=== PATIENT | male | born 1985 | race Two or more races ===

== ENCOUNTER 2020-05-28 14:30 | Inpatient (IN) | payer OTHER, SELFPAY ==
[2020-05-28] VITALS (9 sets, daily range): BP systolic 80–131; BP diastolic 34–77; PULSE 8–103; RESP 17–30; TEMP 33.9–36; O2SAT 95–100; BMI 28.0
--- NOTE | ~2020-05-28 | XR_ITS ---
EXAMINATION: XR ABDOMEN KUB CLINICAL INDICATION: Abdominal distention COMPARISON: CT abdomen pelvis 05/28/2020 TECHNIQUE: AP view of the abdomen. FINDINGS: Enteric tube is looped in the stomach. A jugular line reaches the right atrium. Patchy atelectasis at the left lung base. Moderate stool is seen in the right colon with gaseous distention of the transverse colon, descending colon and sigmoid colon. Mild dilatation of distal small bowel loops is seen up to 4.2 cm. XR/XR KUB IMPRESSION: Findings suggestive of ileus. A partial small bowel obstruction would not be excluded on the basis of this study. Moderate stool is seen in the right colon.
--- NOTE | ~2020-05-28 | CT_ITS ---
EXAMINATION: CT ABDOMEN AND PELVIS WITHOUT CONTRAST CLINICAL INFORMATION: Elevated lipase. COMPARISON: None TECHNIQUE: Multidetector volumetric imaging was performed from the superior aspect of the liver through the pubic symphysis. Sagittal and coronal reformatted images were obtained on the technologist's workstation. This CT examination was performed using dose optimization techniques as appropriate, variously including the following: *Automated exposure control *Adjustment of mA and/or kV according to patient size (this includes techniques or standardized protocols for targeted exams where dose is matched to indication/reason for exam; i.e. extremities or head) *Use of iterative reconstruction technique DLP: 4.87+4.87+836.73 mGy-cm FINDINGS: There is breathing motion. There is artifact from imaging with the arms at the side. LUNG BASES: The visualized lung bases are unremarkable. LIVER, GALLBLADDER, AND BILIARY TREE: There is diffuse low attenuation of liver parenchyma. No focal liver lesion or intrahepatic bile duct dilatation. There are a couple of low attenuating and partially calcified gallstones in the gallbladder. No edema around the gallbladder or acute change of gallbladder wall. The fluid in the gallbladder is dense consistent with vicarious excretion of contrast. There is no bile duct dilatation. PANCREAS: Unremarkable. SPLEEN: Unremarkable. ADRENAL GLANDS: Unremarkable. KIDNEYS AND URETERS: The kidneys are normal in size, shape, and attenuation. No hydronephrosis, hydroureter, or calculi seen. No perinephric stranding. BLADDER: Unremarkable. GASTROINTESTINAL TRACT: There is no acute abnormality of the bowel. There is no bowel wall thickening /edema. There is no bowel obstruction. There is a moderate volume of stool in the colon. The appendix is nonvisualized . There is no inflammatory changes of the mesentery. The small bowel loops are unremarkable. The stomach is normal. There is no hiatal hernia. ABDOMINAL WALL: No significant hernia is appreciated. LYMPH NODES: Normal. VASCULAR: Unremarkable. PELVIC VISCERA: Unremarkable. OSSEOUS STRUCTURES: Unremarkable. CT/CT abdomen pelvis wo con IMPRESSION: No acute abnormality CT scan abdomen pelvis. The pancreas is unremarkable. There is diffuse fatty change of liver. There are gallstones in the gallbladder but no acute change of gallbladder wall.
--- NOTE | ~2020-05-28 | XR_ITS ---
EXAMINATION: XR CHEST CLINICAL INFORMATION: ET tube COMPARISON: Chest radiograph earlier today TECHNIQUE: Frontal view of the chest was obtained. FINDINGS: Since the prior study, an ET tube has been placed with its tip 4.5 cm above the ruddy. An NG tube is present with its tip coiled in the gastric fundus. A right IJ line has been placed with its tip in the right atrium. Lung volumes are decreased and bibasilar atelectasis is present. No pneumothorax is seen. XR/XR chest 1V IMPRESSION: All tubes and catheters in good position.
--- NOTE | ~2020-05-28 | XR_ITS ---
EXAMINATION: XR CHEST CLINICAL INFORMATION: Hypoxemia. COMPARISON: 05/31/2020 TECHNIQUE: Frontal view of the chest was obtained. FINDINGS: Right internal jugular central venous catheter terminates near the cavoatrial junction. Cardiac leads overlie the chest. Lung volumes are low. Retrocardiac opacity present. Small left pleural effusion. Perihilar opacities. No pneumothorax. The cardiomediastinal silhouette is within normal limits. XR/XR chest 1V IMPRESSION: Similar appearance of small left pleural effusion with retrocardiac opacity. Perihilar opacities. This appearance suggests mild edema.
--- NOTE | ~2020-05-28 | NM_ITS ---
EXAMINATION: TX PULMONARY PERFUSION STUDY CLINICAL INFORMATION: Elevated d-dimer with hypoxia. Assess for pulmonary embolus. COMPARISON: Chest x-ray 05/31/2020. TECHNIQUE: Following the intravenous administration of 4 mCi Tc-99m MAA, an 8 view perfusion study was performed. FINDINGS: No segmental perfusion defects are present. There is mild decreased activity noted at the left base posteriorly, likely corresponding to the pleural effusion seen on the chest x-ray. Elsewhere there is homogeneous distribution of activity bilaterally. There are no focal anatomic appearing perfusion defects present. TX/TX pul perfusion IMPRESSION: 1. No segmental or subsegmental defects are noted on perfusion imaging. Mild decreased activity at the left base likely corresponds to the patient's left pleural effusion.
--- NOTE | ~2020-05-28 | XR_ITS ---
EXAMINATION: XR CHEST CLINICAL INFORMATION: Orogastric tube placement COMPARISON: KUB earlier today and chest radiograph 05/28/2020 TECHNIQUE: Frontal view of the chest was obtained. FINDINGS: Since the prior study, a NG tube tube has been replaced with its tip in the antrum. A right IJ catheter remains in place with its tip in the right atria. ET tube is 4 cm above the ruddy. The heart size is normal. The lungs are hypoventilated. There is obscuration of the left hemidiaphragm consistent with atelectasis/infiltrate. XR/XR chest 1V IMPRESSION: Orogastric tube in gastric antrum. Left lower lobe infiltrate/atelectasis.
--- NOTE | ~2020-05-28 | XR_ITS ---
EXAMINATION: XR CHEST CLINICAL INFORMATION: AMS. COMPARISON: None TECHNIQUE: Frontal view of the chest was obtained. FINDINGS: No significant abnormality is noted involving the heart, lungs, mediastinum, bony thorax or soft tissues. XR/XR chest 1V IMPRESSION: No acute cardiopulmonary process.
--- NOTE | ~2020-05-28 | XR_ITS ---
EXAMINATION: XR ABDOMEN KUB CLINICAL INDICATION: Check OG tube placement COMPARISON: Previous KUB from yesterday TECHNIQUE: AP view of the abdomen. FINDINGS: There is an orogastric tube in the proximal stomach. There are slightly dilated loops of small bowel in the right lower quadrant with fecalization again questionable for ileus/stasis versus a partial obstruction. There is air throughout the colon and some stool in the colon. There is no evidence of free air. No calcifications are seen. Bony structures are unremarkable. There is left lower lobe atelectasis/consolidation. XR/XR KUB IMPRESSION: OG tube projects over the proximal stomach. Slightly distended loops of small bowel in the right lower quadrant with equalization questionable for ileus/stasis versus partial obstruction. Atelectasis/consolidation at the left lung base.
--- NOTE | ~2020-05-28 | US_ITS ---
EXAMINATION: US VENOUS ULTRASOUND WITH DOPPLER LOWER EXTREMITY, BILATERAL CLINICAL INFORMATION: Elevated d-dimer. Covid. Edema. COMPARISON: None TECHNIQUE: Ultrasound of the deep veins is performed from the hip to the calf with compression sonography and color and pulse Doppler assessment. Spectral analysis with color-flow imaging is performed. FINDINGS: RIGHT: There is normal venous compression and respiratory variation and augmented flow. The visualized common femoral vein, superficial femoral vein, profunda femoral vein, popliteal vein, and the trifurcation region shows no evidence of deep venous thrombosis. There is no significant popliteal fossa cyst. LEFT: There is normal venous compression and respiratory variation and augmented flow. The visualized common femoral vein, superficial femoral vein, profunda femoral vein, popliteal vein, and the trifurcation region shows no evidence of deep venous thrombosis. There is no significant popliteal fossa cyst. If the patient's symptoms persist, followup ultrasound in 5 days 7 days might be of value to exclude proximal propagation from a non-visualized calf vein. US/US venous duplex LE BI IMPRESSION: No DVT demonstrated in the bilateral lower extremities.
--- NOTE | ~2020-05-28 | CT_ITS ---
EXAMINATION: CT HEAD WITHOUT CONTRAST CLINICAL INFORMATION: Altered mental status COMPARISON: None TECHNIQUE: Contiguous axial imaging was performed from the skull base to vertex without intravenous administration of contrast. Coronal and sagittal reformatted images are performed at CT scanner This CT examination was performed using dose optimization techniques as appropriate, variously including the following: *Automated exposure control *Adjustment of mA and/or kV according to patient size (this includes techniques or standardized protocols for targeted exams where dose is matched to indication/reason for exam; i.e. extremities or head) *Use of iterative reconstruction technique DLP: 5.12+768.4 mGy-cm FINDINGS: There is no evidence of acute intracranial hemorrhage or territorial infarction. No abnormal mass effect or midline shift is seen. Garcia to white matter differentiation is well preserved. No extra-axial fluid collections are identified. The ventricles are normal in size. There is no abnormal attenuation within the brain parenchyma. The osseous structures and soft tissues are normal. The mastoid air cells and visualized portions of the paranasal sinuses are well aerated. Small subcutaneous ossified nodule at the vertex of the scalp. CT/CT head/brain wo con IMPRESSION: No acute intracranial pathology.
--- NOTE | 2020-05-28 14:30 | PC.NURSE ---
pt to ct scan
--- NOTE | 2020-05-28 14:33 | ECG_ITS ---
Test Reason : HYPERGLYCEMIA Blood Pressure : / mmHG Vent. Rate : 087 BPM Atrial Rate : 087 BPM P-R Int : 150 ms QRS Dur : 098 ms QT Int : 466 ms P-R-T Axes : 036 072 030 degrees QTc Int : 560 ms Normal sinus rhythm T-waves in anterior leads appear hyperacute- repeat ECG and clinically correlate Prolonged QT Abnormal ECG No previous ECGs available Referred By: Parul Hsieh Electronically Signed By:Juan A Gupta
--- NOTE | 2020-05-28 14:35 | ED.AMS ---
HPI - Altered Mental Status General Chief Complaint: Abdominal Pain Stated Complaint: STROKE ALERT,AMS,SLURRED/INCOH SPEECH,UNK LKWT Time Seen by Provider: 05/28/20 14:32 Source: patient and EMS Mode of arrival: EMS Limitations: altered mental status History of Present Illness HPI narrative: 34 yo male no PMH here with weakness, HI on glucometer, has not been well for 2 days - increased thirst, polyuria, found unresponsive at home - EMS tried narcan with no relief, patient denies trauma, no prior hx of DM MD complaint: decreased responsiveness and weakness Onset (ago): day(s) (2) Timing confirmed by: family member Severity: severe Consistency of symptoms: getting Worse Context: other (increased thirst and urinations) Associated symptoms: chills, loss of appetite, malaise, nausea/vomiting, shortness of breath, weakness and difficulty walking Treatments prior to arrival: IV fluid Related Data Home Medications Medication Instructions Recorded Confirmed No Known Home Meds 05/28/20 05/28/20 Allergies Allergy/AdvReac Type Severity Reaction Status Date / Time No Known Allergies Allergy Unverified 12/26/19 15:47 Review of Systems Review of Systems: Constitutional : pos Weight loss, No Fever, pos Chills, pos Fatigue, pos Malaise ENT/Mouth : No sore throat, No Rhinorrhea Eyes: No Eye Pain, No Swelling, No Redness Cardiovascular : No Chest Pain, No SOB, No Dyspnea on Exertion, No Orthopnea, No Edema, No Palpitations Respiratory : No Cough, No Sputum, No Wheezing Gastrointestinal : pos Nausea, pos Vomiting, No Diarrhea, No Constipation, pos abdominal Pain, No Hematochezia, No Melena Genitourinary : No Dysuria, pos Urinary Frequency, No Hematuria, Musculoskeletal : No joint pain, No Myalgias, No Joint Swelling Skin : No Skin Lesions, No rash Neuro : pos Weakness, No Numbness, No Dizziness, No Headache Psych : No Anxiety/Panic, No Depression Heme/Lymph: No Bruising, No Bleeding,No Lymphadenopathy Endocrine : pos Polyuria, pos Polydipsia All other systems reviewed and are negative [facility] Past Medical History Attestation statement: The following information was validated with the patient. Medical History (Updated 05/28/20 @ 16:41 by Parul Hsieh DO) No active medical problems Social History Social History (Updated 05/28/20 @ 14:46 by Parul Hsieh DO) Smoking Status: Never smoker Use of substances other than those prescribed or required for medical reasons: No Advance Directives: No Advance Directives Information Provided: No Physical Exam Vital Signs: Vital Signs: Last Vital Signs Pulse 88 05/28/20 14:33 Resp 28 H 05/28/20 14:33 BP 131/67 05/28/20 14:33 Pulse Ox 100 05/28/20 14:33 Body Mass Index 28.0 Appearance: Alert. Oriented X2. Anxious, moderate acute distress. Eyes: Pupils equal, round and reactive to light. ENT: Pharynx severely dry MMM. no signs of trauma, birthmark on R forehead Neck: Normal inspection. Neck supple. CVS: Normal heart rate and rhythm. Pulses normal. Respiratory: No respiratory distress + Kussmauls breathing. Breath sounds normal. Abdomen: Soft and diffuse ttp Skin: Skin warm and dry. pale skin color. poor skin turgor. Extremities: No lower extremity edema. No calf ttp Neuro: Oriented X 2. No motor deficit. No sensory deficit. Course Course Course Narrative: ICU aware planned admit 308pm discussed with mother - mother aware lactic acidosis, liver function, leukocytosis increased RR due to DKA and not infection or severe sepsis Dr. Thakur has seen the patient, [place] to assume care at this time pending full workup Dr. Alcantar aware will come see patient in ED will empirically give one dose of antibiotics given possibility of intra abdominal infection of GB - likely gallstone pancreatitis possibly per Ortiz. MDM - Altered Mental Status MDM Narrative Medical decision making narrative: 34 yo male with weakness worsening over past two days - describes polyuria and polydipsia - bs reads HI on glucometer given presentation concern for new onset DM with DKA - 3L of IVF ordered, IV insulin bolus along with insulin gtt - labs, CT head given he was found down on ground, planned admit. Lab Data Result diagrams: 05/28/20 14:52 05/28/20 14:52 Labs: Lab Results 05/28/20 05/28/20 05/28/20 Range/Units 14:38 14:40 14:52 WBC 25.8 H (4.8-10.8) X10*3/uL RBC 6.18 H (4.60-5.80) X10*6/uL Hgb 17.5 (14.0-18.0) g/dl Hct 55.4 H (42-52) % MCV 89.6 (80-98) fL MCH 28.3 (27.0-33.0) pg MCHC 31.6 (31.0-36.0) g/dl RDW 14.6 (11.0-16.0) % Plt Count 435 H (160-400) X10*3/uL MPV 12.2 (9.4-12.4) fL Immature Gran % (Auto) 1.4 H (0.0-0.4) % Neut % (Auto) 84.9 H (45-73) % Lymph % (Auto) 4.1 L (20-40) % [place] % (Auto) 9.3 (2-11) % Eos % (Auto) 0.0 (0-4) % Baso % (Auto) 0.3 (0-2) % Lymph # (Auto) 1.1 L (1.2-4.9) X10*3/uL [place] # (Auto) 2.4 H (0.1-1.2) X10*3/uL Eos # (Auto) 0.0 (0.0-0.4) X10*3/uL Baso # (Auto) 0.1 (0.0-0.2) X10*3/uL Abs Immat Gran (auto) 0.37 H (0.00-0.03) X10*3/uL Absolute Neuts (auto) 21.9 H (2.0-8.3) X10*3/uL Absolute Nucleated RBC 0.000 (0.0-0.012) X10*3/uL Nucleated RBC % (auto) 0.0 (0.0-0.2) /100WBC Smear Tech's Comments VERIFIED PT (10.8-13.0) SEC INR (0.9-1.1) APTT (24.1-38.0) SEC VBG pH (7.32-7.43) VBG pCO2 mmHg VBG pO2 mmHg VBG HCO3 mmol/L VBG O2 Saturation % VBG Base Excess mmol/L Carboxyhemoglobin % Sodium (135-145) mmol/L Potassium (3.3-5.1) mmol/L Chloride (96-108) mmol/L Carbon Dioxide (22-29) mmol/L Anion Gap (12-20) BUN (9-16) mg/dL Creatinine (0.5-1.4) mg/dL Estim Creat Clear Calc Estimated GFR POC Glucose > 600 H* > 600 H* (60-115) mg/dL Random Glucose (60-115) mg/dL Estimat Average Glucose mg/dL Hemoglobin A1c % % Lactic Acid (0.5-2.0) mmol/L Calcium (8.4-10.2) mg/dL Magnesium (1.6-2.6) mg/dL Total Bilirubin (0.0-1.0) mg/dL Direct Bilirubin (0.0-0.5) mg/dL AST (5-37) U/L ALT (0-40) U/L Alkaline Phosphatase (39-117) U/L Ammonia (13-55) umol/L Total Creatine Kinase (38-174) U/L Troponin I High Sens (<3.5-35.0) ng/L Total Protein (6.5-8.0) g/dL Albumin (3.5-5.0) g/dL Triglycerides mg/dL Lipase (8-78) U/L Salicylates (15-30) mg/dL Acetaminophen (<30) mcg/mL Ethyl Alcohol mg/dL Acetone, Qual (Negative) COVID-19 (ARACELI) (Negative) COVID-19 Clin Com 05/28/20 05/28/20 05/28/20 Range/Units 14:52 14:52 14:52 WBC (4.8-10.8) X10*3/uL RBC (4.60-5.80) X10*6/uL Hgb (14.0-18.0) g/dl Hct (42-52) % MCV (80-98) fL MCH (27.0-33.0) pg MCHC (31.0-36.0) g/dl RDW (11.0-16.0) % Plt Count (160-400) X10*3/uL MPV (9.4-12.4) fL Immature Gran % (Auto) (0.0-0.4) % Neut % (Auto) (45-73) % Lymph % (Auto) (20-40) % [place] % (Auto) (2-11) % Eos % (Auto) (0-4) % Baso % (Auto) (0-2) % Lymph # (Auto) (1.2-4.9) X10*3/uL [place] # (Auto) (0.1-1.2) X10*3/uL Eos # (Auto) (0.0-0.4) X10*3/uL Baso # (Auto) (0.0-0.2) X10*3/uL Abs Immat Gran (auto) (0.00-0.03) X10*3/uL Absolute Neuts (auto) (2.0-8.3) X10*3/uL Absolute Nucleated RBC (0.0-0.012) X10*3/uL Nucleated RBC % (auto) (0.0-0.2) /100WBC Smear Tech's Comments PT (10.8-13.0) SEC INR (0.9-1.1) APTT (24.1-38.0) SEC VBG pH (7.32-7.43) VBG pCO2 mmHg VBG pO2 mmHg VBG HCO3 mmol/L VBG O2 Saturation % VBG Base Excess mmol/L Carboxyhemoglobin % Sodium 122 L (135-145) mmol/L Potassium 4.9 (3.3-5.1) mmol/L Chloride 89 L (96-108) mmol/L Carbon Dioxide < 5 L* (22-29) mmol/L Anion Gap 33 H (12-20) BUN 48 H (9-16) mg/dL Creatinine 3.20 H (0.5-1.4) mg/dL Estim Creat Clear Calc 33.8 Estimated GFR 23 POC Glucose (60-115) mg/dL Random Glucose 1217 H* (60-115) mg/dL Estimat Average Glucose mg/dL Hemoglobin A1c % % Lactic Acid (0.5-2.0) mmol/L Calcium 9.8 (8.4-10.2) mg/dL Magnesium 3.6 H* (1.6-2.6) mg/dL Total Bilirubin 0.5 (0.0-1.0) mg/dL Direct Bilirubin 0.3 (0.0-0.5) mg/dL AST 32 (5-37) U/L ALT 83 H (0-40) U/L Alkaline Phosphatase 161 H (39-117) U/L Ammonia 70 H (13-55) umol/L Total Creatine Kinase 132 (38-174) U/L Troponin I High Sens (<3.5-35.0) ng/L Total Protein 7.9 (6.5-8.0) g/dL Albumin 4.8 (3.5-5.0) g/dL Triglycerides 810 mg/dL Lipase (8-78) U/L Salicylates (15-30) mg/dL Acetaminophen (<30) mcg/mL Ethyl Alcohol < 10 mg/dL Acetone, Qual Moderate H (Negative) COVID-19 (ARACELI) (Negative) COVID-19 Clin Com 05/28/20 05/28/20 05/28/20 Range/Units 14:52 14:52 14:52 WBC (4.8-10.8) X10*3/uL RBC (4.60-5.80) X10*6/uL Hgb (14.0-18.0) g/dl Hct (42-52) % MCV (80-98) fL MCH (27.0-33.0) pg MCHC (31.0-36.0) g/dl RDW (11.0-16.0) % Plt Count (160-400) X10*3/uL MPV (9.4-12.4) fL Immature Gran % (Auto) (0.0-0.4) % Neut % (Auto) (45-73) % Lymph % (Auto) (20-40) % [place] % (Auto) (2-11) % Eos % (Auto) (0-4) % Baso % (Auto) (0-2) % Lymph # (Auto) (1.2-4.9) X10*3/uL [place] # (Auto) (0.1-1.2) X10*3/uL Eos # (Auto) (0.0-0.4) X10*3/uL Baso # (Auto) (0.0-0.2) X10*3/uL Abs Immat Gran (auto) (0.00-0.03) X10*3/uL Absolute Neuts (auto) (2.0-8.3) X10*3/uL Absolute Nucleated RBC (0.0-0.012) X10*3/uL Nucleated RBC % (auto) (0.0-0.2) /100WBC Smear Tech's Comments PT 13.3 H (10.8-13.0) SEC INR 1.1 (0.9-1.1) APTT 26.1 (24.1-38.0) SEC VBG pH (7.32-7.43) VBG pCO2 mmHg VBG pO2 mmHg VBG HCO3 mmol/L VBG O2 Saturation % VBG Base Excess mmol/L Carboxyhemoglobin % Sodium (135-145) mmol/L Potassium (3.3-5.1) mmol/L Chloride (96-108) mmol/L Carbon Dioxide (22-29) mmol/L Anion Gap (12-20) BUN (9-16) mg/dL Creatinine (0.5-1.4) mg/dL Estim Creat Clear Calc Estimated GFR POC Glucose (60-115) mg/dL Random Glucose (60-115) mg/dL Estimat Average Glucose mg/dL Hemoglobin A1c % % Lactic Acid 3.4 H* (0.5-2.0) mmol/L Calcium (8.4-10.2) mg/dL Magnesium (1.6-2.6) mg/dL Total Bilirubin (0.0-1.0) mg/dL Direct Bilirubin (0.0-0.5) mg/dL AST (5-37) U/L ALT (0-40) U/L Alkaline Phosphatase (39-117) U/L Ammonia (13-55) umol/L Total Creatine Kinase (38-174) U/L Troponin I High Sens 4.6 (<3.5-35.0) ng/L Total Protein (6.5-8.0) g/dL Albumin (3.5-5.0) g/dL Triglycerides mg/dL Lipase (8-78) U/L Salicylates (15-30) mg/dL Acetaminophen (<30) mcg/mL Ethyl Alcohol mg/dL Acetone, Qual (Negative) COVID-19 (ARACELI) (Negative) COVID-19 Clin Com 05/28/20 05/28/20 05/28/20 Range/Units 14:52 14:52 14:52 WBC (4.8-10.8) X10*3/uL RBC (4.60-5.80) X10*6/uL Hgb (14.0-18.0) g/dl Hct (42-52) % MCV (80-98) fL MCH (27.0-33.0) pg MCHC (31.0-36.0) g/dl RDW (11.0-16.0) % Plt Count (160-400) X10*3/uL MPV (9.4-12.4) fL Immature Gran % (Auto) (0.0-0.4) % Neut % (Auto) (45-73) % Lymph % (Auto) (20-40) % [place] % (Auto) (2-11) % Eos % (Auto) (0-4) % Baso % (Auto) (0-2) % Lymph # (Auto) (1.2-4.9) X10*3/uL [place] # (Auto) (0.1-1.2) X10*3/uL Eos # (Auto) (0.0-0.4) X10*3/uL Baso # (Auto) (0.0-0.2) X10*3/uL Abs Immat Gran (auto) (0.00-0.03) X10*3/uL Absolute Neuts (auto) (2.0-8.3) X10*3/uL Absolute Nucleated RBC (0.0-0.012) X10*3/uL Nucleated RBC % (auto) (0.0-0.2) /100WBC Smear Tech's Comments PT (10.8-13.0) SEC INR (0.9-1.1) APTT (24.1-38.0) SEC VBG pH 6.73 L* (7.32-7.43) VBG pCO2 16 mmHg VBG pO2 69 mmHg VBG HCO3 2 mmol/L VBG O2 Saturation 88.0 % VBG Base Excess -33.1 mmol/L Carboxyhemoglobin 0.3 % Sodium (135-145) mmol/L Potassium (3.3-5.1) mmol/L Chloride (96-108) mmol/L Carbon Dioxide (22-29) mmol/L Anion Gap (12-20) BUN (9-16) mg/dL Creatinine (0.5-1.4) mg/dL Estim Creat Clear Calc Estimated GFR POC Glucose (60-115) mg/dL Random Glucose (60-115) mg/dL Estimat Average Glucose mg/dL Hemoglobin A1c % % Lactic Acid (0.5-2.0) mmol/L Calcium (8.4-10.2) mg/dL Magnesium (1.6-2.6) mg/dL Total Bilirubin (0.0-1.0) mg/dL Direct Bilirubin (0.0-0.5) mg/dL AST (5-37) U/L ALT (0-40) U/L Alkaline Phosphatase (39-117) U/L Ammonia (13-55) umol/L Total Creatine Kinase (38-174) U/L Troponin I High Sens (<3.5-35.0) ng/L Total Protein (6.5-8.0) g/dL Albumin (3.5-5.0) g/dL Triglycerides mg/dL Lipase 1889 H (8-78) U/L Salicylates < 5.0 L (15-30) mg/dL Acetaminophen < 1 (<30) mcg/mL Ethyl Alcohol mg/dL Acetone, Qual (Negative) COVID-19 (ARACELI) (Negative) COVID-19 Clin Com 05/28/20 05/28/20 Range/Units 14:52 15:10 WBC (4.8-10.8) X10*3/uL RBC (4.60-5.80) X10*6/uL Hgb (14.0-18.0) g/dl Hct (42-52) % MCV (80-98) fL MCH (27.0-33.0) pg MCHC (31.0-36.0) g/dl RDW (11.0-16.0) % Plt Count (160-400) X10*3/uL MPV (9.4-12.4) fL Immature Gran % (Auto) (0.0-0.4) % Neut % (Auto) (45-73) % Lymph % (Auto) (20-40) % [place] % (Auto) (2-11) % Eos % (Auto) (0-4) % Baso % (Auto) (0-2) % Lymph # (Auto) (1.2-4.9) X10*3/uL [place] # (Auto) (0.1-1.2) X10*3/uL Eos # (Auto) (0.0-0.4) X10*3/uL Baso # (Auto) (0.0-0.2) X10*3/uL Abs Immat Gran (auto) (0.00-0.03) X10*3/uL Absolute Neuts (auto) (2.0-8.3) X10*3/uL Absolute Nucleated RBC (0.0-0.012) X10*3/uL Nucleated RBC % (auto) (0.0-0.2) /100WBC Smear Tech's Comments PT (10.8-13.0) SEC INR (0.9-1.1) APTT (24.1-38.0) SEC VBG pH (7.32-7.43) VBG pCO2 mmHg VBG pO2 mmHg VBG HCO3 mmol/L VBG O2 Saturation % VBG Base Excess mmol/L Carboxyhemoglobin % Sodium (135-145) mmol/L Potassium (3.3-5.1) mmol/L Chloride (96-108) mmol/L Carbon Dioxide (22-29) mmol/L Anion Gap (12-20) BUN (9-16) mg/dL Creatinine (0.5-1.4) mg/dL Estim Creat Clear Calc Estimated GFR POC Glucose (60-115) mg/dL Random Glucose (60-115) mg/dL Estimat Average Glucose 341 mg/dL Hemoglobin A1c % 13.5 % Lactic Acid (0.5-2.0) mmol/L Calcium (8.4-10.2) mg/dL Magnesium (1.6-2.6) mg/dL Total Bilirubin (0.0-1.0) mg/dL Direct Bilirubin (0.0-0.5) mg/dL AST (5-37) U/L ALT (0-40) U/L Alkaline Phosphatase (39-117) U/L Ammonia (13-55) umol/L Total Creatine Kinase (38-174) U/L Troponin I High Sens (<3.5-35.0) ng/L Total Protein (6.5-8.0) g/dL Albumin (3.5-5.0) g/dL Triglycerides mg/dL Lipase (8-78) U/L Salicylates (15-30) mg/dL Acetaminophen (<30) mcg/mL Ethyl Alcohol mg/dL Acetone, Qual (Negative) COVID-19 (ARACELI) Positive A (Negative) COVID-19 Clin Com See Note ECG Data ECG #1: Attestation: I personally reviewed and interpreted this ECG as follows: ECG interpretation date: 05/28/20 ECG interpretation time: 15:22 Interpretation: Rate: 87 Rhythm: NSR [place]: normal Normal P waves. Normal VERITO. Normal QRS complex. ST T wave : normal, artifact noted, no ANCELMO qTC: prolonged prior studies: no acute ischemia The study has been interpreted contemporaneously by me. . Critical Care Time Critical Care Time Critical Care Time: Yes Total Critical Care Time: 90 Attestation: IVF x 3L, insulin gtt, medical consult Discharge Plan Discharge Clinical Impression: Acidosis, lactic, Elevated BUN, Serum lipase elevation, COVID-19 Diabetic ketoacidosis Qualifiers: Diabetes mellitus type: other specified (including JAIRO) Diabetes mellitus complication detail: with coma Qualified Code(s): E13.11 - Other specified diabetes mellitus with ketoacidosis with coma Acute renal failure Qualifiers: Acute renal failure type: unspecified Qualified Code(s): N17.9 - Acute kidney failure, unspecified Leukocytosis Qualifiers: Leukocytosis type: unspecified Qualified Code(s): D72.829 - Elevated white blood cell count, unspecified Patient Disposition: Admitted As Inpatient
[2020-05-28 15:02] LABS: Base Excess VBG -33.1 mmol/L; HCO3 VBG 2 mmol/L; PCO2 VBG 16 mmHg; PO2 VBG 69 mmHg
[2020-05-28] MEDS: 0.9 % Sodium Chloride 1,000 ML 999 ML IVCONT ×4 (15:02→16:46)
[2020-05-28 15:03] LABS: pH VBG 6.73 (7.32-7.43)
[2020-05-28] MEDS: ondansetron HCL 4 MG/2 ML VIAL IVPUSH (15:03)
[2020-05-28] MEDS: Insulin Regular, Human 100 UNIT/ML 3 ML VIAL 10 UNIT IVPUSH (15:03)
[2020-05-28 15:04] LABS: Carboxyhemoglobin 0.3 %
[2020-05-28 15:10] LABS: INTERNATIONAL NORM RATIO 1.1 (0.9-1.1); Prothrombin Time 13.3 SEC (10.8-13.0)
[2020-05-28 15:13] LABS: Partial Thromboplastin Time 26.1 SEC (24.1-38.0)
--- NOTE | 2020-05-28 15:15 | PC.NURSE ---
ivs inserted, labs drawn, pt medicated per order, poc reads high
[2020-05-28 15:22] LABS: Basophils Absolute Auto 0.1 X10*3/uL (0.0-0.2); Basophils Percent Auto 0.3 % (0-2); Hemoglobin 17.5 g/dl (14.0-18.0); Imm Gran Abs Auto 0.37 X10*3/uL (0.00-0.03); Imm Gran Pct Auto 1.4 % (0.0-0.4); Lymphocytes Absolute Auto 1.1 X10*3/uL (1.2-4.9); Lymphocytes Percent Auto 4.1 % (20-40); MANUAL DIFF FLAG SCAN; Mean Corpuscular HGB Conc 31.6 g/dl (31.0-36.0); Mean Corpuscular Hemoglobin 28.3 pg (27.0-33.0); Mean Corpuscular Volume 89.6 fL (80-98); Mean Platelet Volume 12.2 fL (9.4-12.4); Monocytes Absolute Auto 2.4 X10*3/uL (0.1-1.2); Monocytes Percent Auto 9.3 % (2-11); Neutrophils Absolute Auto 21.9 X10*3/uL (2.0-8.3); Neutrophils Percent Auto 84.9 % (45-73); Platelet Count 435 X10*3/uL (160-400); Red Blood Count 6.18 X10*6/uL (4.60-5.80); Red Cell Distribution Width 14.6 % (11.0-16.0); SCAN SMEAR FLAG 1; White Blood Count 25.8 X10*3/uL (4.8-10.8)
[2020-05-28 15:23] LABS: Hematocrit 55.4 % (42-52)
[2020-05-28 15:24] LABS: Glucose, Whole Blood > 600 mg/dL (60-115)
[2020-05-28 15:24] LABS: Glucose, Whole Blood > 600 mg/dL (60-115)
[2020-05-28 15:26] LABS: SLIDE REVIEW VERIFIED
[2020-05-28 15:31] LABS: Ethanol < 10 mg/dL
[2020-05-28 15:32] LABS: Ammonia 70 umol/L (13-55)
[2020-05-28 15:35] LABS: Lactic Acid 3.4 mmol/L (0.5-2.0)
[2020-05-28 15:36] LABS: Troponin-I High Sensitivity 4.6 ng/L (<3.5-35.0)
[2020-05-28 15:41] LABS: Acetaminophen LAB < 1 mcg/mL (<30); Salicylate < 5.0 mg/dL (15-30)
[2020-05-28 15:45] LABS: Estimated Average Glucose 341 mg/dL; Hemoglobin A1c % 13.5 %
[2020-05-28] MEDS: Insulin Regular/NS 100 UNIT/100 ML PLAST..BAG 8 UNIT IVCONT (15:45)
[2020-05-28 15:56] LABS: Lipase 1889 U/L (8-78)
[2020-05-28 15:59] LABS: Alanine Aminotransferase 83 U/L (0-40); Albumin Level 4.8 g/dL (3.5-5.0); Alkaline Phosphatase 161 U/L (39-117); Anion Gap 33 (12-20); Aspartate Amino Transferase 32 U/L (5-37); Bilirubin Direct 0.3 mg/dL (0.0-0.5); Bilirubin Total 0.5 mg/dL (0.0-1.0); Blood Urea Nitrogen 48 mg/dL (9-16); Calcium 9.8 mg/dL (8.4-10.2); Carbon Dioxide < 5 mmol/L (22-29); Chloride 89 mmol/L (96-108); Creatinine Clr Calc Pharmacy 33.8; Estimated Glomerular Filt Rate 23; Glucose Random 1217 mg/dL (60-115); Magnesium 3.6 mg/dL (1.6-2.6); Potassium 4.9 mmol/L (3.3-5.1); Sodium 122 mmol/L (135-145); Total Protein 7.9 g/dL (6.5-8.0)
[2020-05-28 16:10] LABS: Acetone, serum QL Moderate (Negative)
[2020-05-28 16:19] LABS: Triglycerides 810 mg/dL
[2020-05-28 16:23] LABS: Glucose, Whole Blood > 600 mg/dL (60-115)
[2020-05-28 16:23] LABS: Glucose, Whole Blood > 600 mg/dL (60-115)
[2020-05-28 16:30] LABS: COVID-19 Test Positive (Negative)
[2020-05-28] MEDS: Lactated Ringers 1,000 ML 200 ML IVCONT ×2 (16:57→21:40)
--- NOTE | 2020-05-28 17:11 | PM.CNGS ---
History of Present Illness Consult details Consult date: 05/28/20 Narrative: 34M here in the ED for altered mental status. He is very lethargic and therefore does not provide any history. According to the notes from the ED staff, he has been feeling unwell for about 2 days now. He was found at home unresponsive and was therefore brought to the ED via ambulance. He had lactic acidosis, with very high blood glucose and and HgA1C of 13 c/w an undiagnosed uncontrolled diabetes. His lipase was elevated so a CT scan was done. This shows some edema of the pancreas woth mild stranding around this. His GB was distended, but not obvious wall thickening or pericholecystic inflammatory changes are seen. He is able to answer very simple questions at this time, abd denies abdominal pain. Not much of the rest of his history is available at this time. He also tested positive for COVID. He does not have respiratory symptoms. Review of Systems Review of Systems: Yes Unobtainable due to mental status PMFSH Past Medical History Medical History No active medical problems Social History Social History Household Members: Family Unable to assess alcohol history related to: Unable to respond and Unknown Smoking Status: Never smoker Use of substances other than those prescribed or required for medical reasons: Unable to respond Advance Directives: No Advance Directives Information Provided: No Recently lost weight without trying: Unsure Meds Allergies Allergy/AdvReac Type Severity Reaction Status Date / Time No Known Allergies Allergy Unverified 12/26/19 15:47 Active Medications: Current Medications Generic Name Dose Route Start Last Admin Trade Name Hermanq PRN Reason Stop Dose Admin Heparin Sodium (Porcine) 5,000 unit 05/28/20 16:00 Heparin Sodium,Porcine 5,000 Unit/Ml Vial SUBCUT Q8H SATISH Insulin Human Regular 100 unit in 100 mls @ 8 mls/hr 05/28/20 14:45 05/28/20 15:45 Myxredlin IVCONT 8 mls/hr .[id number] SATISH 8 mls/hr Administration Protocol Lactated Ringer's 1,000 mls @ 200 mls/hr 05/28/20 15:15 05/28/20 16:57 Lr IVCONT 200 mls/hr .Q5H SATISH Administration Sodium Chloride 1,000 mls @ 999 mls/hr 05/28/20 16:45 05/28/20 16:46 Ns IVCONT 05/28/20 17:45 999 mls/hr .Q1H1M SATISH Administration Ondansetron HCl 4 mg 05/28/20 15:10 Ondansetron Hcl 4 Mg/2 Ml Vial IVPUSH Q8H PRN Nausea Pharmacy Consult 1 each 05/28/20 14:33 Consult Rx Perform Med Rec MISCELLANE ONCE PRN Consult order Home Medications Medication Instructions Recorded Confirmed Last Taken Type No Known Home Meds 05/28/20 05/28/20 Unknown History Physical Exam Vital Signs: Vital Signs: Last Vital Signs Pulse 8 L 05/28/20 16:51 Resp 28 H 05/28/20 14:33 BP 117/48 L 05/28/20 16:51 Pulse Ox 100 05/28/20 14:33 Body Mass Index 28.0 Laboratory Results WBC 25.8 X10*3/uL (4. 8-10.8) H 05/28/20 14:52 RBC 6.18 X10*6/uL (4. 60-5.80) H 05/28/20 14:52 Hgb 17.5 g/dl (14.0-1 8.0) 05/28/20 14:52 Hct 55.4 % (42-52) H 05/28/20 14:52 MCV 89.6 fL (80-98) 05/28/20 14:52 MCH 28.3 pg (27.0-33. 0) 05/28/20 14:52 MCHC 31.6 g/dl (31.0-3 6.0) 05/28/20 14:52 RDW 14.6 % (11.0-16.0 ) 05/28/20 14:52 Plt Count 435 X10*3/uL (160 -400) H 05/28/20 14:52 MPV 12.2 fL (9.4-12.4 ) 05/28/20 14:52 Immature Gran % (A uto) 1.4 % (0.0-0.4) H 05/28/20 14:52 Neut % (Auto) 84.9 % (45-73) H 05/28/20 14:52 Lymph % (Auto) 4.1 % (20-40) L 05/28/20 14:52 [place] % (Auto) 9.3 % (2-11) 05/28/20 14:52 Eos % (Auto) 0.0 % (0-4) 05/28/20 14:52 Baso % (Auto) 0.3 % (0-2) 05/28/20 14:52 Lymph # (Auto) 1.1 X10*3/uL (1.2 -4.9) L 05/28/20 14:52 [place] # (Auto) 2.4 X10*3/uL (0.1 -1.2) H 05/28/20 14:52 Eos # (Auto) 0.0 X10*3/uL (0.0 -0.4) 05/28/20 14:52 Baso # (Auto) 0.1 X10*3/uL (0.0 -0.2) 05/28/20 14:52 Abs Immat Gran (au to) 0.37 X10*3/uL (0. 00-0.03) H 05/28/20 14:52 Absolute Neuts (au to) 21.9 X10*3/uL (2. 0-8.3) H 05/28/20 14:52 Absolute Nucleated RBC 0.000 X10*3/uL (0 .0-0.012) 05/28/20 14:52 Nucleated RBC % (a uto) 0.0 /100WBC (0.0- 0.2) 05/28/20 14:52 Smear Tech's Comme nts VERIFIED 05/28/20 14:52 PT 13.3 SEC (10.8-13 .0) H 05/28/20 14:52 INR 1.1 (0.9-1.1) 05/28/20 14:52 APTT 26.1 SEC (24.1-38 .0) 05/28/20 14:52 VBG pH 6.73 (7.32-7.43) L* 05/28/20 14:52 VBG pCO2 16 mmHg 05/28/20 14:52 VBG pO2 69 mmHg 05/28/20 14:52 VBG HCO3 2 mmol/L 05/28/20 14:52 VBG O2 Saturation 88.0 % 05/28/20 14:52 VBG Base Excess -33.1 mmol/L 05/28/20 14:52 Carboxyhemoglobin 0.3 % 05/28/20 14:52 Sodium 122 mmol/L (135-1 45) L 05/28/20 14:52 Potassium 4.9 mmol/L (3.3-5 .1) 05/28/20 14:52 Chloride 89 mmol/L (96-108 ) L 05/28/20 14:52 Carbon Dioxide < 5 mmol/L (22-29 ) L* 05/28/20 14:52 Anion Gap 33 (12-20) H 05/28/20 14:52 BUN 48 mg/dL (9-16) H 05/28/20 14:52 Creatinine 3.20 mg/dL (0.5-1 .4) H 05/28/20 14:52 Estim Creat Clear Calc 33.8 05/28/20 14:52 Estimated GFR 23 05/28/20 14:52 POC Glucose > 600 mg/dL (60-1 15) H* 05/28/20 16:09 Random Glucose 1217 mg/dL (60-11 5) H* 05/28/20 14:52 Estimat Average Gl ucose 341 mg/dL 05/28/20 14:52 Hemoglobin A1c % 13.5 % 05/28/20 14:52 Lactic Acid 3.4 mmol/L (0.5-2 .0) H* 05/28/20 14:52 Calcium 9.8 mg/dL (8.4-10 .2) 05/28/20 14:52 Magnesium 3.6 mg/dL (1.6-2. 6) H* 05/28/20 14:52 Total Bilirubin 0.5 mg/dL (0.0-1. 0) 05/28/20 14:52 Direct Bilirubin 0.3 mg/dL (0.0-0. 5) 05/28/20 14:52 AST 32 U/L (5-37) 05/28/20 14:52 ALT 83 U/L (0-40) H 05/28/20 14:52 Alkaline Phosphata se 161 U/L (39-117) H 05/28/20 14:52 Ammonia 70 umol/L (13-55) H 05/28/20 14:52 Total Creatine Kin ase 132 U/L (38-174) 05/28/20 14:52 Troponin I High Se ns 4.6 ng/L (<3.5-35 .0) 05/28/20 14:52 Total Protein 7.9 g/dL (6.5-8.0 ) 05/28/20 14:52 Albumin 4.8 g/dL (3.5-5.0 ) 05/28/20 14:52 Triglycerides 810 mg/dL 05/28/20 14:52 Lipase 1889 U/L (8-78) H 05/28/20 14:52 Salicylates < 5.0 mg/dL (15-3 0) L 05/28/20 14:52 Acetaminophen < 1 mcg/mL (<30) 05/28/20 14:52 Ethyl Alcohol < 10 mg/dL 05/28/20 14:52 Acetone, Qual Moderate (Negati ve) H 05/28/20 14:52 COVID-19 (ARACELI) Positive (Negati ve) A 05/28/20 15:10 COVID-19 Clin Com See Note 05/28/20 15:[address] 05/28/20 14:33 IMPRESSION: No acute intracranial pathology. Chest X-Ray 05/28/20 14:34 IMPRESSION: No acute cardiopulmonary process. Const: Other: very lethargic, only nods or shakes head to questions, Resp: Other: has some shortness of breath Cardio: Rhythm: regular rhythm GI: Inspection: No distended Palpation (GI): Soft to palpation, not firm, nontender and no guarding Extrem: General: No no pedal edema Results Labs Result diagrams: 05/29/20 05:10 05/29/20 05:10 Labs: Abnormal lab results 05/28/20 05/28/20 05/28/20 Range/Units 14:38 14:40 14:52 WBC 25.8 H (4.8-10.8) X10*3/uL RBC 6.18 H (4.60-5.80) X10*6/uL Hct 55.4 H (42-52) % Plt Count 435 H (160-400) X10*3/uL Immature Gran % (Auto) 1.4 H (0.0-0.4) % Neut % (Auto) 84.9 H (45-73) % Lymph % (Auto) 4.1 L (20-40) % Lymph # (Auto) 1.1 L (1.2-4.9) X10*3/uL [place] # (Auto) 2.4 H (0.1-1.2) X10*3/uL Abs Immat Gran (auto) 0.37 H (0.00-0.03) X10*3/uL Absolute Neuts (auto) 21.9 H (2.0-8.3) X10*3/uL PT (10.8-13.0) SEC VBG pH (7.32-7.43) Sodium (135-145) mmol/L Chloride (96-108) mmol/L Carbon Dioxide (22-29) mmol/L Anion Gap (12-20) BUN (9-16) mg/dL Creatinine (0.5-1.4) mg/dL POC Glucose > 600 H* > 600 H* (60-115) mg/dL Random Glucose (60-115) mg/dL Lactic Acid (0.5-2.0) mmol/L Magnesium (1.6-2.6) mg/dL ALT (0-40) U/L Alkaline Phosphatase (39-117) U/L Ammonia (13-55) umol/L Lipase (8-78) U/L Salicylates (15-30) mg/dL Acetone, Qual (Negative) COVID-19 (ARACELI) (Negative) 05/28/20 05/28/20 05/28/20 Range/Units 14:52 14:52 14:52 WBC (4.8-10.8) X10*3/uL RBC (4.60-5.80) X10*6/uL Hct (42-52) % Plt Count (160-400) X10*3/uL Immature Gran % (Auto) (0.0-0.4) % Neut % (Auto) (45-73) % Lymph % (Auto) (20-40) % Lymph # (Auto) (1.2-4.9) X10*3/uL [place] # (Auto) (0.1-1.2) X10*3/uL Abs Immat Gran (auto) (0.00-0.03) X10*3/uL Absolute Neuts (auto) (2.0-8.3) X10*3/uL PT 13.3 H (10.8-13.0) SEC VBG pH (7.32-7.43) Sodium 122 L (135-145) mmol/L Chloride 89 L (96-108) mmol/L Carbon Dioxide < 5 L* (22-29) mmol/L Anion Gap 33 H (12-20) BUN 48 H (9-16) mg/dL Creatinine 3.20 H (0.5-1.4) mg/dL POC Glucose (60-115) mg/dL Random Glucose 1217 H* (60-115) mg/dL Lactic Acid (0.5-2.0) mmol/L Magnesium 3.6 H* (1.6-2.6) mg/dL ALT 83 H (0-40) U/L Alkaline Phosphatase 161 H (39-117) U/L Ammonia 70 H (13-55) umol/L Lipase (8-78) U/L Salicylates (15-30) mg/dL Acetone, Qual Moderate H (Negative) COVID-19 (ARACELI) (Negative) 05/28/20 05/28/20 05/28/20 Range/Units 14:52 14:52 14:52 WBC (4.8-10.8) X10*3/uL RBC (4.60-5.80) X10*6/uL Hct (42-52) % Plt Count (160-400) X10*3/uL Immature Gran % (Auto) (0.0-0.4) % Neut % (Auto) (45-73) % Lymph % (Auto) (20-40) % Lymph # (Auto) (1.2-4.9) X10*3/uL [place] # (Auto) (0.1-1.2) X10*3/uL Abs Immat Gran (auto) (0.00-0.03) X10*3/uL Absolute Neuts (auto) (2.0-8.3) X10*3/uL PT (10.8-13.0) SEC VBG pH 6.73 L* (7.32-7.43) Sodium (135-145) mmol/L Chloride (96-108) mmol/L Carbon Dioxide (22-29) mmol/L Anion Gap (12-20) BUN (9-16) mg/dL Creatinine (0.5-1.4) mg/dL POC Glucose (60-115) mg/dL Random Glucose (60-115) mg/dL Lactic Acid 3.4 H* (0.5-2.0) mmol/L Magnesium (1.6-2.6) mg/dL ALT (0-40) U/L Alkaline Phosphatase (39-117) U/L Ammonia (13-55) umol/L Lipase 1889 H (8-78) U/L Salicylates < 5.0 L (15-30) mg/dL Acetone, Qual (Negative) COVID-19 (ARACELI) (Negative) 05/28/20 05/28/20 05/28/20 Range/Units 15:10 16:07 16:09 WBC (4.8-10.8) X10*3/uL RBC (4.60-5.80) X10*6/uL Hct (42-52) % Plt Count (160-400) X10*3/uL Immature Gran % (Auto) (0.0-0.4) % Neut % (Auto) (45-73) % Lymph % (Auto) (20-40) % Lymph # (Auto) (1.2-4.9) X10*3/uL [place] # (Auto) (0.1-1.2) X10*3/uL Abs Immat Gran (auto) (0.00-0.03) X10*3/uL Absolute Neuts (auto) (2.0-8.3) X10*3/uL PT (10.8-13.0) SEC VBG pH (7.32-7.43) Sodium (135-145) mmol/L Chloride (96-108) mmol/L Carbon Dioxide (22-29) mmol/L Anion Gap (12-20) BUN (9-16) mg/dL Creatinine (0.5-1.4) mg/dL POC Glucose > 600 H* > 600 H* (60-115) mg/dL Random Glucose (60-115) mg/dL Lactic Acid (0.5-2.0) mmol/L Magnesium (1.6-2.6) mg/dL ALT (0-40) U/L Alkaline Phosphatase (39-117) U/L Ammonia (13-55) umol/L Lipase (8-78) U/L Salicylates (15-30) mg/dL Acetone, Qual (Negative) COVID-19 (ARACELI) Positive A (Negative) Short CBC 05/28/20 Range/Units 14:52 WBC 25.8 H (4.8-10.8) X10*3/uL Hgb 17.5 (14.0-18.0) g/dl Hct 55.4 H (42-52) % Plt Count 435 H (160-400) X10*3/uL BMP 05/28/20 14:52 Sodium 122 L Potassium 4.9 Chloride 89 L Carbon Dioxide < 5 L* BUN 48 H Creatinine 3.20 H Calcium 9.8 Cardiac Enzymes 05/28/20 Range/Units 14:52 Total Creatine Kinase 132 (38-174) U/L Liver Function 05/28/20 Range/Units 14:52 Total Bilirubin 0.5 (0.0-1.0) mg/dL Direct Bilirubin 0.3 (0.0-0.5) mg/dL AST 32 (5-37) U/L ALT 83 H (0-40) U/L Alkaline Phosphatase 161 H (39-117) U/L Albumin 4.8 (3.5-5.0) g/dL All other labs normal. Assessment and Plan (1) Serum lipase elevation: Status: Acute I have reviewed his abdominal CT scan with the radiologist Dr. Amaro. Findings are suggestive of acute pancreatitis. Etiology is uncertain, but the patient does have gallstones so gallstone pancreatitis is a differential. I am uncertain if he has hx of ETOH abuse. His GB is distended but I do not see obvious GB wall thickening or pericholecystic inflammatory changes/wall thickening. His primary problem is his severe DKA from a previously undiagnosed and uncontrolled diabetes. I agree with covering him with IV abx at this time. His abdominal exam is very benign and he does not seem to have significant tenderness. He is going to the ICU for management of his DKA. Treatment of his pancreatitis is supportive at this time. His bilirubin is within normal, and there does not seem to be any sign of CBD obstruction on CT. I will follow along while he is in the hospital. I have discussed the above with the [employer].
[2020-05-28 17:22] LABS: Reflex Lactate? Lactic Acid Added
--- NOTE | 2020-05-28 17:22 | PC.NURSE ---
Addendum entered by Gustavo Geronimo 05/28/20 17:44: INSULIN DRIP AT 8 UNITS PER HOUR. Original Note: REPORT FROM DEVIN. PT HERE WITH BS IN 1200 AND AMS, JUST TESTED POSTIVE FOR COVID. INSULIN DRIP AND 12 U HOUR AFTER 10 UNIT BOLUS. MULTIPLE LITERS OF NS AND LR AT 200 UNITS/HR. UNABLE TO FIND ADDITIONAL IV SITES X 3 STAFF. 22 G L HAND INFUSING WELL. 16 F FEDE BY PCT
[2020-05-28 17:36] LABS: Glucose, Whole Blood > 600 mg/dL (60-115)
--- NOTE | 2020-05-28 17:37 | PC.NURSE ---
MEROPENEUM AND INSULIN ARE COMPATABLE PER PHARMACY
[2020-05-28] MEDS: Heparin Sodium,Porcine 5,000 UNIT/ML VIAL 5000 UNIT SUBCUT (17:52)
--- NOTE | 2020-05-28 18:25 | PC.NURSE ---
RESTAINTS CHECKED AT 2 HRS - NO CHANGES. STILL AWAITING ABX FROM PHARMACY
--- NOTE | 2020-05-28 19:48 | PC.NURSE ---
REPORT FROM DORIAN GARCÍA AT 19:00, PT IS COVID POSITIVE AND HYPERGLYCEMIC . CURRENTLY OBTUNDED AND ON INSULIN DRIP 8UNITS/HR. PT IN SOFT HAND RSTRAINTS, HAD TRIED TO PULL OUT IV'S MULTIPLE TIMES THE FIST FEW HOURS HE WAS HERE. ELEVATED WBC, ON IV ANTIBIOTIC. MISTRY IN PLACE. REPORT GIVEN BY DEVIN TO ICU, PT READY FOR TRANSPORT. PT STILL IN SOFT RESTRAINTS, SKIN COOL TO TOUCH, RECTAL TEMPERATURE 93 f. PT SEEMS CONFUSED, BUT DOES REQUEST WATER. ORAL MUCOSA AND LIPS EXTREMELY DRY. 4 WARM BLANKETS PLACED ON PT FOR TRANSPORT TO ICU. DECIDED TO NOT DELAY TRANSFER TO ICU FOR MICK SOTO, NOTIFIED ICU OF PT'S TEMPERATURE.
[2020-05-28 19:55] LABS: Glucose, Whole Blood > 600 mg/dL (60-115)
--- NOTE | 2020-05-28 20:48 | PM.CCHP ---
History of Present Illness Date of Service: 05/28/20 Chief Complaint: AMS The patient is a 34 year old male with no known past medical history who presented to the emergency room for altered mental status. According to EMS, patient 's family found him unresponsive, they also reported the patient not feeling well for the past 2 days , complaining of increased thirst and polyuria. EMS attempted to give Narcan with no response. On ED arrival, patient was noted to be lethargic and altered. Vital signs stable. Initially treated as stroke alert head CT with no acute findings. Later his glucose noted to be elevated to 1287. Other laboratory data significant for: ABGs 6.73/16/69/2. WBC 25.6,Sodium 132, bicarb less than 5, anion gap 33, BUN 33, creatinine 3.2, lactic acid 3.4, magnesium 3.6, ALT 83, alk phos 161, lipase 1889. A1c 13.5. He was also noted to COVID-[address]: no acute findings Chest x-ray: no acute findings Abdomen/pelvis CT: No acute abnormality CT scan abdomen pelvis. The pancreas is unremarkable. There is diffuse fatty change of liver. There are gallstones in the gallbladder but no acute change of gallbladder wall. ED course: He received a total 3.5 L of fluids, meropenem 500 mg, Zofran, Narcan 2 mg, IV insulin 15 units and subsequently started on insulin drip. Dr. Alcantar with general surgery was consulted for abnormal abdomen CT. Agrees with acute pancreatitis diagnosis. No surgical intervention at this time. Advises to continue Antibiotic treatment Review of Systems Review of Systems: Unable. Patient altered Neurologic: Reports confusion Psychiatric: Psychiatric: Reports confusion [facility] Past Medical History Medical History No active medical problems Family History Family history: reviewed and not pertinent Social History Social History Household Members: Family Unable to assess alcohol history related to: Unable to respond and Unknown Smoking Status: Never smoker Use of substances other than those prescribed or required for medical reasons: Unable to respond Advance Directives: No Advance Directives Information Provided: No Recently lost weight without trying: Unsure Meds Allergies Allergy/AdvReac Type Severity Reaction Status Date / Time No Known Allergies Allergy Unverified 12/26/19 15:47 Active Medications: Current Medications Generic Name Dose Route Start Last Admin Trade Name Freq PRN Reason Stop Dose Admin Heparin Sodium (Porcine) 5,000 unit 05/28/20 16:00 05/28/20 17:52 Heparin Sodium,Porcine 5,000 Unit/Ml Vial SUBCUT 5,000 unit Q8H SATISH Administration Insulin Human Regular 100 unit in 100 mls @ 8 mls/hr 05/28/20 14:45 05/28/20 15:45 Myxredlin IVCONT 8 mls/hr .[id number] SATISH 8 mls/hr Administration Protocol Lactated Ringer's 1,000 mls @ 200 mls/hr 05/28/20 15:15 05/28/20 16:57 Lr IVCONT 200 mls/hr .Q5H SATISH Administration Levofloxacin 750 mg in 150 mls @ 100 mls/hr 05/28/20 21:00 Levaquin IV Q24H SATISH Ondansetron HCl 4 mg 05/28/20 15:10 Ondansetron Hcl 4 Mg/2 Ml Vial IVPUSH Q8H PRN Nausea Pharmacy Consult 1 each 05/28/20 14:33 Consult Rx Perform Med Rec MISCELLANE ONCE PRN Consult order Home Medications Medication Instructions Recorded Confirmed Last Taken Type No Known Home Meds 05/28/20 05/28/20 Unknown History Physical Exam Vital Signs: Vital Signs: Last Vital Signs Temp 93.0 F L 05/28/20 19:26 Pulse 90 05/28/20 19:26 Resp 30 H 05/28/20 19:26 BP 121/65 05/28/20 19:26 Pulse Ox 100 05/28/20 18:13 Body Mass Index 28.0 Const: General: confusion and lethargic Orientation/consciousness: confusion and lethargic Eyes: Pupils: Equal, round and reactive pupils present Neck: Neck: Yes supple and Yes no JVD Chest: Chest palpation & inspection: normal inspection of the chest Resp: Effort & Inspection: normal respiratory effort Auscultation: clear to auscultation bilaterally Cardio: Other: normal capillary refill Rate: tachycardic Heart sounds: S1 normal heart sound present and S2 normal heart sound present Peripheral pulses: Peripheral pulses 2+ throughout GI: Inspection: Yes normal to inspection Palpation (GI): Soft to palpation Auscultation: normal bowel sounds Neuro: Other: alert, able to follow some commands General: confusion Cranial nerves: Yes Equal, round and reactive pupils present Motor exam (neuro): 5/5 motor strength present throughout Extrem: General: Yes capillary refill normal Results Labs CBC and Chem 7: 05/28/20 14:52 05/28/20 21:10 Labs: Laboratory Results - last 24 hr 05/28/20 05/28/20 05/28/20 14:38 14:40 14:52 MCV 89.6 MCH 28.3 MCHC 31.6 RDW 14.6 Plt Count 435 H MPV 12.2 Immature Gran % (Auto) 1.4 H Neut % (Auto) 84.9 H Lymph % (Auto) 4.1 L [place] % (Auto) 9.3 Eos % (Auto) 0.0 Baso % (Auto) 0.3 Lymph # (Auto) 1.1 L [place] # (Auto) 2.4 H Eos # (Auto) 0.0 Baso # (Auto) 0.1 Abs Immat Gran (auto) 0.37 H Absolute Neuts (auto) 21.9 H Absolute Nucleated RBC 0.000 Nucleated RBC % (auto) 0.0 Smear Tech's Comments VERIFIED PT INR APTT VBG pH VBG pCO2 VBG pO2 VBG HCO3 VBG O2 Saturation VBG Base Excess Carboxyhemoglobin Anion Gap Estim Creat Clear Calc Estimated GFR POC Glucose > 600 H* > 600 H* Random Glucose Estimat Average Glucose Hemoglobin A1c % Lactic Acid Calcium Magnesium Total Bilirubin Direct Bilirubin AST ALT Alkaline Phosphatase Ammonia Total Creatine Kinase Troponin I High Sens Total Protein Albumin Triglycerides Lipase Salicylates Acetaminophen Ethyl Alcohol Acetone, Qual COVID-19 (ARACELI) COVID-19 Clin Com 05/28/20 05/28/20 05/28/20 14:52 14:52 14:52 MCV MCH MCHC RDW Plt Count MPV Immature Gran % (Auto) Neut % (Auto) Lymph % (Auto) [place] % (Auto) Eos % (Auto) Baso % (Auto) Lymph # (Auto) [place] # (Auto) Eos # (Auto) Baso # (Auto) Abs Immat Gran (auto) Absolute Neuts (auto) Absolute Nucleated RBC Nucleated RBC % (auto) Smear Tech's Comments PT INR APTT VBG pH VBG pCO2 VBG pO2 VBG HCO3 VBG O2 Saturation VBG Base Excess Carboxyhemoglobin Anion Gap 33 H Estim Creat Clear Calc 33.8 Estimated GFR 23 POC Glucose Random Glucose 1217 H* Estimat Average Glucose Hemoglobin A1c % Lactic Acid Calcium 9.8 Magnesium 3.6 H* Total Bilirubin 0.5 Direct Bilirubin 0.3 AST 32 ALT 83 H Alkaline Phosphatase 161 H Ammonia 70 H Total Creatine Kinase 132 Troponin I High Sens Total Protein 7.9 Albumin 4.8 Triglycerides 810 Lipase Salicylates Acetaminophen Ethyl Alcohol < 10 Acetone, Qual Moderate H COVID-19 (ARACELI) COVID-19 Itineris 05/28/20 05/28/20 05/28/20 14:52 14:52 14:52 MCV MCH MCHC RDW Plt Count MPV Immature Gran % (Auto) Neut % (Auto) Lymph % (Auto) [place] % (Auto) Eos % (Auto) Baso % (Auto) Lymph # (Auto) [place] # (Auto) Eos # (Auto) Baso # (Auto) Abs Immat Gran (auto) Absolute Neuts (auto) Absolute Nucleated RBC Nucleated RBC % (auto) Smear Tech's Comments PT 13.3 H INR 1.1 APTT 26.1 VBG pH VBG pCO2 VBG pO2 VBG HCO3 VBG O2 Saturation VBG Base Excess Carboxyhemoglobin Anion Gap Estim Creat Clear Calc Estimated GFR POC Glucose Random Glucose Estimat Average Glucose Hemoglobin A1c % Lactic Acid 3.4 H* Calcium Magnesium Total Bilirubin Direct Bilirubin AST ALT Alkaline Phosphatase Ammonia Total Creatine Kinase Troponin I High Sens 4.6 Total Protein Albumin Triglycerides Lipase Salicylates Acetaminophen Ethyl Alcohol Acetone, Qual COVID-19 (ARACELI) COVID-19 Itineris 05/28/20 05/28/20 05/28/20 14:52 14:52 14:52 MCV MCH MCHC RDW Plt Count MPV Immature Gran % (Auto) Neut % (Auto) Lymph % (Auto) [place] % (Auto) Eos % (Auto) Baso % (Auto) Lymph # (Auto) [place] # (Auto) Eos # (Auto) Baso # (Auto) Abs Immat Gran (auto) Absolute Neuts (auto) Absolute Nucleated RBC Nucleated RBC % (auto) Smear Tech's Comments PT INR APTT VBG pH 6.73 L* VBG pCO2 16 VBG pO2 69 VBG HCO3 2 VBG O2 Saturation 88.0 VBG Base Excess -33.1 Carboxyhemoglobin 0.3 Anion Gap Estim Creat Clear Calc Estimated GFR POC Glucose Random Glucose Estimat Average Glucose Hemoglobin A1c % Lactic Acid Calcium Magnesium Total Bilirubin Direct Bilirubin AST ALT Alkaline Phosphatase Ammonia Total Creatine Kinase Troponin I High Sens Total Protein Albumin Triglycerides Lipase 1889 H Salicylates < 5.0 L Acetaminophen < 1 Ethyl Alcohol Acetone, Qual COVID-19 (ARACELI) COVID-Systancia 05/28/20 05/28/20 05/28/20 14:52 15:10 16:07 MCV MCH MCHC RDW Plt Count MPV Immature Gran % (Auto) Neut % (Auto) Lymph % (Auto) [place] % (Auto) Eos % (Auto) Baso % (Auto) Lymph # (Auto) [place] # (Auto) Eos # (Auto) Baso # (Auto) Abs Immat Gran (auto) Absolute Neuts (auto) Absolute Nucleated RBC Nucleated RBC % (auto) Smear Tech's Comments PT INR APTT VBG pH VBG pCO2 VBG pO2 VBG HCO3 VBG O2 Saturation VBG Base Excess Carboxyhemoglobin Anion Gap Estim Creat Clear Calc Estimated GFR POC Glucose > 600 H* Random Glucose Estimat Average Glucose 341 Hemoglobin A1c % 13.5 Lactic Acid Calcium Magnesium Total Bilirubin Direct Bilirubin AST ALT Alkaline Phosphatase Ammonia Total Creatine Kinase Troponin I High Sens Total Protein Albumin Triglycerides Lipase Salicylates Acetaminophen Ethyl Alcohol Acetone, Qual COVID-19 (ARACELI) Positive A COVID-Systancia See Note 05/28/20 05/28/20 05/28/20 16:09 17:30 19:23 MCV MCH MCHC RDW Plt Count MPV Immature Gran % (Auto) Neut % (Auto) Lymph % (Auto) [place] % (Auto) Eos % (Auto) Baso % (Auto) Lymph # (Auto) [place] # (Auto) Eos # (Auto) Baso # (Auto) Abs Immat Gran (auto) Absolute Neuts (auto) Absolute Nucleated RBC Nucleated RBC % (auto) Smear Tech's Comments PT INR APTT VBG pH VBG pCO2 VBG pO2 VBG HCO3 VBG O2 Saturation VBG Base Excess Carboxyhemoglobin Anion Gap Estim Creat Clear Calc Estimated GFR POC Glucose > 600 H* > 600 H* > 600 H* Random Glucose Estimat Average Glucose Hemoglobin A1c % Lactic Acid Calcium Magnesium Total Bilirubin Direct Bilirubin AST ALT Alkaline Phosphatase Ammonia Total Creatine Kinase Troponin I High Sens Total Protein Albumin Triglycerides Lipase Salicylates Acetaminophen Ethyl Alcohol Acetone, Qual COVID-19 (ARACELI) COVID-19 Clin Com Imaging Radiologist's Impressions: Impressions Head CT 05/28/20 14:33 IMPRESSION: No acute intracranial pathology. Chest X-Ray 05/28/20 14:34 IMPRESSION: No acute cardiopulmonary process. Abdomen/Pelvis CT 05/28/20 15:59 IMPRESSION: No acute abnormality CT scan abdomen pelvis. The pancreas is unremarkable. There is diffuse fatty change of liver. There are gallstones in the gallbladder but no acute change of gallbladder wall. Assessment and Plan (1) Diabetic ketoacidosis: Qualifiers: Diabetes mellitus complication detail: with coma Diabetes mellitus type: other specified (including JAIRO) Qualified Code(s): E13.11 - Other specified diabetes mellitus with ketoacidosis with coma Status: Acute 34 year old male with no past medical history now presents with new diagnosis of diabetes in DKA as well as COVID-19 infection Neuro: altered mental status, this is likely related to severe acidosis. Should improve with improvement of acidemia Cardiac: Hypotension: he is requiring pressor support. this is likely related to severe acidemia from DKA. Should start improving after acidosis is corrected. Wean off pressors as tolerated elevated lactic- this is likely due to the state of ketoacidosis and poor perfusion. No evidence of severe sepsis. Pulmonary: Patient COVID test positive. Not requiring supplemental oxygenation. Does not appear in acute respiratory distress. Will continue to closely monitor Renal: MOISE- most likely related to hypoperfusion, nonoliguric. Continue aggressive IV fluid replacement. Continue to check renal induces and urine output GI: Acute pancreatitis: Etiology not yet clear. Mom states patient does not drink heavily. His abdomen assessment is benign. He does have gallstones on CT, could be a possible as well as new diagnosis of diabetes. Surgery was consulted and advised to continue antibiotic. Endo: New diagnosis of diabetes/diabetic ketoacidosis- Patient A1c 13.5, according to mom was complaining of polyuria and increased thirst at home. PH was 6.73 and glucose 12 17 on arrival. Insulin drip was started in the ED, unfortunately drip was not titrated from 3:00 p.m. until arrival to the ICU, despite blood sugars being greater than 600. Will follow DKA protocol and continue insulin drip. ID: leukocytosis, likely from acute pancreatitis. Will treat with Levaquin. Heme/Onc: No acute issues. Psych: No acute issues. Miscellaneous: No acute issues. Prophylaxis: heparin subQ Diet: NPO Critical care time: 120 x minutes of critical care time. Not including other billable procedures CODE: FULL (2) Acidosis, lactic: Status: Acute (3) Acute renal failure: Qualifiers: Acute renal failure type: unspecified Qualified Code(s): N17.9 - Acute kidney failure, unspecified Status: Acute (4) Acute pancreatitis: Status: Acute (5) COVID-19: Status: Acute (6) Diabetes: Status: Acute
[2020-05-28 21:24] LABS: Base Excess VBG -25.3 mmol/L; HCO3 VBG 5 mmol/L; PCO2 VBG 22 mmHg; PO2 VBG 48 mmHg
[2020-05-28 21:25] LABS: pH VBG 6.96 (7.32-7.43)
[2020-05-28 21:25] LABS: Glucose, Whole Blood 516 mg/dL (60-115)
[2020-05-28 21:25] LABS: Glucose, Whole Blood > 600 mg/dL (60-115)
[2020-05-28] MEDS: Sodium Bicarbonate 8.4% 50 MEQ/50 ML SYRINGE IVPUSH ×2 (21:35→22:07)
[2020-05-28 21:38] LABS: ~Lactic Acid-LAB USE ONLY 1.8 mmol/L (0.5-2.0)
[2020-05-28] MEDS: Hydrocortisone Sod Succ/PF 100 MG VIAL IVPUSH (21:39)
[2020-05-28 21:51] LABS: Anion Gap 25 (12-20); Blood Urea Nitrogen 42 mg/dL (9-16); Calcium 8.2 mg/dL (8.4-10.2); Carbon Dioxide < 5 mmol/L (22-29); Chloride 111 mmol/L (96-108); Creatinine Clr Calc Pharmacy 56.3; Estimated Glomerular Filt Rate 41; Glucose Random 641 mg/dL (60-115); Potassium 2.4 mmol/L (3.3-5.1); Sodium 139 mmol/L (135-145)
[2020-05-28 22:03] LABS: Thyroid Stimulating Hormone 0.31 uIU/mL (0.32-4.0)
[2020-05-28] MEDS: levoFLOXacin/D5W 750 MG/150 ML PIGGYBACK 100 MG IV (22:03)
[2020-05-28 22:48] LABS: Amphetamine Screen Urine Not Detected (Not Detect); Barbiturates, Urine Not Detected (Not Detect); Benzodiazepines Screen Urine Not Detected (Not Detect); Cannabinoid Screen Urine Not Detected (Not Detect); Cocaine Screen Urine Not Detected (Not Detect); Opiate Screen Urine Not Detected (Not Detect); Phencyclidine Screen Urine Not Detected (Not Detect)
[2020-05-28] MEDS: Potassium Chloride/H20 10 MEQ/100 ML PIGGYBACK 100 MEQ IV (23:57)
[2020-05-28] MEDS: Calcium Gluconate/NaCl,Iso-Osm 2 GM/100 ML PLAST..BAG IV (23:58)
[2020-05-28] MEDS: propofoL 200 MG/20 ML VIAL 100 MG IVPUSH (23:58)
[2020-05-29] VITALS (32 sets, daily range): BP systolic 86–143; BP diastolic 46–94; PULSE 98–142; RESP 18–34; TEMP 36.1–38.7; O2SAT 92–100; BMI 27.8
--- NOTE | 2020-05-29 00:46 | W.PM.CCHP ---
Procedures Intubation Intubation Comments: Patient mentation worsening, unable to maintain proper airway. Require emergent intubation. Patient intubated with 7.5 cuffed ET tube under glide scope guidance with visualization of vocal cords, without immediate complications. ET tube position verified with Chest XRAY. Consent for Procedure: Emergent-no informed consent obtained Sedative: propofol Mg given: 100 ET tube size: 7.5 ET tube uncuffed: No Tube secured depth (cm): 25 Tube secured location: lips Tube placement confirmation: visualized tube passing through cords, equal breath sounds bilaterally and confirmation by capnometry Patient tolerated procedure: well and no complications Intubation complications: none
[2020-05-29] MEDS: fentaNYL citrate/NS 1,000 MCG/100 ML PLAST..BAG 10 MCG IVCONT (00:49)
--- NOTE | 2020-05-29 00:49 | W.PM.CCHP ---
Procedures Central Line Placement Right IJ: Central Line Comments: Emergent Right internal jugular triple lumen central venous catheter placed in usual sterile conditions under ultrasound guidance for appropriate vascular access without immediate complications. Central line position verified with Chest XRAY. Consent for Procedure: Emergent-no informed consent obtained Time out performed: Yes Sterile Technique Used: Yes Patient placed on monitor/pulse ox: Yes prep: mask, gown, gloves and other Central line prep: Chlorhexidine scrub Local anesthesia used: lidocaine 1% Ultrasound used for placement: Yes Central line lumen inserted: triple Post procedure: sutured in place, good blood return, all ports aspirated, flushed, capped and sterile dressing applied Post procedure x-ray: tip of catheter in good position and no pneumothorax seen Patient tolerated procedure: well and no complications Complications: none
[2020-05-29] MEDS: Heparin Sodium,Porcine 5,000 UNIT/ML VIAL 5000 UNIT SUBCUT ×4 (00:53→23:33)
[2020-05-29 01:00] LABS: Base Excess VBG -18.2 mmol/L; HCO3 VBG 8 mmol/L; PCO2 VBG 23 mmHg; PO2 VBG 71 mmHg
[2020-05-29 01:01] LABS: pH VBG 7.15 (7.32-7.43)
[2020-05-29] MEDS: Phenylephrine HCL 20 MG in 0.9 % Sodium Chloride 250 ML 61.39 MG IVCONT ×3 (01:21→20:38)
--- NOTE | 2020-05-29 01:28 | PC.NURSE ---
summary of events-pt arrived from ed at [id number] on arrival lethargic. opens ou to voice. speech is thick and garbled. 1-2 word responses. will obey simple command gao very weakly but purposefully. skin surface intact. although a reddened area/appears to be abrasion right orbit and face. complexion pale. skin cool and dry. no edema. oral mucosa and lips dry/dessicated. tachypneic rr 28-30 bpm. sao2 94-95%. breath sounds cta/diminished throughout. heart s1s2. ecg displays sr-st. hypothermic 93.6 r Abdomen round/soft. no guarding or rebound tenderness. garcia catheter in place draining clear dilute urine. unfortunately at 2141 pt experienced sustained 1 minute run of wide complex tachycardia/thought to be ventricular tachycardia. pt was mentating during event and appropriately answering questions. asking for water. on arrival pt placed of oliver hunger warming blacket. 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 following arrhythmia aggressive electrolyte replacement will be implemented. with central line establishment for more aggressivefluid and electrolyte replacement.
[2020-05-29 01:39] LABS: Anion Gap 20 (12-20); Blood Urea Nitrogen 45 mg/dL (9-16); Calcium 9.1 mg/dL (8.4-10.2); Carbon Dioxide 11 mmol/L (22-29); Chloride 115 mmol/L (96-108); Creatinine Clr Calc Pharmacy 56.3; Estimated Glomerular Filt Rate 41; Glucose Random 462 mg/dL (60-115); Potassium 2.2 mmol/L (3.3-5.1); Sodium 144 mmol/L (135-145)
[2020-05-29] MEDS: Potassium Chloride/H20 40 MEQ/100 ML PIGGYBACK 100 MEQ IV ×7 (02:07→16:53)
[2020-05-29] MEDS: propofoL 1,000 MG/100 ML VIAL 24.36 MG IVCONT ×7 (02:08→20:34)
[2020-05-29 02:13] LABS: Glucose, Whole Blood 498 mg/dL (60-115)
[2020-05-29 02:13] LABS: Glucose, Whole Blood 426 mg/dL (60-115)
[2020-05-29 02:13] LABS: Glucose, Whole Blood 417 mg/dL (60-115)
--- NOTE | 2020-05-29 02:24 | PC.NURSE ---
continued summary-triple lumen catheter inserted by [facility]ct[facility] larry operator without incident. immediately following line insertion-pt noted to have decreased loc/obtunded/ou opening noxious stimulation/nonverbal/not following command. resp effort shallow/agonal.desaturating sao2 dropping into the 80s despite supplemental o2 at 3lpm. pt emergently intubated by aura moctezuma, + colormetric color change/bilat breath sounds/cxr confirms placement of tlc/ett/and ogt. hypokalemia tx per central line kcl. neosynephrine infusion implemented to achieve b/p guidelines/insulin drip off until hypokalemia corrected. fentanyl and propofol infusions started for ventilatory management. 3 amps of nahco3 given in total since arrival.2000 mg calcium gluconate given iv over [address] maurice into examine pt.
[2020-05-29] MEDS: Phenylephrine HCL 20 MG in 0.9 % Sodium Chloride 250 ML 30.69 MG IVCONT ×2 (02:48→11:01)
[2020-05-29 04:07] LABS: Glucose, Whole Blood 339 mg/dL (60-115)
[2020-05-29] MEDS: Lactated Ringers 1,000 ML 200 ML IVCONT ×2 (04:15→07:22)
[2020-05-29 05:23] LABS: Glucose, Whole Blood 329 mg/dL (60-115)
[2020-05-29 05:25] LABS: Hematocrit 46.5 % (42-52); Hemoglobin 16.8 g/dl (14.0-18.0); Mean Corpuscular HGB Conc 36.1 g/dl (31.0-36.0); Mean Corpuscular Hemoglobin 28.6 pg (27.0-33.0); Mean Corpuscular Volume 79.1 fL (80-98); Mean Platelet Volume 10.9 fL (9.4-12.4); Platelet Count 340 X10*3/uL (160-400); Red Blood Count 5.88 X10*6/uL (4.60-5.80)
[2020-05-29 05:36] LABS: WBC ABN SCTR FOR CBC 1; White Blood Count 23.8 X10*3/uL (4.8-10.8)
[2020-05-29 05:37] LABS: Base Excess VBG -17.8 mmol/L; HCO3 VBG 9 mmol/L; PCO2 VBG 27 mmHg; PO2 VBG 64 mmHg
[2020-05-29 05:44] LABS: pH VBG 7.14 (7.32-7.43)
[2020-05-29 05:59] LABS: Band Neutrophils Percent 10 % (3-5); Lymphocytes Absolute Manual 0.5 X10*3/uL (0.6-4.8); Lymphocytes Percent Manual 2 % (20-40); Neutrophils Absolute Manual 23.3 X10*3/uL (2.2-7.9); Neutrophils Percent Manual 88 % (45-73)
[2020-05-29 06:04] LABS: RBC Morphology NOTED; Target Cells 1+; Tear Drop Cells 1+
[2020-05-29 06:05] LABS: Large Platelet PRESENT; Platelet Estimate NORMAL (NORMAL); Platelet Morphology Comment NORMAL; Polychromasia 1+; Toxic Vacuolation PRESENT
[2020-05-29] MEDS: Pantoprazole Sodium 40 MG/10 ML VIAL IVPUSH (06:09)
[2020-05-29] MEDS: fentaNYL citrate/NS 1,000 MCG/100 ML PLAST..BAG 15 MCG IVCONT (06:15)
[2020-05-29 06:22] LABS: Lipase 2672 U/L (8-78)
[2020-05-29 06:32] LABS: Anion Gap 21 (12-20); Blood Urea Nitrogen 40 mg/dL (9-16); Calcium 8.9 mg/dL (8.4-10.2); Carbon Dioxide 8 mmol/L (22-29); Chloride 119 mmol/L (96-108); Creatinine Clr Calc Pharmacy 61.8; Estimated Glomerular Filt Rate 45; Glucose Random 353 mg/dL (60-115); Magnesium 2.1 mg/dL (1.6-2.6); Phosphorus 0.8 mg/dL (2.7-4.5); Potassium 3.3 mmol/L (3.3-5.1); Sodium 145 mmol/L (135-145)
[2020-05-29 06:36] LABS: Glucose, Whole Blood 307 mg/dL (60-115)
[2020-05-29 06:58] LABS: Glucose, Whole Blood 274 mg/dL (60-115)
[2020-05-29] MEDS: Chlorhexidine Gluc Oral Rinse 15 ML MOUTHWASH BUCCAL ×3 (07:22→20:31)
[2020-05-29] MEDS: Potassium Phosphate 30 MMOL in 0.9 % Sodium Chloride 500 ML 85 MMOL IV ×2 (07:22→17:51)
[2020-05-29 07:57] LABS: Glucose, Whole Blood 235 mg/dL (60-115)
--- NOTE | 2020-05-29 07:58 | P.PNGS_ITS ---
Subjective Subjective Date of Service: 05/29/20 Interval history: intubated last night for severe metabolic acidosis remains on vent on low dose pressors blood sugars better controlled on drip Physical Exam Vital Signs: Vital Signs: Last Vital Signs Temp 99.0 F 05/29/20 07:00 Pulse 113 H 05/29/20 07:00 Resp 22 H 05/29/20 07:00 BP 97/70 05/29/20 07:00 Pulse Ox 96 05/29/20 07:00 Body Mass Index 28.0 Laboratory Results WBC 23.8 X10*3/uL (4. 8-10.8) H 05/29/20 05:10 RBC 5.88 X10*6/uL (4. 60-5.80) H 05/29/20 05:10 Hgb 16.8 g/dl (14.0-1 8.0) 05/29/20 05:10 Hct 46.5 % (42-52) 05/29/20 05:10 MCV 79.1 fL (80-98) L D 05/29/20 05:10 MCH 28.6 pg (27.0-33. 0) 05/29/20 05:10 MCHC 36.1 g/dl (31.0-3 6.0) H 05/29/20 05:10 RDW 13.0 % (11.0-16.0 ) 05/29/20 05:10 Plt Count 340 X10*3/uL (160 -400) 05/29/20 05:10 MPV 10.9 fL (9.4-12.4 ) 05/29/20 05:10 Immature Gran % (A uto) Cancelled 05/29/20 05:10 Neut % (Auto) Cancelled 05/29/20 05:10 Lymph % (Auto) Cancelled 05/29/20 05:10 [place] % (Auto) Cancelled 05/29/20 05:10 Eos % (Auto) Cancelled 05/29/20 05:10 Baso % (Auto) Cancelled 05/29/20 05:10 Lymph # (Auto) Cancelled 05/29/20 05:10 [place] # (Auto) Cancelled 05/29/20 05:10 Eos # (Auto) Cancelled 05/29/20 05:10 Baso # (Auto) Cancelled 05/29/20 05:10 Abs Immat Gran (au to) Cancelled 05/29/20 05:10 Absolute Neuts (au to) Cancelled 05/29/20 05:10 Absolute Nucleated RBC 0.000 X10*3/uL (0 .0-0.012) 05/29/20 05:10 Nucleated RBC % (a uto) 0.0 /100WBC (0.0- 0.2) 05/29/20 05:10 Neutrophils % (Man ual) 88 % (45-73) H 05/29/20 05:10 Band Neutrophils % 10 % (3-5) H 05/29/20 05:10 Lymphocytes % (Man ual) 2 % (20-40) L 05/29/20 05:10 Abs Neuts (Manual) 23.3 X10*3/uL (2. 2-7.9) H 05/29/20 05:10 Lymphocytes # (Man ual) 0.5 X10*3/uL (0.6 -4.8) L 05/29/20 05:10 Toxic Vacuolation PRESENT 05/29/20 05:10 Platelet Estimate NORMAL (NORMAL) 05/29/20 05:10 Large Platelets PRESENT 05/29/20 05:10 Plt Morphology Com ment NORMAL 05/29/20 05:10 RBC Morphology NOTED 05/29/20 05:10 Polychromasia 1+ 05/29/20 05:10 Target Cells 1+ 05/29/20 05:10 Tear Drop Cells 1+ 05/29/20 05:10 Smear Tech's Comme nts VERIFIED 05/28/20 14:52 PT 13.3 SEC (10.8-13 .0) H 05/28/20 14:52 INR 1.1 (0.9-1.1) 05/28/20 14:52 APTT 26.1 SEC (24.1-38 .0) 05/28/20 14:52 VBG pH 7.14 (7.32-7.43) L* 05/29/20 05:10 VBG pCO2 27 mmHg 05/29/20 05:10 VBG pO2 64 mmHg 05/29/20 05:10 VBG HCO3 9 mmol/L 05/29/20 05:10 VBG O2 Saturation 94.0 % 05/29/20 05:10 VBG Base Excess -17.8 mmol/L 05/29/20 05:10 Carboxyhemoglobin 0.3 % 05/28/20 14:52 Sodium 145 mmol/L (135-1 45) 05/29/20 05:10 Potassium 3.3 mmol/L (3.3-5 .1) D 05/29/20 05:10 Chloride 119 mmol/L (96-10 8) H 05/29/20 05:10 Carbon Dioxide 8 mmol/L (22-29) L* D 05/29/20 05:10 Anion Gap 21 (12-20) H 05/29/20 05:10 BUN 40 mg/dL (9-16) H 05/29/20 05:10 Creatinine 1.75 mg/dL (0.5-1 .4) H 05/29/20 05:10 Estim Creat Clear Calc 61.8 05/29/20 05:10 Estimated GFR 45 05/29/20 05:10 POC Glucose 235 mg/dL (60-115 ) H 05/29/20 07:54 Random Glucose 353 mg/dL (60-115 ) H* 05/29/20 05:10 Estimat Average Gl ucose 341 mg/dL 05/28/20 14:52 Hemoglobin A1c % 13.5 % 05/28/20 14:52 Lactic Acid 3.4 mmol/L (0.5-2 .0) H* 05/28/20 14:52 Lactic Acid Fup @ 2Hr 1.8 mmol/L (0.5-2 .0) 05/28/20 16:06 Calcium 8.9 mg/dL (8.4-10 .2) 05/29/20 05:10 Phosphorus 0.8 mg/dL (2.7-4. 5) L* 05/29/20 05:10 Magnesium 2.1 mg/dL (1.6-2. 6) 05/29/20 05:10 Total Bilirubin 0.5 mg/dL (0.0-1. 0) 05/28/20 14:52 Direct Bilirubin 0.3 mg/dL (0.0-0. 5) 05/28/20 14:52 AST 32 U/L (5-37) 05/28/20 14:52 ALT 83 U/L (0-40) H 05/28/20 14:52 Alkaline Phosphata se 161 U/L (39-117) H 05/28/20 14:52 Ammonia 70 umol/L (13-55) H 05/28/20 14:52 Total Creatine Kin ase 132 U/L (38-174) 05/28/20 14:52 Troponin I High Se ns 4.6 ng/L (<3.5-35 .0) 05/28/20 14:52 Total Protein 7.9 g/dL (6.5-8.0 ) 05/28/20 14:52 Albumin 4.8 g/dL (3.5-5.0 ) 05/28/20 14:52 Triglycerides 810 mg/dL 05/28/20 14:52 Lipase 2672 U/L (8-78) H 05/29/20 05:10 TSH 0.31 uIU/mL (0.32 -4.0) L 05/28/20 21:10 Salicylates < 5.0 mg/dL (15-3 0) L 05/28/20 14:52 Urine Opiates Scre en Not Detected (No t Detect) 05/28/20 22:00 Acetaminophen < 1 mcg/mL (<30) 05/28/20 14:52 Ur Barbiturates Sc reen Not Detected (No t Detect) 05/28/20 22:00 Ur Phencyclidine S crn Not Detected (No t Detect) 05/28/20 22:00 Ur Amphetamines Sc reen Not Detected (No t Detect) 05/28/20 22:00 U Benzodiazepines Scrn Not Detected (No t Detect) 05/28/20 22:00 Urine Cocaine Scre en Not Detected (No t Detect) 05/28/20 22:00 U Marijuana (THC) Screen Not Detected (No t Detect) 05/28/20 22:00 Ethyl Alcohol < 10 mg/dL 05/28/20 14:52 Acetone, Qual Moderate (Negati ve) H 05/28/20 14:52 COVID-19 (ARACELI) Positive (Negati ve) A 05/28/20 15:10 COVID-19 Clin Com See Note 05/28/20 15:[address] 05/28/20 14:33 IMPRESSION: No acute intracranial pathology. Abdomen/Pelvis CT 05/28/20 15:59 IMPRESSION: No acute abnormality CT scan abdomen pelvis. The pancreas is unremarkable. There is diffuse fatty change of liver. There are gallstones in the gallbladder but no acute change of gallbladder wall. Chest X-Ray 05/28/20 22:51 IMPRESSION: All tubes and catheters in good position. Const: Other: on vent, sedated Resp: Other: on ventilator, Effort & Inspection: not labored Cardio: Rate: tachycardic GI: Inspection: No distended Palpation (GI): Soft to palpation, not firm, nontender, no guarding and not rigid Progress Note: A&P Assessment and plan (1) Acute pancreatitis: Status: Acute Assessment and Plan: remains critically iill from DKA abd soft lipase still rising - ?may have passed stone from gallbladder CT report does not note pancreatitis - review of images with radiologist suggest some edema, haziness around pancreas no cholecysitis on CT lactate improving creatinine better care 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 furnace checker follow lipase and LFTs Fall Risk Details Current Medications: Current Medications Generic Name Dose Route Start Last Admin Trade Name Freq PRN Reason Stop Dose Admin Chlorhexidine Gluconate 15 ml 05/29/20 09:00 05/29/20 07:22 Chlorhexidine Gluc Oral Rinse 15 Ml Mouthwash BUCCAL 15 ml TID SATISH Administration Heparin Sodium (Porcine) 5,000 unit 05/28/20 16:00 05/29/20 07:22 Heparin Sodium,Porcine 5,000 Unit/Ml Vial SUBCUT 5,000 unit Q8H SATISH Administration Insulin Human Regular 100 unit in 100 mls @ 8 mls/hr 05/28/20 14:45 05/29/20 05:42 Myxredlin IVCONT Not Given .[id number] SATISH Protocol Lactated Ringer's 1,000 mls @ 200 mls/hr 05/28/20 15:15 05/29/20 07:22 Lr IVCONT 200 mls/hr .Q5H SATISH Administration Levofloxacin 750 mg in 150 mls @ 100 mls/hr 05/28/20 21:00 05/28/20 22:23 Levaquin IV Infused Q24H SATISH Infusion Phenylephrine HCl 20 mg/ 252 mls @ 0 mls/hr 05/28/20 23:15 05/29/20 02:48 Sodium Chloride IVCONT 0.5 mcg/kg/min .Q0M SATISH 30.69 mls/hr Administration Protocol Per Protocol Propofol 1,000 mg in 100 mls @ 0 mls/hr 05/28/20 23:15 05/29/20 06:15 Diprivan IVCONT 50 mcg/kg/min .Q0M SATISH 24.36 mls/hr Administration Protocol Per Protocol Fentanyl 1,000 mcg in 100 mls @ 0 mls/hr 05/28/20 23:45 05/29/20 06:15 Sublimaze/Ns IVCONT 150 mcg/hr .Q0M SATISH 15 mls/hr Administration Protocol Per Protocol Potassium Phosphate 30 mmol/ 510 mls @ 85 mls/hr 05/29/20 06:37 05/29/20 07:22 Sodium Chloride IV 05/29/20 12:36 85 mls/hr ONCE ONE Administration Ondansetron HCl 4 mg 05/28/20 15:10 Ondansetron Hcl 4 Mg/2 Ml Vial IVPUSH Q8H PRN Nausea Pantoprazole Sodium 40 mg 05/29/20 06:30 05/29/20 06:09 Pantoprazole Sodium 40 Mg/10 Ml Vial IVPUSH 40 mg DAILY@0630 [facility] Administration Pharmacy Consult 1 each 05/28/20 14:33 Consult Rx Perform Med Rec MISCELLANE ONCE PRN Consult order Time Spent With Patient Time: Total time spent is greater than 50% in coordination of care (as documented) at patient's floor/unit and/or counseling patient: Time with patient: 15 - 24 minutes
[2020-05-29] MEDS: Dextrose 5 % and Lactated Ring 1,000 ML 200 ML IVCONT (08:16)
[2020-05-29 08:56] LABS: Glucose, Whole Blood 231 mg/dL (60-115)
[2020-05-29] MEDS: Insulin Regular/NS 100 UNIT/100 ML PLAST..BAG 9 UNIT IVCONT (08:58)
[2020-05-29 10:13] LABS: Glucose, Whole Blood 248 mg/dL (60-115)
[2020-05-29 11:02] LABS: Glucose, Whole Blood 216 mg/dL (60-115)
[2020-05-29] MEDS: Insulin Regular/NS 100 UNIT/100 ML PLAST..BAG 20.25 UNIT IVCONT (11:29)
[2020-05-29 12:12] LABS: Glucose, Whole Blood 210 mg/dL (60-115)
[2020-05-29 12:51] LABS: Base Excess VBG -12.2 mmol/L; HCO3 VBG 14 mmol/L; PCO2 VBG 33 mmHg; PO2 VBG 53 mmHg; pH VBG 7.22 (7.32-7.43)
[2020-05-29 13:13] LABS: Blood Urea Nitrogen 38 mg/dL (9-16); Calcium 8.5 mg/dL (8.4-10.2); Estimated Glomerular Filt Rate 47; Glucose Random 185 mg/dL (60-115); Phosphorus 1.1 mg/dL (2.7-4.5)
[2020-05-29 13:18] LABS: Glucose, Whole Blood 129 mg/dL (60-115)
[2020-05-29 13:24] LABS: Anion Gap 8 (12-20); Carbon Dioxide 16 mmol/L (22-29); Chloride 128 mmol/L (96-108); Potassium 2.6 mmol/L (3.3-5.1); Sodium 149 mmol/L (135-145)
[2020-05-29] MEDS: fentaNYL citrate/NS 1,000 MCG/100 ML PLAST..BAG 5 MCG IVCONT (13:31)
[2020-05-29] MEDS: Dextrose 5 % 1,000 ML 200 ML IVCONT ×2 (13:39→18:23)
[2020-05-29 14:15] LABS: Glucose, Whole Blood 130 mg/dL (60-115)
--- NOTE | 2020-05-29 14:56 | P.PNCC_ITS ---
Subjective Subjective Date of Service: 05/29/20 Interval History: 34-year-old gentleman with no significant past medical history admitted on 05/28/2020 with alteration of mental status and weakness. Per family patient has not been feeling well for 2 days prior to admission complain increase soft and urination. On ER evaluation patient was noted to have profound metabolic acidosis with pH of 6.76 secondary to diabetic ketoacidosis with new diagnosis of diabetes mellitus. His hemoglobin A1c was noted to be 13. His lipase was elevated at 1600 and his triglycerides in the 800 range. Patient has also been noted to be COVID positive. He has been started on insulin drip. His hospital course has been complicated by profound metabolic acidosis secondary to underlying diabetic ketoacidosis requiring emergent intubation and ventilatory support. Also he has developed multiple electrolyte abnormalities including hypophosphatemia and hyperkalemia secondary to electrolyte shifts with acidosis and its correction. Of note, patient initially in sodium has been 120 and he has received 3 L of normal saline in the emergency room which resulted in rapid correction of his sodium to 140, no free water has been used at that time secondary to profound hyperglycemia and ongoing acidosis. CT abdomen and pelvis has been obtained secondary to concern for dilated gastric bubble. Patient has been evaluated by General Surgical team and did not require an acute intervention for his dilated gallbladder. He has received an empiric dose of Levaquin. Blood cultures have been obtained and are negative to date. Overnight his acidosis has improved with improvement in his glucose level. How ever, his lipase continued to rise. Physical Exam Vital Signs: Vital Signs: Last Vital Signs Temp 101.1 F H 05/29/20 14:53 Pulse 136 H 05/29/20 14:53 Resp 22 H 05/29/20 14:53 BP 96/61 05/29/20 14:53 Pulse Ox 95 05/29/20 14:53 Body Mass Index 27.8 Const: General: no acute distress and other (Sedated on the vent) Eyes: Sclerae: sclerae normal EOM: EOMs intact bilaterally Neck: Neck: Yes no lymphadenopathy, Yes trachea midline and Yes supple Resp: Auscultation: crackles (Mild diffuse bilateral) Cardio: Rate: tachycardic Rhythm: regular rhythm Heart sounds: no gallops, no murmurs and no rubs GI: Palpation (GI): Soft to palpation and Other GI palpation findings present ( Nontender) Auscultation: normal bowel sounds Extrem: General: Yes no pedal edema, No clubbing and No cyanosis Objective Data Labs CBC & Chem 7: 05/29/20 05:10 05/29/20 12:37 Labs: Laboratory Results - last 24 hr 05/28/20 05/28/20 05/28/20 14:38 14:40 14:52 WBC 25.8 H RBC 6.18 H Hgb 17.5 Hct 55.4 H MCV 89.6 MCH 28.3 MCHC 31.6 RDW 14.6 Plt Count 435 H MPV 12.2 Immature Gran % (Auto) 1.4 H Neut % (Auto) 84.9 H Lymph % (Auto) 4.1 L Bureau % (Auto) 9.3 Eos % (Auto) 0.0 Baso % (Auto) 0.3 Lymph # (Auto) 1.1 L Bureau # (Auto) 2.4 H Eos # (Auto) 0.0 Baso # (Auto) 0.1 Abs Immat Gran (auto) 0.37 H Absolute Neuts (auto) 21.9 H Absolute Nucleated RBC 0.000 Nucleated RBC % (auto) 0.0 Neutrophils % (Manual) Band Neutrophils % Lymphocytes % (Manual) Abs Neuts (Manual) Lymphocytes # (Manual) Toxic Vacuolation Platelet Estimate Large Platelets Plt Morphology Comment RBC Morphology Polychromasia Target Cells Tear Drop Cells Smear Tech's Comments VERIFIED PT INR APTT VBG pH VBG pCO2 VBG pO2 VBG HCO3 VBG O2 Saturation VBG Base Excess Carboxyhemoglobin Sodium Potassium Chloride Carbon Dioxide Anion Gap BUN Creatinine Estim Creat Clear Calc Estimated GFR POC Glucose > 600 H* > 600 H* Random Glucose Estimat Average Glucose Hemoglobin A1c % Lactic Acid Lactic Acid Fup @ 2Hr Calcium Phosphorus Magnesium Total Bilirubin Direct Bilirubin AST ALT Alkaline Phosphatase Ammonia Total Creatine Kinase Troponin I High Sens Total Protein Albumin Triglycerides Lipase TSH Salicylates Urine Opiates Screen Acetaminophen Ur Barbiturates Screen Ur Phencyclidine Scrn Ur Amphetamines Screen U Benzodiazepines Scrn Urine Cocaine Screen U Marijuana (THC) Screen Ethyl Alcohol Acetone, Qual COVID-19 (ARACELI) COVID-19 Clin Com 05/28/20 05/28/20 05/28/20 14:52 14:52 14:52 WBC RBC Hgb Hct MCV MCH MCHC RDW Plt Count MPV Immature Gran % (Auto) Neut % (Auto) Lymph % (Auto) Bureau % (Auto) Eos % (Auto) Baso % (Auto) Lymph # (Auto) Bureau # (Auto) Eos # (Auto) Baso # (Auto) Abs Immat Gran (auto) Absolute Neuts (auto) Absolute Nucleated RBC Nucleated RBC % (auto) Neutrophils % (Manual) Band Neutrophils % Lymphocytes % (Manual) Abs Neuts (Manual) Lymphocytes # (Manual) Toxic Vacuolation Platelet Estimate Large Platelets Plt Morphology Comment RBC Morphology Polychromasia Target Cells Tear Drop Cells Smear Tech's Comments PT INR APTT VBG pH VBG pCO2 VBG pO2 VBG HCO3 VBG O2 Saturation VBG Base Excess Carboxyhemoglobin Sodium 122 L Potassium 4.9 Chloride 89 L Carbon Dioxide < 5 L* Anion Gap 33 H BUN 48 H Creatinine 3.20 H Estim Creat Clear Calc 33.8 Estimated GFR 23 POC Glucose Random Glucose 1217 H* Estimat Average Glucose Hemoglobin A1c % Lactic Acid Lactic Acid Fup @ 2Hr Calcium 9.8 Phosphorus Magnesium 3.6 H* Total Bilirubin 0.5 Direct Bilirubin 0.3 AST 32 ALT 83 H Alkaline Phosphatase 161 H Ammonia 70 H Total Creatine Kinase 132 Troponin I High Sens Total Protein 7.9 Albumin 4.8 Triglycerides 810 Lipase TSH Salicylates Urine Opiates Screen Acetaminophen Ur Barbiturates Screen Ur Phencyclidine Scrn Ur Amphetamines Screen U Benzodiazepines Scrn Urine Cocaine Screen U Marijuana (THC) Screen Ethyl Alcohol < 10 Acetone, Qual Moderate H COVID-19 (ARACELI) COVID-19 Clin Com 05/28/20 05/28/20 05/28/20 14:52 14:52 14:52 WBC RBC Hgb Hct MCV MCH MCHC RDW Plt Count MPV Immature Gran % (Auto) Neut % (Auto) Lymph % (Auto) Bureau % (Auto) Eos % (Auto) Baso % (Auto) Lymph # (Auto) Bureau # (Auto) Eos # (Auto) Baso # (Auto) Abs Immat Gran (auto) Absolute Neuts (auto) Absolute Nucleated RBC Nucleated RBC % (auto) Neutrophils % (Manual) Band Neutrophils % Lymphocytes % (Manual) Abs Neuts (Manual) Lymphocytes # (Manual) Toxic Vacuolation Platelet Estimate Large Platelets Plt Morphology Comment RBC Morphology Polychromasia Target Cells Tear Drop Cells Smear Tech's Comments PT 13.3 H INR 1.1 APTT 26.1 VBG pH VBG pCO2 VBG pO2 VBG HCO3 VBG O2 Saturation VBG Base Excess Carboxyhemoglobin Sodium Potassium Chloride Carbon Dioxide Anion Gap BUN Creatinine Estim Creat Clear Calc Estimated GFR POC Glucose Random Glucose Estimat Average Glucose Hemoglobin A1c % Lactic Acid 3.4 H* Lactic Acid Fup @ 2Hr Calcium Phosphorus Magnesium Total Bilirubin Direct Bilirubin AST ALT Alkaline Phosphatase Ammonia Total Creatine Kinase Troponin I High Sens 4.6 Total Protein Albumin Triglycerides Lipase TSH Salicylates Urine Opiates Screen Acetaminophen Ur Barbiturates Screen Ur Phencyclidine Scrn Ur Amphetamines Screen U Benzodiazepines Scrn Urine Cocaine Screen U Marijuana (THC) Screen Ethyl Alcohol Acetone, Qual COVID-19 (ARACELI) COVID-[employer] 05/28/20 05/28/20 05/28/20 14:52 14:52 14:52 WBC RBC Hgb Hct MCV MCH MCHC RDW Plt Count MPV Immature Gran % (Auto) Neut % (Auto) Lymph % (Auto) Bureau % (Auto) Eos % (Auto) Baso % (Auto) Lymph # (Auto) Bureau # (Auto) Eos # (Auto) Baso # (Auto) Abs Immat Gran (auto) Absolute Neuts (auto) Absolute Nucleated RBC Nucleated RBC % (auto) Neutrophils % (Manual) Band Neutrophils % Lymphocytes % (Manual) Abs Neuts (Manual) Lymphocytes # (Manual) Toxic Vacuolation Platelet Estimate Large Platelets Plt Morphology Comment RBC Morphology Polychromasia Target Cells Tear Drop Cells Smear Tech's Comments PT INR APTT VBG pH 6.73 L* VBG pCO2 16 VBG pO2 69 VBG HCO3 2 VBG O2 Saturation 88.0 VBG Base Excess -33.1 Carboxyhemoglobin 0.3 Sodium Potassium Chloride Carbon Dioxide Anion Gap BUN Creatinine Estim Creat Clear Calc Estimated GFR POC Glucose Random Glucose Estimat Average Glucose Hemoglobin A1c % Lactic Acid Lactic Acid Fup @ 2Hr Calcium Phosphorus Magnesium Total Bilirubin Direct Bilirubin AST ALT Alkaline Phosphatase Ammonia Total Creatine Kinase Troponin I High Sens Total Protein Albumin Triglycerides Lipase 1889 H TSH Salicylates < 5.0 L Urine Opiates Screen Acetaminophen < 1 Ur Barbiturates Screen Ur Phencyclidine Scrn Ur Amphetamines Screen U Benzodiazepines Scrn Urine Cocaine Screen U Marijuana (THC) Screen Ethyl Alcohol Acetone, Qual COVID-19 (ARACELI) COVID-19 [employer] 05/28/20 05/28/20 05/28/20 14:52 15:10 16:06 WBC RBC Hgb Hct MCV MCH MCHC RDW Plt Count MPV Immature Gran % (Auto) Neut % (Auto) Lymph % (Auto) Bureau % (Auto) Eos % (Auto) Baso % (Auto) Lymph # (Auto) Bureau # (Auto) Eos # (Auto) Baso # (Auto) Abs Immat Gran (auto) Absolute Neuts (auto) Absolute Nucleated RBC Nucleated RBC % (auto) Neutrophils % (Manual) Band Neutrophils % Lymphocytes % (Manual) Abs Neuts (Manual) Lymphocytes # (Manual) Toxic Vacuolation Platelet Estimate Large Platelets Plt Morphology Comment RBC Morphology Polychromasia Target Cells Tear Drop Cells Smear Tech's Comments PT INR APTT VBG pH VBG pCO2 VBG pO2 VBG HCO3 VBG O2 Saturation VBG Base Excess Carboxyhemoglobin Sodium Potassium Chloride Carbon Dioxide Anion Gap BUN Creatinine Estim Creat Clear Calc Estimated GFR POC Glucose Random Glucose Estimat Average Glucose 341 Hemoglobin A1c % 13.5 Lactic Acid Lactic Acid Fup @ 2Hr 1.8 Calcium Phosphorus Magnesium Total Bilirubin Direct Bilirubin AST ALT Alkaline Phosphatase Ammonia Total Creatine Kinase Troponin I High Sens Total Protein Albumin Triglycerides Lipase TSH Salicylates Urine Opiates Screen Acetaminophen Ur Barbiturates Screen Ur Phencyclidine Scrn Ur Amphetamines Screen U Benzodiazepines Scrn Urine Cocaine Screen U Marijuana (THC) Screen Ethyl Alcohol Acetone, Qual COVID-19 (ARACELI) Positive A COVID-19 Clin Com See Note 05/28/20 05/28/20 05/28/20 16:07 16:09 17:30 WBC RBC Hgb Hct MCV MCH MCHC RDW Plt Count MPV Immature Gran % (Auto) Neut % (Auto) Lymph % (Auto) Bureau % (Auto) Eos % (Auto) Baso % (Auto) Lymph # (Auto) Bureau # (Auto) Eos # (Auto) Baso # (Auto) Abs Immat Gran (auto) Absolute Neuts (auto) Absolute Nucleated RBC Nucleated RBC % (auto) Neutrophils % (Manual) Band Neutrophils % Lymphocytes % (Manual) Abs Neuts (Manual) Lymphocytes # (Manual) Toxic Vacuolation Platelet Estimate Large Platelets Plt Morphology Comment RBC Morphology Polychromasia Target Cells Tear Drop Cells Smear Tech's Comments PT INR APTT VBG pH VBG pCO2 VBG pO2 VBG HCO3 VBG O2 Saturation VBG Base Excess Carboxyhemoglobin Sodium Potassium Chloride Carbon Dioxide Anion Gap BUN Creatinine Estim Creat Clear Calc Estimated GFR POC Glucose > 600 H* > 600 H* > 600 H* Random Glucose Estimat Average Glucose Hemoglobin A1c % Lactic Acid Lactic Acid Fup @ 2Hr Calcium Phosphorus Magnesium Total Bilirubin Direct Bilirubin AST ALT Alkaline Phosphatase Ammonia Total Creatine Kinase Troponin I High Sens Total Protein Albumin Triglycerides Lipase TSH Salicylates Urine Opiates Screen Acetaminophen Ur Barbiturates Screen Ur Phencyclidine Scrn Ur Amphetamines Screen U Benzodiazepines Scrn Urine Cocaine Screen U Marijuana (THC) Screen Ethyl Alcohol Acetone, Qual COVID-19 (ARACELI) COVID-[employer] 05/28/20 05/28/20 05/28/20 19:23 20:12 21:09 WBC RBC Hgb Hct MCV MCH MCHC RDW Plt Count MPV Immature Gran % (Auto) Neut % (Auto) Lymph % (Auto) Bureau % (Auto) Eos % (Auto) Baso % (Auto) Lymph # (Auto) Bureau # (Auto) Eos # (Auto) Baso # (Auto) Abs Immat Gran (auto) Absolute Neuts (auto) Absolute Nucleated RBC Nucleated RBC % (auto) Neutrophils % (Manual) Band Neutrophils % Lymphocytes % (Manual) Abs Neuts (Manual) Lymphocytes # (Manual) Toxic Vacuolation Platelet Estimate Large Platelets Plt Morphology Comment RBC Morphology Polychromasia Target Cells Tear Drop Cells Smear Tech's Comments PT INR APTT VBG pH VBG pCO2 VBG pO2 VBG HCO3 VBG O2 Saturation VBG Base Excess Carboxyhemoglobin Sodium Potassium Chloride Carbon Dioxide Anion Gap BUN Creatinine Estim Creat Clear Calc Estimated GFR POC Glucose > 600 H* > 600 H* 516 H* Random Glucose Estimat Average Glucose Hemoglobin A1c % Lactic Acid Lactic Acid Fup @ 2Hr Calcium Phosphorus Magnesium Total Bilirubin Direct Bilirubin AST ALT Alkaline Phosphatase Ammonia Total Creatine Kinase Troponin I High Sens Total Protein Albumin Triglycerides Lipase TSH Salicylates Urine Opiates Screen Acetaminophen Ur Barbiturates Screen Ur Phencyclidine Scrn Ur Amphetamines Screen U Benzodiazepines Scrn Urine Cocaine Screen U Marijuana (THC) Screen Ethyl Alcohol Acetone, Qual COVID-19 (ARACELI) COVID-[employer] 05/28/20 05/28/20 05/28/20 21:10 21:10 22:00 WBC RBC Hgb Hct MCV MCH MCHC RDW Plt Count MPV Immature Gran % (Auto) Neut % (Auto) Lymph % (Auto) Bureau % (Auto) Eos % (Auto) Baso % (Auto) Lymph # (Auto) Bureau # (Auto) Eos # (Auto) Baso # (Auto) Abs Immat Gran (auto) Absolute Neuts (auto) Absolute Nucleated RBC Nucleated RBC % (auto) Neutrophils % (Manual) Band Neutrophils % Lymphocytes % (Manual) Abs Neuts (Manual) Lymphocytes # (Manual) Toxic Vacuolation Platelet Estimate Large Platelets Plt Morphology Comment RBC Morphology Polychromasia Target Cells Tear Drop Cells Smear Tech's Comments PT INR APTT VBG pH 6.96 L* VBG pCO2 22 VBG pO2 48 VBG HCO3 5 VBG O2 Saturation 82.0 VBG Base Excess -25.3 Carboxyhemoglobin Sodium 139 Potassium 2.4 L* D Chloride 111 H D Carbon Dioxide < 5 L* Anion Gap 25 H BUN 42 H Creatinine 1.92 H Estim Creat Clear Calc 56.3 Estimated GFR 41 POC Glucose Random Glucose 641 H* Estimat Average Glucose Hemoglobin A1c % Lactic Acid Lactic Acid Fup @ 2Hr Calcium 8.2 L D Phosphorus Magnesium Total Bilirubin Direct Bilirubin AST ALT Alkaline Phosphatase Ammonia Total Creatine Kinase Troponin I High Sens Total Protein Albumin Triglycerides Lipase TSH 0.31 L Salicylates Urine Opiates Screen Not Detected Acetaminophen Ur Barbiturates Screen Not Detected Ur Phencyclidine Scrn Not Detected Ur Amphetamines Screen Not Detected U Benzodiazepines Scrn Not Detected Urine Cocaine Screen Not Detected U Marijuana (THC) Screen Not Detected Ethyl Alcohol Acetone, Qual COVID-19 (ARACELI) COVID-19 Clin Com 05/28/20 05/28/20 05/29/20 22:00 23:24 00:30 WBC RBC Hgb Hct MCV MCH MCHC RDW Plt Count MPV Immature Gran % (Auto) Neut % (Auto) Lymph % (Auto) Bureau % (Auto) Eos % (Auto) Baso % (Auto) Lymph # (Auto) Bureau # (Auto) Eos # (Auto) Baso # (Auto) Abs Immat Gran (auto) Absolute Neuts (auto) Absolute Nucleated RBC Nucleated RBC % (auto) Neutrophils % (Manual) Band Neutrophils % Lymphocytes % (Manual) Abs Neuts (Manual) Lymphocytes # (Manual) Toxic Vacuolation Platelet Estimate Large Platelets Plt Morphology Comment RBC Morphology Polychromasia Target Cells Tear Drop Cells Smear Tech's Comments PT INR APTT VBG pH VBG pCO2 VBG pO2 VBG HCO3 VBG O2 Saturation VBG Base Excess Carboxyhemoglobin Sodium 144 Potassium 2.2 L* Chloride 115 H Carbon Dioxide 11 L Anion Gap 20 BUN 45 H Creatinine 1.92 H Estim Creat Clear Calc 56.3 Estimated GFR 41 POC Glucose 498 H* 426 H* Random Glucose 462 H* Estimat Average Glucose Hemoglobin A1c % Lactic Acid Lactic Acid Fup @ 2Hr Calcium 9.1 D Phosphorus Magnesium Total Bilirubin Direct Bilirubin AST ALT Alkaline Phosphatase Ammonia Total Creatine Kinase Troponin I High Sens Total Protein Albumin Triglycerides Lipase TSH Salicylates Urine Opiates Screen Acetaminophen Ur Barbiturates Screen Ur Phencyclidine Scrn Ur Amphetamines Screen U Benzodiazepines Scrn Urine Cocaine Screen U Marijuana (THC) Screen Ethyl Alcohol Acetone, Qual COVID-19 (ARACELI) COVID-[employer] 05/29/20 05/29/20 05/29/20 00:30 00:56 04:01 WBC RBC Hgb Hct MCV MCH MCHC RDW Plt Count MPV Immature Gran % (Auto) Neut % (Auto) Lymph % (Auto) Bureau % (Auto) Eos % (Auto) Baso % (Auto) Lymph # (Auto) Bureau # (Auto) Eos # (Auto) Baso # (Auto) Abs Immat Gran (auto) Absolute Neuts (auto) Absolute Nucleated RBC Nucleated RBC % (auto) Neutrophils % (Manual) Band Neutrophils % Lymphocytes % (Manual) Abs Neuts (Manual) Lymphocytes # (Manual) Toxic Vacuolation Platelet Estimate Large Platelets Plt Morphology Comment RBC Morphology Polychromasia Target Cells Tear Drop Cells Smear Tech's Comments PT INR APTT VBG pH 7.15 L* VBG pCO2 23 VBG pO2 71 VBG HCO3 8 VBG O2 Saturation 96.0 VBG Base Excess -18.2 Carboxyhemoglobin Sodium Potassium Chloride Carbon Dioxide Anion Gap BUN Creatinine Estim Creat Clear Calc Estimated GFR POC Glucose 417 H* 339 H Random Glucose Estimat Average Glucose Hemoglobin A1c % Lactic Acid Lactic Acid Fup @ 2Hr Calcium Phosphorus Magnesium Total Bilirubin Direct Bilirubin AST ALT Alkaline Phosphatase Ammonia Total Creatine Kinase Troponin I High Sens Total Protein Albumin Triglycerides Lipase TSH Salicylates Urine Opiates Screen Acetaminophen Ur Barbiturates Screen Ur Phencyclidine Scrn Ur Amphetamines Screen U Benzodiazepines Scrn Urine Cocaine Screen U Marijuana (THC) Screen Ethyl Alcohol Acetone, Qual COVID-19 (ARACELI) COVID-19 [employer] 05/29/20 05/29/20 05/29/20 05:10 05:10 05:10 WBC 23.8 H RBC 5.88 H Hgb 16.8 Hct 46.5 MCV 79.1 L D MCH 28.6 MCHC 36.1 H RDW 13.0 Plt Count 340 MPV 10.9 Immature Gran % (Auto) Cancelled Neut % (Auto) Cancelled Lymph % (Auto) Cancelled Bureau % (Auto) Cancelled Eos % (Auto) Cancelled Baso % (Auto) Cancelled Lymph # (Auto) Cancelled Bureau # (Auto) Cancelled Eos # (Auto) Cancelled Baso # (Auto) Cancelled Abs Immat Gran (auto) Cancelled Absolute Neuts (auto) Cancelled Absolute Nucleated RBC 0.000 Nucleated RBC % (auto) 0.0 Neutrophils % (Manual) 88 H Band Neutrophils % 10 H Lymphocytes % (Manual) 2 L Abs Neuts (Manual) 23.3 H Lymphocytes # (Manual) 0.5 L Toxic Vacuolation PRESENT Platelet Estimate NORMAL Large Platelets PRESENT Plt Morphology Comment NORMAL RBC Morphology NOTED Polychromasia 1+ Target Cells 1+ Tear Drop Cells 1+ Smear Tech's Comments PT INR APTT VBG pH VBG pCO2 VBG pO2 VBG HCO3 VBG O2 Saturation VBG Base Excess Carboxyhemoglobin Sodium 145 Potassium 3.3 D Chloride 119 H Carbon Dioxide 8 L* D Anion Gap 21 H BUN 40 H Creatinine 1.75 H Estim Creat Clear Calc 61.8 Estimated GFR 45 POC Glucose Random Glucose 353 H* Estimat Average Glucose Hemoglobin A1c % Lactic Acid Lactic Acid Fup @ 2Hr Calcium 8.9 Phosphorus 0.8 L* Magnesium 2.1 Total Bilirubin Direct Bilirubin AST ALT Alkaline Phosphatase Ammonia Total Creatine Kinase Troponin I High Sens Total Protein Albumin Triglycerides Lipase 2672 H TSH Salicylates Urine Opiates Screen Acetaminophen Ur Barbiturates Screen Ur Phencyclidine Scrn Ur Amphetamines Screen U Benzodiazepines Scrn Urine Cocaine Screen U Marijuana (THC) Screen Ethyl Alcohol Acetone, Qual COVID-19 (ARACELI) COVID-19 Clin Com 05/29/20 05/29/20 05/29/20 05:10 05:17 06:11 WBC RBC Hgb Hct MCV MCH MCHC RDW Plt Count MPV Immature Gran % (Auto) Neut % (Auto) Lymph % (Auto) Bureau % (Auto) Eos % (Auto) Baso % (Auto) Lymph # (Auto) Bureau # (Auto) Eos # (Auto) Baso # (Auto) Abs Immat Gran (auto) Absolute Neuts (auto) Absolute Nucleated RBC Nucleated RBC % (auto) Neutrophils % (Manual) Band Neutrophils % Lymphocytes % (Manual) Abs Neuts (Manual) Lymphocytes # (Manual) Toxic Vacuolation Platelet Estimate Large Platelets Plt Morphology Comment RBC Morphology Polychromasia Target Cells Tear Drop Cells Smear Tech's Comments PT INR APTT VBG pH 7.14 L* VBG pCO2 27 VBG pO2 64 VBG HCO3 9 VBG O2 Saturation 94.0 VBG Base Excess -17.8 Carboxyhemoglobin Sodium Potassium Chloride Carbon Dioxide Anion Gap BUN Creatinine Estim Creat Clear Calc Estimated GFR POC Glucose 329 H 307 H Random Glucose Estimat Average Glucose Hemoglobin A1c % Lactic Acid Lactic Acid Fup @ 2Hr Calcium Phosphorus Magnesium Total Bilirubin Direct Bilirubin AST ALT Alkaline Phosphatase Ammonia Total Creatine Kinase Troponin I High Sens Total Protein Albumin Triglycerides Lipase TSH Salicylates Urine Opiates Screen Acetaminophen Ur Barbiturates Screen Ur Phencyclidine Scrn Ur Amphetamines Screen U Benzodiazepines Scrn Urine Cocaine Screen U Marijuana (THC) Screen Ethyl Alcohol Acetone, Qual COVID-19 (ARACELI) COVID-19 Clin Com 05/29/20 05/29/20 05/29/20 06:53 07:54 08:53 WBC RBC Hgb Hct MCV MCH MCHC RDW Plt Count MPV Immature Gran % (Auto) Neut % (Auto) Lymph % (Auto) Bureau % (Auto) Eos % (Auto) Baso % (Auto) Lymph # (Auto) Bureau # (Auto) Eos # (Auto) Baso # (Auto) Abs Immat Gran (auto) Absolute Neuts (auto) Absolute Nucleated RBC Nucleated RBC % (auto) Neutrophils % (Manual) Band Neutrophils % Lymphocytes % (Manual) Abs Neuts (Manual) Lymphocytes # (Manual) Toxic Vacuolation Platelet Estimate Large Platelets Plt Morphology Comment RBC Morphology Polychromasia Target Cells Tear Drop Cells Smear Tech's Comments PT INR APTT VBG pH VBG pCO2 VBG pO2 VBG HCO3 VBG O2 Saturation VBG Base Excess Carboxyhemoglobin Sodium Potassium Chloride Carbon Dioxide Anion Gap BUN Creatinine Estim Creat Clear Calc Estimated GFR POC Glucose 274 H 235 H 231 H Random Glucose Estimat Average Glucose Hemoglobin A1c % Lactic Acid Lactic Acid Fup @ 2Hr Calcium Phosphorus Magnesium Total Bilirubin Direct Bilirubin AST ALT Alkaline Phosphatase Ammonia Total Creatine Kinase Troponin I High Sens Total Protein Albumin Triglycerides Lipase TSH Salicylates Urine Opiates Screen Acetaminophen Ur Barbiturates Screen Ur Phencyclidine Scrn Ur Amphetamines Screen U Benzodiazepines Scrn Urine Cocaine Screen U Marijuana (THC) Screen Ethyl Alcohol Acetone, Qual COVID-19 (ARACELI) COVID-[employer] 05/29/20 05/29/20 05/29/20 10:06 10:58 12:09 WBC RBC Hgb Hct MCV MCH MCHC RDW Plt Count MPV Immature Gran % (Auto) Neut % (Auto) Lymph % (Auto) Bureau % (Auto) Eos % (Auto) Baso % (Auto) Lymph # (Auto) Bureau # (Auto) Eos # (Auto) Baso # (Auto) Abs Immat Gran (auto) Absolute Neuts (auto) Absolute Nucleated RBC Nucleated RBC % (auto) Neutrophils % (Manual) Band Neutrophils % Lymphocytes % (Manual) Abs Neuts (Manual) Lymphocytes # (Manual) Toxic Vacuolation Platelet Estimate Large Platelets Plt Morphology Comment RBC Morphology Polychromasia Target Cells Tear Drop Cells Smear Tech's Comments PT INR APTT VBG pH VBG pCO2 VBG pO2 VBG HCO3 VBG O2 Saturation VBG Base Excess Carboxyhemoglobin Sodium Potassium Chloride Carbon Dioxide Anion Gap BUN Creatinine Estim Creat Clear Calc Estimated GFR POC Glucose 248 H 216 H 210 H Random Glucose Estimat Average Glucose Hemoglobin A1c % Lactic Acid Lactic Acid Fup @ 2Hr Calcium Phosphorus Magnesium Total Bilirubin Direct Bilirubin AST ALT Alkaline Phosphatase Ammonia Total Creatine Kinase Troponin I High Sens Total Protein Albumin Triglycerides Lipase TSH Salicylates Urine Opiates Screen Acetaminophen Ur Barbiturates Screen Ur Phencyclidine Scrn Ur Amphetamines Screen U Benzodiazepines Scrn Urine Cocaine Screen U Marijuana (THC) Screen Ethyl Alcohol Acetone, Qual COVID-19 (ARACELI) COVID-[employer] 05/29/20 05/29/20 05/29/20 12:37 12:37 13:14 WBC RBC Hgb Hct MCV MCH MCHC RDW Plt Count MPV Immature Gran % (Auto) Neut % (Auto) Lymph % (Auto) Bureau % (Auto) Eos % (Auto) Baso % (Auto) Lymph # (Auto) Bureau # (Auto) Eos # (Auto) Baso # (Auto) Abs Immat Gran (auto) Absolute Neuts (auto) Absolute Nucleated RBC Nucleated RBC % (auto) Neutrophils % (Manual) Band Neutrophils % Lymphocytes % (Manual) Abs Neuts (Manual) Lymphocytes # (Manual) Toxic Vacuolation Platelet Estimate Large Platelets Plt Morphology Comment RBC Morphology Polychromasia Target Cells Tear Drop Cells Smear Tech's Comments PT INR APTT VBG pH 7.22 L VBG pCO2 33 VBG pO2 53 VBG HCO3 14 VBG O2 Saturation 89.0 VBG Base Excess -12.2 Carboxyhemoglobin Sodium 149 H Potassium 2.6 L D Chloride 128 H Carbon Dioxide 16 L Anion Gap 8 L BUN 38 H Creatinine 1.71 H Estim Creat Clear Calc 63.0 Estimated GFR 47 POC Glucose 129 H Random Glucose 185 H D Estimat Average Glucose Hemoglobin A1c % Lactic Acid Lactic Acid Fup @ 2Hr Calcium 8.5 Phosphorus 1.1 L Magnesium Total Bilirubin Direct Bilirubin AST ALT Alkaline Phosphatase Ammonia Total Creatine Kinase Troponin I High Sens Total Protein Albumin Triglycerides Lipase TSH Salicylates Urine Opiates Screen Acetaminophen Ur Barbiturates Screen Ur Phencyclidine Scrn Ur Amphetamines Screen U Benzodiazepines Scrn Urine Cocaine Screen U Marijuana (THC) Screen Ethyl Alcohol Acetone, Qual COVID-19 (ARACELI) COVID-19 [employer] 05/29/20 14:09 WBC RBC Hgb Hct MCV MCH MCHC RDW Plt Count MPV Immature Gran % (Auto) Neut % (Auto) Lymph % (Auto) Bureau % (Auto) Eos % (Auto) Baso % (Auto) Lymph # (Auto) Bureau # (Auto) Eos # (Auto) Baso # (Auto) Abs Immat Gran (auto) Absolute Neuts (auto) Absolute Nucleated RBC Nucleated RBC % (auto) Neutrophils % (Manual) Band Neutrophils % Lymphocytes % (Manual) Abs Neuts (Manual) Lymphocytes # (Manual) Toxic Vacuolation Platelet Estimate Large Platelets Plt Morphology Comment RBC Morphology Polychromasia Target Cells Tear Drop Cells Smear Tech's Comments PT INR APTT VBG pH VBG pCO2 VBG pO2 VBG HCO3 VBG O2 Saturation VBG Base Excess Carboxyhemoglobin Sodium Potassium Chloride Carbon Dioxide Anion Gap BUN Creatinine Estim Creat Clear Calc Estimated GFR POC Glucose 130 H Random Glucose Estimat Average Glucose Hemoglobin A1c % Lactic Acid Lactic Acid Fup @ 2Hr Calcium Phosphorus Magnesium Total Bilirubin Direct Bilirubin AST ALT Alkaline Phosphatase Ammonia Total Creatine Kinase Troponin I High Sens Total Protein Albumin Triglycerides Lipase TSH Salicylates Urine Opiates Screen Acetaminophen Ur Barbiturates Screen Ur Phencyclidine Scrn Ur Amphetamines Screen U Benzodiazepines Scrn Urine Cocaine Screen U Marijuana (THC) Screen Ethyl Alcohol Acetone, Qual COVID-19 (ARACELI) COVID-19 Clin Com Progress Note: A&P Assessment and plan (1) Acute pancreatitis: Status: Acute Assessment and Plan: Assessment: 34-year-old gentleman with no past medical history admitted with alteration of mental status secondary to profound acidosis secondary to diabetic ketoacidosis on the background of pancreatitis and COVID-19 further complicated by acute respiratory and acute renal failure. Plan: Neuro: Alteration of mental status, likely secondary to metabolic encephalopathy from acidosis and multiple electrolyte abnormalities. Now sedated on the ventilatory support. Cardiac: Tachycardia, likely related to underlying pancreatitis and fevers. Pulmonary: Acute respiratory failure secondary to muscle fatigue from tachypnea from attempted respiratory compensation for underlying profound metabolic acidosis, now requiring ventilatory support. Continue to titrate off as tolerat ed Renal: Acute renal failure, likely secondary to underlying diabetes with diabetic ketoacidosis. Non oliguric. Continue to monitor renal indices and urine output. Improved. Multiple electrolyte abnormalities, continue to replete as necessary. Endo: New diagnosis of diabetes mellitus presenting with diabetic ketoacidosis, now continuous on insulin drip protocol. Underlying hemoglobin A1c of 13. Also, acute pancreatitis uses the results of or and underlying etiology for diabetes mellitus. Continue to monitor lipase level. Continue with IV fluid support. GI: No acute issues. ID: COVID [id number], not on dexamethasone secondary to underlying diabetic ketoacidosis. Patient has received empiric dose of Levaquin secondary to underlying pancreatitis. Blood cultures are negative to date. Heme/Onc: No acute issues. Psych: No acute issues. Miscellaneous: No acute issues. Prophylaxis: Heparin, ppi Diet: Nothing by mouth Critical care time spent: 90 minutes (2) Diabetic ketoacidosis: Status: Acute (3) Acute renal failure: Status: Acute (4) COVID-19: Status: Acute (5) Acute respiratory failure: Status: Acute (6) Diabetes: Status: Acute Time Spent With Patient Total time spent with greater than 50% in coordination of care (as documented) at patient's floor/unit and/or counseling patient:: 0 Critical Care Time Critical Care Time (minutes): 90
[2020-05-29 15:04] LABS: Glucose, Whole Blood 109 mg/dL (60-115)
--- NOTE | 2020-05-29 16:02 | MHC.CM.PN ---
Addendum entered by Roberta Helton 05/29/20 16:14: Recieved [facility] policy number: call placed to [facility] - they are unable to verify his payor at this time but will recheck on Monday, 06/01 and call CM office with possible PCP appt. Original Note: Pt in ICU on vent support secondary to severe DKA and COVID. Information obtained from EMR and phone call with pt's mother. 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 She notes pt has not been to an MD for close to 10 years and does not presently have a PCP. Discussed d/c plan including outpt f/u for DM management/teaching etc. CM will call [facility] providers to inquire on PCP availability. It is doubtful pt will qualify for VNA d/t lack of homebound status but CM can reapproach if necessary. Cesia can transport pt home when he is ready Call placed to [facility] [facility] office inquiring on PCP - office will need [facility] policy number to ensure coverage and will then assign pt to a new PCP. [facility] office [phone].
[2020-05-29 16:05] LABS: Glucose, Whole Blood 128 mg/dL (60-115)
[2020-05-29 17:21] LABS: Glucose, Whole Blood 128 mg/dL (60-115)
[2020-05-29 17:38] LABS: Base Excess VBG -13.2 mmol/L; HCO3 VBG 11 mmol/L; PCO2 VBG 24 mmHg; PO2 VBG 57 mmHg; pH VBG 7.26 (7.32-7.43)
[2020-05-29] MEDS: Insulin Regular/NS 100 UNIT/100 ML PLAST..BAG 12 UNIT IVCONT (17:51)
[2020-05-29 18:08] LABS: Glucose, Whole Blood 105 mg/dL (60-115)
[2020-05-29 18:37] LABS: Anion Gap 13 (12-20); Blood Urea Nitrogen 38 mg/dL (9-16); Calcium 7.9 mg/dL (8.4-10.2); Carbon Dioxide 11 mmol/L (22-29); Chloride 128 mmol/L (96-108); Creatinine Clr Calc Pharmacy 59.2; Estimated Glomerular Filt Rate 43; Glucose Random 145 mg/dL (60-115); Phosphorus < 0.7 mg/dL (2.7-4.5); Potassium 6.4 mmol/L (3.3-5.1); Sodium 146 mmol/L (135-145)
[2020-05-29 18:38] LABS: Lipase 1536 U/L (8-78)
--- NOTE | 2020-05-29 18:45 | PC.NURSE ---
Patient remains intubated and sedated on propofol and Fentanyl. Remains on Phenylephrine gtt for goal map >65. Remains on insulin gtt and D5W with blood sugar checks Q1H. Repleted K and phos today. According to labs, K critically high at 6.4 and phos critically low at 0.7. Will recheck. Patient became more tachycardic today. During this time patient had fever 101.3. Given tylenol OK with little effect. Brought temp down to 100.8. Patient remains tachycardic in 140s. MD aware. Family updated over the phone. Will continue to monitor.
[2020-05-29 19:42] LABS: Glucose, Whole Blood 142 mg/dL (60-115)
[2020-05-29 19:59] LABS: Anion Gap 15 (12-20); Blood Urea Nitrogen 38 mg/dL (9-16); Calcium 7.8 mg/dL (8.4-10.2); Carbon Dioxide 10 mmol/L (22-29); Chloride 128 mmol/L (96-108); Estimated Glomerular Filt Rate 42; Glucose Random 161 mg/dL (60-115); Phosphorus < 0.7 mg/dL (2.7-4.5); Potassium 6.5 mmol/L (3.3-5.1); Sodium 146 mmol/L (135-145)
[2020-05-29 20:28] LABS: Glucose, Whole Blood 148 mg/dL (60-115)
[2020-05-29] MEDS: Piperacillin Sodium/Tazobactam 4.5 GM in 0.9 % Sodium Chloride 100 ML IV (20:32)
[2020-05-29] MEDS: Lactulose 20 GM/30 ML SOLUTION 30 GM OG-TUBE (20:32)
[2020-05-29] MEDS: Furosemide 20 MG TABLET PO (20:33)
[2020-05-29] MEDS: Sodium,Potassium Phosphates POWD.PACK 2 PACKET PO (20:33)
[2020-05-29 21:40] LABS: Glucose, Whole Blood 170 mg/dL (60-115)
[2020-05-29 22:03] LABS: Lactic Acid 2.1 mmol/L (0.5-2.0)
[2020-05-29 22:36] LABS: Alanine Aminotransferase 42 U/L (0-40); Albumin Level 2.8 g/dL (3.5-5.0); Alkaline Phosphatase 63 U/L (39-117); Aspartate Amino Transferase 51 U/L (5-37); Bilirubin Direct 0.2 mg/dL (0.0-0.5); Bilirubin Total 0.6 mg/dL (0.0-1.0)
[2020-05-29 23:19] LABS: Glucose, Whole Blood 238 mg/dL (60-115)
[2020-05-29] MEDS: Albumin Human 25 % 100 ML IV (23:32)
[2020-05-29] MEDS: Phenylephrine HCL 20 MG in 0.9 % Sodium Chloride 250 ML 122.77 MG IVCONT (23:33)
[2020-05-29 23:34] LABS: Reflex Lactate? Lactic Acid Added
[2020-05-30] VITALS (32 sets, daily range): BP systolic 94–148; BP diastolic 35–88; PULSE 119–142; RESP 20–38; TEMP 37.6–38.8; O2SAT 93–100; BMI 29.0
[2020-05-30 00:10] LABS: Glucose, Whole Blood 276 mg/dL (60-115)
[2020-05-30 00:11] LABS: Base Excess VBG -14.8 mmol/L; HCO3 VBG 10 mmol/L; PCO2 VBG 23 mmHg; PO2 VBG 65 mmHg; pH VBG 7.24 (7.32-7.43)
[2020-05-30] MEDS: propofoL 1,000 MG/100 ML VIAL 24.36 MG IVCONT ×3 (00:17→06:40)
[2020-05-30] MEDS: Midazolam HCl/PF 2 MG/2 ML VIAL IVPUSH (00:34)
[2020-05-30 00:37] LABS: ~Lactic Acid-LAB USE ONLY 2.4 mmol/L (0.5-2.0)
[2020-05-30 01:00] LABS: Glucose, Whole Blood 226 mg/dL (60-115)
[2020-05-30 01:01] LABS: Anion Gap 15 (12-20); Blood Urea Nitrogen 38 mg/dL (9-16); Calcium 7.5 mg/dL (8.4-10.2); Carbon Dioxide 9 mmol/L (22-29); Chloride 122 mmol/L (96-108); Creatinine Clr Calc Pharmacy 49.2; Estimated Glomerular Filt Rate 35; Glucose Random 293 mg/dL (60-115); Magnesium 1.5 mg/dL (1.6-2.6); Phosphorus < 0.7 mg/dL (2.7-4.5); Potassium 6.2 mmol/L (3.3-5.1); Sodium 140 mmol/L (135-145)
[2020-05-30] MEDS: Acetaminophen Oral Liquid 650 MG/20.3 ML SOLUTION 325 MG PO (01:15)
[2020-05-30] MEDS: Phenylephrine HCL 20 MG in 0.9 % Sodium Chloride 250 ML 122.77 MG IVCONT ×3 (01:16→06:00)
[2020-05-30] MEDS: fentaNYL citrate/NS 1,000 MCG/100 ML PLAST..BAG 15 MCG IVCONT ×4 (01:16→22:34)
[2020-05-30] MEDS: Dextrose 5 % 1,000 ML 200 ML IVCONT ×3 (01:52→08:01)
[2020-05-30 02:03] LABS: Glucose, Whole Blood 263 mg/dL (60-115)
[2020-05-30 02:05] LABS: Reflex Lactate? 2 Y
[2020-05-30] MEDS: Furosemide 20 MG/2 ML VIAL IVPUSH (02:25)
[2020-05-30 02:52] LABS: ~Lactic Acid-LAB USE ONLY 2.6 mmol/L (0.5-2.0)
[2020-05-30] MEDS: Insulin Regular/NS 100 UNIT/100 ML PLAST..BAG 14 UNIT IVCONT (03:24)
[2020-05-30 04:05] LABS: Glucose, Whole Blood 233 mg/dL (60-115)
[2020-05-30 04:12] LABS: Glucose, Whole Blood 235 mg/dL (60-115)
--- NOTE | 2020-05-30 04:17 | PC.NURSE ---
pt is sedated under influences of max. propofol and fentanyl has been titrated upward now infusing at 150mcg/hr. pt has had emergence from sedation in which he is biting down and in disharmony with ventilator. in addition to previously described sedatives, he has been given versed 2 mg ivp for ventilatory management. with emergence from sedation he attempts to localize hands toward face and endotracheal tube. complexion pale. skin hot/dry. oral mucosa dessicated. scleral edema present. right orbit is reddened and appears to be abraded. transorally intubated and mechanically ventilated with the following settings ac 22 vt 450 fio2 40% peep 5cm. breath sounds coarse and diminished. ecg displays st. apical heart rate 130-140 bpm. vasopressor tx with neosynephrine has been mandatory to maintain b/p guidelines and infact neosyephrine has been increased upward over night. febrile temp increased to 102. tylenol and thermal cooling implemented. insulin drip adjusted per provider. please note insulin drip titrated by provider orders q 1 hr. lab work over night has shown continued hyperkalemia and metabolic acidosis. lactate has risen to 2.6. lasix 20 mg via ogt and lasix 20 mg ivp given in hopes of diuresis and reducing K+. abdomen distended and semisoft. laculose 30 mg given without stool at this time. ogt briefly placed to suction with 100 ml of bilious gastric aspirant obtained. u/o poor and improved marginally with lasix. abx zosyn and albumin initaited over night.
[2020-05-30 05:27] LABS: Base Excess VBG -13.8 mmol/L; HCO3 VBG 11 mmol/L; PCO2 VBG 23 mmHg; PO2 VBG 68 mmHg; pH VBG 7.26 (7.32-7.43)
[2020-05-30 05:39] LABS: MANUAL DIFF FLAG NO
[2020-05-30 05:40] LABS: Basophils Percent Auto 0.1 % (0-2); Hematocrit 38.8 % (42-52); Hemoglobin 14.4 g/dl (14.0-18.0); Imm Gran Abs Auto 0.12 X10*3/uL (0.00-0.03); Imm Gran Pct Auto 0.8 % (0.0-0.4); Lymphocytes Absolute Auto 1.6 X10*3/uL (1.2-4.9); Lymphocytes Percent Auto 10.4 % (20-40); Mean Corpuscular HGB Conc 37.1 g/dl (31.0-36.0); Mean Corpuscular Hemoglobin 29.3 pg (27.0-33.0); Mean Platelet Volume 12.3 fL (9.4-12.4); Monocytes Percent Auto 6.6 % (2-11); NRBC Pct Auto 0.7 /100WBC (0.0-0.2); Neutrophils Absolute Auto 12.5 X10*3/uL (2.0-8.3); Neutrophils Percent Auto 82.1 % (45-73); Platelet Count 136 X10*3/uL (160-400); Red Blood Count 4.91 X10*6/uL (4.60-5.80); Red Cell Distribution Width 13.6 % (11.0-16.0); White Blood Count 15.2 X10*3/uL (4.8-10.8)
[2020-05-30] MEDS: Piperacillin Sodium/Tazobactam 4.5 GM in 0.9 % Sodium Chloride 100 ML IV (05:57)
[2020-05-30 05:59] LABS: Lactic Acid 2.4 mmol/L (0.5-2.0)
[2020-05-30] MEDS: Pantoprazole Sodium 40 MG/10 ML VIAL IVPUSH (06:01)
[2020-05-30 06:06] LABS: Alanine Aminotransferase 37 U/L (0-40); Alkaline Phosphatase 50 U/L (39-117); Anion Gap 14 (12-20); Aspartate Amino Transferase 48 U/L (5-37); Bilirubin Total 0.8 mg/dL (0.0-1.0); Blood Urea Nitrogen 37 mg/dL (9-16); Calcium 7.6 mg/dL (8.4-10.2); Carbon Dioxide 11 mmol/L (22-29); Chloride 121 mmol/L (96-108); Creatinine Clr Calc Pharmacy 47.9; Estimated Glomerular Filt Rate 34; Glucose Random 234 mg/dL (60-115); Lipase 1014 U/L (8-78); Magnesium 1.4 mg/dL (1.6-2.6); Phosphorus 1.1 mg/dL (2.7-4.5); Potassium 4.6 mmol/L (3.3-5.1); Sodium 141 mmol/L (135-145); Total Protein 5.1 g/dL (6.5-8.0)
[2020-05-30 06:07] LABS: Glucose, Whole Blood 184 mg/dL (60-115)
[2020-05-30] MEDS: Albumin Human 25 % 100 ML IV (06:09)
[2020-05-30 07:09] LABS: Glucose, Whole Blood 204 mg/dL (60-115)
[2020-05-30] MEDS: Magnesium Sulfate/H2O 2 GM/50 ML PIGGYBACK IV (07:28)
[2020-05-30] MEDS: Heparin Sodium,Porcine 5,000 UNIT/ML VIAL 5000 UNIT SUBCUT ×3 (07:29→23:57)
[2020-05-30] MEDS: Chlorhexidine Gluc Oral Rinse 15 ML MOUTHWASH BUCCAL ×3 (07:29→22:35)
[2020-05-30 07:48] LABS: Reflex Lactate? Lactic Acid Added
[2020-05-30 07:58] LABS: Glucose, Whole Blood 174 mg/dL (60-115)
[2020-05-30] MEDS: Phenylephrine HCL 20 MG in 0.9 % Sodium Chloride 250 ML 92.08 MG IVCONT (08:02)
[2020-05-30 09:05] LABS: ~Lactic Acid-LAB USE ONLY 1.8 mmol/L (0.5-2.0)
[2020-05-30 09:06] LABS: Glucose, Whole Blood 192 mg/dL (60-115)
[2020-05-30] MEDS: Sodium,Potassium Phosphates POWD.PACK 2 PACKET PO (09:19)
[2020-05-30 10:10] LABS: Glucose, Whole Blood 195 mg/dL (60-115)
[2020-05-30] MEDS: Phenylephrine HCL 20 MG in 0.9 % Sodium Chloride 250 ML 61.39 MG IVCONT ×3 (11:00→19:57)
[2020-05-30] MEDS: propofoL 1,000 MG/100 ML VIAL 17.05 MG IVCONT (11:19)
[2020-05-30] MEDS: Insulin Regular/NS 100 UNIT/100 ML PLAST..BAG 10 UNIT IVCONT (11:19)
[2020-05-30 11:24] LABS: Glucose, Whole Blood 197 mg/dL (60-115)
--- NOTE | 2020-05-30 11:51 | PM.CCPN ---
Subjective Subjective Date of Service: 05/30/20 Interval History: ICU days 3 for diabetic ketoacidosis, acute respiratory failure, acute renal failure, COVID-19, and pancreatitis. 34-year-old gentleman with no significant past medical history admitted on 05/28/2020 with alteration of mental status and weakness. Per family patient has not been feeling well for 2 days prior to admission complain increase soft and urination. On ER evaluation patient was noted to have profound metabolic acidosis with pH of 6.76 secondary to diabetic ketoacidosis with new diagnosis of diabetes mellitus. His hemoglobin A1c was noted to be 13. His lipase was elevated at 1600 and his triglycerides in the 800 range. Patient has also been noted to be COVID positive. He has been started on insulin drip. His hospital course has been complicated by profound metabolic acidosis secondary to underlying diabetic ketoacidosis requiring emergent intubation and ventilatory support. Also he has developed multiple electrolyte abnormalities including hypophosphatemia and hyperkalemia secondary to electrolyte shifts with acidosis and its correction. Of note, patient initially in sodium has been 120 and he has received 3 L of normal saline in the emergency room which resulted in rapid correction of his sodium to 140, no free water has been used at that time secondary to profound hyperglycemia and ongoing acidosis. CT abdomen and pelvis has been obtained secondary to concern for dilated gastric bubble. Patient has been evaluated by General Surgical team and did not require an acute intervention for his dilated gallbladder. Overnight his acidosis, electrolyte abnormalities lipase have improved. Failed pressure support trial today. Physical Exam Vital Signs: Vital Signs: Last Vital Signs Temp 100.4 F 05/30/20 10:56 Pulse 139 H 05/30/20 10:56 Resp 38 H 05/30/20 10:56 BP 129/72 05/30/20 10:56 Pulse Ox 98 05/30/20 10:56 Body Mass Index 29.0 Const: General: no acute distress, alert and awake Eyes: Sclerae: sclerae normal Neck: Neck: Yes no lymphadenopathy, Yes trachea midline and Yes supple Resp: Effort & Inspection: normal respiratory effort and no respiratory distress Auscultation: clear to auscultation bilaterally Cardio: Rate: tachycardic Rhythm: regular rhythm Heart sounds: no gallops, no murmurs and no rubs GI: Palpation (GI): Soft to palpation and Other GI palpation findings present ( Distended, nontender) Extrem: General: Yes no pedal edema, No clubbing and No cyanosis Objective Data Labs CBC & Chem 7: 05/30/20 05:02 05/30/20 05:02 Labs: Laboratory Results - last 24 hr 05/29/20 05/29/20 05/29/20 12:09 12:37 12:37 WBC RBC Hgb Hct MCV MCH MCHC RDW Plt Count MPV Immature Gran % (Auto) Neut % (Auto) Lymph % (Auto) [place] % (Auto) Eos % (Auto) Baso % (Auto) Lymph # (Auto) [place] # (Auto) Eos # (Auto) Baso # (Auto) Abs Immat Gran (auto) Absolute Neuts (auto) Absolute Nucleated RBC Nucleated RBC % (auto) VBG pH 7.22 L VBG pCO2 33 VBG pO2 53 VBG HCO3 14 VBG O2 Saturation 89.0 VBG Base Excess -12.2 Sodium 149 H Potassium 2.6 L D Chloride 128 H Carbon Dioxide 16 L Anion Gap 8 L BUN 38 H Creatinine 1.71 H Estim Creat Clear Calc 63.0 Estimated GFR 47 POC Glucose 210 H Random Glucose 185 H D Lactic Acid Lactic Acid Fup @ 2Hr Lactic Acid Fup @ 4Hr Calcium 8.5 Phosphorus 1.1 L Magnesium Total Bilirubin Direct Bilirubin AST ALT Alkaline Phosphatase Total Protein Albumin Lipase 05/29/20 05/29/20 05/29/20 13:14 14:09 15:00 WBC RBC Hgb Hct MCV MCH MCHC RDW Plt Count MPV Immature Gran % (Auto) Neut % (Auto) Lymph % (Auto) [place] % (Auto) Eos % (Auto) Baso % (Auto) Lymph # (Auto) [place] # (Auto) Eos # (Auto) Baso # (Auto) Abs Immat Gran (auto) Absolute Neuts (auto) Absolute Nucleated RBC Nucleated RBC % (auto) VBG pH VBG pCO2 VBG pO2 VBG HCO3 VBG O2 Saturation VBG Base Excess Sodium Potassium Chloride Carbon Dioxide Anion Gap BUN Creatinine Estim Creat Clear Calc Estimated GFR POC Glucose 129 H 130 H 109 Random Glucose Lactic Acid Lactic Acid Fup @ 2Hr Lactic Acid Fup @ 4Hr Calcium Phosphorus Magnesium Total Bilirubin Direct Bilirubin AST ALT Alkaline Phosphatase Total Protein Albumin Lipase 05/29/20 05/29/20 05/29/20 16:01 17:18 17:28 WBC RBC Hgb Hct MCV MCH MCHC RDW Plt Count MPV Immature Gran % (Auto) Neut % (Auto) Lymph % (Auto) [place] % (Auto) Eos % (Auto) Baso % (Auto) Lymph # (Auto) [place] # (Auto) Eos # (Auto) Baso # (Auto) Abs Immat Gran (auto) Absolute Neuts (auto) Absolute Nucleated RBC Nucleated RBC % (auto) VBG pH VBG pCO2 VBG pO2 VBG HCO3 VBG O2 Saturation VBG Base Excess Sodium 146 H Potassium 6.4 H* D Chloride 128 H Carbon Dioxide 11 L Anion Gap 13 BUN 38 H Creatinine 1.82 H Estim Creat Clear Calc 59.2 Estimated GFR 43 POC Glucose 128 H 128 H Random Glucose 145 H Lactic Acid Lactic Acid Fup @ 2Hr Lactic Acid Fup @ 4Hr Calcium 7.9 L D Phosphorus < 0.7 L* Magnesium Total Bilirubin Direct Bilirubin AST ALT Alkaline Phosphatase Total Protein Albumin Lipase 1536 H 05/29/20 05/29/20 05/29/20 17:28 18:04 18:52 WBC RBC Hgb Hct MCV MCH MCHC RDW Plt Count MPV Immature Gran % (Auto) Neut % (Auto) Lymph % (Auto) [place] % (Auto) Eos % (Auto) Baso % (Auto) Lymph # (Auto) [place] # (Auto) Eos # (Auto) Baso # (Auto) Abs Immat Gran (auto) Absolute Neuts (auto) Absolute Nucleated RBC Nucleated RBC % (auto) VBG pH 7.26 L VBG pCO2 24 VBG pO2 57 VBG HCO3 11 VBG O2 Saturation 94.0 VBG Base Excess -13.2 Sodium 146 H Potassium 6.5 H* Chloride 128 H Carbon Dioxide 10 L* Anion Gap 15 BUN 38 H Creatinine 1.89 H Estim Creat Clear Calc 57.0 Estimated GFR 42 POC Glucose 105 Random Glucose 161 H Lactic Acid Lactic Acid Fup @ 2Hr Lactic Acid Fup @ 4Hr Calcium 7.8 L Phosphorus < 0.7 L* Magnesium Total Bilirubin Direct Bilirubin AST ALT Alkaline Phosphatase Total Protein Albumin Lipase 05/29/20 05/29/20 05/29/20 19:23 20:08 21:12 WBC RBC Hgb Hct MCV MCH MCHC RDW Plt Count MPV Immature Gran % (Auto) Neut % (Auto) Lymph % (Auto) [place] % (Auto) Eos % (Auto) Baso % (Auto) Lymph # (Auto) [place] # (Auto) Eos # (Auto) Baso # (Auto) Abs Immat Gran (auto) Absolute Neuts (auto) Absolute Nucleated RBC Nucleated RBC % (auto) VBG pH VBG pCO2 VBG pO2 VBG HCO3 VBG O2 Saturation VBG Base Excess Sodium Potassium Chloride Carbon Dioxide Anion Gap BUN Creatinine Estim Creat Clear Calc Estimated GFR POC Glucose 142 H 148 H 170 H Random Glucose Lactic Acid Lactic Acid Fup @ 2Hr Lactic Acid Fup @ 4Hr Calcium Phosphorus Magnesium Total Bilirubin Direct Bilirubin AST ALT Alkaline Phosphatase Total Protein Albumin Lipase 05/29/20 05/29/20 05/29/20 21:25 21:25 23:11 WBC RBC Hgb Hct MCV MCH MCHC RDW Plt Count MPV Immature Gran % (Auto) Neut % (Auto) Lymph % (Auto) [place] % (Auto) Eos % (Auto) Baso % (Auto) Lymph # (Auto) [place] # (Auto) Eos # (Auto) Baso # (Auto) Abs Immat Gran (auto) Absolute Neuts (auto) Absolute Nucleated RBC Nucleated RBC % (auto) VBG pH VBG pCO2 VBG pO2 VBG HCO3 VBG O2 Saturation VBG Base Excess Sodium Potassium Chloride Carbon Dioxide Anion Gap BUN Creatinine Estim Creat Clear Calc Estimated GFR POC Glucose 238 H Random Glucose Lactic Acid 2.1 H* Lactic Acid Fup @ 2Hr Lactic Acid Fup @ 4Hr Calcium Phosphorus Magnesium Total Bilirubin 0.6 Direct Bilirubin 0.2 AST 51 H ALT 42 H Alkaline Phosphatase 63 D Total Protein 5.0 L D Albumin 2.8 L D Lipase 05/30/20 05/30/20 05/30/20 00:00 00:00 00:00 WBC RBC Hgb Hct MCV MCH MCHC RDW Plt Count MPV Immature Gran % (Auto) Neut % (Auto) Lymph % (Auto) [place] % (Auto) Eos % (Auto) Baso % (Auto) Lymph # (Auto) [place] # (Auto) Eos # (Auto) Baso # (Auto) Abs Immat Gran (auto) Absolute Neuts (auto) Absolute Nucleated RBC Nucleated RBC % (auto) VBG pH 7.24 L VBG pCO2 23 VBG pO2 65 VBG HCO3 10 VBG O2 Saturation 94.0 VBG Base Excess -14.8 Sodium 140 Potassium 6.2 H* Chloride 122 H Carbon Dioxide 9 L* Anion Gap 15 BUN 38 H Creatinine 2.19 H Estim Creat Clear Calc 49.2 Estimated GFR 35 POC Glucose Random Glucose 293 H D Lactic Acid Lactic Acid Fup @ 2Hr 2.4 H* Lactic Acid Fup @ 4Hr Calcium 7.5 L Phosphorus < 0.7 L* Magnesium 1.5 L Total Bilirubin Direct Bilirubin AST ALT Alkaline Phosphatase Total Protein Albumin Lipase 05/30/20 05/30/20 05/30/20 00:03 00:55 01:57 WBC RBC Hgb Hct MCV MCH MCHC RDW Plt Count MPV Immature Gran % (Auto) Neut % (Auto) Lymph % (Auto) [place] % (Auto) Eos % (Auto) Baso % (Auto) Lymph # (Auto) [place] # (Auto) Eos # (Auto) Baso # (Auto) Abs Immat Gran (auto) Absolute Neuts (auto) Absolute Nucleated RBC Nucleated RBC % (auto) VBG pH VBG pCO2 VBG pO2 VBG HCO3 VBG O2 Saturation VBG Base Excess Sodium Potassium Chloride Carbon Dioxide Anion Gap BUN Creatinine Estim Creat Clear Calc Estimated GFR POC Glucose 276 H 226 H 263 H Random Glucose Lactic Acid Lactic Acid Fup @ 2Hr Lactic Acid Fup @ 4Hr Calcium Phosphorus Magnesium Total Bilirubin Direct Bilirubin AST ALT Alkaline Phosphatase Total Protein Albumin Lipase 05/30/20 05/30/20 05/30/20 02:15 03:16 04:07 WBC RBC Hgb Hct MCV MCH MCHC RDW Plt Count MPV Immature Gran % (Auto) Neut % (Auto) Lymph % (Auto) [place] % (Auto) Eos % (Auto) Baso % (Auto) Lymph # (Auto) [place] # (Auto) Eos # (Auto) Baso # (Auto) Abs Immat Gran (auto) Absolute Neuts (auto) Absolute Nucleated RBC Nucleated RBC % (auto) VBG pH VBG pCO2 VBG pO2 VBG HCO3 VBG O2 Saturation VBG Base Excess Sodium Potassium Chloride Carbon Dioxide Anion Gap BUN Creatinine Estim Creat Clear Calc Estimated GFR POC Glucose 233 H 235 H Random Glucose Lactic Acid Lactic Acid Fup @ 2Hr Lactic Acid Fup @ 4Hr 2.6 H* Calcium Phosphorus Magnesium Total Bilirubin Direct Bilirubin AST ALT Alkaline Phosphatase Total Protein Albumin Lipase 05/30/20 05/30/20 05/30/20 05:02 05:02 05:02 WBC RBC Hgb Hct MCV MCH MCHC RDW Plt Count MPV Immature Gran % (Auto) Neut % (Auto) Lymph % (Auto) [place] % (Auto) Eos % (Auto) Baso % (Auto) Lymph # (Auto) [place] # (Auto) Eos # (Auto) Baso # (Auto) Abs Immat Gran (auto) Absolute Neuts (auto) Absolute Nucleated RBC Nucleated RBC % (auto) VBG pH 7.26 L VBG pCO2 23 VBG pO2 68 VBG HCO3 11 VBG O2 Saturation 95.0 VBG Base Excess -13.8 Sodium 141 Potassium 4.6 D Chloride 121 H Carbon Dioxide 11 L Anion Gap 14 BUN 37 H Creatinine 2.25 H Estim Creat Clear Calc 47.9 Estimated GFR 34 POC Glucose Random Glucose 234 H Lactic Acid Lactic Acid Fup @ 2Hr Lactic Acid Fup @ 4Hr Calcium 7.6 L Phosphorus 1.1 L Magnesium 1.4 L* Total Bilirubin 0.8 Direct Bilirubin AST 48 H ALT 37 Alkaline Phosphatase 50 D Total Protein 5.1 L Albumin 3.0 L Lipase Cancelled 1014 H 05/30/20 05/30/20 05/30/20 05:02 05:02 06:03 WBC 15.2 H RBC 4.91 Hgb 14.4 Hct 38.8 L MCV 79.0 L MCH 29.3 MCHC 37.1 H RDW 13.6 Plt Count 136 L D MPV 12.3 Immature Gran % (Auto) 0.8 H Neut % (Auto) 82.1 H Lymph % (Auto) 10.4 L [place] % (Auto) 6.6 Eos % (Auto) 0.0 Baso % (Auto) 0.1 Lymph # (Auto) 1.6 [place] # (Auto) 1.0 Eos # (Auto) 0.0 Baso # (Auto) 0.0 Abs Immat Gran (auto) 0.12 H Absolute Neuts (auto) 12.5 H Absolute Nucleated RBC 0.110 H Nucleated RBC % (auto) 0.7 H VBG pH VBG pCO2 VBG pO2 VBG HCO3 VBG O2 Saturation VBG Base Excess Sodium Potassium Chloride Carbon Dioxide Anion Gap BUN Creatinine Estim Creat Clear Calc Estimated GFR POC Glucose 184 H Random Glucose Lactic Acid 2.4 H* Lactic Acid Fup @ 2Hr Lactic Acid Fup @ 4Hr Calcium Phosphorus Magnesium Total Bilirubin Direct Bilirubin AST ALT Alkaline Phosphatase Total Protein Albumin Lipase 05/30/20 05/30/20 05/30/20 06:59 07:54 08:05 WBC RBC Hgb Hct MCV MCH MCHC RDW Plt Count MPV Immature Gran % (Auto) Neut % (Auto) Lymph % (Auto) [place] % (Auto) Eos % (Auto) Baso % (Auto) Lymph # (Auto) [place] # (Auto) Eos # (Auto) Baso # (Auto) Abs Immat Gran (auto) Absolute Neuts (auto) Absolute Nucleated RBC Nucleated RBC % (auto) VBG pH VBG pCO2 VBG pO2 VBG HCO3 VBG O2 Saturation VBG Base Excess Sodium Potassium Chloride Carbon Dioxide Anion Gap BUN Creatinine Estim Creat Clear Calc Estimated GFR POC Glucose 204 H 174 H Random Glucose Lactic Acid Lactic Acid Fup @ 2Hr 1.8 Lactic Acid Fup @ 4Hr Calcium Phosphorus Magnesium Total Bilirubin Direct Bilirubin AST ALT Alkaline Phosphatase Total Protein Albumin Lipase 05/30/20 05/30/20 05/30/20 09:02 10:06 10:53 WBC RBC Hgb Hct MCV MCH MCHC RDW Plt Count MPV Immature Gran % (Auto) Neut % (Auto) Lymph % (Auto) [place] % (Auto) Eos % (Auto) Baso % (Auto) Lymph # (Auto) [place] # (Auto) Eos # (Auto) Baso # (Auto) Abs Immat Gran (auto) Absolute Neuts (auto) Absolute Nucleated RBC Nucleated RBC % (auto) VBG pH VBG pCO2 VBG pO2 VBG HCO3 VBG O2 Saturation VBG Base Excess Sodium Potassium Chloride Carbon Dioxide Anion Gap BUN Creatinine Estim Creat Clear Calc Estimated GFR POC Glucose 192 H 195 H 197 H Random Glucose Lactic Acid Lactic Acid Fup @ 2Hr Lactic Acid Fup @ 4Hr Calcium Phosphorus Magnesium Total Bilirubin Direct Bilirubin AST ALT Alkaline Phosphatase Total Protein Albumin Lipase Microbiology Microbiology Results: Microbiology 05/28/20 14:52 Blood - Venous Blood Culture - Preliminary No growth after 24 hours. 05/28/20 14:52 Blood - Venous Blood Culture - Preliminary No growth after 24 hours. Progress Note: A&P Assessment and plan (1) Acute respiratory failure: Status: Acute Assessment and Plan: Assessment: 34-year-old gentleman with no past medical history admitted with alteration of mental status secondary to profound acidosis secondary to diabetic ketoacidosis on the background of pancreatitis and COVID-19 further complicated by acute respiratory and acute renal failure. Plan: Neuro: Alteration of mental status, likely secondary to metabolic encephalopathy from acidosis and multiple electrolyte abnormalities. Now sedated on the ventilatory support. Moves all extremities, however does not follow commands with sedation vacation. Cardiac: Tachycardia, likely related to underlying pancreatitis and fevers. Pulmonary: Acute respiratory failure secondary to muscle fatigue from tachypnea from attempted respiratory compensation for underlying profound metabolic acidosis, now requiring ventilatory support. Continue to titrate off as tolerated. Did not tolerate pressure support trial today becoming significantly tachypneic. Renal: Acute renal failure, likely secondary to underlying diabetes with diabetic ketoacidosis. Non oliguric. Continue to monitor renal indices and urine output. Improved. Multiple electrolyte abnormalities, continue to replete as necessary. Endo: New diagnosis of diabetes mellitus presenting with diabetic ketoacidosis, now continues on insulin drip. Underlying hemoglobin A1c of 13. Also, acute pancreatitis with lipase improving. Continue with IV fluid support. GI: No acute issues. ID: COVID 19, not on dexamethasone secondary to underlying diabetic ketoacidosis. Patient is on empiric Zosyn secondary to underlying pancreatitis and fevers. Blood cultures are negative to date. Heme/Onc: No acute issues. Psych: No acute issues. Miscellaneous: No acute issues. Prophylaxis: Heparin, ppi Diet: Nothing by mouth Critical care time spent: 60 minutes (2) Diabetes: Status: Acute (3) Acute pancreatitis: Status: Acute (4) Acute renal failure: Status: Acute (5) COVID-19: Status: Acute Time Spent With Patient Total time spent with greater than 50% in coordination of care (as documented) at patient's floor/unit and/or counseling patient:: 0 Critical Care Time Critical Care Time (minutes): 60
[2020-05-30 12:08] LABS: Glucose Urine UA NEG (NEG); Leukocyte Esterase Urine NEG (NEG); Nitrite Urine NEG (NEG); Urine Blood 3+ (NEG); Urine Ketones NEG (NEG); Urine Protein 1+ MG/DL (NEG-TRACE)
[2020-05-30 12:09] LABS: Appearance Urine CLOUDY; Color Urine YELLOW
[2020-05-30 12:19] LABS: Glucose, Whole Blood 213 mg/dL (60-115)
[2020-05-30 12:22] LABS: Amorphous Sediment Urine 2+ /LPF; WBC Urine 0 /HPF (0-4)
[2020-05-30 12:23] LABS: Uric Acid Crystals Urine TRACE /LPF
[2020-05-30] MEDS: Albumin Human 25 % 100 ML 200 ML IV ×2 (12:55→17:46)
[2020-05-30] MEDS: Piperacillin Sodium/Tazobactam 3.375 GM in 0.9 % Sodium Chloride 50 ML IV ×2 (12:55→22:34)
[2020-05-30] MEDS: Dextrose 5 % 1,000 ML 100 ML IVCONT (12:56)
[2020-05-30 13:05] LABS: Glucose, Whole Blood 214 mg/dL (60-115)
[2020-05-30 13:57] LABS: Glucose, Whole Blood 190 mg/dL (60-115)
[2020-05-30 14:45] LABS: Anion Gap 16 (12-20); Blood Urea Nitrogen 34 mg/dL (9-16); Calcium 7.3 mg/dL (8.4-10.2); Carbon Dioxide 10 mmol/L (22-29); Chloride 117 mmol/L (96-108); Estimated Glomerular Filt Rate 37; Glucose Random 200 mg/dL (60-115); Sodium 139 mmol/L (135-145)
[2020-05-30 14:56] LABS: Glucose, Whole Blood 187 mg/dL (60-115)
[2020-05-30] MEDS: Sodium Bicarbonate 8.4% 150 MEQ in Dextrose 5 % 850 ML 100 MEQ IV (15:39)
[2020-05-30] MEDS: Potassium Phosphate 30 MMOL in 0.9 % Sodium Chloride 500 ML 85 MMOL IV (15:39)
[2020-05-30 15:55] LABS: Glucose, Whole Blood 173 mg/dL (60-115)
[2020-05-30] MEDS: propofoL 1,000 MG/100 ML VIAL 21.92 MG IVCONT ×3 (16:41→23:56)
[2020-05-30 17:00] LABS: Glucose, Whole Blood 172 mg/dL (60-115)
--- NOTE | 2020-05-30 17:20 | PC.NURSE ---
S/E Temp max 100.9 - down to 99.9 Failed sedation vacation - HR 140's, SBP 140's, RR 40's - unable to follow commands Re-sedated on Fentanyl & Propofol HR maintaining 120's, sinus - MD aware - no new orders Neosynephrine titrated per protocol #7.5 ETT 25cm @ lip, AC 22/450/5/40% OGT clamped - unable to auscultate or administer Pot Phosphates Abdomen distended, firm - KUB ordered - see report BM X1, brown liquid KPHOS 30mmol ordered and administering Insulin gtt contiued - POC maintaining 170's-190's Urine output 100-125cc/hr UA obtained Bicarb critical at 10 - D5W changed to D5 w/ 150meq NA Bicarb Bun & Creat up to 37/2.25 - Zosyn decreased to 3.375g No skin integrity concerns Family updated
[2020-05-30 18:23] LABS: Glucose, Whole Blood 155 mg/dL (60-115)
[2020-05-30 19:16] LABS: Glucose, Whole Blood 151 mg/dL (60-115)
[2020-05-30 19:54] LABS: Anion Gap 15 (12-20); Blood Urea Nitrogen 32 mg/dL (9-16); Calcium 7.4 mg/dL (8.4-10.2); Carbon Dioxide 13 mmol/L (22-29); Chloride 116 mmol/L (96-108); Creatinine Clr Calc Pharmacy 57.8; Estimated Glomerular Filt Rate 41; Glucose Random 162 mg/dL (60-115); Potassium 4.1 mmol/L (3.3-5.1); Sodium 140 mmol/L (135-145)
[2020-05-30 20:22] LABS: Glucose, Whole Blood 153 mg/dL (60-115)
[2020-05-30 22:04] LABS: Glucose, Whole Blood 173 mg/dL (60-115)
[2020-05-30] MEDS: Insulin Regular/NS 100 UNIT/100 ML PLAST..BAG 8 UNIT IVCONT (22:35)
[2020-05-30 23:05] LABS: Glucose, Whole Blood 197 mg/dL (60-115)
[2020-05-31] VITALS (30 sets, daily range): BP systolic 91–141; BP diastolic 44–86; PULSE 75–128; RESP 12–22; TEMP 37.8–38.8; O2SAT 96–100; BMI 31.8
[2020-05-31 00:20] LABS: Glucose, Whole Blood 184 mg/dL (60-115)
[2020-05-31] MEDS: Phenylephrine HCL 20 MG in 0.9 % Sodium Chloride 250 ML 122.77 MG IVCONT ×3 (02:06→06:56)
[2020-05-31 02:20] LABS: Glucose, Whole Blood 154 mg/dL (60-115)
[2020-05-31 04:02] LABS: Glucose, Whole Blood 158 mg/dL (60-115)
[2020-05-31] MEDS: propofoL 1,000 MG/100 ML VIAL 21.92 MG IVCONT ×3 (04:26→12:24)
[2020-05-31] MEDS: Dextrose 5 % and Lactated Ring 1,000 ML 150 ML IVCONT ×2 (04:45→10:45)
[2020-05-31] MEDS: fentaNYL citrate/NS 1,000 MCG/100 ML PLAST..BAG 15 MCG IVCONT (04:49)
[2020-05-31 05:13] LABS: Glucose, Whole Blood 194 mg/dL (60-115)
[2020-05-31 05:30] LABS: HCO3 VBG 16 mmol/L; PCO2 VBG 27 mmHg; PO2 VBG 66 mmHg; pH VBG 7.39 (7.32-7.43)
[2020-05-31 05:31] LABS: Base Excess VBG -6.9 mmol/L
[2020-05-31 05:32] LABS: Hematocrit 30.5 % (42-52); Hemoglobin 11.2 g/dl (14.0-18.0); Mean Corpuscular HGB Conc 36.7 g/dl (31.0-36.0); Mean Corpuscular Hemoglobin 28.8 pg (27.0-33.0); Mean Corpuscular Volume 78.4 fL (80-98); Mean Platelet Volume 12.4 fL (9.4-12.4); NRBC Pct Auto 0.8 /100WBC (0.0-0.2); Red Blood Count 3.89 X10*6/uL (4.60-5.80); Red Cell Distribution Width 13.5 % (11.0-16.0); White Blood Count 16.3 X10*3/uL (4.8-10.8)
[2020-05-31] MEDS: Piperacillin Sodium/Tazobactam 3.375 GM in 0.9 % Sodium Chloride 50 ML IV ×3 (05:35→20:57)
[2020-05-31] MEDS: Pantoprazole Sodium 40 MG/10 ML VIAL IVPUSH (05:36)
[2020-05-31 05:43] LABS: Platelet Count 84 X10*3/uL (160-400)
[2020-05-31 05:56] LABS: Alanine Aminotransferase 46 U/L (0-40); Albumin Level 3.2 g/dL (3.5-5.0); Alkaline Phosphatase 47 U/L (39-117); Anion Gap 12 (12-20); Aspartate Amino Transferase 101 U/L (5-37); Bilirubin Total 1.6 mg/dL (0.0-1.0); Blood Urea Nitrogen 26 mg/dL (9-16); Calcium 7.5 mg/dL (8.4-10.2); Carbon Dioxide 18 mmol/L (22-29); Chloride 117 mmol/L (96-108); Creatinine Clr Calc Pharmacy 71.8; Estimated Glomerular Filt Rate 53; Glucose Random 192 mg/dL (60-115); Magnesium 1.6 mg/dL (1.6-2.6); Phosphorus 1.8 mg/dL (2.7-4.5); Potassium 3.3 mmol/L (3.3-5.1); Sodium 144 mmol/L (135-145); Total Protein 5.3 g/dL (6.5-8.0)
[2020-05-31 06:12] LABS: Lipase 270 U/L (8-78)
[2020-05-31 06:14] LABS: Band Neutrophils Percent 20 % (3-5); Lymphocytes Percent Manual 6 % (20-40); Monocytes Absolute Manual 0.7 X10*3/uL (0.0-1.2); Monocytes Percent Manual 4 % (2-11); Neutrophils Absolute Manual 14.7 X10*3/uL (2.2-7.9); Neutrophils Percent Manual 70 % (45-73)
[2020-05-31 06:15] LABS: RBC Morphology NOTED
[2020-05-31 06:16] LABS: Target Cells 1+; Tear Drop Cells 1+
[2020-05-31 06:18] LABS: Toxic Vacuolation PRESENT
[2020-05-31 06:19] LABS: Glucose, Whole Blood 180 mg/dL (60-115)
[2020-05-31 06:19] LABS: Basophilic Stippling 1+; Large Platelet PRESENT; Platelet Estimate DECREASED (NORMAL); Platelet Morphology Comment NORMAL
[2020-05-31 07:05] LABS: Glucose, Whole Blood 196 mg/dL (60-115)
[2020-05-31 08:01] LABS: Glucose, Whole Blood 215 mg/dL (60-115)
[2020-05-31] MEDS: Heparin Sodium,Porcine 5,000 UNIT/ML VIAL 5000 UNIT SUBCUT ×2 (08:09→16:38)
[2020-05-31] MEDS: Chlorhexidine Gluc Oral Rinse 15 ML MOUTHWASH BUCCAL ×3 (08:09→19:52)
[2020-05-31] MEDS: Insulin Regular/NS 100 UNIT/100 ML PLAST..BAG 11 UNIT IVCONT (08:09)
[2020-05-31] MEDS: Phenylephrine HCL 20 MG in 0.9 % Sodium Chloride 250 ML 92.08 MG IVCONT ×2 (09:14→11:43)
[2020-05-31 11:00] LABS: Glucose, Whole Blood 210 mg/dL (60-115)
[2020-05-31] MEDS: fentaNYL citrate/NS 1,000 MCG/100 ML PLAST..BAG 10 MCG IVCONT ×2 (11:04→19:51)
[2020-05-31] MEDS: Sodium Chloride 0.45 % 1,000 ML 80 ML IVCONT (12:18)
[2020-05-31] MEDS: Lactulose 20 GM/30 ML SOLUTION PO (13:35)
[2020-05-31 13:58] LABS: Glucose, Whole Blood 155 mg/dL (60-115)
--- NOTE | 2020-05-31 14:23 | ECG_ITS ---
Test Reason : QUESTION T WAVE INV Blood Pressure : / mmHG Vent. Rate : 132 BPM Atrial Rate : 132 BPM P-R Int : 160 ms QRS Dur : 076 ms QT Int : 286 ms P-R-T Axes : 029 068 -65 degrees QTc Int : [address] & T wave abnormality, consider inferior ischemia Abnormal ECG When compared to the previous EKG of Inferior ST T wave change are present Referred By: Jaydon Thakur Electronically Signed By:MOLLY ANGEL MD
[2020-05-31 15:14] LABS: HCO3 VBG 16 mmol/L; PCO2 VBG 27 mmHg; PO2 VBG 53 mmHg; pH VBG 7.38 (7.32-7.43)
[2020-05-31 16:02] LABS: Anion Gap 14 (12-20); Blood Urea Nitrogen 20 mg/dL (9-16); Calcium 7.5 mg/dL (8.4-10.2); Carbon Dioxide 17 mmol/L (22-29); Chloride 120 mmol/L (96-108); Estimated Glomerular Filt Rate > 60; Glucose Random 150 mg/dL (60-115); Potassium 2.8 mmol/L (3.3-5.1); Sodium 148 mmol/L (135-145)
[2020-05-31 16:02] LABS: Glucose, Whole Blood 141 mg/dL (60-115)
--- NOTE | 2020-05-31 16:18 | P.PNCC_ITS ---
Subjective Subjective Date of Service: 05/31/20 Interval History: Mr. Damon was admitted to ICU on May 28 with newly diagnosed DM, with DKA, altered mental status, and severe metabolic acidosis, leading to tracheal intubation for airway control. The patient is a 34-year-old gentleman with no significant past medical history who presented to the hospital on May 28 bec of AMS and weakness. The patient had not been feeling well for two days [employer]. In the ED, the patient was altered, with profound metabolic acidosis with pH of 6.7 secondary to diabetic ketoacidosis with new diagnosis of diabetes mellitus. Hb A1c was 13. Lipase was 1600 and triglycerides 800. The patient was found to be COVID positive. He was also noted to have mild pancreatitis and gallstones. Unclear what caused the pancreatitis. He was started on insulin drip in the ED and admitted to ICU, where later, bec of altered MS, he required emergent intubation. The patient was evaluated by General Surgery (Ortiz) and did not require an acute intervention for his dilated gallbladder/gallstones. His course has been further marked by mult severe electrolyte abnormalities. On exam this morning, he?s lightly sedated on propofol and fentanyl. Phenylephrine at 0.5ug. See Vital Signs below. He opens eyes to stimulation. Breathing easy on the vent set at AC rate reduced to 12/450/30%/+5, with Ve 7 .5L, Sat 95%. CXR showed low lung vols. No JVD. Chest CT. Abd is mildly distended and firm. Last BM last night. KUB done today (for OGT placement) showed some dilated loops of SB, no evidence of obstruction, poss ileus. No edema. LABORATORY DATA: As below. IMPRESSION: 1. Newly diagnosed diabetes. 2. DKA. The precipitating cause is not clear. Could be coronavirus disease, could be pancreatitis. Metabolic acidosis not yet fully corrected, despite how much insulin he has had. Continuing with the insulin drip. 3. MOISE. 2? marked hypovolemia. Resolving nicely. No need to be aggressive at this point. 4. Pancreatitis. The cause is unclear. Could have been a passed gallstone, cou ld be the hypertriglyceridemia, could be the DKA. The CT scan (according to the reading radiologist) was unimpressive. Improving, as judged by lipase levels. We?ll stop the abx tomorrow or the next day. 5. Hypertrigliceridemia. Cause is unclear. Remeasure tomorrow. 6. Acute resp failure. Should be ready for extubation later today or tomorrow. 7. Altered mental status. Metabolic encephalopathy. Should be resolved by now. Not too worried about the ?rapid? correction of his initially low sodium that was likely ?pseudohypionatremia?, common in DKA patients. 8. ? Ileus. Like 2? fentanyl. We?ll give him lactulose and Relistor. 9: COVID-19, not on dexamethasone bec of the underlying diabetic ketoacidosis. At this point, the coronavirus disease seems to be without major resp or hematol ogic sequelae, but that can change on a dime. I?ll start tracking biomarkers. Critical care time (including full chart rev and mult di/w Dr. Thakur and MANAGER FORENS[employer] Jayme, and OGT replacement): 90+ min. Physical Exam Vital Signs: Vital Signs: Last Vital Signs Temp 100.4 F 05/31/20 15:57 Pulse 104 H 05/31/20 15:57 Resp 22 H 05/31/20 15:57 BP 108/51 L 05/31/20 15:57 Pulse Ox 96 05/31/20 15:57 Body Mass Index 31.8 Objective Data Labs CBC & Chem 7: 05/31/20 05:15 05/31/20 15:05 Labs: Laboratory Results - last 24 hr 05/30/20 05/30/20 05/30/20 16:58 18:00 19:06 WBC RBC Hgb Hct MCV MCH MCHC RDW Plt Count MPV Immature Gran % (Auto) Neut % (Auto) Lymph % (Auto) [place] % (Auto) Eos % (Auto) Baso % (Auto) Lymph # (Auto) [place] # (Auto) Eos # (Auto) Baso # (Auto) Abs Immat Gran (auto) Absolute Neuts (auto) Absolute Nucleated RBC Nucleated RBC % (auto) Neutrophils % (Manual) Band Neutrophils % Lymphocytes % (Manual) Monocytes % (Manual) Abs Neuts (Manual) Lymphocytes # (Manual) Monocytes # (Manual) Toxic Vacuolation Platelet Estimate Large Platelets Plt Morphology Comment RBC Morphology Basophilic Stippling Target Cells Tear Drop Cells VBG pH VBG pCO2 VBG pO2 VBG HCO3 VBG O2 Saturation VBG Base Excess Sodium 140 Potassium 4.1 Chloride 116 H Carbon Dioxide 13 L Anion Gap 15 BUN 32 H Creatinine 1.90 H Estim Creat Clear Calc 57.8 Estimated GFR 41 POC Glucose 172 H 155 H Random Glucose 162 H Calcium 7.4 L Phosphorus Magnesium Total Bilirubin AST ALT Alkaline Phosphatase Total Protein Albumin Lipase 05/30/20 05/30/20 05/30/20 19:10 20:09 22:01 WBC RBC Hgb Hct MCV MCH MCHC RDW Plt Count MPV Immature Gran % (Auto) Neut % (Auto) Lymph % (Auto) [place] % (Auto) Eos % (Auto) Baso % (Auto) Lymph # (Auto) [place] # (Auto) Eos # (Auto) Baso # (Auto) Abs Immat Gran (auto) Absolute Neuts (auto) Absolute Nucleated RBC Nucleated RBC % (auto) Neutrophils % (Manual) Band Neutrophils % Lymphocytes % (Manual) Monocytes % (Manual) Abs Neuts (Manual) Lymphocytes # (Manual) Monocytes # (Manual) Toxic Vacuolation Platelet Estimate Large Platelets Plt Morphology Comment RBC Morphology Basophilic Stippling Target Cells Tear Drop Cells VBG pH VBG pCO2 VBG pO2 VBG HCO3 VBG O2 Saturation VBG Base Excess Sodium Potassium Chloride Carbon Dioxide Anion Gap BUN Creatinine Estim Creat Clear Calc Estimated GFR POC Glucose 151 H 153 H 173 H Random Glucose Calcium Phosphorus Magnesium Total Bilirubin AST ALT Alkaline Phosphatase Total Protein Albumin Lipase 05/30/20 05/31/20 05/31/20 22:58 00:09 02:12 WBC RBC Hgb Hct MCV MCH MCHC RDW Plt Count MPV Immature Gran % (Auto) Neut % (Auto) Lymph % (Auto) [place] % (Auto) Eos % (Auto) Baso % (Auto) Lymph # (Auto) [place] # (Auto) Eos # (Auto) Baso # (Auto) Abs Immat Gran (auto) Absolute Neuts (auto) Absolute Nucleated RBC Nucleated RBC % (auto) Neutrophils % (Manual) Band Neutrophils % Lymphocytes % (Manual) Monocytes % (Manual) Abs Neuts (Manual) Lymphocytes # (Manual) Monocytes # (Manual) Toxic Vacuolation Platelet Estimate Large Platelets Plt Morphology Comment RBC Morphology Basophilic Stippling Target Cells Tear Drop Cells VBG pH VBG pCO2 VBG pO2 VBG HCO3 VBG O2 Saturation VBG Base Excess Sodium Potassium Chloride Carbon Dioxide Anion Gap BUN Creatinine Estim Creat Clear Calc Estimated GFR POC Glucose 197 H 184 H 154 H Random Glucose Calcium Phosphorus Magnesium Total Bilirubin AST ALT Alkaline Phosphatase Total Protein Albumin Lipase 05/31/20 05/31/20 05/31/20 03:57 05:09 05:15 WBC 16.3 H RBC 3.89 L D Hgb 11.2 L D Hct 30.5 L D MCV 78.4 L MCH 28.8 MCHC 36.7 H RDW 13.5 Plt Count 84 L D MPV 12.4 Immature Gran % (Auto) Cancelled Neut % (Auto) Cancelled Lymph % (Auto) Cancelled [place] % (Auto) Cancelled Eos % (Auto) Cancelled Baso % (Auto) Cancelled Lymph # (Auto) Cancelled [place] # (Auto) Cancelled Eos # (Auto) Cancelled Baso # (Auto) Cancelled Abs Immat Gran (auto) Cancelled Absolute Neuts (auto) Cancelled Absolute Nucleated RBC 0.130 H Nucleated RBC % (auto) 0.8 H Neutrophils % (Manual) 70 Band Neutrophils % 20 H Lymphocytes % (Manual) 6 L Monocytes % (Manual) 4 Abs Neuts (Manual) 14.7 H Lymphocytes # (Manual) 1.0 Monocytes # (Manual) 0.7 Toxic Vacuolation PRESENT Platelet Estimate DECREASED Large Platelets PRESENT Plt Morphology Comment NORMAL RBC Morphology NOTED Basophilic Stippling 1+ Target Cells 1+ Tear Drop Cells 1+ VBG pH VBG pCO2 VBG pO2 VBG HCO3 VBG O2 Saturation VBG Base Excess Sodium Potassium Chloride Carbon Dioxide Anion Gap BUN Creatinine Estim Creat Clear Calc Estimated GFR POC Glucose 158 H 194 H Random Glucose Calcium Phosphorus Magnesium Total Bilirubin AST ALT Alkaline Phosphatase Total Protein Albumin Lipase 05/31/20 05/31/20 05/31/20 05:15 05:15 05:15 WBC RBC Hgb Hct MCV MCH MCHC RDW Plt Count MPV Immature Gran % (Auto) Neut % (Auto) Lymph % (Auto) [place] % (Auto) Eos % (Auto) Baso % (Auto) Lymph # (Auto) [place] # (Auto) Eos # (Auto) Baso # (Auto) Abs Immat Gran (auto) Absolute Neuts (auto) Absolute Nucleated RBC Nucleated RBC % (auto) Neutrophils % (Manual) Band Neutrophils % Lymphocytes % (Manual) Monocytes % (Manual) Abs Neuts (Manual) Lymphocytes # (Manual) Monocytes # (Manual) Toxic Vacuolation Platelet Estimate Large Platelets Plt Morphology Comment RBC Morphology Basophilic Stippling Target Cells Tear Drop Cells VBG pH 7.39 VBG pCO2 27 VBG pO2 66 VBG HCO3 16 VBG O2 Saturation 94.0 VBG Base Excess -6.9 Sodium 144 Potassium 3.3 Chloride 117 H Carbon Dioxide 18 L Anion Gap 12 BUN 26 H Creatinine 1.53 H Estim Creat Clear Calc 71.8 Estimated GFR 53 POC Glucose Random Glucose 192 H Calcium 7.5 L Phosphorus 1.8 L Magnesium 1.6 Total Bilirubin 1.6 H AST 101 H ALT 46 H Alkaline Phosphatase 47 Total Protein 5.3 L Albumin 3.2 L Lipase 270 H 05/31/20 05/31/20 05/31/20 05:59 06:59 07:58 WBC RBC Hgb Hct MCV MCH MCHC RDW Plt Count MPV Immature Gran % (Auto) Neut % (Auto) Lymph % (Auto) [place] % (Auto) Eos % (Auto) Baso % (Auto) Lymph # (Auto) [place] # (Auto) Eos # (Auto) Baso # (Auto) Abs Immat Gran (auto) Absolute Neuts (auto) Absolute Nucleated RBC Nucleated RBC % (auto) Neutrophils % (Manual) Band Neutrophils % Lymphocytes % (Manual) Monocytes % (Manual) Abs Neuts (Manual) Lymphocytes # (Manual) Monocytes # (Manual) Toxic Vacuolation Platelet Estimate Large Platelets Plt Morphology Comment RBC Morphology Basophilic Stippling Target Cells Tear Drop Cells VBG pH VBG pCO2 VBG pO2 VBG HCO3 VBG O2 Saturation VBG Base Excess Sodium Potassium Chloride Carbon Dioxide Anion Gap BUN Creatinine Estim Creat Clear Calc Estimated GFR POC Glucose 180 H 196 H 215 H Random Glucose Calcium Phosphorus Magnesium Total Bilirubin AST ALT Alkaline Phosphatase Total Protein Albumin Lipase 05/31/20 05/31/20 05/31/20 10:57 13:49 15:05 WBC RBC Hgb Hct MCV MCH MCHC RDW Plt Count MPV Immature Gran % (Auto) Neut % (Auto) Lymph % (Auto) [place] % (Auto) Eos % (Auto) Baso % (Auto) Lymph # (Auto) [place] # (Auto) Eos # (Auto) Baso # (Auto) Abs Immat Gran (auto) Absolute Neuts (auto) Absolute Nucleated RBC Nucleated RBC % (auto) Neutrophils % (Manual) Band Neutrophils % Lymphocytes % (Manual) Monocytes % (Manual) Abs Neuts (Manual) Lymphocytes # (Manual) Monocytes # (Manual) Toxic Vacuolation Platelet Estimate Large Platelets Plt Morphology Comment RBC Morphology Basophilic Stippling Target Cells Tear Drop Cells VBG pH VBG pCO2 VBG pO2 VBG HCO3 VBG O2 Saturation VBG Base Excess Sodium 148 H Potassium 2.8 L Chloride 120 H Carbon Dioxide 17 L Anion Gap 14 BUN 20 H Creatinine 1.35 Estim Creat Clear Calc 85.0 Estimated GFR > 60 POC Glucose 210 H 155 H Random Glucose 150 H Calcium 7.5 L Phosphorus Magnesium Total Bilirubin AST ALT Alkaline Phosphatase Total Protein Albumin Lipase 05/31/20 05/31/20 15:05 15:45 WBC RBC Hgb Hct MCV MCH MCHC RDW Plt Count MPV Immature Gran % (Auto) Neut % (Auto) Lymph % (Auto) [place] % (Auto) Eos % (Auto) Baso % (Auto) Lymph # (Auto) [place] # (Auto) Eos # (Auto) Baso # (Auto) Abs Immat Gran (auto) Absolute Neuts (auto) Absolute Nucleated RBC Nucleated RBC % (auto) Neutrophils % (Manual) Band Neutrophils % Lymphocytes % (Manual) Monocytes % (Manual) Abs Neuts (Manual) Lymphocytes # (Manual) Monocytes # (Manual) Toxic Vacuolation Platelet Estimate Large Platelets Plt Morphology Comment RBC Morphology Basophilic Stippling Target Cells Tear Drop Cells VBG pH 7.38 VBG pCO2 27 VBG pO2 53 VBG HCO3 16 VBG O2 Saturation 89.0 VBG Base Excess -7.0 Sodium Potassium Chloride Carbon Dioxide Anion Gap BUN Creatinine Estim Creat Clear Calc Estimated GFR POC Glucose 141 H Random Glucose Calcium Phosphorus Magnesium Total Bilirubin AST ALT Alkaline Phosphatase Total Protein Albumin Lipase Microbiology Microbiology Results: Microbiology 05/28/20 14:52 Blood - Venous Blood Culture - Preliminary No growth after 48 hours. 05/28/20 14:52 Blood - Venous Blood Culture - Preliminary No growth after 48 hours. Progress Note: A&P Time Spent With Patient Time: Total time spent is greater than 50% in coordination of care (as documented) at patient's floor/unit and/or counseling patient: Total time spent with greater than 50% in coordination of care (as documented) at patient's floor/unit and/or counseling patient:: 0 Critical Care Time Critical Care Time (minutes): 90
[2020-05-31] MEDS: propofoL 1,000 MG/100 ML VIAL 17.05 MG IVCONT (16:39)
[2020-05-31] MEDS: Potassium Chloride Packet 20 MEQ PACKET 40 MEQ G-TUBE ×2 (16:59→18:24)
--- NOTE | 2020-05-31 18:04 | PC.NURSE ---
S/E Temp max 101.5 - PRN Tylenol administered & ice packs applied - temp down to 100.2 Sedated on Propofol & Fentanyl - no sedation vacation per Dr Norwood Positive cough & gag, positive pain response, pupils 3mm PERRLA NA up to 148 - 1/2 NS restarted at 50cc/hr per Dr Norwood ST HR 120's - ?Twave inversion - MD notified & EKG obtained Neosynephrine gtt titrated per protocol K down to 2.8 - Pot Chl 40meq x2 doses ordered LS dim bilateral bases; white inline secretions End tidal high 20's - VBG's 7.38/27/53/17 Vent setting changed by Dr Norwood - AC 12/450/5/30% End tidal up to 37-38 - MD aware Abdomen distended firm, absent bowel sounds throughout - Dr Norwood aware Unable to auscultate or flush OGT - Dr Norwood aware KUB ordered and obtained - new OGT placed successfully - Xray verified POC 140-150's - Insulin gtt at 6u/hr pr Dr Norwood No BM - started on Lactulose 20mg Q4hr PRN Urine output approx 1700cc throughout shift - Dr Norwood aware No skin integrity concerns, on air loss mattress, bathed, repo q2hr Family updated Plan for sedation vacation tomorrow per
[2020-05-31] MEDS: Insulin Regular/NS 100 UNIT/100 ML PLAST..BAG 6 UNIT IVCONT (18:25)
[2020-05-31 18:50] LABS: Glucose, Whole Blood 129 mg/dL (60-115)
[2020-05-31] MEDS: propofoL 1,000 MG/100 ML VIAL 24.36 MG IVCONT (20:57)
[2020-05-31 21:09] LABS: Glucose, Whole Blood 151 mg/dL (60-115)
[2020-06-01] VITALS (31 sets, daily range): BP systolic 91–154; BP diastolic 46–99; PULSE 104–146; RESP 11–45; TEMP 36.6–38.1; O2SAT 90–99; BMI 31.0
[2020-06-01] MEDS: propofoL 1,000 MG/100 ML VIAL 24.36 MG IVCONT ×3 (00:08→07:59)
[2020-06-01] MEDS: Heparin Sodium,Porcine 5,000 UNIT/ML VIAL 5000 UNIT SUBCUT ×3 (00:08→16:32)
[2020-06-01 02:58] LABS: Glucose, Whole Blood 169 mg/dL (60-115)
[2020-06-01 03:24] LABS: Glucose, Whole Blood 157 mg/dL (60-115)
[2020-06-01] MEDS: fentaNYL citrate/NS 1,000 MCG/100 ML PLAST..BAG 10 MCG IVCONT (05:16)
[2020-06-01] MEDS: Piperacillin Sodium/Tazobactam 3.375 GM in 0.9 % Sodium Chloride 50 ML IV ×3 (05:16→21:17)
[2020-06-01 05:30] LABS: Basophils Percent Auto 0.2 % (0-2); Eosinophils Absolute Auto 0.2 X10*3/uL (0.0-0.4); Eosinophils Percent Auto 1.1 % (0-4); Hematocrit 28.8 % (42-52); Hemoglobin 10.3 g/dl (14.0-18.0); Imm Gran Abs Auto 0.86 X10*3/uL (0.00-0.03); Imm Gran Pct Auto 4.5 % (0.0-0.4); Lymphocytes Absolute Auto 1.8 X10*3/uL (1.2-4.9); Lymphocytes Percent Auto 9.5 % (20-40); MANUAL DIFF FLAG SCAN; Mean Corpuscular HGB Conc 35.8 g/dl (31.0-36.0); Mean Corpuscular Hemoglobin 28.6 pg (27.0-33.0); Mean Platelet Volume 12.7 fL (9.4-12.4); Monocytes Absolute Auto 2.3 X10*3/uL (0.1-1.2); Monocytes Percent Auto 11.7 % (2-11); NRBC Pct Auto 0.8 /100WBC (0.0-0.2); Neutrophils Absolute Auto 14.1 X10*3/uL (2.0-8.3); Platelet Count 111 X10*3/uL (160-400); Red Cell Distribution Width 13.8 % (11.0-16.0); SCAN SMEAR FLAG 1; White Blood Count 19.3 X10*3/uL (4.8-10.8)
[2020-06-01 05:32] LABS: PCO2 VBG 32 mmHg; PO2 VBG 47 mmHg; pH VBG 7.38 (7.32-7.43)
[2020-06-01 05:33] LABS: Base Excess VBG -4.7 mmol/L; HCO3 VBG 19 mmol/L
[2020-06-01 05:50] LABS: SLIDE REVIEW VERIFIED
[2020-06-01 06:03] LABS: Alanine Aminotransferase 58 U/L (0-40); Albumin Level 2.9 g/dL (3.5-5.0); Alkaline Phosphatase 83 U/L (39-117); Anion Gap 13 (12-20); Aspartate Amino Transferase 76 U/L (5-37); Bilirubin Total 1.3 mg/dL (0.0-1.0); Blood Urea Nitrogen 20 mg/dL (9-16); Calcium 7.6 mg/dL (8.4-10.2); Carbon Dioxide 19 mmol/L (22-29); Chloride 120 mmol/L (96-108); Creatinine Clr Calc Pharmacy 95.7; Estimated Glomerular Filt Rate > 60; Glucose Random 189 mg/dL (60-115); Magnesium 1.9 mg/dL (1.6-2.6); Phosphorus 1.8 mg/dL (2.7-4.5); Potassium 3.7 mmol/L (3.3-5.1); Sodium 148 mmol/L (135-145); Triglycerides 710 mg/dL
[2020-06-01 06:13] LABS: C Reactive Protein 39.63 mg/dL (< or = 0.50)
[2020-06-01 06:54] LABS: Ferritin 1974 ng/mL (20-250)
[2020-06-01 07:17] LABS: Glucose, Whole Blood > 600 mg/dL (60-115)
[2020-06-01 07:27] LABS: D Dimer 3470 NG/ML
[2020-06-01] MEDS: Chlorhexidine Gluc Oral Rinse 15 ML MOUTHWASH BUCCAL (07:56)
[2020-06-01 08:36] LABS: Glucose, Whole Blood 174 mg/dL (60-115)
[2020-06-01] MEDS: Lactulose 20 GM/30 ML SOLUTION PO (09:27)
[2020-06-01] MEDS: Famotidine/PF 20 MG/2 ML VIAL IVPUSH ×2 (09:27→19:48)
[2020-06-01 10:03] LABS: Glucose, Whole Blood 166 mg/dL (60-115)
--- NOTE | 2020-06-01 10:05 | PC.NURSE ---
Addendum entered by Lexus Bennett RN 06/01/20 18:25: LANTUS 25 UNITS BID ORDERED AND ADMINISTERED, INSULIN GTT TURNED OFF AT 1400. POC QIDACHS AND SLIDING SCALE INSULIN IMPLEMENTED. ABLE TO TAKE WATER WITH A SPOON AND ICE CHIPS, OCCASIONALLY COUGHS WITH WATER WHEN USING A STRAW. WILL CONTINUE TO MONITOR. A&O TO PERSON AND PLACE, [place]AG[place], SIMPLE YES OR NO ANSWERS. DENIES PAIN. BECAME RESTLESS AND PULLING ON LINES/MISTRY AT 1700. TELESITTER BEDSIDE FOR SAFETY. INC OF SMALL, LIQUID BM. INCREASED WOB WITH CARE - RR 30/40S, 2L NC APPLIED. PRN DILAUDID 1MG ORDERED AND ADMINISTERED WITH POSITIVE EFFECT. ?BIRTHMARK TO BUTTOCK, PT UNABLE TO VERIFY IF HE HAS A BIRTHMARK. PICTURE OBTAINED AND WOUND CONSULT ORDERED. Q2H REPO, BARRIER CREAM APPLIED, PREVALON MATTRESS AND PILLOWS UTILIZED. PT MOTHER UPDATED MULTIPLE TIMES THROUGHOUT SHIFT. PT ABLE TO FACETIME WITH FAMILY DURING THE DAY. [facility] PHONE NUMBER: [phone] FOR FACETIME TOMORROW AT NOON (IF POSSIBLE). Original Note: CHANGED TO PSV 8/5 AT 30% AT 0915. PROPOFOL GTT TURNED OFF AT 0933. EXTUBATED TO ROOM AIR AT 0953. FOLLOWS COMMANDS, NODS YES OR NO, NOT REALLY SPEAKING AT THIS TIME. WILL ATTEMPT SWALLOW EVALUATION WHEN PATIENT IS MORE AWARE.
--- NOTE | 2020-06-01 10:22 | MHC.CLN ---
RE: CONSULT PT REMAINS NPO AND INTUBATED POSSIBLE EXTUBATION PER MD DISCUSSED MDRS WHEN DIET TO ADVANCE RECOMMEND 1800DM DIET R/T NEW DX DM SEE ALSO CLINICAL NUTRITION ASSESSMENT
[2020-06-01] MEDS: fentaNYL citrate/NS 1,000 MCG/100 ML PLAST..BAG 5 MCG IVCONT (10:46)
[2020-06-01] MEDS: Sodium Chloride 0.45 % 1,000 ML 50 ML IVCONT (11:09)
--- NOTE | 2020-06-01 11:22 | MHC.CM.PN ---
Pt remains in ICU on ventilatory support for DKA/COVID +. He is a new diabetic and will need extensive teaching and education once medically stable. Pt will need to choose a new provider as his previous MD, Dr. Dwyer, has retired. His payor will not allow staff or CM office select a new MD. CM to follow for assistance with dc planning and MD
[2020-06-01 12:01] LABS: Glucose, Whole Blood 216 mg/dL (60-115)
[2020-06-01] MEDS: Insulin Glargine,Hum.rec.anlog 100 UNIT/ML 10 ML VIAL 25 UNIT SUBCUT ×2 (12:39→20:18)
--- NOTE | 2020-06-01 14:06 | P.PNCC_ITS ---
Subjective Subjective Date of Service: 06/01/20 Interval History: Mr. Damon was admitted to ICU on May 28 with newly diagnosed DM, with DKA, altered mental status, and severe metabolic acidosis, leading to tracheal intubation for airway control. The patient is a 34-year-old gentleman with no significant past medical history who presented to the hospital on May 28 bec of AMS and weakness. The patient had not been feeling well for two days [employer]. In the ED, the patient was altered, with profound metabolic acidosis with pH of 6.7 secondary to diabetic ketoacidosis with new diagnosis of diabetes mellitus. Hba1c was 13. Lipase was 1600 and triglycerides 800. He was also noted to have mild pancreatitis and gallstones. Unclear what caused the pancreatitis. The patient was also found to be COVID positive. He was started on insulin drip in the ED and admitted to ICU, where later, bec of altered MS, he required emergent intubation. The patient was evaluated by General Surgery (Ortiz) and did not require an acute intervention for his dilated gallbladder/gallstones. His course was further marked by mult severe electrolyte abnormalities. Yesterday we continued POC and electrolyte correction and ventilator adjustments. He did well overnight and went onto PSV this morning easily. Then propofol was turned off and he extubated easily to room air. Post extubation, he was fully awake, but poorly interactive, . He responded to simple commands after vigorous prompting. Over the day, he?s definitely improved though. At 5pm, he can say that he?s in the hospital, and he?s talking more, altho still not fully conversational. Breathing easy with Sat 94% on room air. See Vital Signs below. Off the neosynephrine. Since extubation, HR has gradually climbed to 150, SR. A repeat CVBG on room air at 2pm showed 7.42/24/- 6, with rapid/shallow resp effort; no access musc use. He?s afebrile now. We started him on low dose esmolol. No JVD. Chest CT. Abd is still mildly distended and firm despite a BM last night after lactulose and relistor. No edema. LABORATORY DATA: As below. Notably, D-dimer elevated to 3470, with high Ferritin and CRP. Insulin drip is down to 4 units/hour. POCs running mid-100?s. IMPRESSION: 1. Newly diagnosed diabetes. 2. DKA. The precipitating cause is not clear. Could be coronavirus disease, could be pancreatitis. Metabolic acidosis not yet fully corrected, despite how much insulin he has had. We?ll switch him over to bid Lantus with SS insulin. 3. MOISE. 2? marked hypovolemia. Resolving nicely. No need to be aggressive at this point. 4. Pancreatitis. The cause is unclear. Could have been a passed gallstone, could be the hypertriglyceridemia, could be the DKA. The CT scan (according to the reading radiologist) was unimpressive. Improving, as judged by lipase levels. We?ll stop the abx tomorrow or the next day. 5. Hypertrigliceridemia. Cause is unclear. Will discuss possible tx with pharmacy 6. Acute resp failure. Rapid shallow breathing is now 2? abdominal ileus. CXR showed his lungs pushed up into his upper chest. Treating the ileus, but have to taper the fentanyl slowly. Might need supplemental oxygen. 7. Altered mental status. Metabolic encephalopathy. Would expect that it will resolve. Not concerned (about CPM) from the rapid correction of his initially low sodium that was likely ?pseudohypionatremia?, common in DKA patients. 8. Ileus. Like 2? fentanyl. Giving him lactulose and Relistor. Multiple BM?s so far. Abdomen is otherwise OK. 9: COVID-19, not on dexamethasone bec of the underlying diabetic ketoacidosis, and not thought to have any pulmonary involvement. Biomarkers are very high though. We?ve started him on remdesivir. 10: D-dimer: I?ve ordered a duplex scan of LE?s. No suggestion of a PE at this point. 11: ID: continue abx at least one more day. Critical care time: 60+ min. Physical Exam Vital Signs: Vital Signs: Last Vital Signs Temp 98.9 F 06/01/20 12:00 Pulse 142 H 06/01/20 13:00 Resp 30 H 06/01/20 13:00 BP 137/95 H 06/01/20 13:00 Pulse Ox 92 06/01/20 13:00 Body Mass Index 31.0 Objective Data Labs CBC & Chem 7: 06/01/20 05:18 06/01/20 05:18 Labs: Laboratory Results - last 24 hr 05/28/20 05/31/2021 20:13 15:05 15:05 WBC RBC Hgb Hct MCV MCH MCHC RDW Plt Count MPV Immature Gran % (Auto) Neut % (Auto) Lymph % (Auto) Grainger % (Auto) Eos % (Auto) Baso % (Auto) Lymph # (Auto) [place]inger # (Auto) Eos # (Auto) Baso # (Auto) Abs Immat Gran (auto) Absolute Neuts (auto) Absolute Nucleated RBC Nucleated RBC % (auto) Smear Tech's Comments D-Dimer VBG pH 7.38 VBG pCO2 27 VBG pO2 53 VBG HCO3 16 VBG O2 Saturation 89.0 VBG Base Excess -7.0 Sodium 148 H Potassium 2.8 L Chloride 120 H Carbon Dioxide 17 L Anion Gap 14 BUN 20 H Creatinine 1.35 Estim Creat Clear Calc 85.0 Estimated GFR > 60 POC Glucose > 600 H* Random Glucose 150 H Calcium 7.5 L Phosphorus Magnesium Ferritin Total Bilirubin AST ALT Alkaline Phosphatase C-Reactive Protein Total Protein Albumin Triglycerides 05/31/20 05/31/20 05/31/20 15:45 18:47 21:04 WBC RBC Hgb Hct MCV MCH MCHC RDW Plt Count MPV Immature Gran % (Auto) Neut % (Auto) Lymph % (Auto) [place]inger % (Auto) Eos % (Auto) Baso % (Auto) Lymph # (Auto) [place]inger # (Auto) Eos # (Auto) Baso # (Auto) Abs Immat Gran (auto) Absolute Neuts (auto) Absolute Nucleated RBC Nucleated RBC % (auto) Smear Tech's Comments D-Dimer VBG pH VBG pCO2 VBG pO2 VBG HCO3 VBG O2 Saturation VBG Base Excess Sodium Potassium Chloride Carbon Dioxide Anion Gap BUN Creatinine Estim Creat Clear Calc Estimated GFR POC Glucose 141 H 129 H 151 H Random Glucose Calcium Phosphorus Magnesium Ferritin Total Bilirubin AST ALT Alkaline Phosphatase C-Reactive Protein Total Protein Albumin Triglycerides 06/01/20 06/01/20 06/01/20 00:13 03:02 05:18 WBC RBC Hgb Hct MCV MCH MCHC RDW Plt Count MPV Immature Gran % (Auto) Neut % (Auto) Lymph % (Auto) [place]inger % (Auto) Eos % (Auto) Baso % (Auto) Lymph # (Auto) Grainger # (Auto) Eos # (Auto) Baso # (Auto) Abs Immat Gran (auto) Absolute Neuts (auto) Absolute Nucleated RBC Nucleated RBC % (auto) Smear Tech's Comments D-Dimer VBG pH VBG pCO2 VBG pO2 VBG HCO3 VBG O2 Saturation VBG Base Excess Sodium 148 H Potassium 3.7 D Chloride 120 H Carbon Dioxide 19 L Anion Gap 13 BUN 20 H Creatinine 1.20 Estim Creat Clear Calc 95.7 Estimated GFR > 60 POC Glucose 169 H 157 H Random Glucose 189 H Calcium 7.6 L Phosphorus 1.8 L Magnesium 1.9 Ferritin Total Bilirubin 1.3 H AST 76 H ALT 58 H Alkaline Phosphatase 83 D C-Reactive Protein 39.63 H Total Protein 5.0 L Albumin 2.9 L Triglycerides 710 06/01/20 06/01/20 06/01/20 05:18 05:18 05:18 WBC 19.3 H RBC 3.60 L Hgb 10.3 L Hct 28.8 L MCV 80.0 MCH 28.6 MCHC 35.8 RDW 13.8 Plt Count 111 L D MPV 12.7 H Immature Gran % (Auto) 4.5 H Neut % (Auto) 73.0 Lymph % (Auto) 9.5 L Grainger % (Auto) 11.7 H Eos % (Auto) 1.1 Baso % (Auto) 0.2 Lymph # (Auto) 1.8 Grainger # (Auto) 2.3 H Eos # (Auto) 0.2 Baso # (Auto) 0.0 Abs Immat Gran (auto) 0.86 H Absolute Neuts (auto) 14.1 H Absolute Nucleated RBC 0.160 H Nucleated RBC % (auto) 0.8 H Smear Tech's Comments VERIFIED D-Dimer Cancelled VBG pH VBG pCO2 VBG pO2 VBG HCO3 VBG O2 Saturation VBG Base Excess Sodium Potassium Chloride Carbon Dioxide Anion Gap BUN Creatinine Estim Creat Clear Calc Estimated GFR POC Glucose Random Glucose Calcium Phosphorus Magnesium Ferritin 1974 H Total Bilirubin AST ALT Alkaline Phosphatase C-Reactive Protein Total Protein Albumin Triglycerides 06/01/20 06/01/20 06/01/20 05:18 05:50 08:02 WBC RBC Hgb Hct MCV MCH MCHC RDW Plt Count MPV Immature Gran % (Auto) Neut % (Auto) Lymph % (Auto) Grainger % (Auto) Eos % (Auto) Baso % (Auto) Lymph # (Auto) Grainger # (Auto) Eos # (Auto) Baso # (Auto) Abs Immat Gran (auto) Absolute Neuts (auto) Absolute Nucleated RBC Nucleated RBC % (auto) Smear Tech's Comments D-Dimer 3470 VBG pH 7.38 VBG pCO2 32 VBG pO2 47 VBG HCO3 19 VBG O2 Saturation 85.0 VBG Base Excess -4.7 Sodium Potassium Chloride Carbon Dioxide Anion Gap BUN Creatinine Estim Creat Clear Calc Estimated GFR POC Glucose 174 H Random Glucose Calcium Phosphorus Magnesium Ferritin Total Bilirubin AST ALT Alkaline Phosphatase C-Reactive Protein Total Protein Albumin Triglycerides 06/01/20 06/01/20 10:00 11:57 WBC RBC Hgb Hct MCV MCH MCHC RDW Plt Count MPV Immature Gran % (Auto) Neut % (Auto) Lymph % (Auto) Grainger % (Auto) Eos % (Auto) Baso % (Auto) Lymph # (Auto) Grainger # (Auto) Eos # (Auto) Baso # (Auto) Abs Immat Gran (auto) Absolute Neuts (auto) Absolute Nucleated RBC Nucleated RBC % (auto) Smear Tech's Comments D-Dimer VBG pH VBG pCO2 VBG pO2 VBG HCO3 VBG O2 Saturation VBG Base Excess Sodium Potassium Chloride Carbon Dioxide Anion Gap BUN Creatinine Estim Creat Clear Calc Estimated GFR POC Glucose 166 H 216 H Random Glucose Calcium Phosphorus Magnesium Ferritin Total Bilirubin AST ALT Alkaline Phosphatase C-Reactive Protein Total Protein Albumin Triglycerides Microbiology Microbiology Results: Microbiology 05/28/20 14:52 Blood - Venous Blood Culture - Preliminary No growth after 48 hours. 05/28/20 14:52 Blood - Venous Blood Culture - Preliminary No growth after 48 hours. Progress Note: A&P Time Spent With Patient Time: Total time spent is greater than 50% in coordination of care (as documented) at patient's floor/unit and/or counseling patient: Total time spent with greater than 50% in coordination of care (as documented) at patient's floor/unit and/or counseling patient:: 0 Critical Care Time Critical Care Time (minutes): 60
[2020-06-01 14:36] LABS: Base Excess VBG -6.9 mmol/L; HCO3 VBG 16 mmol/L; PCO2 VBG 24 mmHg; PO2 VBG 49 mmHg; pH VBG 7.42 (7.32-7.43)
[2020-06-01] MEDS: Esmolol HCl/NaCl Iso 2,500 MG/250 ML IV.SOLN 13.5 MG IVCONT (14:49)
[2020-06-01] MEDS: Remdesivir 200 MG in 0.9 % Sodium Chloride 210 ML 105 MG IV (15:37)
[2020-06-01] MEDS: Insulin Lispro 100 UNIT/ML 3 ML VIAL SUBCUT ×2 (16:40→19:48)
[2020-06-01 16:41] LABS: Glucose, Whole Blood 273 mg/dL (60-115)
[2020-06-01] MEDS: HYDROmorphone HCl 1 MG/ML SYRINGE IVPUSH (17:21)
--- NOTE | 2020-06-01 20:26 | P.CNID_ITS ---
History of Present Illness Data of Consult Service Date: 06/01/20 Requesting physician: John Norwood Primary Care Provider: Unknown Physician HPI Reason for consult: COVID,pneumonia He presents to hospital with acute lethargy that day. He has new onset hyperglycemia He also has COVID,new He has some left lower infiltrate He was briefly intubated and then on room air with oxygen saturation 90-93% Review of Systems Review of Systems: Yes all other systems are reviewed and are negative PMFSH Past Medical History Medical History No active medical problems Family History Family history: reviewed and not pertinent Social History Social History Household Members: Family Smoking Status: Never smoker service: No Current occupational status: employed Meds Allergies Allergy/AdvReac Type Severity Reaction Status Date / Time No Known Allergies Allergy Unverified 12/26/19 15:47 Active Medications: Current Medications Generic Name Dose Route Start Last Admin Trade Name Freq PRN Reason Stop Dose Admin Acetaminophen 325 mg 05/29/20 15:01 05/31/20 08:11 Acetaminophen 325 Mg Supp.Rect GA 325 mg Q6H PRN Administration fever Famotidine 20 mg 06/01/20 09:15 06/01/20 19:48 Famotidine/Pf 20 Mg/2 Ml Vial IVPUSH 20 mg BID SATISH Administration Heparin Sodium (Porcine) 5,000 unit 05/28/20 16:00 06/01/20 16:32 Heparin Sodium,Porcine 5,000 Unit/Ml Vial SUBCUT 5,000 unit Q8H SATISH Administration Hydromorphone HCl 1 mg 06/01/20 17:00 06/01/20 17:21 Hydromorphone Hcl 1 Mg/Ml Syringe IVPUSH 1 mg Q2H PRN Administration WOB Insulin Human Regular 100 unit in 100 mls @ 8 mls/hr 05/28/20 14:45 06/01/20 14:08 Myxredlin IVCONT Infused .[id number] SATISH Titration Protocol Piperacillin Sod/Tazobactam 50 mls @ 100 mls/hr 05/30/20 14:00 06/01/20 13:26 Sod 3.375 gm/ Sodium Chloride IV Infused Q8H SATISH Infusion Sodium Chloride 1,000 mls @ 50 mls/hr 05/31/20 12:15 06/01/20 20:20 IVCONT Not Given .Q20H SATISH Fentanyl 1,000 mcg in 100 mls @ 5 mls/hr 06/01/20 10:15 06/01/20 10:46 Sublimaze/Ns IVCONT 50 mcg/hr .Q20H SATISH 5 mls/hr Administration 50 MCG/HR Remdesivir 100 mg/ Sodium 230 mls @ 115 mls/hr 06/02/20 15:00 Chloride IV 06/05/20 16:59 Q24H SATISH Esmolol HCl 2,500 mg in 250 mls @ 13.497 mls/hr 06/01/20 14:45 06/01/20 14:49 Brevibloc/Nacl IVCONT 25 mcg/kg/min .[id number] SATISH 13.5 mls/hr Administration Protocol 25 MCG/KG/MIN Insulin Glargine 25 unit 06/01/20 12:00 06/01/20 20:18 Insulin Glargine,Hum.Rec.Anlog 100 Unit/Ml 10 Ml Vial SUBCUT 25 unit BID SATISH Administration Insulin Human Lispro 0 unit 06/01/20 16:30 06/01/20 19:48 Insulin Lispro 100 Unit/Ml 3 Ml Vial SUBCUT 4 unit QIDACHS [facility] Administration Protocol Methylnaltrexone [place] 8 mg 05/31/20 19:00 05/31/20 19:10 Methylnaltrexone [place] 8 Mg/0.4 Ml Syringe SUBCUT 06/02/20 19:01 8 mg Q2D SATISH Administration Naloxone HCl 0.2 mg 06/01/20 10:12 Naloxone Hcl 0.4 Mg/Ml Vial IVPUSH Q2M PRN Excessive sedation or RR < 8 Home Medications Medication Instructions Recorded Confirmed Last Taken Type No Known Home Meds 05/28/20 05/28/20 Unknown History Physical Exam Vital Signs: Vital Signs: Last Vital Signs Temp 97.9 F 06/01/20 20:00 Pulse 115 H 06/01/20 20:00 Resp 33 H 06/01/20 20:00 BP 140/95 H 06/01/20 20:00 Pulse Ox 96 06/01/20 20:00 Body Mass Index 31.0 Const: General: cooperative Orientation/consciousness: patient oriented x3 HENMT: Head: Yes normal to inspection Mouth: Normal oral and palatal mucosa present Eyes: General: appearance normal, both eyes and all related structures Resp: Effort & Inspection: normal respiratory effort Cardio: Rate: regular rate Rhythm: regular rhythm GI: Palpation (GI): Soft to palpation and nontender : General: Yes no CVA tenderness Back/Spine/Pelvis: Back: no CVA tenderness Pelvis: buttock ecchymosis Skin: General skin exam: no rashes or lesions noted Neuro: General: patient oriented x3 Results Labs CBC & Chem 7: 06/03/20 05:58 06/05/20 05:11 Labs: Short CBC 06/01/20 Range/Units 05:18 WBC 19.3 H (4.8-10.8) X10*3/uL Hgb 10.3 L (14.0-18.0) g/dl Hct 28.8 L (42-52) % Plt Count 111 L D (160-400) X10*3/uL BMP 06/01/20 05:18 Sodium 148 H Potassium 3.7 D Chloride 120 H Carbon Dioxide 19 L BUN 20 H Creatinine 1.20 Calcium 7.6 L Liver Function 06/01/20 Range/Units 05:18 Total Bilirubin 1.3 H (0.0-1.0) mg/dL AST 76 H (5-37) U/L ALT 58 H (0-40) U/L Alkaline Phosphatase 83 D (39-117) U/L Albumin 2.9 L (3.5-5.0) g/dL Microbiology Microbiology Results: Microbiology 05/28/20 14:52 Blood - Venous Blood Culture - Preliminary No growth after 48 hours. 05/28/20 14:52 Blood - Venous Blood Culture - Preliminary No growth after 48 hours. Assessment and Plan (1) Acute respiratory failure: Status: Acute Agree Zosyn Remdesivir and Dexamethasone since hypoxic and some contribution can be from COVID (2) Diabetes: Status: Acute (3) Acute pancreatitis: Status: Acute (4) COVID-19: Status: Acute
[2020-06-01 21:23] LABS: Glucose, Whole Blood 227 mg/dL (60-115)
[2020-06-02] VITALS (21 sets, daily range): BP systolic 116–154; BP diastolic 76–102; PULSE 93–122; RESP 28–38; TEMP 36.7–37.4; O2SAT 87–903
[2020-06-02] MEDS: Heparin Sodium,Porcine 5,000 UNIT/ML VIAL 5000 UNIT SUBCUT ×3 (01:02→16:17)
[2020-06-02] MEDS: fentaNYL citrate/NS 1,000 MCG/100 ML PLAST..BAG 2.5 MCG IVCONT (03:09)
[2020-06-02] MEDS: Piperacillin Sodium/Tazobactam 3.375 GM in 0.9 % Sodium Chloride 50 ML IV ×3 (05:11→21:06)
[2020-06-02] MEDS: Sodium Chloride 0.45 % 1,000 ML 50 ML IVCONT (05:43)
[2020-06-02 05:50] LABS: Base Excess VBG -3.3 mmol/L; HCO3 VBG 18 mmol/L; PCO2 VBG 24 mmHg; PO2 VBG 49 mmHg; pH VBG 7.48 (7.32-7.43)
[2020-06-02 05:51] LABS: Hematocrit 24.8 % (42-52); Hemoglobin 8.9 g/dl (14.0-18.0); Mean Corpuscular HGB Conc 35.9 g/dl (31.0-36.0); PLT CLUMP 1
[2020-06-02 05:52] LABS: Mean Corpuscular Hemoglobin 28.4 pg (27.0-33.0); Mean Corpuscular Volume 79.2 fL (80-98); Mean Platelet Volume 12.2 fL (9.4-12.4); Platelet Count 144 X10*3/uL (160-400); Red Blood Count 3.13 X10*6/uL (4.60-5.80); Red Cell Distribution Width 13.6 % (11.0-16.0); White Blood Count 18.5 X10*3/uL (4.8-10.8)
[2020-06-02 05:58] LABS: NRBC Pct Auto 1.9 /100WBC (0.0-0.2)
[2020-06-02 06:19] LABS: D Dimer 4962 NG/ML
[2020-06-02 06:25] LABS: Magnesium 2.1 mg/dL (1.6-2.6); Phosphorus 1.7 mg/dL (2.7-4.5)
[2020-06-02 06:26] LABS: Alanine Aminotransferase 64 U/L (0-40); Albumin Level 2.9 g/dL (3.5-5.0); Alkaline Phosphatase 172 U/L (39-117); Anion Gap 18 (12-20); Aspartate Amino Transferase 59 U/L (5-37); Bilirubin Total 1.6 mg/dL (0.0-1.0); Blood Urea Nitrogen 19 mg/dL (9-16); Calcium 7.6 mg/dL (8.4-10.2); Carbon Dioxide 18 mmol/L (22-29); Chloride 118 mmol/L (96-108); Creatinine Clr Calc Pharmacy 102.2; Estimated Glomerular Filt Rate > 60; Glucose Random 240 mg/dL (60-115); Potassium 3.5 mmol/L (3.3-5.1); Sodium 150 mmol/L (135-145)
[2020-06-02 06:37] LABS: Procalcitonin 0.99 ng/mL
[2020-06-02 06:42] LABS: Lipase 115 U/L (8-78)
[2020-06-02 06:47] LABS: Band Neutrophils Percent 2 % (3-5); Lymphocytes Absolute Manual 0.9 X10*3/uL (0.6-4.8); Lymphocytes Percent Manual 5 % (20-40); Metamyelocytes Absolute 0.4 X10*3/uL; Metamyelocytes Percent 2 %; Monocytes Percent Manual 16 % (2-11); Myelocytes Absolute 0.2 X10*/uL; Myelocytes Percent 1 %; Neutrophils Absolute Manual 14.1 X10*3/uL (2.2-7.9); Neutrophils Percent Manual 74 % (45-73); Nucleated Red Blood Cells 2 /100WBC (0-0)
[2020-06-02 06:50] LABS: Microcytosis 1+; Platelet Estimate DECREASED (NORMAL); Platelet Morphology Comment NORMAL; RBC Morphology NOTED; Target Cells 1+; Tear Drop Cells 1+; Toxic Granulation PRESENT
[2020-06-02 06:51] LABS: Toxic Vacuolation PRESENT
[2020-06-02 07:18] LABS: Ferritin 2060 ng/mL (20-250)
[2020-06-02 07:19] LABS: Glucose, Whole Blood 217 mg/dL (60-115)
[2020-06-02] MEDS: Insulin Glargine,Hum.rec.anlog 100 UNIT/ML 10 ML VIAL 25 UNIT SUBCUT (08:07)
[2020-06-02] MEDS: Insulin Lispro 100 UNIT/ML 3 ML VIAL SUBCUT ×4 (08:07→21:07)
[2020-06-02] MEDS: Famotidine/PF 20 MG/2 ML VIAL IVPUSH ×2 (08:08→21:07)
[2020-06-02] MEDS: Esmolol HCl/NaCl Iso 2,500 MG/250 ML IV.SOLN 13.5 MG IVCONT (08:35)
[2020-06-02 11:08] LABS: Glucose, Whole Blood 229 mg/dL (60-115)
--- NOTE | 2020-06-02 11:46 | MHC.CLN ---
F/U DISCUSSED PER MDRS PT TO BE SEEN BY TEXTILE CHEMIST TO DETERMINE DIET CONSISTENCY RECOMMEND 1800 DM DIET IN ADDITION TO TEXTILE CHEMIST RECS FOLLOWING
--- NOTE | 2020-06-02 12:14 | MHC.CM.PN ---
Pt has been successfully extubated and has not required supplemental O2 today. Plans will be for medication adjustments and initiation of diet. Pt will need to contact his payor, [facility] to add a new PCP as his previous one retired. CM to follow for d/c planning.
--- NOTE | 2020-06-02 13:05 | P.CONWO_ITS ---
History of Present Illness Data of Consult Service Date: 06/02/20 Requesting physician: John Norwood Primary Care Provider: Unknown Physician HPI Reason for consult: discoloration on buttocks 34 year old male Covid + on remdesivir after admission for MS changes from ?undiagnosed diabetes and hyperglycemia. Treated for respiratory failure, now extubated, DKA and pancreatitis. Cannot obtain meaningful history from patient who nods but is nonverbal with me. [facility] Medical History No active medical problems Family history: reviewed and not pertinent Social History Household Members: Family Unable to assess alcohol history related to: Unable to respond and Unknown Smoking Status: Never smoker Use of substances other than those prescribed or required for medical reasons: Unable to respond Currently Displaying Signs/Symptoms of Drug Intoxication Withdrawal: No Advance Directives: No Advance Directives Information Provided: No Do you have thoughts of harming others: None Do you have a plan to hurt others: No Plan Recently lost weight without trying: Unsure service: No Current occupational status: employed Meds Allergies Allergy/AdvReac Type Severity Reaction Status Date / Time No Known Allergies Allergy Unverified 12/26/19 15:47 Active Medications: Current Medications Generic Name Dose Route Start Last Admin Trade Name Freq PRN Reason Stop Dose Admin Acetaminophen 325 mg 05/29/20 15:01 05/31/20 08:11 Acetaminophen 325 Mg Supp.Rect CA 325 mg Q6H PRN Administration fever Famotidine 20 mg 06/01/20 09:15 06/02/20 08:08 Famotidine/Pf 20 Mg/2 Ml Vial IVPUSH 20 mg BID SATISH Administration Heparin Sodium (Porcine) 5,000 unit 05/28/20 16:00 06/02/20 08:08 Heparin Sodium,Porcine 5,000 Unit/Ml Vial SUBCUT 5,000 unit Q8H SATISH Administration Hydromorphone HCl 1 mg 06/01/20 17:00 06/01/20 17:21 Hydromorphone Hcl 1 Mg/Ml Syringe IVPUSH 1 mg Q2H PRN Administration WOB Insulin Human Regular 100 unit in 100 mls @ 8 mls/hr 05/28/20 14:45 06/01/20 14:08 Myxredlin IVCONT Infused .[id number] SATISH Titration Protocol Piperacillin Sod/Tazobactam 50 mls @ 100 mls/hr 05/30/20 14:00 06/02/20 05:43 Sod 3.375 gm/ Sodium Chloride IV Infused Q8H SATISH Infusion Fentanyl 1,000 mcg in 100 mls @ 5 mls/hr 06/01/20 10:15 06/02/20 03:09 Sublimaze/Ns IVCONT 25 mcg/hr .Q20H SATISH 2.5 mls/hr Administration 50 MCG/HR Remdesivir 100 mg/ Sodium 230 mls @ 115 mls/hr 06/02/20 15:00 Chloride IV 06/05/20 16:59 Q24H SATISH Esmolol HCl 2,500 mg in 250 mls @ 13.497 mls/hr 06/01/20 14:45 06/02/20 08:35 Brevibloc/Nacl IVCONT 25 mcg/kg/min .[id number] SATISH 13.5 mls/hr Administration Protocol 25 MCG/KG/MIN Potassium Phosphate 30 mmol/ 510 mls @ 85 mls/hr 06/02/20 07:35 06/02/20 08:35 Dextrose IV 06/02/20 13:34 85 mls/hr ONCE ONE Administration Insulin Glargine 35 unit 06/02/20 21:00 Insulin Glargine,Hum.Rec.Anlog 100 Unit/Ml 10 Ml Vial SUBCUT BID [facility] Insulin Human Lispro 0 unit 06/01/20 16:30 06/02/20 11:22 Insulin Lispro 100 Unit/Ml 3 Ml Vial SUBCUT 4 unit QIDACHS [facility] Administration Protocol Methylnaltrexone [place] 8 mg 05/31/20 19:00 05/31/20 19:10 Methylnaltrexone [place] 8 Mg/0.4 Ml Syringe SUBCUT 06/02/20 19:01 8 mg Q2D [facility] Administration Home Medications Medication Instructions Recorded Confirmed Last Taken Type No Known Home Meds 05/28/20 05/28/20 Unknown History Physical Exam Vital Signs and Narrative: Vital Signs: Last Vital Signs Temp 99.4 F 06/02/20 11:56 Pulse 100 06/02/20 12:58 Resp 30 H 06/02/20 12:58 BP 133/87 06/02/20 12:58 Pulse Ox 93 06/02/20 12:58 Body Mass Index 31.0 Smiles appropriately. Tracks appropriately. No extremity edema. Requires assist for bed mobility. Appropriately placed zinc oxide is removed from the gluteal cleft to allow better visualization with cleansing wipes in order to view buttock discol oration. There is a midline linear scar over the midline sacrum not associated with dermal suture lines. This may be anatomic. As this line approaches the coccyx, what looks like darkened contracture and scar is seen, approximately 1 cm in length and width, consistent with remote wound. A similar irregularity, darkened and rectangular shape is seen inferior and to the right of the superior buttock. Good blanchibility is seen throughout the dermis of the sacrum, coccyx and mid gluteal region. Results Labs CBC and Chem 7: 06/02/20 05:38 06/02/20 05:38 Labs: Laboratory Results - last 24 hr 06/01/20 06/01/20 06/01/20 14:18 16:34 19:59 MCV MCH MCHC RDW Plt Count MPV Immature Gran % (Auto) Neut % (Auto) Lymph % (Auto) [place] % (Auto) Eos % (Auto) Baso % (Auto) Lymph # (Auto) [place] # (Auto) Eos # (Auto) Baso # (Auto) Abs Immat Gran (auto) Absolute Neuts (auto) Absolute Nucleated RBC Nucleated RBC % (auto) Neutrophils % (Manual) Band Neutrophils % Lymphocytes % (Manual) Monocytes % (Manual) Metamyelocytes % Myelocytes % Abs Neuts (Manual) Lymphocytes # (Manual) Monocytes # (Manual) Metamyelocytes # Myelocytes # Nucleated RBCs Toxic Granulation Toxic Vacuolation Platelet Estimate Plt Morphology Comment RBC Morphology Microcytosis Target Cells Tear Drop Cells D-Dimer VBG pH 7.42 VBG pCO2 24 VBG pO2 49 VBG HCO3 16 VBG O2 Saturation 86.0 VBG Base Excess -6.9 Anion Gap Estim Creat Clear Calc Estimated GFR POC Glucose 273 H 227 H Random Glucose Calcium Phosphorus Magnesium Ferritin Total Bilirubin AST ALT Alkaline Phosphatase Total Protein Albumin Lipase Procalcitonin 06/02/20 06/02/20 06/02/20 05:38 05:38 05:38 MCV 79.2 L MCH 28.4 MCHC 35.9 RDW 13.6 Plt Count 144 L D MPV 12.2 Immature Gran % (Auto) Cancelled Neut % (Auto) Cancelled Lymph % (Auto) Cancelled [place] % (Auto) Cancelled Eos % (Auto) Cancelled Baso % (Auto) Cancelled Lymph # (Auto) Cancelled [place] # (Auto) Cancelled Eos # (Auto) Cancelled Baso # (Auto) Cancelled Abs Immat Gran (auto) Cancelled Absolute Neuts (auto) Cancelled Absolute Nucleated RBC 0.350 H Nucleated RBC % (auto) 1.9 H Neutrophils % (Manual) 74 H Band Neutrophils % 2 L Lymphocytes % (Manual) 5 L Monocytes % (Manual) 16 H Metamyelocytes % 2 Myelocytes % 1 Abs Neuts (Manual) 14.1 H Lymphocytes # (Manual) 0.9 Monocytes # (Manual) 3.0 H Metamyelocytes # 0.4 Myelocytes # 0.2 Nucleated RBCs 2 H Toxic Granulation PRESENT Toxic Vacuolation PRESENT Platelet Estimate DECREASED Plt Morphology Comment NORMAL RBC Morphology NOTED Microcytosis 1+ Target Cells 1+ Tear Drop Cells 1+ D-Dimer 4962 VBG pH VBG pCO2 VBG pO2 VBG HCO3 VBG O2 Saturation VBG Base Excess Anion Gap Estim Creat Clear Calc Estimated GFR POC Glucose Random Glucose Calcium Phosphorus 1.7 L Magnesium 2.1 Ferritin Total Bilirubin AST ALT Alkaline Phosphatase Total Protein Albumin Lipase 115 H Procalcitonin 06/02/20 06/02/20 06/02/20 05:38 05:38 05:38 MCV MCH MCHC RDW Plt Count MPV Immature Gran % (Auto) Neut % (Auto) Lymph % (Auto) [place] % (Auto) Eos % (Auto) Baso % (Auto) Lymph # (Auto) [place] # (Auto) Eos # (Auto) Baso # (Auto) Abs Immat Gran (auto) Absolute Neuts (auto) Absolute Nucleated RBC Nucleated RBC % (auto) Neutrophils % (Manual) Band Neutrophils % Lymphocytes % (Manual) Monocytes % (Manual) Metamyelocytes % Myelocytes % Abs Neuts (Manual) Lymphocytes # (Manual) Monocytes # (Manual) Metamyelocytes # Myelocytes # Nucleated RBCs Toxic Granulation Toxic Vacuolation Platelet Estimate Plt Morphology Comment RBC Morphology Microcytosis Target Cells Tear Drop Cells D-Dimer VBG pH 7.48 H VBG pCO2 24 VBG pO2 49 VBG HCO3 18 VBG O2 Saturation 87.0 VBG Base Excess -3.3 Anion Gap 18 Estim Creat Clear Calc 102.2 Estimated GFR > 60 POC Glucose Random Glucose 240 H Calcium 7.6 L Phosphorus Magnesium Ferritin 2060 H Total Bilirubin 1.6 H AST 59 H ALT 64 H Alkaline Phosphatase 172 H D Total Protein 5.0 L Albumin 2.9 L Lipase Procalcitonin 0.99 06/02/20 06/02/20 07:13 11:04 MCV MCH MCHC RDW Plt Count MPV Immature Gran % (Auto) Neut % (Auto) Lymph % (Auto) [place] % (Auto) Eos % (Auto) Baso % (Auto) Lymph # (Auto) [place] # (Auto) Eos # (Auto) Baso # (Auto) Abs Immat Gran (auto) Absolute Neuts (auto) Absolute Nucleated RBC Nucleated RBC % (auto) Neutrophils % (Manual) Band Neutrophils % Lymphocytes % (Manual) Monocytes % (Manual) Metamyelocytes % Myelocytes % Abs Neuts (Manual) Lymphocytes # (Manual) Monocytes # (Manual) Metamyelocytes # Myelocytes # Nucleated RBCs Toxic Granulation Toxic Vacuolation Platelet Estimate Plt Morphology Comment RBC Morphology Microcytosis Target Cells Tear Drop Cells D-Dimer VBG pH VBG pCO2 VBG pO2 VBG HCO3 VBG O2 Saturation VBG Base Excess Anion Gap Estim Creat Clear Calc Estimated GFR POC Glucose 217 H 229 H Random Glucose Calcium Phosphorus Magnesium Ferritin Total Bilirubin AST ALT Alkaline Phosphatase Total Protein Albumin Lipase Procalcitonin Imaging Radiologist's Impressions: Impressions Venous Duplex 06/01/20 17:03 IMPRESSION: No DVT demonstrated in the bilateral lower extremities. Chest X-Ray 06/02/20 06:00 IMPRESSION: Similar appearance of small left pleural effusion with retrocardiac opacity. Perihilar opacities. This appearance suggests mild edema. Assessment and Plan (1) [place], pigmented: Start date: 06/02/20 Problem details: Discoloration on buttocks Status: Acute 34-year-old male with hospital course outlined above, with concern of COVID associated pressure injury of the buttocks. This does not appear to be the case in this instance as there is no evidence of blistering nor epidermal necrosis nor pustule formation nor deep soft tissue injury. The skin discoloration seen could be surgical scar related or congenital. For completeness, continue to follow offloading protocols to reduce risk pressure injury. Apply zinc oxide for protection. Areas of concern are thought to be long-standing and pre-existing which can be confirmed with the patient when his mentation clears. Thank you for allowing us to participate in your patient's care.
--- NOTE | 2020-06-02 14:14 | PC.NURSE ---
A&O TO SELF AND PLACE, NODS YES OR NO, SIMPLE ANSWERS. DENIES PAIN. VSS, CONTINUES WITH ESMOLOL GTT. S&H BEDSIDE FOR SWALLOW EVAL - NO STRAWS. DOES WELL WITH ICE CHIPS, NOT MUCH OF AN APPETITE AT THIS TIME. RIGHT TLC REMOVED. OOB TO ARMSTRONG RECLINER USING PREVALON MATTRESS AT 1340. TOLERATED WELL. MISTRY OUTPUT WNL. SMEARING NOTED, BUT NO BM AT THIS TIME. Q2H REPO, BATHED, BARRIER CREAM APPLIED, PREVALON AND PILLOWS UTILIZED. WOUND CARE PA BEDSIDE FOR EVAL - SEE NOTE. PT/OT EVAL ORDER PLACED, AWAITING EVAL AT THIS TIME. FACETIMED WITH FAMILY AND MOTHER UPDATED THROUGHOUT SHIFT.
[2020-06-02] MEDS: Remdesivir 100 MG in 0.9 % Sodium Chloride 230 ML 115 MG IV (15:18)
--- NOTE | 2020-06-02 16:16 | PM.CCPN ---
Subjective Subjective Date of Service: 06/02/20 Interval History: Mr. Damon was admitted to ICU on May 28 with newly diagnosed DM, with DKA, altered mental status, and severe metabolic acidosis, leading to tracheal intubation for airway control. The patient is a 34-year-old gentleman with no significant past medical history who presented to the hospital on May 28 bec of AMS and weakness. The patient had not been feeling well for two days [employer] [employer]. In the ED, the patient was altered, with profound metabolic acidosis with pH of 6.7 secondary to diabetic ketoacidosis with new diagnosis of diabetes mellitus. Hba1c was 13. Lipase was 1600 and triglycerides 800. He was also noted to have mild pancreatitis and gallstones. Unclear what caused the pancreatitis. The patient was also found to be COVID positive. He was started on insulin drip in the ED and admitted to ICU, where later, bec of altered MS, he required emergent intubation. The patient was evaluated by General Surgery (Ortiz) and did not require an acute intervention for his dilated gallbladder/gallstones. His course was further marked by mult severe electrolyte abnormalities. He?s also had an ileus with a distended abdomen (possibly from the fentanyl drip he was given for ventilator management) and lung compression into his upper thorax, causing minor hypoxemia. After intensive acid-base and electrolyte management and ventilator adjustments, the patient was extubated yesterday morning. He?s done well, and has not required supplemental oxygen, except for a brief period last night. Since extubation, he?s been moderately encephalopathic and disoriented, though not delirious. His mental status has been improving hour by hour though. This afternoon he?s OOB in a chair. He?s oriented to person and place, he can speak and make his needs known. Doesn?t know how he got here. Breathing easy with Sat 94% on room air. See Vital Signs below. Still on esmolol at 25 ug. He?s afebrile for > 24hrs. No JVD. Chest CTA. Abd is still mildly distended, but less firm. Last BM was yesterday after the lactulose and relistor. Had some smearing today. Denies tenderness. No edema. LABORATORY DATA: As below. Notably, D-dimer elevated to 4962 this morning, with high Ferritin and CRP. PCT is 0.99 Insulin drip was stopped yesterday and I increased his Lantus to 35u bid, plus he?s on SS insulin. IMAGING: Duplex scan of LEs last night was negative for DVT. Echo today showed normal right heart. IMPRESSION: 1. Newly diagnosed diabetes. 2. DKA. The precipitating cause is not clear. Could be coronavirus disease, could be pancreatitis. Metabolic acidosis not yet quite fully corrected, despite how much insulin he?s had. Continue the Lantus and SS insulin. He started a diet today, may well need a bump in his Lantus dose. 3. MOISE. 2? marked hypovolemia. Resolving nicely. No need to be aggressive at this point. 4. Pancreatitis. The cause is unclear. Could have been a passed gallstone, could be the hypertriglyceridemia, could be the DKA. The CT scan (according to the reading radiologist) was unimpressive. Improving, as judged by lipase levels. Starting to take po?s. 5. Hypertrigliceridemia. Cause is unclear. Discussed with pharmacy. We?ll start him on atorvastatin 80mg daily. 6. Acute resp failure. Rapid shallow breathing is now 2? abdominal ileus. CXR showed his lungs pushed up into his upper chest. 7. Ileus. Likely 2? fentanyl. Giving him lactulose and Relistor. Multiple BM?s so far. Abdomen is otherwise OK. 8. Altered mental status. Metabolic encephalopathy. Would expect that it will ultimately resolve fully. Not concerned (about CPM) from the rapid correction of his initially low sodium that was likely ?pseudohypionatremia?, common in DKA patients. 9: COVID-19, not given dexamethasone bec of the underlying diabetic ketoacidosis, and not thought to have any pulmonary involvement. Biomarkers are very high though. We started him on remdesivir and Pepcid yesterday. I?ll add vit D and thiamine. 10: D-dimer: Duplex scan negative for DVT; echo no suggestion of a PE. 11: ID: Not sure why his WBC is still up. I don?t see the need for a repeat abdom CT at this point. Continue Zosyn one more day. Stable for transfer to [facility]. I?ll sign out to the hospitalists. Time: [id number] Physical Exam Vital Signs: Vital Signs: Last Vital Signs Temp 99.4 F 06/02/20 11:56 Pulse 102 H 06/02/20 15:00 Resp 28 H 06/02/20 15:00 BP 132/87 06/02/20 15:00 Pulse Ox 94 06/02/20 15:00 Body Mass Index 31.0 Objective Data Labs CBC & Chem 7: 06/02/20 05:38 06/02/20 05:38 Labs: Laboratory Results - last 24 hr 06/01/20 06/01/20 06/02/20 16:34 19:59 05:38 WBC RBC Hgb Hct MCV MCH MCHC RDW Plt Count MPV Immature Gran % (Auto) Neut % (Auto) Lymph % (Auto) [place] % (Auto) Eos % (Auto) Baso % (Auto) Lymph # (Auto) [place] # (Auto) Eos # (Auto) Baso # (Auto) Abs Immat Gran (auto) Absolute Neuts (auto) Absolute Nucleated RBC Nucleated RBC % (auto) Neutrophils % (Manual) Band Neutrophils % Lymphocytes % (Manual) Monocytes % (Manual) Metamyelocytes % Myelocytes % Abs Neuts (Manual) Lymphocytes # (Manual) Monocytes # (Manual) Metamyelocytes # Myelocytes # Nucleated RBCs Toxic Granulation Toxic Vacuolation Platelet Estimate Plt Morphology Comment RBC Morphology Microcytosis Target Cells Tear Drop Cells D-Dimer VBG pH VBG pCO2 VBG pO2 VBG HCO3 VBG O2 Saturation VBG Base Excess Sodium Potassium Chloride Carbon Dioxide Anion Gap BUN Creatinine Estim Creat Clear Calc Estimated GFR POC Glucose 273 H 227 H Random Glucose Calcium Phosphorus 1.7 L Magnesium 2.1 Ferritin Total Bilirubin AST ALT Alkaline Phosphatase Total Protein Albumin Lipase 115 H Procalcitonin 06/02/20 06/02/20 06/02/20 05:38 05:38 05:38 WBC 18.5 H RBC 3.13 L Hgb 8.9 L Hct 24.8 L MCV 79.2 L MCH 28.4 MCHC 35.9 RDW 13.6 Plt Count 144 L D MPV 12.2 Immature Gran % (Auto) Cancelled Neut % (Auto) Cancelled Lymph % (Auto) Cancelled [place] % (Auto) Cancelled Eos % (Auto) Cancelled Baso % (Auto) Cancelled Lymph # (Auto) Cancelled [place] # (Auto) Cancelled Eos # (Auto) Cancelled Baso # (Auto) Cancelled Abs Immat Gran (auto) Cancelled Absolute Neuts (auto) Cancelled Absolute Nucleated RBC 0.350 H Nucleated RBC % (auto) 1.9 H Neutrophils % (Manual) 74 H Band Neutrophils % 2 L Lymphocytes % (Manual) 5 L Monocytes % (Manual) 16 H Metamyelocytes % 2 Myelocytes % 1 Abs Neuts (Manual) 14.1 H Lymphocytes # (Manual) 0.9 Monocytes # (Manual) 3.0 H Metamyelocytes # 0.4 Myelocytes # 0.2 Nucleated RBCs 2 H Toxic Granulation PRESENT Toxic Vacuolation PRESENT Platelet Estimate DECREASED Plt Morphology Comment NORMAL RBC Morphology NOTED Microcytosis 1+ Target Cells 1+ Tear Drop Cells 1+ D-Dimer 4962 VBG pH VBG pCO2 VBG pO2 VBG HCO3 VBG O2 Saturation VBG Base Excess Sodium 150 H Potassium 3.5 Chloride 118 H Carbon Dioxide 18 L Anion Gap 18 BUN 19 H Creatinine 1.11 Estim Creat Clear Calc 102.2 Estimated GFR > 60 POC Glucose Random Glucose 240 H Calcium 7.6 L Phosphorus Magnesium Ferritin 2060 H Total Bilirubin 1.6 H AST 59 H ALT 64 H Alkaline Phosphatase 172 H D Total Protein 5.0 L Albumin 2.9 L Lipase Procalcitonin 06/02/20 06/02/20 06/02/20 05:38 05:38 07:13 WBC RBC Hgb Hct MCV MCH MCHC RDW Plt Count MPV Immature Gran % (Auto) Neut % (Auto) Lymph % (Auto) [place] % (Auto) Eos % (Auto) Baso % (Auto) Lymph # (Auto) [place] # (Auto) Eos # (Auto) Baso # (Auto) Abs Immat Gran (auto) Absolute Neuts (auto) Absolute Nucleated RBC Nucleated RBC % (auto) Neutrophils % (Manual) Band Neutrophils % Lymphocytes % (Manual) Monocytes % (Manual) Metamyelocytes % Myelocytes % Abs Neuts (Manual) Lymphocytes # (Manual) Monocytes # (Manual) Metamyelocytes # Myelocytes # Nucleated RBCs Toxic Granulation Toxic Vacuolation Platelet Estimate Plt Morphology Comment RBC Morphology Microcytosis Target Cells Tear Drop Cells D-Dimer VBG pH 7.48 H VBG pCO2 24 VBG pO2 49 VBG HCO3 18 VBG O2 Saturation 87.0 VBG Base Excess -3.3 Sodium Potassium Chloride Carbon Dioxide Anion Gap BUN Creatinine Estim Creat Clear Calc Estimated GFR POC Glucose 217 H Random Glucose Calcium Phosphorus Magnesium Ferritin Total Bilirubin AST ALT Alkaline Phosphatase Total Protein Albumin Lipase Procalcitonin 0.99 02/23/21 11:04 WBC RBC Hgb Hct MCV MCH MCHC RDW Plt Count MPV Immature Gran % (Auto) Neut % (Auto) Lymph % (Auto) [place] % (Auto) Eos % (Auto) Baso % (Auto) Lymph # (Auto) [place] # (Auto) Eos # (Auto) Baso # (Auto) Abs Immat Gran (auto) Absolute Neuts (auto) Absolute Nucleated RBC Nucleated RBC % (auto) Neutrophils % (Manual) Band Neutrophils % Lymphocytes % (Manual) Monocytes % (Manual) Metamyelocytes % Myelocytes % Abs Neuts (Manual) Lymphocytes # (Manual) Monocytes # (Manual) Metamyelocytes # Myelocytes # Nucleated RBCs Toxic Granulation Toxic Vacuolation Platelet Estimate Plt Morphology Comment RBC Morphology Microcytosis Target Cells Tear Drop Cells D-Dimer VBG pH VBG pCO2 VBG pO2 VBG HCO3 VBG O2 Saturation VBG Base Excess Sodium Potassium Chloride Carbon Dioxide Anion Gap BUN Creatinine Estim Creat Clear Calc Estimated GFR POC Glucose 229 H Random Glucose Calcium Phosphorus Magnesium Ferritin Total Bilirubin AST ALT Alkaline Phosphatase Total Protein Albumin Lipase Procalcitonin Microbiology Microbiology Results: Microbiology 05/28/20 14:52 Blood - Venous Blood Culture - Preliminary No growth after 48 hours. 05/28/20 14:52 Blood - Venous Blood Culture - Preliminary No growth after 48 hours. Progress Note: A&P Time Spent With Patient Time: Total time spent is greater than 50% in coordination of care (as documented) at patient's floor/unit and/or counseling patient: Total time spent with greater than 50% in coordination of care (as documented) at patient's floor/unit and/or counseling patient:: 0
[2020-06-02] MEDS: Metoprolol Tartrate 25 MG TABLET PO (16:19)
[2020-06-02 16:22] LABS: Glucose, Whole Blood 217 mg/dL (60-115)
[2020-06-02] MEDS: Atorvastatin Calcium 80 MG TABLET PO (17:31)
[2020-06-02] MEDS: Cholecalciferol (Vitamin D3) 25 MCG TABLET 50 MCG PO (17:31)
[2020-06-02] MEDS: Thiamine HCL 100 MG TABLET 200 MG PO ×2 (17:31→21:07)
--- NOTE | 2020-06-02 17:31 | CA_ITS ---
Transthoracic Echocardiogram Limited Patient (Last, First, Middle): Leobardo Damon Gabriel Gender: Male Date of : 1985 Age: 34 Procedure Date: 06/02/2020 Procedure Type: Transthoracic Echocardiogram Limited Location: ICU Height: 157.48 cm Weight: 74.84 kg BSA: 1.76 m2 Heart Rate: bpm BP: 169 / 100 mmHg Senior Service Technician: RON Referring MD: John Norwood Mold Polisher: Cameron Andrade MD Symptoms: r/o PE. Study Quality: Fair ECG Rhythm: Sinus tachycardia Conclusions: - 1. Normal LV systolic and diastolic function 2. RV size appears to be normal Findings Left Ventricle Normal left ventricular size, thickness, and systolic function. The visually estimated ejection fraction is between 65-70%. Diastolic function is normal for age. Right Ventricle Normal right ventricular cavity size and systolic function. Tricuspid Valve Tricuspid regurgitation envelope is inadequate for calculation of right ventricular systolic pressure. Venous The inferior vena cava was not well visualized. Pericardium/Pleural There is no evidence of pericardial effusion. Prior Study Comparison No prior study available for comparison. Measurements 2D Linear Measurements IVSd: 1.03 0.6-0.9/0.6-1.0 cm LVIDd: 4.18 3.9-5.3/4.2-5.9 cm LVIDd Index: 2.38 2.4-3.2/2.2-3.1 cm/m2 LVIDs: 2.54 2.0-3.6 cm LVPWd: 1.02 0.7-1.1 cm LV Mass: 175.52 67-162/88-224 g LV Mass Index: 99.73 43-95/49-115 g/m2 2D Systolic Function EF 4C: 71.10 >55% EF 2C: 69.20 >55% EF BiP: 69.90 >55% Tricuspid Valve TR Pk Elvin: 1.65 TR Pk Grad: 11.00 RA Press: 3.00 RVSP: 14.00 Updated in Other Vendor System with Status of Final Cameron Andrade MD electronically signed on 06/02/2020 4:41:57 PM with status of Final
[2020-06-02 21:06] LABS: Glucose, Whole Blood 225 mg/dL (60-115)
[2020-06-02] MEDS: Metoprolol Tartrate 12.5 MG HALFTAB PO (21:06)
[2020-06-02] MEDS: Insulin Glargine,Hum.rec.anlog 100 UNIT/ML 10 ML VIAL 35 UNIT SUBCUT (21:07)
[2020-06-03] VITALS (7 sets, daily range): BP systolic 147–176; BP diastolic 85–104; PULSE 95–102; RESP 28–33; TEMP 36.6–36.8; O2SAT 93–97
[2020-06-03] MEDS: Heparin Sodium,Porcine 5,000 UNIT/ML VIAL 5000 UNIT SUBCUT ×4 (00:29→21:35)
[2020-06-03 06:07] LABS: Base Excess VBG 6.2 mmol/L; HCO3 VBG 27 mmol/L; PCO2 VBG 29 mmHg; PO2 VBG 66 mmHg; pH VBG 7.58 (7.32-7.43)
[2020-06-03 06:09] LABS: Hemoglobin 9.3 g/dl (14.0-18.0); Mean Corpuscular HGB Conc 35.8 g/dl (31.0-36.0); Mean Corpuscular Hemoglobin 28.5 pg (27.0-33.0); Mean Corpuscular Volume 79.8 fL (80-98); Mean Platelet Volume 11.7 fL (9.4-12.4); Platelet Count 205 X10*3/uL (160-400); Red Blood Count 3.26 X10*6/uL (4.60-5.80); Red Cell Distribution Width 13.5 % (11.0-16.0); White Blood Count 16.4 X10*3/uL (4.8-10.8)
[2020-06-03 06:10] LABS: NRBC Pct Auto 1.5 /100WBC (0.0-0.2)
[2020-06-03] MEDS: Piperacillin Sodium/Tazobactam 3.375 GM in 0.9 % Sodium Chloride 50 ML IV ×3 (06:12→21:34)
[2020-06-03 06:41] LABS: Anion Gap 12 (12-20); Blood Urea Nitrogen 20 mg/dL (9-16); C Reactive Protein 16.11 mg/dL (< or = 0.50); Calcium 8.2 mg/dL (8.4-10.2); Carbon Dioxide 27 mmol/L (22-29); Chloride 116 mmol/L (96-108); Estimated Glomerular Filt Rate > 60; Glucose Random 103 mg/dL (60-115); Magnesium 2.2 mg/dL (1.6-2.6); Phosphorus 2.3 mg/dL (2.7-4.5); Potassium 2.9 mmol/L (3.3-5.1); Sodium 152 mmol/L (135-145); Triglycerides 324 mg/dL
[2020-06-03 07:05] LABS: D Dimer 13105 NG/ML
[2020-06-03 07:25] LABS: Glucose, Whole Blood 88 mg/dL (60-115)
[2020-06-03 07:31] LABS: Band Neutrophils Percent 19 % (3-5); Lymphocytes Absolute Manual 2.3 X10*3/uL (0.6-4.8); Lymphocytes Percent Manual 14 % (20-40); Metamyelocytes Absolute 0.3 X10*3/uL; Metamyelocytes Percent 2 %; Monocytes Absolute Manual 1.8 X10*3/uL (0.0-1.2); Monocytes Percent Manual 11 % (2-11); Myelocytes Absolute 0.2 X10*/uL; Myelocytes Percent 1 %; Neutrophils Absolute Manual 11.8 X10*3/uL (2.2-7.9); Neutrophils Percent Manual 53 % (45-73); Nucleated Red Blood Cells 1 /100WBC (0-0)
[2020-06-03 07:36] LABS: Hypochromasia 1+; RBC Morphology NOTED; Target Cells 1+
[2020-06-03 07:37] LABS: Platelet Estimate NORMAL (NORMAL); Platelet Morphology Comment NORMAL; Schistocytes 1+
[2020-06-03 08:44] LABS: Ferritin 1635 ng/mL (20-250)
--- NOTE | 2020-06-03 10:25 | P.PNIM_ITS ---
Subjective Subjective Date of Service: 06/03/20 Interval History: Patient seen and examined at bedside patient was reporting weakness Review of Systems Unable. Patient altered Physical Exam Vital Signs: Vital Signs: Last Vital Signs Temp 97.9 F 06/03/20 08:00 Pulse 95 06/03/20 09:28 Resp 28 H 06/03/20 08:00 BP 147/92 H 06/03/20 09:28 Pulse Ox 97 06/03/20 09:28 Body Mass Index 31.0 Const: General: cooperative, no acute distress, alert, awake, lethargic and other Nutritional Appearance: other Orientation/consciousness: lethargic HENMT: Head: Yes normal to inspection Mouth: Normal oral and palatal mucosa present Eyes: General: appearance normal, both eyes and all related structures Sclerae: sclerae normal Pupils: Equal, round and reactive pupils present EOM: EOMs intact bilaterally Neck: Neck: Yes no lymphadenopathy, Yes trachea midline, Yes supple and Yes no JVD Chest: Chest palpation & inspection: normal inspection of the chest Resp: Effort & Inspection: normal respiratory effort, not labored and no respiratory distress Auscultation: clear to auscultation bilaterally and crackles (Mild diffuse bilateral) Cardio: Rate: regular rate and tachycardic Rhythm: regular rhythm Heart sounds: S1 normal heart sound present, S2 normal heart sound present, no gallops, no murmurs and no rubs Peripheral pulses: Peripheral pulses 2+ throughout GI: Inspection: Yes normal to inspection and No distended Palpation (GI): Soft to palpation, not firm, nontender, no guarding, not rigid and Other GI palpation findings present ( Distended, nontender) Auscultation: normal bowel sounds : General: Yes no CVA tenderness Back/Spine/Pelvis: Back: no CVA tenderness Pelvis: buttock ecchymosis Skin: General skin exam: no rashes or lesions noted Neuro: Cranial nerves: Yes Equal, round and reactive pupils present Motor exam (neuro): 5/5 motor strength present throughout Extrem: General: Yes capillary refill normal, Yes no pedal edema, No clubbing and No cyanosis Objective Data Current Medications Generic Name Dose Route Start Last Admin Trade Name Freq PRN Reason Stop Dose Admin Acetaminophen 325 mg 05/29/20 15:01 05/31/20 08:11 Acetaminophen 325 Mg Supp.Rect LA 325 mg Q6H PRN Administration fever Atorvastatin Calcium 80 mg 06/02/20 16:35 06/02/20 17:31 Atorvastatin Calcium 80 Mg Tablet PO 80 mg DAILY SATISH Administration Famotidine 20 mg 06/01/20 09:15 06/02/20 21:07 Famotidine/Pf 20 Mg/2 Ml Vial IVPUSH 20 mg BID SATISH Administration Heparin Sodium (Porcine) 5,000 unit 05/28/20 16:00 06/03/20 00:29 Heparin Sodium,Porcine 5,000 Unit/Ml Vial SUBCUT 5,000 unit Q8H SATISH Administration Hydromorphone HCl 0.5 mg 06/02/20 16:12 Hydromorphone Hcl 1 Mg/Ml Syringe IVPUSH Q2H PRN WOB Piperacillin Sod/Tazobactam 50 mls @ 100 mls/hr 05/30/20 14:00 06/03/20 08:03 Sod 3.375 gm/ Sodium Chloride IV Infused Q8H SATISH Infusion Fentanyl 1,000 mcg in 100 mls @ 1.25 mls/hr 06/01/20 10:15 06/03/20 08:19 Sublimaze/Ns IVCONT Infused .Q24H SATISH Infusion 12.5 MCG/HR Remdesivir 100 mg/ Sodium 230 mls @ 115 mls/hr 06/02/20 15:00 06/02/20 17:22 Chloride IV 06/05/20 16:59 Infused Q24H SATISH Infusion Insulin Glargine 35 unit 06/02/20 21:00 06/02/20 21:07 Insulin Glargine,Hum.Rec.Anlog 100 Unit/Ml 10 Ml Vial SUBCUT 35 unit BID SATISH Administration Insulin Human Lispro 0 unit 06/01/20 16:30 06/03/20 08:42 Insulin Lispro 100 Unit/Ml 3 Ml Vial SUBCUT Not Given QIDACHS [facility] Protocol Metoprolol Tartrate 25 mg 06/03/20 09:00 Metoprolol Tartrate 25 Mg Tablet PO BID [facility] Protocol Thiamine HCl 200 mg 06/02/20 16:45 06/02/20 21:07 Thiamine Hcl 100 Mg Tablet PO 200 mg BID SATISH Administration Vitamin D 50 mcg 06/02/20 16:45 06/02/20 17:31 Cholecalciferol (Vitamin D3) 25 Mcg Tablet PO 50 mcg DAILY SATISH Administration Labs CBC & Chem 7: 06/03/20 05:58 06/03/20 16:22 Microbiology Microbiology Results: Microbiology 05/28/20 14:52 Blood - Venous Blood Culture - Final No growth after 5 days. 05/28/20 14:52 Blood - Venous Blood Culture - Final No growth after 5 days. Assessment and Plan (1) Acute pancreatitis: Status: Acute (2) Diabetic ketoacidosis: Status: Acute (3) Acute renal failure: Status: Acute (4) COVID-19: Status: Acute (5) Leukocytosis: Status: Acute (6) Serum lipase elevation: Status: Acute (7) Diabetes: Status: Acute (8) Acute respiratory failure: Status: Acute Assessment and Plan: DKA resolved Dm Off insulin drip Continue Lantus and sliding scale insulin Monitor glucose blood glucose on lower side MOISE. 2? marked hypovolemia. Resolving Creatinine trending down Monitor kidney function Pancreatitis improving etiology not clear likely from hypertriglyceridemia gallstone Advanced diet as tolerated Continue pain management Continue statin Hypertrigliceridemia. Continue statin Acute resp failure likely secondary to COVID Continue supportive and management Continue oxygen supplementation Started on remdesivir per ID Monitor LFTs Ileus. Likely 2? fentanyl. Continue lactulose and Relistor Metabolic encephalopathy improving Monitor mental status Elevated D-dimer: Likely secondary to COVID Duplex scan negative for DVT; echo no suggestion of a PE. DVT prophylaxis heparin
[2020-06-03] MEDS: Atorvastatin Calcium 80 MG TABLET PO (10:55)
[2020-06-03] MEDS: Cholecalciferol (Vitamin D3) 25 MCG TABLET 50 MCG PO (10:55)
[2020-06-03] MEDS: Famotidine/PF 20 MG/2 ML VIAL IVPUSH ×2 (10:56→20:20)
[2020-06-03] MEDS: Metoprolol Tartrate 25 MG TABLET PO (10:56)
[2020-06-03] MEDS: Thiamine HCL 100 MG TABLET 200 MG PO (10:56)
[2020-06-03] MEDS: Potassium Chloride ER 20 MEQ TAB.ER.PRT 40 MEQ PO (10:57)
--- NOTE | 2020-06-03 11:11 | MHC.CLN ---
F/U 25% PO DIET RX: 1800 PUREED-BENCH CHEMIST REC DIET UPGRADE TO CHOPPED 06/03 SEE BENCH CHEMIST REC 06/03 MONITOR PO INTAKE CLOSELY
[2020-06-03 11:20] LABS: Glucose, Whole Blood 108 mg/dL (60-115)
[2020-06-03] MEDS: Potassium Chloride/H20 10 MEQ/100 ML PIGGYBACK 100 MEQ IV ×4 (12:41→20:19)
[2020-06-03] MEDS: Insulin Glargine,Hum.rec.anlog 100 UNIT/ML 10 ML VIAL 10 UNIT SUBCUT (12:41)
[2020-06-03] MEDS: Remdesivir 100 MG in 0.9 % Sodium Chloride 230 ML 115 MG IV (16:24)
[2020-06-03 16:54] LABS: Glucose, Whole Blood 138 mg/dL (60-115)
[2020-06-03 17:51] LABS: Potassium 4.3 mmol/L (3.3-5.1)
[2020-06-03 19:21] LABS: Osmolality, Serum 317 mosm/kg (281-305)
[2020-06-03 19:31] LABS: Creatinine Urine 75.54 mg/dL; Potassium Urine Random 42.3 mmol/L
[2020-06-03] MEDS: HYDROmorphone HCl 1 MG/ML SYRINGE 0.5 MG IVPUSH (20:09)
[2020-06-03] MEDS: Insulin Lispro 100 UNIT/ML 3 ML VIAL SUBCUT (20:20)
[2020-06-03] MEDS: Insulin Glargine,Hum.rec.anlog 100 UNIT/ML 10 ML VIAL 35 UNIT SUBCUT (20:20)
[2020-06-03 20:49] LABS: Glucose, Whole Blood 174 mg/dL (60-115)
--- NOTE | 2020-06-03 21:14 | PC.NURSE ---
pt destat to mid 80's on 5L NC, upon assessment pt found to have increased work of breathing rr 28, pt stating i cant breath, pt transitioned to non rebreather with good effect, Md made aware PRN diluadid for work of breathing given with good effect rr 20, pt transitioned 5 L NC sating 94% will continue to monitor
[2020-06-03 22:33] LABS: Osmolality Urine 653 mosm/kg (373-1093)
[2020-06-04] VITALS: BP 140/89; PULSE 97; RESP 25; TEMP 36.9; O2SAT 96
[2020-06-04] MEDS: Piperacillin Sodium/Tazobactam 3.375 GM in 0.9 % Sodium Chloride 50 ML IV ×3 (04:46→21:27)
[2020-06-04 07:27] LABS: Glucose, Whole Blood 117 mg/dL (60-115)
[2020-06-04 08:00] VITALS: BP 132/88; PULSE 85; RESP 18; TEMP 36.8; O2SAT 97
[2020-06-04 09:21] VITALS: BP 132/88; PULSE 85
[2020-06-04] MEDS: Famotidine/PF 20 MG/2 ML VIAL IVPUSH ×2 (09:27→21:28)
[2020-06-04] MEDS: Heparin Sodium,Porcine 5,000 UNIT/ML VIAL 5000 UNIT SUBCUT ×2 (09:27→17:41)
[2020-06-04 10:13] LABS: Anion Gap 17 (12-20); Blood Urea Nitrogen 24 mg/dL (9-16); Calcium 7.7 mg/dL (8.4-10.2); Carbon Dioxide 24 mmol/L (22-29); Chloride 115 mmol/L (96-108); Creatinine Clr Calc Pharmacy 128.9; Estimated Glomerular Filt Rate > 60; Glucose Random 114 mg/dL (60-115); Potassium 4.5 mmol/L (3.3-5.1); Sodium 151 mmol/L (135-145)
[2020-06-04 10:49] VITALS: BP 132/88; PULSE 85
--- NOTE | 2020-06-04 12:21 | HO.PM.IMPN ---
Subjective Subjective Date of Service: 06/05/20 Interval History: Patient seen and examined at bedside Patient is still weak reported shortness of breath Patient reported abdominal pain improving Physical Exam Vital Signs: Vital Signs: Last Vital Signs Temp 98.3 F 06/04/20 08:00 Pulse 85 06/04/20 10:49 Resp 18 06/04/20 08:00 BP 132/88 06/04/20 10:49 Pulse Ox 97 06/04/20 08:00 Body Mass Index 31.0 Const: General: cooperative, no acute distress, alert, awake, lethargic and other Nutritional Appearance: other Orientation/consciousness: lethargic HENMT: Head: Yes normal to inspection Mouth: Normal oral and palatal mucosa present Eyes: General: appearance normal, both eyes and all related structures Sclerae: sclerae normal Pupils: Equal, round and reactive pupils present EOM: EOMs intact bilaterally Neck: Neck: Yes no lymphadenopathy, Yes trachea midline, Yes supple and Yes no JVD Chest: Chest palpation & inspection: normal inspection of the chest Resp: Effort & Inspection: normal respiratory effort, not labored and no respiratory distress Auscultation: clear to auscultation bilaterally and crackles (Mild diffuse bilateral) Cardio: Rate: regular rate and tachycardic Rhythm: regular rhythm Heart sounds: S1 normal heart sound present, S2 normal heart sound present, no gallops, no murmurs and no rubs Peripheral pulses: Peripheral pulses 2+ throughout GI: Inspection: Yes normal to inspection and No distended Palpation (GI): Soft to palpation and Tenderness to palpation present (GI) : General: Yes no CVA tenderness Back/Spine/Pelvis: Back: no CVA tenderness Pelvis: buttock ecchymosis Skin: General skin exam: no rashes or lesions noted Neuro: Cranial nerves: Yes Equal, round and reactive pupils present Motor exam (neuro): 5/5 motor strength present throughout Extrem: General: Yes capillary refill normal, Yes no pedal edema, No clubbing and No cyanosis Objective Data Current Medications Generic Name Dose Route Start Last Admin Trade Name Freq PRN Reason Stop Dose Admin Acetaminophen 325 mg 05/29/20 15:01 05/31/20 08:11 Acetaminophen 325 Mg Supp.Rect [place] 325 mg Q6H PRN Administration fever Atorvastatin Calcium 80 mg 06/02/20 16:35 06/04/20 09:20 Atorvastatin Calcium 80 Mg Tablet PO Not Given DAILY [facility] Famotidine 20 mg 06/01/20 09:15 06/04/20 09:27 Famotidine/Pf 20 Mg/2 Ml Vial IVPUSH 20 mg BID SATISH Administration Heparin Sodium (Porcine) 5,000 unit 05/28/20 16:00 06/04/20 09:27 Heparin Sodium,Porcine 5,000 Unit/Ml Vial SUBCUT 5,000 unit Q8H SATISH Administration Hydromorphone HCl 0.5 mg 06/02/20 16:12 06/03/20 20:09 Hydromorphone Hcl 1 Mg/Ml Syringe IVPUSH 0.5 mg Q2H PRN Administration WOB Piperacillin Sod/Tazobactam 50 mls @ 100 mls/hr 05/30/20 14:00 06/04/20 05:40 Sod 3.375 gm/ Sodium Chloride IV Infused Q8H [facility] Infusion Remdesivir 100 mg/ Sodium 230 mls @ 115 mls/hr 06/02/20 15:00 06/03/20 18:30 Chloride IV 06/05/20 16:59 Infused Q24H [facility] Infusion Sodium Chloride 1,000 mls @ 80 mls/hr 06/04/20 12:00 IVCONT .[id number] [facility] Insulin Glargine 10 unit 06/04/20 21:00 Insulin Glargine,Hum.Rec.Anlog 100 Unit/Ml 10 Ml Vial SUBCUT BID [facility] Insulin Human Lispro 0 unit 06/01/20 16:30 06/04/20 09:21 Insulin Lispro 100 Unit/Ml 3 Ml Vial SUBCUT Not Given QIDACHS [facility] Protocol Metoprolol Tartrate 25 mg 06/03/20 09:00 06/04/20 09:21 Metoprolol Tartrate 25 Mg Tablet PO Not Given BID [facility] Protocol Thiamine HCl 200 mg 06/02/20 16:45 06/04/20 09:21 Thiamine Hcl 100 Mg Tablet PO Not Given BID [facility] Vitamin D 50 mcg 06/02/20 16:45 06/04/20 09:20 Cholecalciferol (Vitamin D3) 25 Mcg Tablet PO Not Given DAILY [facility] Labs CBC & Chem 7: 06/03/20 05:58 06/05/20 05:11 Microbiology Microbiology Results: Microbiology 05/28/20 14:52 Blood - Venous Blood Culture - Final No growth after 5 days. 05/28/20 14:52 Blood - Venous Blood Culture - Final No growth after 5 days. Assessment and Plan (1) Diabetic ketoacidosis: Status: Acute (2) Acute pancreatitis: Status: Acute (3) Diabetes: Status: Acute (4) Acute respiratory failure: Status: Acute Assessment and Plan: 34-year-old male initially admitted with toxic metabolic encephalopathy secondary to hyperglycemia DKA not on any antidiabetic at home with blood glucose around 1200 on admission and covid pneumonia ,patient was intubated and admitted to ICU, patient also found to have acute pancreatitis likely secondary to hypertriglyceridemia and gallstones, DKA was resolved, patient also developed I ileus while in ICU likely secondary to fentanyl , patient was extubated switched to lantus and SSI and transferred to floor Diabetes mellitus DKA on admission resolved not on any anti diabetic at home Off insulin drip Continue Lantus Continue SSI Monitor blood glucose Patient will need Lantus and sliding scale insulin on discharge Hypernatremia Sodium still around 149 Continue half-normal saline per Nephrology Monitor sodium avoid over-correction Nephrology consulted Acute resp failure likely secondary to COVID and possible aspiration pneumonia Continue supportive management Continue oxygen supplementation Continue remdesivir per ID Monitor LFTs Pancreatitis improving etiology not clear likely from hypertriglyceridemia gallstone Advanced diet as tolerated Continue pain management Continue statin Hypertrigliceridemia. Continue statin MOISE. 2? marked hypovolemia. Resolving Creatinine trending down back to baseline Monitor kidney function Ileus. Likely 2? fentanyl. Improving Continue lactulose and Relistor Having small bowel movement Advanced diet as tolerated Seen by speech currently on modified diet Aspiration precaution Metabolic encephalopathy improving Monitor mental status Elevated D-dimer: Likely secondary to COVID Duplex scan negative for DVT; V/Q scan was negative Debility week Evaluated by PT recommended short-term rehab DVT prophylaxis heparin (5) Acute renal failure: Status: Acute
--- NOTE | 2020-06-04 12:24 | P.PNIM_ITS ---
Subjective Subjective Date of Service: 06/04/20 Interval History: Patient seen and examined at bedside Patient is still weak , reported sob and some abdominal pain Physical Exam Vital Signs: Vital Signs: Last Vital Signs Temp 98.3 F 06/04/20 08:00 Pulse 85 06/04/20 10:49 Resp 18 06/04/20 08:00 BP 132/88 06/04/20 10:49 Pulse Ox 97 06/04/20 08:00 Body Mass Index 31.0 Const: General: cooperative, no acute distress, alert, awake, lethargic and other Nutritional Appearance: other Orientation/consciousness: lethargic HENMT: Head: Yes normal to inspection Mouth: Normal oral and palatal mucosa present Eyes: General: appearance normal, both eyes and all related structures Sclerae: sclerae normal Pupils: Equal, round and reactive pupils present EOM: EOMs intact bilaterally Neck: Neck: Yes no lymphadenopathy, Yes trachea midline, Yes supple and Yes no JVD Chest: Chest palpation & inspection: normal inspection of the chest Resp: Effort & Inspection: normal respiratory effort, not labored and no respiratory distress Auscultation: clear to auscultation bilaterally and crackles (Mild diffuse bilateral) Cardio: Rate: regular rate and tachycardic Rhythm: regular rhythm Heart sounds: S1 normal heart sound present, S2 normal heart sound present, no gallops, no murmurs and no rubs Peripheral pulses: Peripheral pulses 2+ throughout GI: Inspection: Yes normal to inspection and No distended Palpation (GI): Soft to palpation, not firm, nontender, no guarding, not rigid and Other GI palpation findings present ( Distended, nontender) Auscultation: normal bowel sounds : General: Yes no CVA tenderness Back/Spine/Pelvis: Back: no CVA tenderness Pelvis: buttock ecchymosis Skin: General skin exam: no rashes or lesions noted Neuro: Cranial nerves: Yes Equal, round and reactive pupils present Motor exam (neuro): 5/5 motor strength present throughout Extrem: General: Yes capillary refill normal, Yes no pedal edema, No clubbing and No cyanosis Objective Data Current Medications Generic Name Dose Route Start Last Admin Trade Name Freq PRN Reason Stop Dose Admin Acetaminophen 325 mg 05/29/20 15:01 05/31/20 08:11 Acetaminophen 325 Mg Supp.Rect [place] 325 mg Q6H PRN Administration fever Atorvastatin Calcium 80 mg 02/23/21 16:35 06/04/20 09:20 Atorvastatin Calcium 80 Mg Tablet PO Not Given DAILY [facility] Famotidine 20 mg 06/01/20 09:15 06/04/20 09:27 Famotidine/Pf 20 Mg/2 Ml Vial IVPUSH 20 mg BID SATISH Administration Heparin Sodium (Porcine) 5,000 unit 05/28/20 16:00 06/04/20 09:27 Heparin Sodium,Porcine 5,000 Unit/Ml Vial SUBCUT 5,000 unit Q8H [facility]ISH Administration Hydromorphone HCl 0.5 mg 06/02/20 16:12 06/03/20 20:09 Hydromorphone Hcl 1 Mg/Ml Syringe IVPUSH 0.5 mg Q2H PRN Administration WOB Piperacillin Sod/Tazobactam 50 mls @ 100 mls/hr 05/30/20 14:00 06/04/20 05:40 Sod 3.375 gm/ Sodium Chloride IV Infused Q8H [facility] Infusion Remdesivir 100 mg/ Sodium 230 mls @ 115 mls/hr 06/02/20 15:00 06/03/20 18:30 Chloride IV 06/05/20 16:59 Infused Q24H [facility] Infusion Sodium Chloride 1,000 mls @ 80 mls/hr 06/04/20 12:00 IVCONT .[id number] [facility] Insulin Glargine 10 unit 06/04/20 21:00 Insulin Glargine,Hum.Rec.Anlog 100 Unit/Ml 10 Ml Vial SUBCUT BID [facility] Insulin Human Lispro 0 unit 06/01/20 16:30 06/04/20 09:21 Insulin Lispro 100 Unit/Ml 3 Ml Vial SUBCUT Not Given QIDACHS [facility] Protocol Metoprolol Tartrate 25 mg 06/03/20 09:00 06/04/20 09:21 Metoprolol Tartrate 25 Mg Tablet PO Not Given BID [facility] Protocol Thiamine HCl 200 mg 06/02/20 16:45 06/04/20 09:21 Thiamine Hcl 100 Mg Tablet PO Not Given BID [facility] Vitamin D 50 mcg 06/02/20 16:45 06/04/20 09:20 Cholecalciferol (Vitamin D3) 25 Mcg Tablet PO Not Given DAILY [facility] Labs CBC & Chem 7: 06/03/20 05:58 02/25/21 09:14 Microbiology Microbiology Results: Microbiology 02/18/21 14:52 Blood - Venous Blood Culture - Final No growth after 5 days. 05/28/20 14:52 Blood - Venous Blood Culture - Final No growth after 5 days. Assessment and Plan (1) Diabetic ketoacidosis: Status: Acute (2) Acute pancreatitis: Status: Acute (3) Diabetes: Status: Acute (4) Acute respiratory failure: Status: Acute Assessment and Plan: 34-year-old male initially admitted with toxic metabolic encephalopathy secondar y to hyperglycemia DKA new onset covod pneumonia ,patient was intubated and admitted to ICU, patient also found to have acute pancreatitis likely secondary to hypertriglyceridemia and gallstones, DKA was resolved, patient also developed I ileus while in ICU likely secondary to fentanyl , patient was extubated switched to lantus and SSI Diabetes mellitus Off insulin drip Blood glucose on lower side secondary to poor p.o. intake Will decrease Lantus Continue SSI Monitor blood glucose Hypernatremia Sodium still around 150 Will start half-normal saline per Nephrology Monitor sodium avoid over-correction Nephrology consulted Acute resp failure likely secondary to COVID and possible aspiration pneumonia Continue supportive management Continue oxygen supplementation Continue remdesivir per ID Monitor LFTs Pancreatitis improving etiology not clear likely from hypertriglyceridemia gallstone Advanced diet as tolerated Continue pain management Continue statin Hypertrigliceridemia. Continue statin MOISE. 2? marked hypovolemia. Resolving Creatinine trending down back to baseline Monitor kidney function Ileus. Likely 2? fentanyl. Improving Continue lactulose and Relistor Having bowel movement Advanced diet as tolerated Seen by speech currently on modified diet Aspiration precaution Metabolic encephalopathy improving Monitor mental status Elevated D-dimer: Likely secondary to COVID Duplex scan negative for DVT; echo not suggestion of a PE. Will check V/Q scan DVT prophylaxis heparin (5) Acute renal failure: Status: Acute
[2020-06-04] MEDS: Sodium Chloride 0.45 % 1,000 ML 80 ML IVCONT (13:09)
[2020-06-04] MEDS: Insulin Lispro 100 UNIT/ML 3 ML VIAL SUBCUT ×3 (13:25→21:30)
[2020-06-04 13:26] LABS: Alanine Aminotransferase 61 U/L (0-40); Alkaline Phosphatase 262 U/L (39-117); Aspartate Amino Transferase 91 U/L (5-37); Bilirubin Direct 1.1 mg/dL (0.0-0.5); Bilirubin Total 2.2 mg/dL (0.0-1.0); Total Protein 5.6 g/dL (6.5-8.0)
[2020-06-04 13:47] LABS: Glucose, Whole Blood 177 mg/dL (60-115)
--- NOTE | 2020-06-04 13:58 | MHC.CM.PN ---
Clinical updates remitted to acute and STR referrals. Pt requires 21 day quarantine per Acute Rehab standards and 14 for STR. Call placed to pt's mother Cesia to update her on pts need for STR following d/c. She is in agreement as pt resides alone and must be independent with care needs prior to returning to home. CM to follow for medical stability
--- NOTE | 2020-06-04 15:14 | PC.NURSE ---
pt allowed to be off monitor per protocol for nuclear medicine
[2020-06-04 16:00] VITALS: BP 151/88; PULSE 85; RESP 17; O2SAT 100
[2020-06-04 17:04] LABS: Glucose, Whole Blood 165 mg/dL (60-115)
[2020-06-04] MEDS: Remdesivir 100 MG in 0.9 % Sodium Chloride 230 ML 115 MG IV (17:41)
[2020-06-04] MEDS: Insulin Glargine,Hum.rec.anlog 100 UNIT/ML 10 ML VIAL 10 UNIT SUBCUT (21:29)
[2020-06-04 21:41] LABS: Glucose, Whole Blood 181 mg/dL (60-115)
[2020-06-05] VITALS (8 sets, daily range): BP systolic 135–160; BP diastolic 80–97; PULSE 91–103; RESP 20–24; TEMP 36–36.4; O2SAT 93–99
[2020-06-05] MEDS: Heparin Sodium,Porcine 5,000 UNIT/ML VIAL 5000 UNIT SUBCUT ×3 (01:26→15:10)
[2020-06-05 06:14] LABS: Anion Gap 13 (12-20); Blood Urea Nitrogen 20 mg/dL (9-16); Calcium 7.6 mg/dL (8.4-10.2); Carbon Dioxide 26 mmol/L (22-29); Chloride 112 mmol/L (96-108); Creatinine Clr Calc Pharmacy 138.3; Estimated Glomerular Filt Rate > 60; Glucose Random 177 mg/dL (60-115); Potassium 3.4 mmol/L (3.3-5.1); Sodium 148 mmol/L (135-145)
[2020-06-05] MEDS: Piperacillin Sodium/Tazobactam 3.375 GM in 0.9 % Sodium Chloride 50 ML IV ×3 (06:19→20:35)
[2020-06-05] MEDS: Sodium Chloride 0.45 % 1,000 ML 80 ML IVCONT ×2 (06:34→19:19)
[2020-06-05 07:33] LABS: Glucose, Whole Blood 215 mg/dL (60-115)
[2020-06-05] MEDS: Cholecalciferol (Vitamin D3) 25 MCG TABLET 50 MCG PO (08:27)
[2020-06-05] MEDS: Famotidine/PF 20 MG/2 ML VIAL IVPUSH ×2 (08:27→19:17)
[2020-06-05] MEDS: Metoprolol Tartrate 25 MG TABLET PO ×2 (08:27→19:18)
[2020-06-05] MEDS: Thiamine HCL 100 MG TABLET 200 MG PO ×2 (08:27→19:18)
[2020-06-05] MEDS: Atorvastatin Calcium 40 MG TABLET PO (08:27)
[2020-06-05] MEDS: Insulin Glargine,Hum.rec.anlog 100 UNIT/ML 10 ML VIAL 10 UNIT SUBCUT ×2 (08:29→19:19)
[2020-06-05] MEDS: Insulin Lispro 100 UNIT/ML 3 ML VIAL SUBCUT ×4 (08:29→19:19)
--- NOTE | 2020-06-05 10:33 | CONS_ITS ---
DATE OF SERVICE: 06/04/2020 REASON FOR CONSULTATION: Consult requested by the medical team to evaluate and help in management of patient with acute kidney injury and hypernatremia. HISTORY OF PRESENT ILLNESS: The patient is a 34-year-old male, without any significant past medical history, who presented to the emergency room with altered mental status on 05/28, then he admitted to the hospital. He was apparently found by family, unresponsive. He was not feeling well for 2 days. He had increased thirst and polyuria. He was given Narcan without any response. In the ER, the patient was noted to have lethargy and was altered. He was initially treated with hydration. He had a CT scan which did not show any acute changes. Glucose is elevated at 1287. ABG showed pH of 6.73. Sodium was 132, bicarb of 5, anion gap of 33, BUN 33, creatinine 3.2. Lactic acid level was 3.4. He had a CT of the abdomen and pelvis without contrast, which did not show any evidence of obstructive uropathy. He received 3.5 L in the ER, meropenem, Zofran, and Narcan. He was also given IV insulin. Started on insulin drip and admitted to the ICU. His creatinine was elevated, but improved. His sodium level is on the high side, and renal consult has been requested. He is presently resting in the bed and is not a good historian. PAST MEDICAL HISTORY: None significant. REVIEW OF SYSTEMS: The patient is resting in the bed and is not a good historian. PAST SURGICAL HISTORY: None significant. FAMILY HISTORY: Unknown. PERSONAL AND SOCIAL HISTORY: The patient is nonsmoker. It is unclear if he drinks alcohol. ALLERGIES: THE PATIENT HAS NO KNOWN DRUG ALLERGIES. MEDICATIONS: As an outpatient and inpatient were reviewed. PHYSICAL EXAMINATION: GENERAL: The patient is resting in the bed. Awake, alert, able to follow simple commands. VITAL SIGNS: Blood pressure was 132/88, pulse 65, afebrile. HEENT: Shows pupils equal, round and bilaterally reactive to light. No jugular venous distention. NECK: Supple. CARDIOVASCULAR SYSTEM: S1, S2 without rub. RESPIRATORY SYSTEM: Air entry decreased in the bases. ABDOMEN: Obese, soft. Bowel sounds are normal. EXTREMITIES: Showed positive edema. LABORATORY DATA: Labs done today. Sodium 151, potassium 4.5, chloride 115, CO2 of 24, BUN 24, creatinine 0.88. Hemoglobin 9.3. Glucose 114. IMPRESSION: 1. 34-year-old male, with acute kidney injury. Acute kidney injury in this patient likely secondary to severe prerenal state in the setting of hyperglycemia/DKA. 2. Hypernatremia due to free water deficit. 3. Diabetic ketoacidosis. 4. New COVID, status post intubation extubated. 5. Acute pancreatitis in the setting of hypertriglyceridemia and gallstones. RECOMMENDATIONS: The patient at the present time is off insulin drip. Sodium is still around 151, and I discussed with the medical team and advised them to start half normal saline as there is concern of starting D5 water given hyperglycemia. We cannot correct more than 8 to 10 mEq over the next 24 hours. The patient's renal function has improved and is back to baseline. He is definitely on isolation for COVID infection. The patient is on remdesivir and Zosyn as per the medical team. We will continue to monitor the patient closely. Thank you for allowing me to participate in the medical management of the patient. MD ZIA Landa/MARCO / [phone]
[2020-06-05 11:31] LABS: Glucose, Whole Blood 256 mg/dL (60-115)
--- NOTE | 2020-06-05 12:52 | MHC.CLN ---
F/U 25% PO DIET RX: 1800 CHOPPED-APPROPRIATE MONITOR PO INTAKE CLOSELY ADD GLUCERNA SHAKES IF PO REMAINS POOR
[2020-06-05 16:09] LABS: Glucose, Whole Blood 301 mg/dL (60-115)
[2020-06-05] MEDS: Remdesivir 100 MG in 0.9 % Sodium Chloride 230 ML 115 MG IV (16:46)
--- NOTE | 2020-06-05 18:26 | P.PNNP_ITS ---
Subjective Subjective Date of Service: 06/05/20 Interval history: Patient seen and examined at bedside Patient is still weak reported shortness of breath Patient reported abdominal pain improving Physical Exam Vital Signs: Vital Signs: Last Vital Signs Temp 96.8 F 06/05/20 15:15 Pulse 93 06/05/20 15:15 Resp 20 06/05/20 15:15 BP 159/80 H 06/05/20 15:15 Pulse Ox 97 06/05/20 17:33 Body Mass Index 31.0 Const: Other: on vent, sedated General: cooperative, no acute distress, alert, awake, confusion, lethargic and other Nutritional Appearance: other Orientation/consciousness: patient oriented x3, confusion and lethargic HENMT: Head: Yes normal to inspection Mouth: Normal oral and palatal mucosa present Eyes: General: appearance normal, both eyes and all related structures Sclerae: sclerae normal Pupils: Equal, round and reactive pupils present EOM: EOMs intact bilaterally Neck: Neck: Yes no lymphadenopathy, Yes trachea midline, Yes supple and Yes no JVD Chest: Chest palpation & inspection: normal inspection of the chest Resp: Other: on ventilator, Effort & Inspection: normal respiratory effort, not labored and no respiratory distress Auscultation: clear to auscultation bilaterally and crackles (Mild diffuse bilateral) Cardio: Other: on vent, sedated Rate: regular rate and tachycardic Rhythm: regular rhythm Heart sounds: S1 normal heart sound present, S2 normal heart sound present, no gallops, no murmurs and no rubs Peripheral pulses: Peripheral pulses 2+ throughout GI: Inspection: Yes normal to inspection and No distended Palpation (GI): Soft to palpation, not firm, Tenderness to palpation present (GI), no guarding, not rigid and Other GI palpation findings present ( Distended, nontender) Auscultation: normal bowel sounds : General: Yes no CVA tenderness Back/Spine/Pelvis: Back: no CVA tenderness Pelvis: buttock ecchymosis Skin: General skin exam: no rashes or lesions noted Neuro: General: patient oriented x3 and confusion Cranial nerves: Yes Equal, round and reactive pupils present Motor exam (neuro): 5/5 motor strength present throughout Extrem: General: Yes capillary refill normal, Yes no pedal edema, No clubbing and No cyanosis Objective Data Labs CBC & Chem 7: 06/03/20 05:58 06/05/20 05:11 Labs: Laboratory Results - last 24 hr 06/04/20 06/05/20 06/05/20 21:24 05:11 07:23 Sodium 148 H Potassium 3.4 D Chloride 112 H Carbon Dioxide 26 Anion Gap 13 BUN 20 H Creatinine 0.82 Estim Creat Clear Calc 138.3 Estimated GFR > 60 POC Glucose 181 H 215 H Random Glucose 177 H D Calcium 7.6 L 06/05/20 06/05/20 11:12 15:59 Sodium Potassium Chloride Carbon Dioxide Anion Gap BUN Creatinine Estim Creat Clear Calc Estimated GFR POC Glucose 256 H 301 H Random Glucose Calcium Microbiology Microbiology Results: Microbiology 06/03/20 18:48 Urine clean catch - Clean Catch Midstream Urine Culture - Final No growth. 05/28/20 14:52 Blood - Venous Blood Culture - Final No growth after 5 days. 05/28/20 14:52 Blood - Venous Blood Culture - Final No growth after 5 days. Assessment & Plan Assessment and plan (1) Diabetic ketoacidosis: Status: Acute (2) Acute pancreatitis: Status: Acute (3) Diabetes: Status: Acute (4) Acute respiratory failure: Status: Acute Assessment and Plan: 34-year-old male initially admitted with DKA HyPERNATREMIA COVID MOISE. 2? marked hypovolemia. Resolving Creatinine trending down back to baseline Na is better Continue hypotonic fluids Thx (5) Acute renal failure: Status: Acute Time Spent With Patient Time: Total time spent is greater than 50% in coordination of care (as deborah armstrong) at patient's floor/unit and/or counseling patient: Procedures Date of Service Date of Service: 06/05/20
[2020-06-05 19:14] LABS: Glucose, Whole Blood 243 mg/dL (60-115)
[2020-06-06] VITALS (7 sets, daily range): BP systolic 154–169; BP diastolic 74–94; PULSE 77–101; RESP 18–20; TEMP 35–37.1; O2SAT 93–99
[2020-06-06] MEDS: Heparin Sodium,Porcine 5,000 UNIT/ML VIAL 5000 UNIT SUBCUT ×4 (00:24→20:44)
--- NOTE | 2020-06-06 03:25 | CONS_ITS ---
DATE OF SERVICE: 06/05/2020 REASON FOR CONSULTATION: Elevated LFTs and lipase. HISTORY OF PRESENT ILLNESS: The patient is a pleasant 34-year-old man, who was admitted to the hospital on May 28 with a change in mental status. He was noted on admission to have diabetes, which had not been previously diagnosed as part of his evaluation. He also had blood work showing elevation of his liver function tests and lipase. He was evaluated with CT scanning, which is reviewed. This is initially read as showing no pancreatic changes, although this was re-reviewed by Dr. Alcantar with Dr. Melendrez, and there was some mild stranding in the vicinity of the pancreas. The patient's liver function tests on admission showed a total bilirubin of 0.5. This has increased to 2.2 yesterday. Transaminases were also elevated and alkaline phosphatase was normal on admission, but has risen to 262. His lipase on admission was elevated at 2672 and has improved to 115 on the . Imaging studies have included a CT scan of the abdomen and pelvis, which showed gallstones and an unremarkable pancreas as initially seen. Diffuse fatty change of the liver was noted. Bile ducts were not dilated. The patient denies any prior history of liver problems. He states he does not drink alcohol. He was unaware of a diagnosis of diabetes until this admission. He has no history of substance abuse or hepatitis. PAST MEDICAL HISTORY: 1. Diabetes mellitus, recently diagnosed. 2. He denies other medical or surgical illnesses. CURRENT MEDICATIONS: Current medication list is reviewed in the chart. ALLERGIES: THERE ARE NONE REPORTED. FAMILY HISTORY: Reviewed and noncontributory. SOCIAL HISTORY: He denies tobacco, alcohol, or substance abuse. REVIEW OF SYSTEMS: SKIN: No pruritus. HEENT: Negative. CARDIOPULMONARY: He denies shortness of breath or chest pain. GASTROINTESTINAL: As above. GENITOURINARY: Negative. NEUROPSYCHIATRIC: Negative. PHYSICAL EXAMINATION: GENERAL: Shows a pleasant male, lying in bed. VITAL SIGNS: Stable except for mild resting tachycardia. SKIN: Anicteric. HEENT: Shows no scleral icterus. NECK: Without lymphadenopathy or thyromegaly. LUNGS: Clear. HEART: Shows tachycardia. S1, S2. No murmur. ABDOMEN: Soft without focal masses or tenderness. Bowel sounds are present. No organomegaly is noted. EXTREMITIES: Without edema. LABORATORY DATA: Laboratory data and CT scan are reviewed. IMPRESSION: Elevated lipase with elevated liver function tests. At this point, his lipase has improved, and he may have had some pancreatitis on admission, but structurally his pancreas appears fairly normal on the CT scan suggesting this was a mild episode. The etiology for this is not clear, although he could have passed a gallstone possibly since he does have a history of gallstones. Alcohol does not seem to be an issue. His liver function tests could in part be elevated due to fatty liver, which was identified on his CT scan. He has also been on medications during this hospitalization, which could cause elevation of his liver function tests, including antibiotics. I would recommend monitoring his liver function tests. We will obtain hepatitis serologies as well as other metabolic and autoimmune markers and rule out any other causes of his liver test elevations. Thanks for asking me to see him. I will follow him in the hospital with you. MD MARILEE Lovett/MARCO / [phone]
[2020-06-06] MEDS: Piperacillin Sodium/Tazobactam 3.375 GM in 0.9 % Sodium Chloride 50 ML IV (06:05)
[2020-06-06 07:18] LABS: Glucose, Whole Blood 258 mg/dL (60-115)
[2020-06-06 07:37] LABS: Anion Gap 13 (12-20); Blood Urea Nitrogen 14 mg/dL (9-16); Calcium 7.5 mg/dL (8.4-10.2); Carbon Dioxide 23 mmol/L (22-29); Chloride 108 mmol/L (96-108); Creatinine Clr Calc Pharmacy 147.3; Estimated Glomerular Filt Rate > 60; Glucose Random 266 mg/dL (60-115); Iron 36 mcg/dL (45-160); Percent Iron Saturation 17 % (15-50); Potassium 3.6 mmol/L (3.3-5.1); Sodium 140 mmol/L (135-145); Total Iron Binding Capacity 217 mcg/dL (228-428); Unsaturated Iron Binding 181 ug/dL
[2020-06-06] MEDS: Insulin Lispro 100 UNIT/ML 3 ML VIAL SUBCUT ×4 (08:34→20:38)
[2020-06-06] MEDS: Insulin Glargine,Hum.rec.anlog 100 UNIT/ML 10 ML VIAL 10 UNIT SUBCUT ×2 (10:13→20:38)
[2020-06-06] MEDS: Cholecalciferol (Vitamin D3) 25 MCG TABLET 50 MCG PO (10:14)
[2020-06-06] MEDS: Atorvastatin Calcium 40 MG TABLET PO (10:14)
--- NOTE | 2020-06-06 10:29 | PC.NURSE ---
Addendum entered by Serina Roy RN 06/06/20 17:28: bilat upper extremities/hands edematous and weeping clear/yellow fluid. md aware. fluids held. 02 sat 93% RA, no SOB noted. lungs clear and dim at bases. voided 300 ml yellow urine in bedside commode ~1630 with 1 standby assist. loose stools x 1. no c/o abd pain or discomfort. positive bowel sounds x 4. family updated. Original Note: garcia removed per md with fair toleration by pt. 750ml concentrated yellow urine emptied from garcia bag. dtv by 1630. a&o x 3. no c/o pain. states he is nauseous. md aware. gingerale offered
[2020-06-06 11:16] LABS: Glucose, Whole Blood 225 mg/dL (60-115)
--- NOTE | 2020-06-06 12:54 | P.PNIM_ITS ---
Subjective Subjective Date of Service: 06/07/20 Interval History: seen in f/u for dka, covid. improving Review of Systems Gen: no fever Resp: no sob, no cough CV: no chest, no SPENCER, no leg edema GI: No n/v, no abd pain Neuro: No confusion Physical Exam Vital Signs: Vital Signs: Last Vital Signs Temp 95 F L 06/06/20 11:04 Pulse 101 H 06/06/20 11:04 Resp 18 06/06/20 11:04 BP 158/90 H 06/06/20 11:04 Pulse Ox 95 06/06/20 11:04 Body Mass Index 31.0 Const: General: cooperative, no acute distress, alert, awake and other Chest: Chest palpation & inspection: normal inspection of the chest Resp: Auscultation: clear to auscultation bilaterally and crackles (Mild diffuse bilateral) Cardio: Rate: regular rate and tachycardic Rhythm: regular rhythm Heart sounds: S1 normal heart sound present, S2 normal heart sound present, no gallops, no murmurs and no rubs Peripheral pulses: Peripheral pulses 2+ throughout GI: Inspection: Yes normal to inspection and No distended Palpation (GI): Soft to palpation and Tenderness to palpation present (GI) Auscultation: normal bowel sounds Back/Spine/Pelvis: Pelvis: buttock ecchymosis Skin: General skin exam: no rashes or lesions noted Neuro: Motor exam (neuro): 5/5 motor strength present throughout Objective Data Current Medications Generic Name Dose Route Start Last Admin Trade Name Freq PRN Reason Stop Dose Admin Acetaminophen 325 mg 05/29/20 15:01 05/31/20 08:11 Acetaminophen 325 Mg Supp.Rect [place] 325 mg Q6H PRN Administration fever Atorvastatin Calcium 40 mg 06/05/20 09:00 06/06/20 10:14 Atorvastatin Calcium 40 Mg Tablet PO 40 mg DAILY SATISH Administration Famotidine 20 mg 06/01/20 09:15 06/06/20 12:51 Famotidine/Pf 20 Mg/2 Ml Vial IVPUSH Not Given BID SATISH Heparin Sodium (Porcine) 5,000 unit 05/28/20 16:00 06/06/20 10:12 Heparin Sodium,Porcine 5,000 Unit/Ml Vial SUBCUT 5,000 unit Q8H SATISH Administration Hydromorphone HCl 0.5 mg 06/02/20 16:12 06/03/20 20:09 Hydromorphone Hcl 1 Mg/Ml Syringe IVPUSH 0.5 mg Q2H PRN Administration WOB Piperacillin Sod/Tazobactam 50 mls @ 100 mls/hr 05/30/20 14:00 06/06/20 07:55 Sod 3.375 gm/ Sodium Chloride IV Infused Q8H SATISH Infusion Sodium Chloride 1,000 mls @ 80 mls/hr 06/04/20 12:00 06/05/20 19:19 IVCONT 80 mls/hr .[id number] [facility] Administration Insulin Glargine 10 unit 06/04/20 21:00 06/06/20 10:13 Insulin Glargine,Hum.Rec.Anlog 100 Unit/Ml 10 Ml Vial SUBCUT 10 unit BID [facility] Administration Insulin Human Lispro 0 unit 06/01/20 16:30 06/06/20 11:20 Insulin Lispro 100 Unit/Ml 3 Ml Vial SUBCUT 4 unit QIDACHS [facility] Administration Protocol Metoprolol Tartrate 25 mg 06/03/20 09:00 06/06/20 12:52 Metoprolol Tartrate 25 Mg Tablet PO Not Given BID [facility] Protocol Ondansetron HCl 4 mg 06/06/20 12:51 Ondansetron Hcl 4 Mg/2 Ml Vial IVPUSH Q8H PRN Nausea and Vomiting Thiamine HCl 200 mg 06/02/20 16:45 06/06/20 12:53 Thiamine Hcl 100 Mg Tablet PO Not Given BID [facility] Vitamin D 50 mcg 06/02/20 16:45 06/06/20 10:14 Cholecalciferol (Vitamin D3) 25 Mcg Tablet PO 50 mcg DAILY [facility] Administration Labs CBC & Chem 7: 06/03/20 05:58 06/07/20 06:17 Microbiology Microbiology Results: Microbiology 06/03/20 18:48 Urine clean catch - Clean Catch Midstream Urine Culture - Final No growth. 05/28/20 14:52 Blood - Venous Blood Culture - Final No growth after 5 days. 05/28/20 14:52 Blood - Venous Blood Culture - Final No growth after 5 days. Assessment and Plan (1) Diabetic ketoacidosis: Status: Acute (2) Acute pancreatitis: Status: Acute (3) Diabetes: Status: Acute (4) Acute respiratory failure: Status: Acute Assessment and Plan: 34-year-old male initially admitted with toxic metabolic encephalopathy secondary to hyperglycemia DKA not on any antidiabetic at home with blood glucose around 1200 on admission and covid pneumonia ,patient was intubated and admitted to ICU, patient also found to have acute pancreatitis likely secondary to hypertriglyceridemia and gallstones, DKAresolved, patient also developed I ileus while in ICU likely secondary to fentanyl , patient was extubated switched to lantus and SSI and transferred to floor Diabetes mellitus--d/t non diabetic meds or non compliant. Treated in ICu and DKA is now resolved. On lantus 10 bid, change to 20 daily, SSI and diabetic diet, diabetic education. Hypernatremia--d/t NS, resolved. Acute resp failure likely secondary to COVID and possible aspiration pneumonia On Zosyn since 05/30, therefore 7 days of Abx, DC Pancreatitis unclear etiology, no gallstone, TG 800 unlikely cause but possibly contributing factor. Clinically resolved. Advance diet Hypertrigliceridemia. Stop Lipitor, add Fenofibrate instead MOISE. Pre renal, resolved. Ileus. Likely 2? fentanyl. Should be resolving Seen by speech currently on modified diet Aspiration precaution Metabolic encephalopathy--d/t acute illness, resolved Elevated D-dimer: Likely secondary to COVID Duplex scan negative for DVT; V/Q scan was negative Debility week Evaluated by PT recommended short-term rehab DVT prophylaxis heparin (5) Acute renal failure: Status: Acute
[2020-06-06 14:32] LABS: Ferritin 1743 ng/mL (20-250)
[2020-06-06 16:05] LABS: Glucose, Whole Blood 225 mg/dL (60-115)
[2020-06-06 19:39] LABS: Glucose, Whole Blood 232 mg/dL (60-115)
[2020-06-06] MEDS: Famotidine/PF 20 MG/2 ML VIAL IVPUSH (20:38)
[2020-06-06] MEDS: Metoprolol Tartrate 25 MG TABLET PO (20:39)
[2020-06-07 03:47] VITALS: BP 163/85; PULSE 90; RESP 18; TEMP 37.1; O2SAT 96
[2020-06-07] MEDS: Sodium Chloride 0.45 % 1,000 ML 80 ML IVCONT (04:48)
[2020-06-07 06:59] VITALS: BP 165/89; PULSE 101; RESP 18; TEMP 36.1; O2SAT 96
[2020-06-07 07:12] LABS: Glucose, Whole Blood 281 mg/dL (60-115)
[2020-06-07 07:32] LABS: Anion Gap 14 (12-20); Blood Urea Nitrogen 11 mg/dL (9-16); Calcium 7.6 mg/dL (8.4-10.2); Carbon Dioxide 25 mmol/L (22-29); Chloride 105 mmol/L (96-108); Creatinine Clr Calc Pharmacy 145.4; Estimated Glomerular Filt Rate > 60; Glucose Random 262 mg/dL (60-115); Potassium 3.1 mmol/L (3.3-5.1); Sodium 141 mmol/L (135-145)
[2020-06-07] MEDS: Insulin Lispro 100 UNIT/ML 3 ML VIAL SUBCUT ×4 (08:15→20:32)
[2020-06-07] MEDS: Famotidine/PF 20 MG/2 ML VIAL IVPUSH (08:18)
[2020-06-07] MEDS: Metoprolol Tartrate 25 MG TABLET PO ×2 (08:18→20:32)
[2020-06-07] MEDS: Heparin Sodium,Porcine 5,000 UNIT/ML VIAL 5000 UNIT SUBCUT ×2 (08:18→15:44)
--- NOTE | 2020-06-07 10:05 | P.PNIM_ITS ---
Subjective Subjective Date of Service: 06/08/20 Interval History: Seen in f/u for dka, covid. improving. Still very weak, needing assistance to go BR Review of Systems Gen: no fever Resp: no sob, no cough CV: no chest, no SPENCER, no leg edema GI: No n/v, no abd pain Neuro: No confusion Physical Exam Vital Signs: Vital Signs: Last Vital Signs Temp 97 F 06/07/20 06:59 Pulse 101 H 06/07/20 06:59 Resp 18 06/07/20 06:59 BP 165/89 H 06/07/20 06:59 Pulse Ox 96 06/07/20 06:59 Body Mass Index 31.0 Chest: Chest palpation & inspection: normal inspection of the chest Resp: Effort & Inspection: normal respiratory effort, not labored and no respiratory distress Auscultation: clear to auscultation bilaterally and crackles (Mild diffuse bilateral) Cardio: Rate: regular rate and tachycardic Rhythm: regular rhythm Heart sounds: S1 normal heart sound present, S2 normal heart sound present, no gallops, no murmurs and no rubs Peripheral pulses: Peripheral pulses 2+ throughout GI: Inspection: Yes normal to inspection and No distended Palpation (GI): Soft to palpation and Tenderness to palpation present (GI) Auscultation: normal bowel sounds Back/Spine/Pelvis: Pelvis: buttock ecchymosis Skin: General skin exam: no rashes or lesions noted Neuro: Motor exam (neuro): 5/5 motor strength present throughout Extrem: General: Yes capillary refill normal, Yes no pedal edema, No clubbing and No cyanosis Objective Data Current Medications Generic Name Dose Route Start Last Admin Trade Name Freq PRN Reason Stop Dose Admin Acetaminophen 325 mg 05/29/20 15:01 05/31/20 08:11 Acetaminophen 325 Mg Supp.Rect [place] 325 mg Q6H PRN Administration fever Atorvastatin Calcium 40 mg 06/05/20 09:00 06/07/20 08:23 Atorvastatin Calcium 40 Mg Tablet PO Not Given DAILY SATISH Heparin Sodium (Porcine) 5,000 unit 05/28/20 16:00 06/07/20 08:18 Heparin Sodium,Porcine 5,000 Unit/Ml Vial SUBCUT 5,000 unit Q8H SATISH Administration Hydromorphone HCl 0.5 mg 06/02/20 16:12 06/03/20 20:09 Hydromorphone Hcl 1 Mg/Ml Syringe IVPUSH 0.5 mg Q2H PRN Administration WOB Sodium Chloride 1,000 mls @ 80 mls/hr 06/04/20 12:00 06/07/20 04:48 IVCONT 80 mls/hr .[id number] [facility] Administration Insulin Glargine 20 unit 06/08/20 09:00 Insulin Glargine,Hum.Rec.Anlog 100 Unit/Ml 10 Ml Vial SUBCUT DAILY [facility] Insulin Glargine 10 unit 06/07/20 09:58 Insulin Glargine,Hum.Rec.Anlog 100 Unit/Ml 10 Ml Vial SUBCUT 06/07/20 09:59 ONCE ONE Insulin Human Lispro 0 unit 06/01/20 16:30 06/07/20 08:15 Insulin Lispro 100 Unit/Ml 3 Ml Vial SUBCUT 6 unit QIDACHS [facility] Administration Protocol Metoprolol Tartrate 25 mg 06/03/20 09:00 06/07/20 08:18 Metoprolol Tartrate 25 Mg Tablet PO 25 mg BID [facility] Administration Protocol Ondansetron HCl 4 mg 06/06/20 12:51 Ondansetron Hcl 4 Mg/2 Ml Vial IVPUSH Q8H PRN Nausea and Vomiting Ondansetron HCl 4 mg 06/06/20 12:57 Ondansetron Odt 4 Mg Tab.Rapdis TRANSLINGU Q8H PRN Vomiting Thiamine HCl 200 mg 06/02/20 16:45 06/07/20 09:59 Thiamine Hcl 100 Mg Tablet PO Not Given BID [facility] Vitamin D 50 mcg 06/02/20 16:45 06/07/20 09:59 Cholecalciferol (Vitamin D3) 25 Mcg Tablet PO Not Given DAILY [facility] Labs CBC & Chem 7: 06/03/20 05:58 06/08/20 05:39 Microbiology Microbiology Results: Microbiology 06/03/20 18:48 Urine clean catch - Clean Catch Midstream Urine Culture - Final No growth. 05/28/20 14:52 Blood - Venous Blood Culture - Final No growth after 5 days. 05/28/20 14:52 Blood - Venous Blood Culture - Final No growth after 5 days. Assessment and Plan (1) Diabetic ketoacidosis: Status: Acute (2) Acute pancreatitis: Status: Acute (3) Diabetes: Status: Acute (4) Acute respiratory failure: Status: Acute Assessment and Plan: 34-year-old male initially admitted with toxic metabolic encephalopathy secondary to hyperglycemia DKA not on any antidiabetic at home with blood glucose around 1200 on admission and covid pneumonia ,patient was intubated and admitted to ICU, patient also found to have acute pancreatitis likely secondary to hypertriglyceridemia and gallstones, DKA resolved, patient also developed I ileus while in ICU likely secondary to fentanyl , patient was extubated switched to lantus and SSI and transferred to floor Diabetes mellitus--d/t non on diabetic meds or non compliant. Treated in ICu and DKA is now resolved. On Lantus 10 bid, uncontrolled, increase to 20 bid Hypernatremia--d/t NS, resolved. Acute resp failure likely secondary to COVID and possible aspiration pneumonia Has completed 7 days of zosyn Pancreatitis unclear etiology, no gallstone, TG 800 unlikely cause but possibly contributing factor. Clinically resolved. Advance diet Hypertriglyceredemia. Fenofibrate HypOkalemia--Oral K, add on Mag MOISE. Pre renal, resolved. Ileus. Likely 2? fentanyl. Resolved Seen by speech currently on modified diet Aspiration precaution Metabolic encephalopathy--d/t acute illness, resolved Elevated D-dimer: Likely secondary to COVID Duplex scan negative for DVT; V/Q scan was negative Debility week Evaluated by PT recommended short-term rehab DVT prophylaxis heparin (5) Acute renal failure: Status: Acute
[2020-06-07 10:57] VITALS: BP 162/90; PULSE 78; RESP 18; TEMP 36.1; O2SAT 96
[2020-06-07] MEDS: Insulin Glargine,Hum.rec.anlog 100 UNIT/ML 10 ML VIAL 10 UNIT SUBCUT (11:00)
[2020-06-07 11:10] LABS: Glucose, Whole Blood 236 mg/dL (60-115)
[2020-06-07] MEDS: Fenofibrate 54 MG TABLET PO (13:03)
--- NOTE | 2020-06-07 14:21 | PC.NURSE ---
PT REQUIRES MUCH ENCOURAGEMENT TO TAKE HIS MEDS. HE WAS TAUGHT INCENTIVE SPIROMETRY. ([id number]). EDUCATED ON INSULIN INJECTIONS SITES AND GAVE INJECTION. PT AMB WITH WALKER AND STANDBY SURERVISION TO BR THEN UP TO RECLINER. HIGH FALL RISK MAINTAINED
[2020-06-07 15:12] VITALS: BP 171/84; PULSE 89; RESP 20; TEMP 36.6; O2SAT 96
[2020-06-07 16:10] LABS: Glucose, Whole Blood 229 mg/dL (60-115)
[2020-06-07 19:54] LABS: Glucose, Whole Blood 233 mg/dL (60-115)
[2020-06-07 23:57] VITALS: BP 167/93; PULSE 73; RESP 20; TEMP 37.1; O2SAT 98
[2020-06-08] MEDS: Heparin Sodium,Porcine 5,000 UNIT/ML VIAL 5000 UNIT SUBCUT ×2 (00:51→08:40)
[2020-06-08 06:55] LABS: Anion Gap 14 (12-20); Blood Urea Nitrogen 9 mg/dL (9-16); Calcium 7.9 mg/dL (8.4-10.2); Carbon Dioxide 27 mmol/L (22-29); Chloride 102 mmol/L (96-108); Creatinine Clr Calc Pharmacy 151.3; Estimated Glomerular Filt Rate > 60; Glucose Random 237 mg/dL (60-115); Potassium 3.1 mmol/L (3.3-5.1); Sodium 140 mmol/L (135-145)
[2020-06-08 07:43] LABS: Glucose, Whole Blood 302 mg/dL (60-115)
[2020-06-08 07:51] VITALS: BP 169/96; PULSE 81; RESP 18; TEMP 36.8; O2SAT 97
[2020-06-08 08:20] LABS: HBsAGNum1 0.15 S/CO (0.00-0.99); Hepatitis B Surface Antigen Negative (Negative); ~HepC Num1 0.34 S/CO (0.00-0.79); ~Hepatitis C Antibody Nonreactive (Nonreactive)
[2020-06-08] MEDS: Atorvastatin Calcium 40 MG TABLET PO (08:39)
[2020-06-08] MEDS: Fenofibrate 54 MG TABLET PO (08:39)
[2020-06-08] MEDS: amLODIPine Besylate 5 MG TABLET PO (08:39)
[2020-06-08] MEDS: Cholecalciferol (Vitamin D3) 25 MCG TABLET 50 MCG PO (08:39)
[2020-06-08] MEDS: Insulin Glargine,Hum.rec.anlog 100 UNIT/ML 10 ML VIAL 20 UNIT SUBCUT (08:40)
[2020-06-08] MEDS: Insulin Lispro 100 UNIT/ML 3 ML VIAL SUBCUT ×2 (08:40→12:02)
[2020-06-08] MEDS: Metoprolol Tartrate 25 MG TABLET PO (08:40)
[2020-06-08 08:52] LABS: HBS Num1 > 1000.00 mIU/mL (0-7.99); ~Hepatitis B Surface Antibody REACTIVE (Nonreactive)
[2020-06-08 09:26] VITALS: BP 169/96; PULSE 81; O2SAT 97
[2020-06-08 10:19] LABS: HBc Num2 1.15 S/CO; HBc Num3 1.17 S/CO
[2020-06-08 11:49] LABS: Glucose, Whole Blood 247 mg/dL (60-115)
--- NOTE | 2020-06-08 12:23 | MHC.SLORD ---
WHAT JOB TITLES MEAN checked in with RN this morning as patient was not available for PO trials. Per RN there are not concerns at this time related to dysphagia. Patient is currently on CHOPPED/ADVANCED (NDD3) solids and THIN liquids. WHAT JOB TITLES MEAN to follow up 1x time tomorrow morning to ensure tolerance of unmodified diet. Name: Leobardo Damon Date of : 1985 Age: 34 Date of Registration: 05/28/20 Speech Language Pathology Order Status:
--- NOTE | 2020-06-08 12:41 | MHC.CM.PN ---
DP STR at pts /fam preference [facility] REH[facility] via BLS. Facility is going for Auth now. Pt may DC this afternoon. aware. CM will follow.
--- NOTE | 2020-06-08 12:54 | P.DS_ITS ---
DS: Providers Provider Date of Service: 08/08/20 Date of admission: 05/28/20 15:09 Primary care physician: Unknown Physician Consults: 05/29/20 06:44 Consult to General Surgery Routine Consulting Provider: Trenton Alcantar Reason for consultation: Acute pancreatitis 06/01/20 13:24 Consult to Infectious Diseases Routine Consulting Provider: Gillian Childress Reason for consultation: Remdesivir for COVID Has provider been notified: Yes 06/01/20 17:04 Consult to Wound Care Provider Routine Consulting Provider: [facility] Wound Care Management Reason for consultation: ?BIRTHMARK VS PRESSURE INJURY TO COCCYX, COVID + 06/03/20 10:35 Consult to Nephrology Routine Consulting Provider: Lewis Chavis Reason for consultation: hypernatremia 06/05/20 07:38 Consult to Gastroenterology Routine Consulting Provider: [facility] Gastroenterology Services Reason for consultation: Elevated lfts pancreatitis DS: Diagnosis Discharge Diagnosis (1) Diabetic ketoacidosis: Status: Resolved (2) Acute pancreatitis: Status: Resolved (3) Diabetes: Status: Inactive (4) Acute respiratory failure: Status: Resolved (5) Acute renal failure: Status: Resolved DS: Medications Discharge Medications Home Medications: Home Medications Medication Instructions Recorded Confirmed No Known Home Meds 05/28/20 05/28/20 DS: Summary Hospital Course Hospital Course: Date of admission: 05/28/20 Date of discharge: 06/08/2020 Chief Complaint: AMS HPI by ICU. The patient is a 34 year old male with no known past medical history who presented to the emergency room for altered mental status. According to EMS, patient 's family found him unresponsive, they also reported the patient not feeling well for the past 2 days , complaining of increased thirst and polyuria. EMS attempted to give Narcan with no response.bOn ED arrival, patient was noted to be lethargic and altered. Vital signs stable. Initially treated as stroke alert head CT with no acute findings. Later his glucose noted to be elevated to 1287.bOther laboratory data significant for: ABGs 6.73/16/69/2.bWBC 25.6,Sodium 132, bicarb less than 5, anion gap 33, BUN 33, creatinine 3.2, lactic acid 3.4, magnesium 3.6, ALT 83, alk phos 161, lipase 1889. A1c 13.5. He was also noted to COVID-[address]: no acute findings Chest x-ray: no acute findings Abdomen/pelvis CT: No acute abnormality CT scan abdomen pelvis. The pancreas is unremarkable. There is diffuse fatty change of liver. There are gallstones in the gallbladder but no acute change of gallbladder wall. ED course: He received a total 3.5 L of fluids, meropenem 500 mg, Zofran, Narcan 2 mg, IV insulin 15 units and subsequently started on insulin drip. 34-year-old male previously with no history of diagetes and presented to the hospital with altered mental status and found to be in DKA with new onset of diabetes with sugar level > 1200, bicab of <5, pH 6.9, MOISE, metabolic encephalopathy and tested positive for covid. He was intubated and admited to ICU where DKA was succuessfully treated with insulin, IVF. Hspital course further complicated by Ileus, low potassium, hypernatremia and aspiration pneumonia and overall is doing well now. New onset diabetes with DKA that needed ICU level of care--DKA has resolved. Hemoglobin A1C was 13, indicating longstanding diabetes. He is presently on Insulin 20 untis daily with fasting glucose of 237 today, I recommend increasing Lantus to 25 units at discharge with sliding scale coverage. HypErnatremia--likely due to Normal Saline and lack of free water, level is now normal. Acute resp failure likely secondary to COVID and possible aspiration pneumonia Has completed 7 days of zosyn--Presently doesn't have any covid symptoms, and is not on oxgyen Pancreatitis unclear etiology, no gallstone, TG 800 unlikely cause but possibly contributing factor. Clinically resolved. Tolerating regular diet and should be treated with Fenofibrate and repet level in 4 to 6 weks as above Hypertriglyceredemia. Fenofibrate HTN--He probably has undiagnosed high blood pressure not treated BP have been consistently high with SBP of 150s to 160s and has been put on Metoprolol 25 Bid and Norvasc 5 mg daily and can probably adjusted in few more days to 10 daily HypOkalemia--Oral K, MOISE. Pre renal, resolved. Ileus. Likely 2? fentanyl. Resolved Metabolic encephalopathy--d/t acute illness, DKA, resolved. Hepatitis B serogy: Hep Bs Anticobidy is reactive, Hep B core total Antibody is non reactive,Hep B surface antigen is negative--therefore this patient may have had exposure to hepatitis B but does have hepatitis B and has immunity against Hep B, also Hepatitis C antibody is negative Elevated D-dimer: Likely secondary to COVID Duplex scan negative for DVT; V/Q scan was negative Patient is very weak and deconditioned and PT recommend short term rehab Time Spent with Patient Time attestation: Total time spent providing and/or coordinating discharge services: Discharge coordination time: Greater than 30 minutes Physical Exam Vital Signs: Vital Signs: Last Vital Signs Temp 98.2 F 06/08/20 07:51 Pulse 81 06/08/20 09:26 Resp 18 06/08/20 07:51 BP 169/96 H 06/08/20 09:26 Pulse Ox 97 06/08/20 09:26 Body Mass Index 31.0 Constitutional Awake and Alert, No apparent distress Neck Supple, No lymphadenopathy Cardiovascular RRR, No M/R/G, S1 S2, No S3 S4, No pedal edema Respiratory Lungs clear, No respiratory distress Gastrointestinal Non tender, Non-distended Skin No rash Neurological Alert & oriented x3 Psychological Appropriate affect DS: Data Data Completed and Pending Labs on day of discharge: Laboratory Results - last 24 hr 06/06/20 06/07/20 06/07/20 06:43 15:59 19:45 Sodium Potassium Chloride Carbon Dioxide Anion Gap BUN Creatinine Estim Creat Clear Calc Estimated GFR POC Glucose 229 H 233 H Random Glucose Calcium Hep Bs Antigen Negative Hep Bs Antibody REACTIVE Hep B Core Total Ab Reactive Hepatitis C Ab (EIA) Nonreactive 06/08/20 06/08/20 06/08/20 05:39 07:29 11:24 Sodium 140 Potassium 3.1 L Chloride 102 Carbon Dioxide 27 Anion Gap 14 BUN 9 Creatinine 0.75 Estim Creat Clear Calc 151.3 Estimated GFR > 60 POC Glucose 302 H 247 H Random Glucose 237 H Calcium 7.9 L Hep Bs Antigen Hep Bs Antibody Hep B Core Total Ab Hepatitis C Ab (EIA) Discharge Plan Discharge Patient Disposition: Xfer SNF Discharge Diagnosis: New onset diabetes, DKA. Referrals: Physician,Unknown [Primary Care Provider] - 1 Week (PLEASE CALL YOUR HEALTH INSURANCE AND CHOOSE A PRIMARY CARE PROVIDER, THEN CALL THE OFFICE AND BOOK A NEW PATIENT APPT.) Discharge Medications: No Action insulin lispro [Humalog KwikPen Insulin] 100 unit/mL insulin pen See Rx Instructions subcut TID Qty: 15 RF: 3 (DME) OneTouch Ultra Blue Test Strip Strip See Rx Instructions .ROUTE .MEDSUPPLY Qty: 3 RF: 3 (DME) OneTouch Ultra Blue Test Strip Strip See Rx Instructions .ROUTE .MEDSUPPLY Qty: 3 RF: 0 (DME) lancets [OneTouch UltraSoft Lancets] Misc See Rx Instructions .ROUTE .MEDSUPPLY Qty: 3 RF: 0 (DME) pen needle, diabetic [BD Ultra-Fine Short Pen Needle] 31 gauge x 5/16 needle See Rx Instructions .ROUTE .MEDSUPPLY Qty: 1200 RF: 0 (DME) lancets [OneTouch UltraSoft Lancets] Misc See Rx Instructions .ROUTE .MEDSUPPLY Qty: 100 RF: 11 metoprolol tartrate 25 mg tablet 25 mg PO BID Qty: 30 RF: 0 gabapentin 300 mg capsule 300 mg PO BID Qty: 60 RF: 4 Lantus Solostar U-100 Insulin 100 unit/mL (3 mL) insulin pen 28 unit subcut DAILY RF: 0 (DME) blood-glucose meter Kit See Rx Instructions .ROUTE .MEDSUPPLY Qty: 1 RF: 0 (DME) lancets Misc See Rx Instructions .ROUTE .MEDSUPPLY Qty: 100 RF: 0 (DME) blood sugar diagnostic Strip See Rx Instructions .ROUTE .MEDSUPPLY Qty: 10 RF: 0 amlodipine 5 mg tablet 10 mg PO DAILY Qty: 30 RF: 0 (DME) FreeStyle Gisselle 14 Day [place] Misc See Rx Instructions .ROUTE .MEDSUPPLY Qty: 1 RF: 0 (DME) FreeStyle Gisselle 14 Day Sensor Kit See Rx Instructions .ROUTE .MEDSUPPLY Qty: 6 RF: 3 Discharge Orders: Discharge Order (Routine); Ordered 06/08/20 Ordered By: Carlos Hoover Diet: diabetic diet Activity on Discharge: As tolerated Stand Alone Forms: Patient Portal Discharge page Care Plan Goals: Full recovery from weakness, DKA and ultimately go home Health Concerns: Newly diagnosed diabetes Plan of Treatment: To short term rehab, take insulin for diabetes as scheduled, take Fenofibratre for high triglyceride, take Norvasc and Metoprolol for high blood pressure He has completed 10 days of covid isolation and assymptomatic and therefore can be around others be should continue practicing safety measure with mask use and social distances protocols Assessment: New onset diabetes, DKA Discharge Date/Time: 06/08/20 16:46
[2020-06-08 13:56] LABS: Mitochondrial Antibodies NEGATIVE (NEGATIVE)
[2020-06-08] MEDS: Potassium Chloride ER 20 MEQ TAB.ER.PRT 40 MEQ PO (14:11)
[2020-06-08 14:14] VITALS: BP 145/88; PULSE 90; RESP 18; TEMP 37.2; O2SAT 98
[2020-06-08 23:26] LABS: Anti Nuclear Antibody Screen POSITIVE (NEGATIVE); Anti Nuclear Antibody Titer 1:40 titer
[2020-06-10 08:37] LABS: HBc Num1 1.16 S/CO (0.00-0.79); Hepatitis B Core Antibody Reactive (Nonreactive); ~Hepatitis A Antibody IgM Nonreactive (Nonreactive)
[2020-06-12 12:42] LABS: Smooth Muscle Antibody <20 U (<20)
== END 2020-06-08 16:46 | disposition skilled nursing facility (03) | DRG 208 ==
LOC: HO.ED 18:18 → HO.EDOVER 18:19 → HO.ICU 18:53 → HO.IMC 06-05 12:04
PROVIDERS: Anesthesiology; Internal Medicine; Internal Medicine Gastroenterology; Internal Medicine Nephrology; Registered Nurse Community Health; Admitting Provider Internal Medicine Pulmonary Disease; Emergency Provider Emergency Medicine; Visit Provider Internal Medicine
DX: U07.1 COVID-19 (principal); E11.10 Type 2 diabetes mellitus with ketoacidosis without coma; K85.90 Acute pancreatitis without necrosis or infection, unspecified; G93.41 Metabolic encephalopathy; J96.00 Acute respiratory failure, unspecified whether with hypoxia or hypercapnia; J69.0 Pneumonitis due to inhalation of food and vomit; N17.9 Acute kidney failure, unspecified; E87.2 Acidosis; K56.7 Ileus, unspecified; E87.0 Hyperosmolality and hypernatremia; E78.1 Pure hyperglyceridemia; D72.829 Elevated white blood cell count, unspecified; Z79.4 Long term (current) use of insulin; Z79.899 Other long term (current) drug therapy
CPT/HCPCS: 36415; 70450; 71045; 74018; 74176; 78580; 80048; 80053; 80076; 80143; 80179; 80307; 80320; 81001; 81003; 82009; 82140; 82375; 82550; 82728; 82803; 82947; 83036; 83540; 83605; 83690; 83735; 83930; 83935; 84100; 84132; 84133; 84145; 84443; 84478; 84484; 85007; 85025; 85027; 85379; 85610; 85730; 86038; 86039; 86140; 86255; 86256; 86704; 86705; 86706; 86709; 86803; 87040; 87086; 87340; 87635; 92610; 93005; 93308; 93970; 94002; 94003; 96361; 96374; 96375; 97110; 97116; 97163; 97167; 97530; 97535; 99284; 99291; 99292; A9540; J0610; J1170; J1940; J1956; J2212; J2250; J2370; J2405; J2543; J3010; J3475; J3490; P9047

== ENCOUNTER 2020-07-10 09:41 | Outpatient (REF) | payer OTHER, SELFPAY ==
[2020-07-10 10:46] LABS: MANUAL DIFF FLAG NO
[2020-07-10 11:05] LABS: Basophils Absolute Auto 0.1 X10*3/uL (0.0-0.2); Basophils Percent Auto 0.8 % (0-2); Eosinophils Absolute Auto 0.2 X10*3/uL (0.0-0.4); Eosinophils Percent Auto 2.6 % (0-4); Hemoglobin 13.1 g/dl (14.0-18.0); Imm Gran Abs Auto 0.02 X10*3/uL (0.00-0.03); Imm Gran Pct Auto 0.3 % (0.0-0.4); Immature Retic Fraction 8.6 % (2.3-13.4); Lymphocytes Absolute Auto 2.4 X10*3/uL (1.2-4.9); Lymphocytes Percent Auto 30.2 % (20-40); Mean Corpuscular HGB Conc 32.8 g/dl (31.0-36.0); Mean Corpuscular Volume 85.5 fL (80-98); Mean Platelet Volume 11.2 fL (9.4-12.4); Monocytes Absolute Auto 0.5 X10*3/uL (0.1-1.2); Monocytes Percent Auto 6.4 % (2-11); Neutrophils Absolute Auto 4.7 X10*3/uL (2.0-8.3); Neutrophils Percent Auto 59.7 % (45-73); Platelet Count 489 X10*3/uL (160-400); Red Blood Count 4.68 X10*6/uL (4.60-5.80); Red Cell Distribution Width 14.1 % (11.0-16.0); Retic HGB Equivalent 30.9 pg (30.0-35.0); Reticulocyte Percent 1.8 % (0.5-1.8); Reticulocytes Absolute 0.084 X10*6/uL (0.026-0.095); White Blood Count 7.8 X10*3/uL (4.8-10.8)
[2020-07-10 11:14] LABS: Alanine Aminotransferase 166 U/L (0-40); Albumin Level 4.8 g/dL (3.5-5.0); Alkaline Phosphatase 429 U/L (39-117); Anion Gap 13 (12-20); Aspartate Amino Transferase 102 U/L (5-37); Bilirubin Total 1.4 mg/dL (0.0-1.0); Blood Urea Nitrogen 11 mg/dL (9-16); Calcium 9.9 mg/dL (8.4-10.2); Carbon Dioxide 27 mmol/L (22-29); Chloride 104 mmol/L (96-108); Cholesterol 197 mg/dL; Estimated Glomerular Filt Rate > 60; Glucose Fasting 89 mg/dL (60-99); HDL Cholesterol 30 mg/dL; Iron 121 mcg/dL (45-160); LDL Cholesterol Calculated 143 mg/dl; Percent Iron Saturation 33 % (15-50); Potassium 4.1 mmol/L (3.3-5.1); Sodium 140 mmol/L (135-145); Total Iron Binding Capacity 366 mcg/dL (228-428); Total Protein 8.1 g/dL (6.5-8.0); Triglycerides 122 mg/dL; Unsaturated Iron Binding 245 ug/dL
[2020-07-10 11:25] LABS: Ferritin 770 ng/mL (20-250); Free T4 (Free Thyroxine) 1.11 ng/dL (0.71-1.85); Thyroid Stimulating Hormone 1.58 uIU/mL (0.32-4.0)
[2020-07-10 11:46] LABS: Vitamin B12 522 pg/mL (200-900)
== END 2020-07-10 09:42 | disposition home or self-care (01) ==
LOC: HO.LAB 09:41
PROVIDERS: PCP Internal Medicine; Visit Provider Internal Medicine
DX: D64.9 Anemia, unspecified (principal); E11.65 Type 2 diabetes mellitus with hyperglycemia
CPT/HCPCS: 36415; 80053; 80061; 82607; 82728; 82746; 83540; 84439; 84443; 85025; 85045

== ENCOUNTER 2020-07-13 09:37 | Outpatient (REF) | payer OTHER, SELFPAY ==
[2020-07-13 10:39] LABS: Creatinine Urine 159.78 mg/dL; Microalbum/Creatinine Ratio Ur 11.8 ug/mg cr
== END 2020-07-13 09:38 | disposition home or self-care (01) ==
LOC: HO.LNP 09:37
PROVIDERS: Visit Provider Internal Medicine
DX: E11.9 Type 2 diabetes mellitus without complications (principal)
CPT/HCPCS: 82043

== ENCOUNTER 2020-07-23 09:50 | Outpatient (REF) | payer OTHER, SELFPAY ==
--- NOTE | ~2020-07-23 | US_ITS ---
EXAMINATION: US ABDOMEN LIMITED CLINICAL INFORMATION: Abnormal blood test. COMPARISON: None. TECHNIQUE: Real-time imaging of the right upper quadrant abdominal viscera. FINDINGS: PANCREAS: The pancreas is partially visualized and appears unremarkable. LIVER: The liver is normal in size. The liver contour is normal.Parenchymal echogenicity is increased. No focal hepatic lesion. There is no intrahepatic biliary duct dilatation seen. GALLBLADDER: The gallbladder is distended with multiple echogenic stones. There is echogenic bile without any wall thickening or pericholecystic fluid collection. COMMON BILE DUCT: Normal in caliber measuring 0.7 cm in diameter. RIGHT KIDNEY: Normal. No hydronephrosis. No renal calculi or focal parenchymal lesions. The kidney measures 10.7 cm in maximum dimension. LEFT KIDNEY: There is normal cortical thickness. No echogenic stones, cysts or hydronephrosis seen. Left kidney measures 12.3 cm in length. The spleen is homogeneous in echotexture measuring 11.3 cm in length. FREE FLUID: None. US/US abdomen limited IMPRESSION: Diffuse hepatic steatosis without focal lesion. Gallstones in a distended gallbladder. No wall thickening. Pancreas partially visualized and appears unremarkable.
[2020-07-23 11:52] LABS: Alanine Aminotransferase 76 U/L (0-40); Albumin Level 4.9 g/dL (3.5-5.0); Alkaline Phosphatase 248 U/L (39-117); Aspartate Amino Transferase 34 U/L (5-37); Bilirubin Direct 0.3 mg/dL (0.0-0.5); Bilirubin Total 0.7 mg/dL (0.0-1.0); Cholesterol 191 mg/dL; HDL Cholesterol 33 mg/dL; LDL Cholesterol Calculated 130 mg/dl; Total Protein 8.1 g/dL (6.5-8.0); Triglycerides 143 mg/dL
[2020-07-24 08:00] LABS: HBc Num1 0.24 S/CO (0.00-0.79); Hepatitis B Core Antibody Nonreactive (Nonreactive); ~HepC Num1 0.39 S/CO (0.00-0.79); ~Hepatitis C Antibody Nonreactive (Nonreactive)
[2020-07-24 08:16] LABS: HBS Num1 > 1000.00 mIU/mL (0-7.99); HBsAGNum1 0.26 S/CO (0.00-0.99); Hepatitis B Surface Antigen Negative (Negative); ~Hepatitis B Surface Antibody REACTIVE (Nonreactive)
== END 2020-07-23 09:51 | disposition home or self-care (01) ==
LOC: HO.US 09:50
PROVIDERS: PCP Internal Medicine; Visit Provider Internal Medicine
DX: R79.89 Other specified abnormal findings of blood chemistry (principal); R94.5 Abnormal results of liver function studies; E11.9 Type 2 diabetes mellitus without complications
CPT/HCPCS: 36415; 76705; 80061; 80076; 86704; 86706; 86803; 87340

== ENCOUNTER 2020-07-24 13:59 | Outpatient (REF) | payer OTHER, SELFPAY ==
[2020-07-24 15:02] LABS: Creatinine Urine 142.49 mg/dL; Microalbum/Creatinine Ratio Ur 11.2 ug/mg cr
== END 2020-07-24 14:00 | disposition home or self-care (01) ==
LOC: HO.LNP 13:59
PROVIDERS: Referring Provider Nurse Practitioner Family; Visit Provider Internal Medicine
DX: E11.65 Type 2 diabetes mellitus with hyperglycemia (principal)
CPT/HCPCS: 82043

== ENCOUNTER → 2020-08-21 11:54 | Outpatient (BNVA) | payer OTHER, SELFPAY | PROVIDERS: PCP Internal Medicine; Visit Provider Dietitian, Registered | DX: E11.65 Type 2 diabetes mellitus with hyperglycemia (principal); Z79.4 Long term (current) use of insulin | CPT/HCPCS: 97802 ==

== ENCOUNTER → 2020-09-02 12:59 | Outpatient (BNVA) | payer OTHER, SELFPAY | PROVIDERS: PCP Internal Medicine; Visit Provider Nurse Practitioner Gerontology | DX: E11.65 Type 2 diabetes mellitus with hyperglycemia (principal); E11.42 Type 2 diabetes mellitus with diabetic polyneuropathy; I10 Essential (primary) hypertension; Z79.4 Long term (current) use of insulin | CPT/HCPCS: 82947 ==

== ENCOUNTER 2020-09-16 13:00 | Outpatient (RCR) | payer OTHER, SELFPAY ==
--- NOTE | 2020-07-30 15:30 | MHC.PT.EP ---
[facility] [place] [facility] [place] [facility] [place] [facility] [address] Ramos [place]ett[place] [address] [phone] F: [phone] F: [phone] F: [phone] F: [phone] Physical Therapy Plan of Care Date of Evaluation: Date of Surgery: Diagnosis: Diabetic shock, myopathy Assessment: The patient has reduced strength in his left leg and decreased balance with NBOS and without visual fixation. He notices decreased functional mobility and activity tolerance. He has radiculopathy in his left leg which I am suspicious of a pinched nerve in his lumbar vs true diabetic neuropathy due to his pain varies with position and time of day. The patient is an excellent candidate for skilled PT for balance retraining, LE strengthening, functional movements. If ankle strength is not improved he may benefit from an ankle Dorsiflex assist AFO. Frequency and Duration: The patient will be seen 2x/week x 4 weeks Short Term Goals: 1. Improve static balance to 2 min standing times to allow safe personal hygiene 2. Increase activity tolerance to 30 min sessions without rest break to allow improved community ambulation tolerance. 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 Pt to be able to negotiate ramps, curb height, stairs safely to show improved obstacle negotiation in the community. 2. Pt to be able to show good balance reactive strategies for fall prevention. 3. Pt to have improve active ankle DF to 4+/5 to improve toe clearance for gait. Treatment Plan: Modalities to reduce pain, spasms and effusion. Manual therapy to restore motion and function. Therapeutic exercise to improve strength and flexibility. Neuromuscular re-education for posture and balance. Therapeutic activities to return to functional activities of daily living. Electronically signed by: Evelyn Reyes PT DPT Please sign and return to therapist. Thank you for your referral.
--- NOTE | 2020-11-09 10:26 | MHC.PT.DC ---
[facility] [place] [facility] [place] Office [place] Office [address] Ramos Nett[place] 140 [facility] [phone] F: [phone] F: [phone] F: [phone] F: [phone] Physical Therapy Discharge Report Diagnosis: Diabetic shock, myopathy Date of Surgery: Date of Evaluation: 07/30/20 Date of Discharge: 11/09/20 Treatments to Date: 10 Cancellations to Date: No Shows to Date: Discharge Status: Achieved Goals Improved Function Independent with HEP Discharge Summary: The patient is showing improved activity tolerance and strength. He has continued weakness in ankle DF. He is independent with his HEP. Electronically signed by: Evelyn Reyes PT DPT Please sign and return to therapist. Thank you for your referral.
== END 2020-11-09 08:40 | disposition home or self-care (01) ==
LOC: HO.PT 13:00
PROVIDERS: PCP Internal Medicine; Visit Provider Internal Medicine
DX: G72.9 Myopathy, unspecified (principal); R29.898 Other symptoms and signs involving the musculoskeletal system
CPT/HCPCS: 97110; 97112; 97116; 97163; 97530

== ENCOUNTER → 2020-09-28 12:28 | Outpatient (BNVA) | payer OTHER, SELFPAY | PROVIDERS: PCP Internal Medicine; Visit Provider Dietitian, Registered | DX: E11.65 Type 2 diabetes mellitus with hyperglycemia (principal); Z79.4 Long term (current) use of insulin | CPT/HCPCS: 97803 ==

== ENCOUNTER → 2020-10-16 11:25 | Outpatient (BNVA) | payer OTHER, SELFPAY | PROVIDERS: PCP Internal Medicine; Visit Provider Nurse Practitioner Gerontology | DX: E11.42 Type 2 diabetes mellitus with diabetic polyneuropathy (principal); I10 Essential (primary) hypertension; Z79.4 Long term (current) use of insulin | CPT/HCPCS: 82947 ==

== ENCOUNTER 2020-10-20 11:17 | Outpatient (REF) | payer OTHER, SELFPAY ==
[2020-10-20 12:25] LABS: Anion Gap 15 (12-20); Blood Urea Nitrogen 12 mg/dL (9-16); Calcium 10.3 mg/dL (8.4-10.2); Carbon Dioxide 25 mmol/L (22-29); Chloride 103 mmol/L (96-108); Estimated Glomerular Filt Rate > 60; Glucose Fasting 80 mg/dL (60-99); Potassium 4.7 mmol/L (3.3-5.1); Sodium 138 mmol/L (135-145)
[2020-10-20 12:46] LABS: Estimated Average Glucose 128 mg/dL; Hemoglobin A1c % 6.1 %
[2020-10-22 01:07] LABS: C Peptide 0.64 ng/mL (0.80-3.85)
[2020-10-23 22:17] LABS: Glutamic acid decarboxylase Ab <5 IU/mL (<5)
[2020-10-28 01:20] LABS: Islet Cell Antibody Screen NEGATIVE (NEGATIVE)
== END 2020-10-20 11:18 | disposition home or self-care (01) ==
LOC: HO.LAB 11:17
PROVIDERS: PCP Internal Medicine; Visit Provider Nurse Practitioner Gerontology
DX: E11.65 Type 2 diabetes mellitus with hyperglycemia (principal); Z79.4 Long term (current) use of insulin
CPT/HCPCS: 36415; 80048; 83036; 84681; 86255; 86341

== ENCOUNTER 2020-10-28 11:18 | Outpatient (REF) | payer OTHER, SELFPAY ==
[2020-10-28 12:34] LABS: Albumin Level 4.8 g/dL (3.5-5.0)
[2020-10-28 12:54] LABS: Vitamin D 25-OH Total 22.4 ng/mL (>30)
[2020-10-29 10:57] LABS: Calcium, Ionized 5.2 mg/dL (4.8-5.6)
[2020-10-29 19:45] LABS: PTHI 59 pg/mL (14-64)
[2020-11-02 10:42] LABS: VITAMIN D (1,25 OH) D3 30 pg/mL; Vit D (1,25-Dihydroxy) Total 30 pg/mL (18-72); Vitamin D (1,25 OH) D2 <8 pg/mL
== END 2020-10-28 11:19 | disposition home or self-care (01) ==
LOC: HO.LAB 11:18
PROVIDERS: PCP Internal Medicine; Visit Provider Nurse Practitioner Gerontology
DX: E83.52 Hypercalcemia (principal)
CPT/HCPCS: 36415; 82040; 82306; 82330; 82652; 83970

== ENCOUNTER → 2020-12-28 12:18 | Outpatient (BNVA) | payer OTHER, SELFPAY | PROVIDERS: PCP Internal Medicine; Visit Provider Dietitian, Registered | DX: E11.65 Type 2 diabetes mellitus with hyperglycemia (principal); Z79.4 Long term (current) use of insulin | CPT/HCPCS: 97803 ==

== ENCOUNTER → 2021-04-16 13:30 | Outpatient (BNVA) | payer OTHER, SELFPAY | PROVIDERS: PCP Internal Medicine; Visit Provider Nurse Practitioner Gerontology ==

== ENCOUNTER → 2021-06-11 13:44 | Outpatient (BNVA) | payer OTHER, SELFPAY | PROVIDERS: PCP Internal Medicine; Visit Provider Registered Nurse Diabetes Educator | DX: E11.65 Type 2 diabetes mellitus with hyperglycemia (principal); Z79.4 Long term (current) use of insulin | CPT/HCPCS: 82947 ==

== ENCOUNTER → 2021-07-02 07:51 | Outpatient (BNVA) | payer OTHER, SELFPAY | PROVIDERS: PCP Internal Medicine; Visit Provider Registered Nurse Diabetes Educator | DX: E11.42 Type 2 diabetes mellitus with diabetic polyneuropathy (principal); Z71.89 Other specified counseling; Z79.4 Long term (current) use of insulin | CPT/HCPCS: 99212 ==

== ENCOUNTER → 2021-07-23 13:21 | Outpatient (BNVA) | payer OTHER, SELFPAY | PROVIDERS: PCP Internal Medicine; Visit Provider Nurse Practitioner Gerontology | DX: E11.65 Type 2 diabetes mellitus with hyperglycemia (principal); E11.42 Type 2 diabetes mellitus with diabetic polyneuropathy; I10 Essential (primary) hypertension; E55.9 Vitamin D deficiency, unspecified; R63.4 Abnormal weight loss; Z79.4 Long term (current) use of insulin; Z79.899 Other long term (current) drug therapy | CPT/HCPCS: 82947; 83036 ==

== ENCOUNTER 2021-08-09 09:10 | Outpatient (REF) | payer OTHER, SELFPAY ==
[2021-08-09 09:32] LABS: MANUAL DIFF FLAG NO
[2021-08-09 10:20] LABS: Basophils Percent Auto 0.3 % (0-2); Eosinophils Absolute Auto 0.1 X10*3/uL (0.0-0.4); Eosinophils Percent Auto 1.8 % (0-4); Hematocrit 49.8 % (42.0-52.0); Hemoglobin 16.5 g/dl (14.0-18.0); Imm Gran Abs Auto 0.02 X10*3/uL (0.00-0.03); Imm Gran Pct Auto 0.3 % (0.0-0.4); Lymphocytes Percent Auto 25.1 % (20-40); Mean Corpuscular HGB Conc 33.1 g/dl (31.0-36.0); Mean Corpuscular Hemoglobin 27.7 pg (27.0-33.0); Mean Corpuscular Volume 83.7 fL (80.0-98.0); Monocytes Absolute Auto 0.4 X10*3/uL (0.1-1.2); Monocytes Percent Auto 5.6 % (2-11); Neutrophils Absolute Auto 5.2 x10*3/uL (2.0-8.3); Neutrophils Percent Auto 66.9 % (45-73); Platelet Count 331 X10*3/uL (160-400); Red Blood Count 5.95 X10*6/uL (4.60-5.80); Red Cell Distribution Width 13.1 % (11.0-16.0); White Blood Count 7.8 X10*3/uL (4.8-10.8)
[2021-08-09 10:42] LABS: Estimated Average Glucose 131 mg/dL; Hemoglobin A1c % 6.2 %
[2021-08-09 10:56] LABS: Alanine Aminotransferase 54 U/L (0-40); Alkaline Phosphatase 76 U/L (39-117); Anion Gap 13 (12-20); Aspartate Amino Transferase 27 U/L (5-37); Blood Urea Nitrogen 16 mg/dL (9-16); Calcium 10.4 mg/dL (8.4-10.2); Carbon Dioxide 26 mmol/L (22-29); Chloride 104 mmol/L (96-108); Cholesterol 194 mg/dL; Estimated Glomerular Filt Rate > 60; Glucose Random 133 mg/dL (60-115); HDL Cholesterol 30 mg/dL; LDL Cholesterol Calculated 137 mg/dl; Potassium 5.1 mmol/L (3.3-5.1); Sodium 138 mmol/L (135-145); Total Protein 8.3 g/dL (6.5-8.0); Triglycerides 136 mg/dL
[2021-08-09 11:06] LABS: Free T4 (Free Thyroxine) 1.01 ng/dL (0.71-1.85); Thyroid Stimulating Hormone 0.85 uIU/mL (0.32-4.0)
[2021-08-09 11:50] LABS: Folate 19.2 ng/mL (> or = 4.0); Vitamin B12 480 pg/mL (200-900)
[2021-08-09 16:40] LABS: Creatinine Urine 264.56 mg/dL; Microalbum/Creatinine Ratio Ur 6.4 ug/mg cr
== END 2021-08-09 09:11 | disposition home or self-care (01) ==
LOC: HO.LAB 09:10
PROVIDERS: PCP Internal Medicine; Visit Provider Internal Medicine
DX: E78.00 Pure hypercholesterolemia, unspecified (principal); E11.65 Type 2 diabetes mellitus with hyperglycemia; I10 Essential (primary) hypertension; Z79.4 Long term (current) use of insulin
CPT/HCPCS: 36415; 80053; 80061; 82043; 82607; 82746; 83036; 84439; 84443; 85025

== ENCOUNTER 2022-02-17 06:07 | Outpatient (REF) | payer OTHER, SELFPAY ==
[2022-02-17 08:06] LABS: Alanine Aminotransferase 57 U/L (0-40); Albumin Level 4.8 g/dL (3.5-5.0); Alkaline Phosphatase 86 U/L (39-117); Anion Gap 16 (12-20); Aspartate Amino Transferase 30 U/L (5-37); Blood Urea Nitrogen 11 mg/dL (9-16); Calcium 9.7 mg/dL (8.4-10.2); Carbon Dioxide 26 mmol/L (22-29); Chloride 101 mmol/L (96-108); Cholesterol 158 mg/dL; Estimated Glomerular Filt Rate > 60; Glucose Fasting 175 mg/dL (60-99); HDL Cholesterol 31 mg/dL; LDL Cholesterol Calculated 99 mg/dl; Potassium 4.9 mmol/L (3.3-5.1); Sodium 138 mmol/L (135-145); Total Protein 7.8 g/dL (6.5-8.0); Triglycerides 144 mg/dL
[2022-02-17 08:37] LABS: Vitamin D 25-OH Total 10.1 ng/mL (>30)
[2022-02-17 16:40] LABS: Creatinine Urine 176.54 mg/dL; Microalbum/Creatinine Ratio Ur 5.6 ug/mg cr
[2022-02-19 13:37] LABS: LDL Cholesterol Direct 103 mg/dL (<100)
== END 2022-02-17 06:08 | disposition home or self-care (01) ==
LOC: HO.LAB 06:07
PROVIDERS: Nurse Practitioner Gerontology; PCP Internal Medicine; Visit Provider Internal Medicine
DX: E11.42 Type 2 diabetes mellitus with diabetic polyneuropathy (principal); E55.9 Vitamin D deficiency, unspecified; Z79.4 Long term (current) use of insulin
CPT/HCPCS: 36415; 80053; 80061; 82043; 82306; 83721

== ENCOUNTER → 2022-04-28 11:11 | Outpatient (BNVA) | payer OTHER, SELFPAY | PROVIDERS: PCP Internal Medicine; Visit Provider Registered Nurse Diabetes Educator | DX: Z13.89 Encounter for screening for other disorder (principal) ==

== ENCOUNTER 2022-06-10 11:19 | Outpatient (REF) | payer OTHER, SELFPAY ==
[2022-06-10 12:59] LABS: Estimated Average Glucose 169 mg/dL; Hemoglobin A1c % 7.5 %
[2022-06-10 13:05] LABS: Alanine Aminotransferase 57 U/L (0-40); Albumin Level 4.8 g/dL (3.5-5.0); Alkaline Phosphatase 89 U/L (39-117); Anion Gap 19 (12-20); Aspartate Amino Transferase 24 U/L (5-37); Blood Urea Nitrogen 13 mg/dL (9-16); Calcium 9.9 mg/dL (8.4-10.2); Carbon Dioxide 25 mmol/L (22-29); Chloride 101 mmol/L (96-108); Cholesterol 192 mg/dL; Estimated Glomerular Filt Rate > 60; Glucose Random 165 mg/dL (60-115); HDL Cholesterol 33 mg/dL; LDL Cholesterol Calculated 132 mg/dl; Potassium 4.6 mmol/L (3.3-5.1); Sodium 140 mmol/L (135-145); Total Protein 7.7 g/dL (6.5-8.0); Triglycerides 136 mg/dL
[2022-06-10 13:15] LABS: Free T4 (Free Thyroxine) 0.95 ng/dL (0.71-1.85); Thyroid Stimulating Hormone 0.96 uIU/mL (0.32-4.0)
[2022-06-10 16:06] LABS: Creatinine Urine 183.31 mg/dL; Microalbum/Creatinine Ratio Ur 5.4 ug/mg cr
== END 2022-06-10 11:20 | disposition home or self-care (01) ==
LOC: HO.LAB 11:19
PROVIDERS: PCP Internal Medicine; Visit Provider Internal Medicine
DX: E11.42 Type 2 diabetes mellitus with diabetic polyneuropathy (principal); E78.00 Pure hypercholesterolemia, unspecified; E11.65 Type 2 diabetes mellitus with hyperglycemia; Z79.4 Long term (current) use of insulin
CPT/HCPCS: 36415; 80053; 80061; 82043; 83036; 84439; 84443

== ENCOUNTER 2022-09-20 11:30 | Outpatient (REF) | payer OTHER, SELFPAY ==
[2022-09-20 12:14] LABS: Estimated Average Glucose 126 mg/dL
[2022-09-20 12:27] LABS: Alanine Aminotransferase 50 U/L (0-40); Albumin Level 4.8 g/dL (3.5-5.0); Alkaline Phosphatase 66 U/L (39-117); Anion Gap 11 (12-20); Aspartate Amino Transferase 23 U/L (5-37); Blood Urea Nitrogen 13 mg/dL (9-16); Calcium 9.8 mg/dL (8.4-10.2); Carbon Dioxide 26 mmol/L (22-29); Chloride 105 mmol/L (96-108); Cholesterol 147 mg/dL; Estimated Glomerular Filt Rate > 60; Glucose Random 119 mg/dL (60-115); HDL Cholesterol 32 mg/dL; LDL Cholesterol Calculated 89 mg/dl; Potassium 4.3 mmol/L (3.3-5.1); Sodium 138 mmol/L (135-145); Total Protein 8.1 g/dL (6.5-8.0); Triglycerides 131 mg/dL
== END 2022-09-20 11:31 | disposition home or self-care (01) ==
LOC: HO.LAB 11:30
PROVIDERS: PCP Internal Medicine; Visit Provider Internal Medicine
DX: E11.65 Type 2 diabetes mellitus with hyperglycemia (principal); E78.00 Pure hypercholesterolemia, unspecified; Z79.4 Long term (current) use of insulin
CPT/HCPCS: 36415; 80053; 80061; 83036

== ENCOUNTER 2022-12-30 15:52 | Outpatient (AMB) | payer OTHER, SELFPAY ==
[2022-12-30 16:01] VITALS: BP 118/74; PULSE 70; O2SAT 99; BMI 27.7
--- NOTE | 2022-12-30 16:01 | MHC.PC.OV ---
Vital Signs 12/30/22 16:01 Height 5 ft 7 in Weight 177 lb BMI 27.7 BP 118/74 Blood Pressure Location Lt brachial Position Sitting Pulse 70 Pulse Source Pulse Oximeter Pulse Oximetry (%) 99 Oxygen Delivery Method Room Air Intake Visit Reasons: DM Frame Stripper: Not Required per policy Accompanied by: Self / Same As Patient Allergies No Known Allergies Allergy (Verified 12/30/22 16:02) Medication List - Last Reconciled 12/30/22 by Arturo Lyles MD blood sugar diagnostic As directed check the blood sugars 3 times a day blood sugar diagnostic 1 strip miscellaneous TID blood-glucose meter As directed blood-glucose meter (OneTouch Ultra2 Meter) As directed insulin glargine (Lantus Solostar U-100 Insulin) 12 units (0.12 mL) subcut DAILY 90 days insulin lispro (Humalog KwikPen (U-100) Insulin) 4 - 7 units (0.04 - 0.07 mL) subcut TID lancets (OneTouch UltraSoft Lancets) As directed check the blood sugar 3 times a day lancets As directed lancets (OneTouch UltraSoft Lancets) As directed check blood sugar 3 times a day lancets (OneTouch UltraSoft Lancets) As directed check blood sugar 3 times a day lisinopril 5 mg PO DAILY 90 days metformin 1,000 mg PO BIDWMEAL pen needle, diabetic (BD Ultra-Fine [place] Pen Needle) four times a day simvastatin 10 mg PO BEDTIME 90 days Tobacco use date assessed: 09/23/22 Dental Screening Dental Screen Date: 12/30/22 Did you have a dental visit in the last 12 months?: No Did you have a dental problem in the last 6 months where you did not have access to dental care?: No Was dental information given to patient?: Patient has dentist HPI DM HPI Details 37-year-old overweight male with controlled diabetes mellitus hypertension hypercholesterolemia last seen in September 2022. Patient is here for follow-up. Patient has been doing good with no nausea no vomiting no chest pains no shortness of breath no bowel bladder symptoms. Complains about sneezing a lot and nose have seasonal allergies. Uses Astepro and would like a prescription be [facility] Medical History Fatty liver Type 2 diabetes mellitus with diabetic polyneuropathy Diabetic neuropathy Cholelithiasis Fatty liver Myopathy LFT elevation Leg weakness, bilateral Anemia Type 2 diabetes mellitus with hyperglycemia Hypertension Birthmarks, pigmented Leukocytosis No active medical problems Surgical History No pertinent past surgical history Family History Maternal Grandmother Breast cancer Mother Pre-diabetes Father No problems noted. Other Cervical cancer Social History Household Members: Family Housing: Apartment Alcohol intake: current Alcohol intake frequency: a few times a month Patient Tobacco Use Status: Never used Tobacco e-Cigarette/Vaping Use: Never Used Second Hand Smoke Exposure: Yes service: No Current occupational status: employed Cognitive needs: No Hearing needs: No Vision needs: No Questionnaire PHQ-9 Over the last 2 weeks, how often have you been bothered by any of the following problems? 1. Little interest or pleasure in doing things: not at all 2. Feeling down, depressed, or hopeless: not at all 3. Trouble falling or staying asleep, or sleeping too much: not at all 4. Feeling tired or having little energy: not at all 5. Poor appetite or overeating: not at all 6. Feeling bad about yourself - or that you are a failure or have let yourself or your family down: not at all 7. Trouble concentrating on things, such as reading the newspaper or watching television: not at all 8. Moving or speaking so slowly that other people could have noticed. Or the opposite - being so fidgety or restless that you have been moving around a lot more than usual: not at all 9. Thoughts that you would be better off or of hurting yourself in some way: not at all Total score: 0 Depression Screening Interpretation: Negative 55552 - PHQ-9 Billing: Yes Source: Developed by Drs. Lm Chou, Aure Russ, Ha Conrad and colleagues, with an educational anirudh from [employer] Thrive Questionnaire Date Thrive assessed: 06/10/22 AUDIT C Alcohol Use Questionnaire (AUDIT-C) 1. How often do you have a drink containing alcohol?: 2-4 times a month 2. How many drinks containing alcohol do you have on a typical day when you are drinking?: 3 or 4 3. How often do you have six or more drinks on one occasion?: Never Total Score: 3 LENNY-7 AMB Questionnaire LENNY-7 Date LENNY - 7 assessed: 06/10/22 Source: Developed by Drs. Lm Chou, Aure Russ, Ha Conrad and colleagues, with an educational anirudh from [employer] Physical exam (Primary Care) Vital Signs: Last Vital Signs Pulse 70 12/30/22 16:01 BP 118/74 12/30/22 16:01 Pulse Ox 99 12/30/22 16:01 Oxygen Delivery Method Room Air 12/30/22 16:01 BMI result Body Mass Index 27.7 Tobacco/Smoking Status: Tobacco use Status Tobacco use date assessed 09/23/22 12/30/22 16:02 Patient Tobacco Use Status Never used Tobacco 12/30/22 16:02 e-Cigarette/Vaping Use Never Used 12/30/22 16:02 PHQ-9: PHQ-9 Score PHQ-9: Total score 0 12/30/22 16:35 Depression Screening Interpretation: Negative Thrive Assessment: Date of Thrive Assessment Date Thrive assessed 06/10/22 12/30/22 16:02 Const General: alert; No acute distress Eyes Conjunctivae: conjunctivae normal Resp Auscultation: clear to auscultation bilaterally Cardio Rate: regular rate Rhythm: regular rhythm GI Inspection: Yes normal to inspection Extrem General: Yes normal to inspection and No edema Results AMB Hemoglobin A1c AMB Hemoglobin A1c 5.9 % Last Edit by RAMIRO Deshpande on 12/30/22 16:35 Results Reviewed Results Reviewed: Laboratory Last Values Hgb A1c (Clinic) 5.9 % (4.0-6.0) 12/30/22 16:02 Assessment and Plan Assessment & Plan (1) Type 2 diabetes mellitus with hyperglycemia: Code(s): E11.65 - Type 2 diabetes mellitus with hyperglycemia Qualifiers: Diabetes mellitus correction insulin use: with correction use Qualified Code(s): E11.65 - Type 2 diabetes mellitus with hyperglycemia; Z79.4 - assistant terminal manager (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 Hemoglobin A1c goal of less than 6.5 patient is on insulin and metformin 500 mg twice a day. Hemoglobin A1c is better. Increasing metformin and decreasing the insulin continuing coverage with Humalog. (2) Hypercholesterolemia: Code(s): E78.00 - Pure hypercholesterolemia, unspecified Plan: Avoid fried foods, chicken skin, eggs, butter margarine, pastries and meat. Be it pork or beef they have a lot of cholesterol LDL goal of less than 100 September 2022 was last blood work (3) Fatty liver: Code(s): K76.0 - Fatty (change of) liver, not elsewhere classified Plan: Low-fat diet and exercise noted weight loss (4) Hypertension: Code(s): I10 - Essential (primary) hypertension Qualifiers: Hypertension type: essential hypertension Qualified Code(s): I10 - Essential (primary) hypertension Plan: Continue with blood pressure medication. Decrease salt intake and exercise patient on lisinopril 5 mg once a day Orders: Orders AMB Hemoglobin A1c Today E11.65 - Type 2 diabetes mellitus with hyperglycemia Medications: New azelastine (Astepro Allergy) administer into each nostril 2 sprays intranasal DAILY 3 ea 12RF Changed From insulin lispro (Humalog KwikPen (U-100) Insulin) 4 - 7 units (0.04 - 0.07 mL) subcut TID 15 mL 3RF E11.65 - Type 2 diabetes mellitus with hyperglycemia To insulin lispro (Humalog KwikPen (U-100) Insulin) discussed about sliding scale 4 - 7 units (0.04 - 0.07 mL) subcut TID 15 mL 3RF E11.65 - Type 2 diabetes mellitus with hyperglycemia From metformin 500 mg PO BIDWMEAL 60 tabs 5RF E11.42 - Type 2 diabetes mellitus with diabetic polyneuropathy, Z79.4 - assistant terminal manager (current) use of insulin To metformin 1,000 mg PO BIDWMEAL 180 tabs 5RF E11.42 - Type 2 diabetes mellitus with diabetic polyneuropathy, Z79.4 - assistant terminal manager (current) use of insulin From insulin glargine (Lantus Solostar U-100 Insulin) 25 units (0.25 mL) subcut DAILY 90 days 15 mL 3RF E11.65 - Type 2 diabetes mellitus with hyperglycemia To insulin glargine (Lantus Solostar U-100 Insulin) 12 units (0.12 mL) subcut DAILY 90 days 10.8 mL 3RF E11.65 - Type 2 diabetes mellitus with hyperglycemia Coding Level of Care Code Est Pt Level 4 (67761) Diagnoses Type 2 diabetes mellitus with hyperglycemia, with long-term current use of insulin E11.65; Z79.4 Diabetes mellitus oysterman insulin use: with oysterman use Hypercholesterolemia E78.00 Fatty liver K76.0 Essential hypertension I10 Hypertension type: essential hypertension
== END 2022-12-30 17:04 | disposition home or self-care (01) ==
PROVIDERS: PCP Internal Medicine; Visit Provider Internal Medicine
DX: E11.65 Type 2 diabetes mellitus with hyperglycemia (principal); Z79.4 Long term (current) use of insulin; E78.00 Pure hypercholesterolemia, unspecified; I10 Essential (primary) hypertension; K76.0 Fatty (change of) liver, not elsewhere classified
CPT/HCPCS: 83036; 99214

== ENCOUNTER 2023-04-14 11:42 | Outpatient (REF) | payer OTHER, SELFPAY | END 2023-04-14 11:43 | disposition home or self-care (01) | LOC: HO.LAB 11:42 | PROVIDERS: PCP Internal Medicine; Visit Provider Internal Medicine | DX: E11.65 Type 2 diabetes mellitus with hyperglycemia (principal); Z79.4 Long term (current) use of insulin | CPT/HCPCS: 82570 ==

== ENCOUNTER 2023-04-17 14:38 | Outpatient (AMB) | payer OTHER, SELFPAY ==
[2023-04-17 14:42] VITALS: BP 132/80; PULSE 92; O2SAT 99; BMI 26.9
--- NOTE | 2023-04-17 14:42 | MHC.PC.OV ---
Vital Signs 04/17/23 14:42 Height 5 ft 7 in Weight 172 lb 0.4 oz BMI 26.9 BP 132/80 Blood Pressure Location Lt brachial Position Sitting Pulse 92 Pulse Source Pulse Oximeter Pulse Oximetry (%) 99 Oxygen Delivery Method Room Air Intake Visit Reasons: 3 Months F/U-DM Allergies No Known Allergies Allergy (Verified 04/17/23 14:42) Tobacco use date assessed: 04/17/23 Dental Screening Dental Screen Date: 04/17/23 Did you have a dental visit in the last 12 months?: No Did you have a dental problem in the last 6 months where you did not have access to dental care?: No HPI 3 Months F/U-DM HPI Details 37-year-old overweight male with controlled diabetes mellitus hypercholesterolemia hypertension fatty liver last seen in December 2022. doing good , no n no v Latesha seen last year has been doing better and so a decrease in the insulin was done to 12 units. Patient continues to have good diabetes numbers would try half the dose and see. Otherwise no other complaints did remind about having Ophthalmology exam in which patient has not seen them. Referral to Dr. Singh done [facility] Medical History Fatty liver Type 2 diabetes mellitus with diabetic polyneuropathy Diabetic neuropathy Cholelithiasis Fatty liver Myopathy LFT elevation Leg weakness, bilateral Anemia Type 2 diabetes mellitus with hyperglycemia Hypertension Birthmarks, pigmented Leukocytosis No active medical problems Surgical History No pertinent past surgical history Family History Maternal Grandmother Breast cancer Mother Pre-diabetes Father No problems noted. Other Cervical cancer Social History Household Members: Family Housing: Apartment Alcohol intake: current Alcohol intake frequency: a few times a month Patient Tobacco Use Status: Never used Tobacco e-Cigarette/Vaping Use: Never Used Second Hand Smoke Exposure: Yes service: No Current occupational status: employed Cognitive needs: No Hearing needs: No Vision needs: No Questionnaire Thrive Questionnaire Date Thrive assessed: 04/17/23 LENNY-7 AMB Questionnaire LENNY-7 Date LENNY - 7 assessed: 04/17/23 Source: Developed by Drs. Lm Chou, Aure Russ, Ha Conrad and colleagues, with an educational anirudh from [email or web address]. Physical exam (Primary Care) Vital Signs: Last Vital Signs Pulse 92 04/17/23 14:42 BP 132/80 04/17/23 14:42 Pulse Ox 99 04/17/23 14:42 Oxygen Delivery Method Room Air 04/17/23 14:42 BMI result Body Mass Index 26.9 Tobacco/Smoking Status: Tobacco use Status Tobacco use date assessed 04/17/23 04/17/23 14:45 Patient Tobacco Use Status Never used Tobacco 04/17/23 14:45 e-Cigarette/Vaping Use Never Used 04/17/23 14:45 Thrive Assessment: Date of Thrive Assessment Date Thrive assessed 04/17/23 04/17/23 14:52 Const General: alert; No acute distress Eyes Conjunctivae: conjunctivae normal Resp Auscultation: clear to auscultation bilaterally Cardio Rate: regular rate Rhythm: regular rhythm GI Inspection: Yes normal to inspection Extrem General: Yes normal to inspection and No edema Results AMB Hemoglobin A1c AMB Hemoglobin A1c 6.1 % Last Edit by RAMIRO Robles on 04/17/23 14:59 Assessment and Plan Assessment & Plan (1) Type 2 diabetes mellitus with hyperglycemia: Code(s): E11.65 - Type 2 diabetes mellitus with hyperglycemia Qualifiers: 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 Hemoglobin A1c goal of less than 6.5. Patient on Lantus 12 units once a day and Humalog sliding scale metformin a 1000 mg twice a day. Reminded about the Ophthalmology. Decrease Lantus to 6 units once a day (2) Hypertension: Code(s): I10 - Essential (primary) hypertension Qualifiers: Hypertension type: essential hypertension Qualified Code(s): I10 - Essential (primary) hypertension Plan: Continue with blood pressure medication. Decrease salt intake and exercise continue with lisinopril 5 mg once a day (3) Hypercholesterolemia: Code(s): E78.00 - Pure hypercholesterolemia, unspecified Plan: Avoid fried foods, chicken skin, eggs, butter margarine, pastries and meat. Be it pork or beef they have a lot of cholesterol LDL goal of less than 100 and triglyceride of less than 150 patient on simvastatin 10 mg at bedtime. September 2022 last blood work Orders: Orders AMB Hemoglobin A1c Today E11.65 - Type 2 diabetes mellitus with hyperglycemia Medications: Changed From insulin glargine (Lantus Solostar U-100 Insulin) 12 units (0.12 mL) subcut DAILY 90 days 10.8 mL 3RF E11.65 - Type 2 diabetes mellitus with hyperglycemia To insulin glargine (Lantus Solostar U-100 Insulin) 6 units (0.06 mL) subcut DAILY 5.4 mL 3RF 90 days E11.65 - Type 2 diabetes mellitus with hyperglycemia Coding Level of Care Code Est Pt Level 4 (17616) Diagnoses Type 2 diabetes mellitus with hyperglycemia, with long-term current use of insulin E11.65; Z79.4 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
== END 2023-04-17 15:02 | disposition home or self-care (01) ==
PROVIDERS: PCP Internal Medicine; Visit Provider Internal Medicine
DX: E11.65 Type 2 diabetes mellitus with hyperglycemia (principal); Z79.4 Long term (current) use of insulin; I10 Essential (primary) hypertension; E78.00 Pure hypercholesterolemia, unspecified
CPT/HCPCS: 83036; 99214

== ENCOUNTER 2023-07-25 15:26 | Outpatient (AMB) | payer OTHER, SELFPAY ==
[2023-07-25 15:30] VITALS: BP 114/72; PULSE 104; O2SAT 98; BMI 26.9
--- NOTE | 2023-07-25 15:30 | MHC.PC.OV ---
Vital Signs 07/25/23 15:30 Height 5 ft 7 in Weight 172 lb BMI 26.9 BP 114/72 Blood Pressure Location Lt brachial Position Sitting Pulse 104 H Pulse Source Pulse Oximeter Pulse Oximetry (%) 98 Oxygen Delivery Method Room Air Intake Visit Reasons: DM Allergies No Known Allergies Allergy (Verified 07/25/23 15:30) Tobacco use date assessed: 07/25/23 Dental Screening Dental Screen Date: 07/25/23 Did you have a dental visit in the last 12 months?: No Did you have a dental problem in the last 6 months where you did not have access to dental care?: No Was dental information given to patient?: No HPI DM HPI Details 38-year-old male with controlled diabetes mellitus hypertension hypercholesterolemia last seen in April 2023. Patient is here for follow-up. Patient has been doing fine otherwise no nausea no vomiting no chest pains no shortness a breath no bowel bladder symptoms. Noted scalp mass and concern about it this has been going on for months but always forgets about it. [facility] Medical History Fatty liver Type 2 diabetes mellitus with diabetic polyneuropathy Diabetic neuropathy Cholelithiasis Fatty liver Myopathy LFT elevation Leg weakness, bilateral Anemia Type 2 diabetes mellitus with hyperglycemia Hypertension Birthmarks, pigmented Leukocytosis No active medical problems Surgical History No pertinent past surgical history Family History Maternal Grandmother Breast cancer Mother Pre-diabetes Father No problems noted. Other Cervical cancer Social History Household Members: Family Housing: Apartment Alcohol intake: current Alcohol intake frequency: a few times a month Patient Tobacco Use Status: Never used Tobacco e-Cigarette/Vaping Use: Never Used Second Hand Smoke Exposure: Yes service: No Current occupational status: employed Cognitive needs: No Hearing needs: No Vision needs: No Questionnaire PHQ-9 Over the last 2 weeks, how often have you been bothered by any of the following problems? 1. Little interest or pleasure in doing things: not at all 2. Feeling down, depressed, or hopeless: not at all 3. Trouble falling or staying asleep, or sleeping too much: not at all 4. Feeling tired or having little energy: not at all 5. Poor appetite or overeating: not at all 6. Feeling bad about yourself - or that you are a failure or have let yourself or your family down: not at all 7. Trouble concentrating on things, such as reading the newspaper or watching television: not at all 8. Moving or speaking so slowly that other people could have noticed. Or the opposite - being so fidgety or restless that you have been moving around a lot more than usual: not at all 9. Thoughts that you would be better off or of hurting yourself in some way: not at all Total score: 0 Depression Screening Interpretation: Negative Depression Screening Done: Yes 07889 - PHQ-9 Billing: Yes Source: Developed by Drs. Lm Chou, Aure Russ, Ha Conrad and colleagues, with an educational anirudh from [employer]. Thrive Questionnaire Date Thrive assessed: 07/25/23 I am a: Patient What is your living situation today?: I have a steady place to live Within the past 12 months, did the food you bought not last and you didn't have the money to get more?: Never true Within the past 12 months, did you worry whether your food would run out before you got money to buy more?: Never true Do you have trouble paying for medicines?: No Do you have trouble getting transportation to medical appointments?: No Do you have trouble paying your heating and electricity bill?: No Do you have trouble taking care of your child, family member or friend?: No Do you have trouble with day-to-day activities such as bathing, preparing meals, shopping, managing finances, etc.?: No Are you currently unemployed and looking for a job?: No Are you interested in more education?: No Currently or been in a relationship where the following occur: no concerns reported THRIVE Score: 0 AUDIT C Alcohol Use Questionnaire (AUDIT-C) 1. How often do you have a drink containing alcohol?: 2-4 times a month 2. How many drinks containing alcohol do you have on a typical day when you are drinking?: 3 or 4 3. How often do you have six or more drinks on one occasion?: Never Total Score: 3 LENNY-7 AMB Questionnaire LENNY-7 Date LENNY - 7 assessed: 07/25/23 Feeling nervous, anxious, or on edge: 0 = Not at all Not being able to stop or control worryin = Not at all Worrying too much about different things: 0 = Not at all Trouble relaxin = Not at all Being so restless that it is hard to sit still: 0 = Not at all Becoming easily annoyed or irritable: 0 = Not at all Feeling afraid as if something awful might happen: 0 = Not at all Total LENNY-7 score (0-4 normal; 5-9 mild; 10-14 moderate; 15-21 severe): 0 Source: Developed by Drs. Lm Chou, Aure Russ, Ha Conrad and colleagues, with an educational anirudh from [employer]. Physical exam (Primary Care) Vital Signs: Last Vital Signs Pulse 104 H 07/25/23 15:30 BP 114/72 07/25/23 15:30 Pulse Ox 98 07/25/23 15:30 Oxygen Delivery Method Room Air 07/25/23 15:30 BMI result Body Mass Index 26.9 Tobacco/Smoking Status: Tobacco use Status Tobacco use date assessed 07/25/23 07/25/23 15:34 Patient Tobacco Use Status Never used Tobacco 07/25/23 15:31 e-Cigarette/Vaping Use Never Used 07/25/23 15:31 PHQ-9: PHQ-9 Score PHQ-9: Total score 0 07/25/23 16:15 Depression Screening Interpretation: Negative Thrive Assessment: Date of Thrive Assessment Date Thrive assessed 07/25/23 07/25/23 15:34 Currently or been in a relationship where the following occur: no concerns reported Const General: alert; No acute distress [facility] Head images: 1. 3 cm rounded scalp mass noted Eyes Conjunctivae: conjunctivae normal Resp Auscultation: clear to auscultation bilaterally Cardio Rate: regular rate Rhythm: regular rhythm GI Inspection: Yes normal to inspection Extrem General: Yes normal to inspection and No edema Results AMB Hemoglobin A1c AMB Hemoglobin A1c 6.3 % Last Edit by Draa Gaffney CMA on 07/25/23 15:55 Results Reviewed Results Reviewed: Laboratory Last Values Hgb A1c (Clinic) 6.3 % (4.0-6.0) H 07/25/23 15:34 Assessment and Plan Assessment & Plan (1) Overweight (BMI 25.0-29.9): Code(s): E66.3 - Overweight Plan: Diet and exercise (2) Type 2 diabetes mellitus with hyperglycemia: Code(s): E11.65 - Type 2 diabetes mellitus with hyperglycemia Qualifiers: 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 Hemoglobin A1c goal of less than 6.5. Patient on insulin metformin (3) Hypercholesterolemia: Code(s): E78.00 - Pure hypercholesterolemia, unspecified Plan: Avoid fried foods, chicken skin, eggs, butter margarine, pastries and meat. Be it pork or beef they have a lot of cholesterol LDL goal of less than 100 and triglyceride of less than 150 on simvastatin 10 mg once a day (4) Hypertension: Code(s): I10 - Essential (primary) hypertension Qualifiers: Hypertension type: essential hypertension Qualified Code(s): I10 - Essential (primary) hypertension Plan: Continue with blood pressure medication. Decrease salt intake and exercise takes lisinopril 5 mg once a day. (5) Scalp mass: Code(s): R22.0 - Localized swelling, mass and lump, head Plan: Referral to surgeon as well as will do a CT scan of the head Orders: Orders AMB Hemoglobin A1c Today Z13.9 - Encounter for screening, unspecified Comprehensive Met. 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 Vitamin B12 and Folate 3 Months E11.65 - Type 2 diabetes mellitus with hyperglycemia, Z79.4 - prison (current) use of insulin Creatinine Urine 3 Months E11.65 - Type 2 diabetes mellitus with hyperglycemia, Z79.4 - prison (current) use of insulin CT head/brain wo IV con Today M89.8X8 - Other specified disorders of bone, other site Creatinine Today R22.0 - Localized swelling, mass and lump, head Complete Blood Count Auto Diff 3 Months E11.65 - Type 2 diabetes mellitus with hyperglycemia, Z79.4 - prison (current) use of insulin Lipid Panel 3 Months E11.65 - Type 2 diabetes mellitus with hyperglycemia, E78.00 - Pure hypercholesterolemia, unspecified, Z79.4 - prison (current) use of insulin Thyroid Stimulating Hormone 3 Months E11.65 - Type 2 diabetes mellitus with hyperglycemia, Z79.4 - prison (current) use of insulin Microalbumin, Random (w Creat) 3 Months E11.65 - Type 2 diabetes mellitus with hyperglycemia, Z79.4 - prison (current) use of insulin CT head/brain w IV con Today R22.0 - Localized swelling, mass and lump, head Blood Urea Nitrogen Today R22.0 - Localized swelling, mass and lump, head Referrals General Surgery Referral M89.8X8 - Other specified disorders of bone, other site Coding Level of Care Code Est Pt Level 4 (94052) Diagnoses Overweight (BMI 25.0-29.9) E66.3 Type 2 diabetes mellitus with hyperglycemia, with long-term current use of insulin E11.65; Z79.4 Diabetes mellitus [facility] insulin use: with [facility] use Hypercholesterolemia E78.00 Essential hypertension I10 Hypertension type: essential hypertension Scalp mass R22.0
== END 2023-07-25 16:26 | disposition home or self-care (01) ==
PROVIDERS: PCP Internal Medicine; Visit Provider Internal Medicine
DX: E11.65 Type 2 diabetes mellitus with hyperglycemia (principal); Z79.4 Long term (current) use of insulin; E66.3 Overweight; E78.00 Pure hypercholesterolemia, unspecified; I10 Essential (primary) hypertension; R22.0 Localized swelling, mass and lump, head
CPT/HCPCS: 83036; 99214

== ENCOUNTER 2023-09-11 10:46 | Outpatient (REF) | payer OTHER, SELFPAY ==
[2023-09-11 11:03] LABS: MANUAL DIFF FLAG NO
[2023-09-11 12:21] LABS: Basophils Percent Auto 0.4 % (0-2); Eosinophils Absolute Auto 0.2 X10*3/uL (0.0-0.4); Eosinophils Percent Auto 2.5 % (0-4); Hematocrit 46.2 % (42.0-52.0); Hemoglobin 15.7 g/dl (14.0-18.0); Imm Gran Abs Auto 0.03 X10*3/uL (0.00-0.03); Imm Gran Pct Auto 0.3 % (0.0-0.4); Lymphocytes Absolute Auto 2.5 X10*3/uL (1.2-4.9); Lymphocytes Percent Auto 26.3 % (20-40); Mean Corpuscular Hemoglobin 28.7 pg (27.0-33.0); Mean Corpuscular Volume 84.5 fL (80.0-98.0); Mean Platelet Volume 11.1 fL (9.4-12.4); Monocytes Absolute Auto 0.9 X10*3/uL (0.1-1.2); Monocytes Percent Auto 9.1 % (2-11); Neutrophils Absolute Auto 5.9 x10*3/uL (2.0-8.3); Neutrophils Percent Auto 61.4 % (45-73); Platelet Count 314 X10*3/uL (160-400); Red Blood Count 5.47 X10*6/uL (4.60-5.80); White Blood Count 9.6 X10*3/uL (4.8-10.8)
[2023-09-11 12:49] LABS: Alanine Aminotransferase 93 U/L (0-40); Albumin Level 4.7 g/dL (3.5-5.0); Alkaline Phosphatase 65 U/L (39-117); Anion Gap 15 (12-20); Aspartate Amino Transferase 48 U/L (5-37); Bilirubin Total 0.6 mg/dL (0.0-1.0); Blood Urea Nitrogen 11 mg/dL (9-16); Calcium 9.7 mg/dL (8.4-10.2); Carbon Dioxide 25 mmol/L (22-29); Chloride 103 mmol/L (96-108); Cholesterol 153 mg/dL (<200); Estimated Glomerular Filt Rate > 60; Glucose Random 178 mg/dL (60-115); HDL Cholesterol 29 mg/dL (>40); LDL Cholesterol Calculated 87 mg/dL (<100); Potassium 4.1 mmol/L (3.3-5.1); Sodium 139 mmol/L (135-145); Total Protein 7.5 g/dL (6.5-8.0); Triglycerides 189 mg/dL (<150)
[2023-09-11 12:53] LABS: Creatinine Urine 211.36 mg/dL; Microalbum/Creatinine Ratio Ur 6.6 ug/mg cr (<30)
[2023-09-11 13:09] LABS: Free T4 (Free Thyroxine) 1.13 ng/dL (0.71-1.85)
[2023-09-11 13:16] LABS: Folate 12.4 ng/mL (> or = 4.0); Vitamin B12 438 pg/mL (200-900)
== END 2023-09-11 10:47 | disposition home or self-care (01) ==
LOC: HO.LAB 10:46
PROVIDERS: PCP Internal Medicine; Visit Provider Internal Medicine
DX: E11.65 Type 2 diabetes mellitus with hyperglycemia (principal); E78.00 Pure hypercholesterolemia, unspecified; Z79.4 Long term (current) use of insulin
CPT/HCPCS: 36415; 80053; 80061; 82043; 82570; 82607; 82746; 84439; 84443; 85025

== ENCOUNTER 2023-09-27 08:08 | Outpatient (AMB) | payer OTHER, SELFPAY ==
--- NOTE | 2023-09-27 08:12 | A.OFFVIS_ITS ---
Intake Visit Reasons: Scalp Mass Intake Note: Patient referred for scalp mass. Present for 1yr. Patient c/o: mass has been enlarging. 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 Accompanied by: Mother Allergies No Known Allergies Allergy (Verified 09/27/23 08:28) Medication List - Last Reconciled 09/27/23 by Shayan Bain MD azelastine (Astepro Allergy) 2 sprays intranasal DAILY blood sugar diagnostic As directed check the blood sugars 3 times a day blood sugar diagnostic 1 strip miscellaneous TID blood-glucose meter As directed blood-glucose meter (OneTouch Ultra2 Meter) As directed insulin glargine (Lantus Solostar U-100 Insulin) 6 units (0.06 mL) subcut DAILY 90 days insulin lispro (Humalog KwikPen (U-100) Insulin) 4 - 7 units (0.04 - 0.07 mL) subcut TID lancets (OneTouch UltraSoft Lancets) As directed check the blood sugar 3 times a day lancets As directed lancets (OneTouch UltraSoft Lancets) As directed check blood sugar 3 times a day lancets (OneTouch UltraSoft Lancets) As directed check blood sugar 3 times a day lisinopril 5 mg PO DAILY 90 days metformin 1,000 mg PO BIDWMEAL pen needle, diabetic (BD Ultra-Fine Sarah Beth Pen Needle) four times a day simvastatin 10 mg PO BEDTIME 90 days HPI Comments Details: Patient presents with his mother. He has a scalp cyst/Pilar cyst which he has had many years time . It is increased in size,, become symptomatic. Patient like to have removed. He has no such lesions elsewhere. Chart was reviewed and patient evaluate [facility] Medical History Fatty liver Type 2 diabetes mellitus with diabetic polyneuropathy Diabetic neuropathy Cholelithiasis Fatty liver Myopathy LFT elevation Leg weakness, bilateral Anemia Type 2 diabetes mellitus with hyperglycemia Hypertension Birthmarks, pigmented Leukocytosis No active medical problems Surgical History No pertinent past surgical history Family History Maternal Grandmother Breast cancer Mother Pre-diabetes Father No problems noted. Other Cervical cancer Social History Household Members: Family Housing: Apartment Alcohol intake: current Alcohol intake frequency: a few times a month Patient Tobacco Use Status: Never used Tobacco e-Cigarette/Vaping Use: Never Used Second Hand Smoke Exposure: Yes service: No Current occupational status: employed Cognitive needs: No Hearing needs: No Vision needs: No Physical Exam HEENT Other: Proximally 3 x 2 cm large pilar cyst of the frontal aspect midline scalp Risks, benefits, alternatives of excision of pilar cyst of scalp were reviewed the patient and his mother and included but not limited to bleeding, infection, recurrence, numbness, pain, scarring the patient wished to proceed. All questions answered. Office Procedures Excision Details: After appropriate positioning, patient underwent 1% lidocaine and Betadine prep and longitudinal incision was made over this large approximately 3 x 2 cm Pilar cyst. It was uneventfully enucleated and sent to pathology. Wound was irrigated, secured hemostasis, and closed using interrupted 2-0 Prolene sutures followed by bacitracin. Patient tolerated procedure well. 40944-Eamejryl scalp/neck/hands/feet/genitalia 2.1cm-3cm Procedure code (CPT) selection complete Office Meds lidocaine 1 %-epinephrine 1:100,000 injection solution Performing Provider: Shayan Bain MD [place]forming Location[place] [facility] [place] [facility] Administered by: Shayan Bain MD on 09/27/23 08:26 Dose Route Admin Location Dispensed Lot Number Expiration Date [facility] Instrument Setter 10 mL Infiltration 10 mL Assessment & Plan Assessment & Plan (1) Pilar cyst of scalp: Code(s): L72.11 - Pilar cyst Category: Surgical Plan: Patient has been given local instructions including bacitracin each day, may shower, Tylenol and Motrin p.r.n. pain, and we will see me as directed or p.r.n.. All questions answered. Orders: Orders AMB Excision Today L72.11 - Pilar cyst Surgical Today L72.11 - Pilar cyst Coding Level of Care Code New Pt Level 5 (49084) Diagnoses Pilar cyst of scalp L72.11 CPT Codes Scalp/Neck/Hands/Feet/Genetalia - CPT: 61764-Nvqzaflh scalp/neck/hands/feet/genitalia 2.1cm-3cm ([id number])
== END 2023-09-27 08:27 | disposition home or self-care (01) ==
PROVIDERS: PCP Internal Medicine; Referring Provider Internal Medicine; Visit Provider Surgery
DX: L72.11 Pilar cyst (principal)
CPT/HCPCS: 11423; 99204

== ENCOUNTER 2023-09-27 08:08 | Outpatient (REF) | payer OTHER, SELFPAY | END 2023-09-27 08:09 | disposition home or self-care (01) | LOC: HO.LNP 08:08 | PROVIDERS: PCP Internal Medicine; Referring Provider Internal Medicine; Visit Provider Surgery | DX: L72.11 Pilar cyst (principal) | CPT/HCPCS: 11423; 88304; 99202 ==

== ENCOUNTER 2023-10-09 09:33 | Outpatient (AMB) | payer OTHER, SELFPAY ==
--- NOTE | 2023-10-09 09:48 | A.OFFVIS_ITS ---
Intake Visit Reasons: Scalp Mass, suture removal Intake Note: Patient here s/p cyst excision on anterior vertex scalp. Reports incision healing well. Patient c/o: itch along suture placement. 3 sutures removed without incident. Patient voiced understanding about benign results. Resident Associate Required: No Accompanied by: Self / Same As Patient Allergies No Known Allergies Allergy (Verified 10/09/23 09:50) HPI Comments Details: Patient presents for follow-up. No wound issues or complaints. Pathology benign. Sutures uneventfully removed. [facility] Medical History Fatty liver Type 2 diabetes mellitus with diabetic polyneuropathy Diabetic neuropathy Cholelithiasis Fatty liver Myopathy LFT elevation Leg weakness, bilateral Anemia Type 2 diabetes mellitus with hyperglycemia Hypertension Birthmarks, pigmented Leukocytosis No active medical problems Surgical History (Updated 10/09/23 @ 10:16 by Shayan Bain MD) Hx of surgical procedure (09/27/23) No pertinent past surgical history Family History Maternal Grandmother Breast cancer Mother Pre-diabetes Father No problems noted. Other Cervical cancer Social History Household Members: Family Housing: Apartment Alcohol intake: current Alcohol intake frequency: a few times a month Patient Tobacco Use Status: Never used Tobacco e-Cigarette/Vaping Use: Never Used Second Hand Smoke Exposure: Yes service: No Current occupational status: employed Cognitive needs: No Hearing needs: No Vision needs: No Physical Exam HEENT Other: Incision clean dry and intact healing well Assessment & Plan Assessment & Plan (1) Postop check: Code(s): Z09 - Encounter for follow-up examination after completed treatment for conditions other than malignant neoplasm Category: Surgical Plan Patient has been given local instructions, and will follow-up p.r.n.. All questions answered Coding Level of Care Code Global (12586) Diagnoses Postop check Z09
== END 2023-10-09 09:50 | disposition home or self-care (01) ==
PROVIDERS: PCP Internal Medicine; Visit Provider Surgery
DX: Z09 Encounter for follow-up examination after completed treatment for conditions other than malignant neoplasm (principal)
CPT/HCPCS: 99024

== ENCOUNTER → 2023-10-09 09:33 | Outpatient (BNVA) | payer OTHER, SELFPAY | PROVIDERS: PCP Internal Medicine; Visit Provider Surgery | DX: Z48.02 Encounter for removal of sutures (principal); Z87.2 Personal history of diseases of the skin and subcutaneous tissue; Z98.890 Other specified postprocedural states | CPT/HCPCS: 99212 ==

== ENCOUNTER 2023-12-07 14:41 | Outpatient (AMB) | payer OTHER, SELFPAY ==
[2023-12-07 14:44] VITALS: BP 120/100; PULSE 125; O2SAT 97; BMI 26.3
--- NOTE | 2023-12-07 14:44 | MHC.PC.OV ---
Vital Signs 12/07/23 14:44 Height 5 ft 7 in Weight 168 lb 4 oz BMI 26.3 BP 120/100 H Blood Pressure Location Lt brachial Position Sitting Pulse 125 H Pulse Source Pulse Oximeter Pulse Oximetry (%) 97 Oxygen Delivery Method Room Air Intake Visit Reasons: DM Rail Switch Operator Required: No Accompanied by: Self / Same As Patient Allergies No Known Allergies Allergy (Verified 12/07/23 14:44) Tobacco use date assessed: 12/07/23 Dental Screening Dental Screen Date: 12/07/23 Did you have a dental visit in the last 12 months?: No Did you have a dental problem in the last 6 months where you did not have access to dental care?: No Was dental information given to patient?: No HPI DM HPI Details 38-year-old overweight male with uncontrolled diabetes mellitus hypercholesterolemia hypertension coming in for follow-up. At that time in July had question of scalp mass in referral to the surgeon. Patient has seen the surgeon and has followed up in October excision done. Pillar cyst. concern on fast heart rate. deny any cocaine , marijuana patient has been drinking juices. Discussed concerns about diabetes with juices. [facility] Medical History (Updated 12/07/23 @ 15:37 by Arturo Lyles MD) Fatty liver Type 2 diabetes mellitus with diabetic polyneuropathy Diabetic neuropathy Cholelithiasis Fatty liver Myopathy LFT elevation Leg weakness, bilateral Anemia Type 2 diabetes mellitus with hyperglycemia Hypertension Birthmarks, pigmented Leukocytosis No active medical problems Surgical History Hx of surgical procedure (09/27/23) No pertinent past surgical history Family History Maternal Grandmother Breast cancer Mother Pre-diabetes Father No problems noted. Other Cervical cancer Social History Household Members: Family Housing: Apartment Alcohol intake: current Alcohol intake frequency: a few times a month Patient Tobacco Use Status: Never used Tobacco e-Cigarette/Vaping Use: Never Used Second Hand Smoke Exposure: Yes service: No Current occupational status: employed Cognitive needs: No Hearing needs: No Vision needs: No Questionnaire PHQ-9 Over the last 2 weeks, how often have you been bothered by any of the following problems? 1. Little interest or pleasure in doing things: not at all 2. Feeling down, depressed, or hopeless: not at all 3. Trouble falling or staying asleep, or sleeping too much: not at all 4. Feeling tired or having little energy: not at all 5. Poor appetite or overeating: not at all 6. Feeling bad about yourself - or that you are a failure or have let yourself or your family down: not at all 7. Trouble concentrating on things, such as reading the newspaper or watching television: not at all 8. Moving or speaking so slowly that other people could have noticed. Or the opposite - being so fidgety or restless that you have been moving around a lot more than usual: not at all 9. Thoughts that you would be better off or of hurting yourself in some way: not at all Total score: 0 Depression Screening Interpretation: Negative Depression Screening Done: Yes 36858 - PHQ-9 Billing: Yes Source: Developed by Drs. Lm Chou, Aure Russ, Ha Conrad and colleagues, with an educational anirudh from [employer]formerly [employer] Thrive Questionnaire Date Thrive assessed: 12/07/23 I am a: Patient What is your living situation today?: I have a steady place to live Within the past 12 months, did the food you bought not last and you didn't have the money to get more?: Never true Within the past 12 months, did you worry whether your food would run out before you got money to buy more?: Never true Do you have trouble paying for medicines?: No Do you have trouble getting transportation to medical appointments?: No Do you have trouble paying your heating and electricity bill?: No Do you have trouble taking care of your child, family member or friend?: No Do you have trouble with day-to-day activities such as bathing, preparing meals, shopping, managing finances, etc.?: No Are you currently unemployed and looking for a job?: No Are you interested in more education?: No Please select the resources that you would like help with: None Currently or been in a relationship where the following occur: No concerns reported THRIVE Score: 0 AUDIT C Alcohol Use Questionnaire (AUDIT-C) 1. How often do you have a drink containing alcohol?: 2-4 times a month 2. How many drinks containing alcohol do you have on a typical day when you are drinking?: 3 or 4 3. How often do you have six or more drinks on one occasion?: Never Total Score: 3 LENNY-7 AMB Questionnaire LENNY-7 Date LENNY - 7 assessed: 12/07/23 Feeling nervous, anxious, or on edge: 0 = Not at all Not being able to stop or control worryin = Not at all Worrying too much about different things: 0 = Not at all Trouble relaxin = Not at all Being so restless that it is hard to sit still: 0 = Not at all Becoming easily annoyed or irritable: 0 = Not at all Feeling afraid as if something awful might happen: 0 = Not at all Total LENNY-7 score (0-4 normal; 5-9 mild; 10-14 moderate; 15-21 severe): 0 Source: Developed by Drs. Lm Chou, Aure Russ, Ha Conrad and colleagues, with an educational anirudh from [employer]formerly [employer]). Physical exam (Primary Care) Vital Signs: Last Vital Signs Pulse 125 H 12/07/23 14:44 BP 120/100 H 12/07/23 14:44 Pulse Ox 97 12/07/23 14:44 Oxygen Delivery Method Room Air 12/07/23 14:44 BMI result Body Mass Index 26.3 Tobacco/Smoking Status: Tobacco use Status Tobacco use date assessed 12/07/23 12/07/23 14:52 Patient Tobacco Use Status Never used Tobacco 12/07/23 14:52 e-Cigarette/Vaping Use Never Used 12/07/23 14:52 PHQ-9: PHQ-9 Score PHQ-9: Total score 0 12/07/23 14:54 Depression Screening Interpretation: Negative Thrive Assessment: Date of Thrive Assessment Date Thrive assessed 12/07/23 12/07/23 14:52 Currently or been in a relationship where the following occur: No concerns reported Const General: alert; No acute distress Eyes Conjunctivae: conjunctivae normal Resp Auscultation: clear to auscultation bilaterally Cardio Rate: regular rate Rhythm: regular rhythm GI Inspection: Yes normal to inspection Male genitals images: 1. 1 cm yellowish mass on the penile shaft Extrem General: Yes normal to inspection and No edema Results AMB Hemoglobin A1c AMB Hemoglobin A1c 6.9 % Last Edit by RAMIRO Rashid on 12/07/23 14:56 Results Reviewed Results Reviewed: Laboratory Last Values Hgb A1c (Clinic) 6.9 % (4.0-6.0) H 12/07/23 14:53 Assessment and Plan Assessment & Plan (1) Overweight (BMI 25.0-29.9): Code(s): E66.3 - Overweight Plan: Diet and exercise (2) Type 2 diabetes mellitus with hyperglycemia: Code(s): E11.65 - Type 2 diabetes mellitus with hyperglycemia Qualifiers: Diabetes mellitus mcc insulin use: with manager terminal use Qualified Code(s): E11.65 - Type 2 diabetes mellitus with hyperglycemia; Z79.4 - termite control representative (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 Hemoglobin A1c goal of less than 6.5. Patient on Humalog and Lantus right now metformin a 1000 mg twice a day (3) Fatty liver: Code(s): K76.0 - Fatty (change of) liver, not elsewhere classified Plan: Low-fat diet and exercise (4) Hypercholesterolemia: Code(s): E78.00 - Pure hypercholesterolemia, unspecified Plan: Avoid fried foods, chicken skin, eggs, butter margarine, pastries and meat. Be it pork or beef they have a lot of cholesterol LDL goal of less than 100 and triglyceride of less than 150 on simvastatin 10 mg once a day (5) Tachycardia: Code(s): R00.0 - Tachycardia, unspecified Plan: increase oral fluids (6) Penile mass: Code(s): N48.89 - Other specified disorders of penis Plan: urology referral Orders: Orders AMB Hemoglobin A1c Today Z13.9 - Encounter for screening, unspecified Referrals Urology Referral N48.89 - Other specified disorders of penis Medications: New dapagliflozin propanediol (Farxiga) 5 mg PO DAILY 30 tabs 3RF E11.42 - Type 2 diabetes mellitus with diabetic polyneuropathy, Z79.4 - termite control representative (current) use of insulin Changed From lancets (OneTouch UltraSoft Lancets) As directed check blood sugar 3 times a day 3 boxes 3RF E11.65 - Type 2 diabetes mellitus with hyperglycemia To lancets As directed check blood sugar 3 times a day 300 ea 3RF E11.65 - Type 2 diabetes mellitus with hyperglycemia Refilled blood sugar diagnostic 1 strip miscellaneous TID 300 strips 11RF for diabetes mellitus E11.65 - Type 2 diabetes mellitus with hyperglycemia Coding Level of Care Code Est Pt Level 4 (08306) Diagnoses Overweight (BMI 25.0-29.9) E66.3 Type 2 diabetes mellitus with hyperglycemia, with long-term current use of insulin E11.65; Z79.4 Diabetes mellitus mcc insulin use: with manager terminal use Fatty liver K76.0 Hypercholesterolemia E78.00 Tachycardia R00.0 Penile mass N48.89
== END 2023-12-07 15:45 | disposition home or self-care (01) ==
PROVIDERS: PCP Internal Medicine; Visit Provider Internal Medicine
DX: E11.65 Type 2 diabetes mellitus with hyperglycemia (principal); Z79.4 Long term (current) use of insulin; E66.3 Overweight; K76.0 Fatty (change of) liver, not elsewhere classified; E78.00 Pure hypercholesterolemia, unspecified; R00.0 Tachycardia, unspecified; N48.89 Other specified disorders of penis
CPT/HCPCS: 83036; 99214

== ENCOUNTER 2024-01-10 08:19 | Outpatient (AMB) | payer OTHER, SELFPAY ==
--- NOTE | 2024-01-10 08:31 | A.OFFVIS_ITS ---
Intake Visit Reasons: penile mass Intake Note: Patient is present for penile mass Urology Medication:none Antibiotic Allergy:none Blood Thinner:none Manager Php Required: No Allergies No Known Allergies Allergy (Verified 01/10/24 08:33) HPI Comments Details: Leobardo is a pleasant male. He is a patient of Dr. Lyles. He is seen for the following urologic conditions - sebaceous cyst scrotal Scrotal sebaceous cyst Prior genital shaving Discussed trimming Will organize removal 1 cm median raphae penoscrotal junction [facility] Medical History (Updated 01/10/24 @ 09:20 by Edward Blake MD) Fatty liver Type 2 diabetes mellitus with diabetic polyneuropathy Diabetic neuropathy Cholelithiasis Fatty liver Myopathy LFT elevation Leg weakness, bilateral Anemia Type 2 diabetes mellitus with hyperglycemia Hypertension Birthmarks, pigmented Leukocytosis No active medical problems Surgical History Hx of surgical procedure (09/27/23) No pertinent past surgical history Family History Maternal Grandmother Breast cancer Mother Pre-diabetes Father No problems noted. Other Cervical cancer Social History Household Members: Family Housing: Apartment Alcohol intake: current Alcohol intake frequency: a few times a month Patient Tobacco Use Status: Never used Tobacco e-Cigarette/Vaping Use: Never Used Second Hand Smoke Exposure: Yes service: No Current occupational status: employed Cognitive needs: No Hearing needs: No Vision needs: No Review of Systems Const Denies chills and Denies fever(s) Card Reports no additional complaints and Denies syncope Resp Denies cough GI Denies abdominal pain and Denies heartburn Reports as per HPI and Denies change in libido Neuro Denies syncope Psych Denies change in libido Endo Denies change in libido Physical Exam Const General: cooperative, healthy appearing, comfortable and no acute distress Orientation/consciousness: patient oriented x3 HEENT Face and sinus: Yes normal facial exam Mouth: moist mucous membranes Neck Neck: Yes normal visual inspection, Yes full ROM and Yes trachea midline Chest Chest palpation & inspection: normal inspection of the chest Resp Effort & Inspection: normal respiratory effort, able to speak in complete sentences and no respiratory distress GI Inspection: Yes normal to inspection Back/Spine/Pelvis Cervical Spine: normal cervical lordosis Thoracic/Lumbar Spine: thoracic and lumbar spine normal to inspection Skin General skin exam: no rashes or lesions noted Neuro General: patient oriented x3, gait normal, tone normal and moves all extremities Extrem General: Yes normal to inspection and Yes capillary refill normal Assessment & Plan Assessment & Plan (1) Sebaceous cyst of scrotum: Code(s): L72.3 - Sebaceous cyst Category: Medical Plan Plan on office Procedure sebaceous cyst removal Patient Instructions: Imaging studies, laboratory and physical exam results were discussed and reviewed in detail. No major barriers to patient understanding were identified. An opportunity to ask questions regarding the treatment plan was provided. All questions were answered. The patient expressed understanding and agreement with the above treatment plan. The patient is aware they should contact our office by phone for worsening of their current condition or the appearance of new urologic symptoms. Compliance is encouraged with any medications and followup testing that is ordered. It is a privilege to participate in the urologic care of your patient. If you have any questions or concerns regarding treatment for the above conditions, or other urologic issues, please do not hesitate to contact me. The office telephone contact is [phone]. This note is constructed using voice recognition software. While every effort has been made to ensure accuracy oil expeller operator errors may have been included. Yours sincerely, Dr Edward Blake MD, [facility] - Urology Providers of Expert, Compassionate Care for the Genitourinary System Coding Level of Care Code New Pt Level 4 (18816) Diagnoses Sebaceous cyst of scrotum L72.3
== END 2024-01-10 09:21 | disposition home or self-care (01) ==
PROVIDERS: PCP Internal Medicine; Visit Provider Urology
DX: L72.3 Sebaceous cyst (principal)
CPT/HCPCS: 99204

== ENCOUNTER → 2024-01-10 08:19 | Outpatient (BNVA) | payer OTHER, SELFPAY | PROVIDERS: PCP Internal Medicine; Visit Provider Urology | DX: L72.3 Sebaceous cyst (principal) | CPT/HCPCS: 99202 ==

== ENCOUNTER 2024-02-22 09:51 | Outpatient (AMB) | payer OTHER, SELFPAY ==
--- NOTE | 2024-02-22 09:53 | MHC.OFFVIS ---
Intake Visit Reasons: sebaceous cyst removal Intake Note: Patient is present for SEBACEOUS CYST REMOVAL Urology Medication:NONE Antibiotic Allergy:NONE Blood Thinner:NONE Director Franchise Sales Required: No Allergies No Known Allergies Allergy (Verified 02/22/24 09:54) HPI Comments Details: Leobardo is a pleasant male. He is a patient of Dr. Lyles. He is seen for the following urologic conditions - sebaceous cyst scrotal Scrotal sebaceous cyst removal Scrotal sebaceous cyst Prior genital shaving Discussed trimming Will organize removal 1 cm median raphae penoscrotal junction [facility] Medical History (Updated 01/10/24 @ 09:20 by Edward Blake MD) Fatty liver Type 2 diabetes mellitus with diabetic polyneuropathy Diabetic neuropathy Cholelithiasis Fatty liver Myopathy LFT elevation Leg weakness, bilateral Anemia Type 2 diabetes mellitus with hyperglycemia Hypertension Birthmarks, pigmented Leukocytosis No active medical problems Surgical History Hx of surgical procedure (09/27/23) No pertinent past surgical history Family History Maternal Grandmother Breast cancer Mother Pre-diabetes Father No problems noted. Other Cervical cancer Social History Household Members: Family Housing: Apartment Alcohol intake: current Alcohol intake frequency: a few times a month Patient Tobacco Use Status: Never used Tobacco e-Cigarette/Vaping Use: Never Used Second Hand Smoke Exposure: Yes service: No Current occupational status: employed Cognitive needs: No Hearing needs: No Vision needs: No Review of Systems Const Denies chills and Denies fever(s) Card Reports no additional complaints and Denies syncope Resp Denies cough GI Denies abdominal pain and Denies heartburn Reports as per HPI and Denies change in libido Neuro Denies syncope Psych Denies change in libido Endo Denies change in libido Physical Exam Const General: cooperative, healthy appearing, comfortable and no acute distress Orientation/consciousness: patient oriented x3 HEENT Face and sinus: Yes normal facial exam Mouth: moist mucous membranes Neck Neck: Yes normal visual inspection, Yes full ROM and Yes trachea midline Chest Chest palpation & inspection: normal inspection of the chest Resp Effort & Inspection: normal respiratory effort, able to speak in complete sentences and no respiratory distress GI Inspection: Yes normal to inspection Back/Spine/Pelvis Cervical Spine: normal cervical lordosis Thoracic/Lumbar Spine: thoracic and lumbar spine normal to inspection Skin General skin exam: no rashes or lesions noted Neuro General: patient oriented x3, gait normal, tone normal and moves all extremities Extrem General: Yes normal to inspection and Yes capillary refill normal Office Procedures Procedure Thyroid Biopsy Procedural Documentation: PreOperative Diagnosis: Scrotal sebaceous cyst Post Operative Diagnosis: Scrotal sebaceous cyst Procedure: 1.5 cm scrotal sebaceous cyst removal Surgeon: Dr Edward Blake Anesthesia: Local Indications for procedure: Persistent scrotal sebaceous cyst Procedure: Informed consent was verified and site confirmed The testicle was prepped using Betadine swab stick 1% lidocaine was infiltrated subcutaneously below the cyst Cyst was elevated with forceps and a sharp blade used to remove the ellipse of skin that contained a cyst Once the cyst was removed closure of the skin incision was performed using interrupted 3-0 chromic sutures - 7 sutures were placed Patient tolerated procedure well CPT 05407 Results AMB Urinalysis, Automated UA Leukoctes 0 Martha/uL Last Edit by CATHERINE Noland on 02/22/24 10:08 UA Nitrite Negative Last Edit by CATHERINE Noland on 02/22/24 10:08 UA Urobilinogen 0.2 mg/dL Last Edit by CATHERINE Noland on 02/22/24 10:08 UA Protein 15 mg/dL Last Edit by CATHERINE Noland on 02/22/24 10:08 UA pH 6.0 Last Edit by CATHERINE Noland on 02/22/24 10:08 UA Blood 0 Robert/uL Last Edit by CATHERINE Noland on 02/22/24 10:08 UA Specific [place] 1.025 Last Edit by CATHERINE Noland on 02/22/24 10:08 UA Ketone Negative Last Edit by CATHERINE Noland on 02/22/24 10:08 UA Bilirubin 0 mg/dL Last Edit by CATHERINE Noland on 02/22/24 10:08 UA Glucose 1000 mg/dL Last Edit by CATHERINE Noland on 02/22/24 10:08 Results Reviewed Results Reviewed: Laboratory Last Values Urine pH (Auto) 6.0 02/22/24 10:07 Specific [place] (Auto) 1.025 02/22/24 10:07 Urine Protein (Auto) 15 mg/dL 02/22/24 10:07 Glucose (UA)(Auto) 1000 mg/dL 02/22/24 10:07 Urine Ketones (Auto) Negative 02/22/24 10:07 Urine Blood (Auto) 0 Robert/uL 02/22/24 10:07 Urine Nitrite (Auto) Negative 02/22/24 10:07 Urine Bilirubin (Auto) 0 mg/dL 02/22/24 10:07 Urine Urobilinogen (Auto) 0.2 mg/dL 02/22/24 10:07 Leukocyte Esterase (Auto) 0 Martha/uL 02/22/24 10:07 Assessment & Plan Assessment & Plan (1) Sebaceous cyst of scrotum: Code(s): L72.3 - Sebaceous cyst Category: Medical Plan P.r.n. follow-up Orders: Orders AMB Urinalysis Automated Today Z13.9 - Encounter for screening, unspecified Patient Instructions: Imaging studies, laboratory and physical exam results were discussed and reviewed in detail. No major barriers to patient understanding were identified. An opportunity to ask questions regarding the treatment plan was provided. All questions were answered. The patient expressed understanding and agreement with the above treatment plan. The patient is aware they should contact our office by phone for worsening of their current condition or the appearance of new urologic symptoms. Compliance is encouraged with any medications and followup testing that is ordered. It is a privilege to participate in the urologic care of your patient. If you have any questions or concerns regarding treatment for the above conditions, or other urologic issues, please do not hesitate to contact me. The office telephone contact is [phone]. This note is constructed using voice recognition software. While every effort has been made to ensure accuracy quality technician errors may have been included. Yours sincerely, Dr Edward Blake MD, [facility] - Urology Providers of Expert, Compassionate Care for the Genitourinary System Coding Level of Care Code Procedure Only Diagnoses Sebaceous cyst of scrotum L72.3
== END 2024-02-22 10:50 | disposition home or self-care (01) ==
PROVIDERS: PCP Internal Medicine; Visit Provider Urology
DX: L72.3 Sebaceous cyst (principal); Z13.9 Encounter for screening, unspecified
CPT/HCPCS: 11422

== ENCOUNTER → 2024-02-22 09:51 | Outpatient (BNVA) | payer OTHER, SELFPAY | PROVIDERS: PCP Internal Medicine; Visit Provider Urology | DX: L72.3 Sebaceous cyst (principal) | CPT/HCPCS: 11422; 81003 ==

== ENCOUNTER 2024-06-17 15:55 | Outpatient (AMB) | payer OTHER, SELFPAY ==
--- NOTE | 2024-06-17 16:13 | MHC.PC.OV ---
Vital Signs 06/17/24 16:14 Height 5 ft 7 in Weight 162 lb 2 oz BMI 25.4 BP 120/66 Blood Pressure Location Lt brachial Position Sitting Pulse 79 Pulse Source Pulse Oximeter Temp 97.3 F Temp Source Temporal Artery Scan Pulse Oximetry (%) 96 Oxygen Delivery Method Room Air Intake Visit Reasons: DM Intake Note: Patient is here to follow up on DM. Soldering Machine Operator Automatic Required: No Alumni Relations Officer: Not Required per policy Accompanied by: Self / Same As Patient Allergies No Known Allergies Allergy (Verified 06/17/24 16:14) Medication List - Last Reconciled 06/17/24 by Arturo Lyles MD azelastine (Astepro Allergy) 2 sprays intranasal DAILY blood sugar diagnostic As directed check the blood sugars 3 times a day blood sugar diagnostic 1 strip miscellaneous TID blood-glucose meter As directed blood-glucose meter (OneTouch Ultra2 Meter) As directed dapagliflozin propanediol (Farxiga) 5 mg PO DAILY insulin glargine (Lantus Solostar U-100 Insulin) 6 units (0.06 mL) subcut DAILY 90 days insulin lispro (Humalog KwikPen (U-100) Insulin) 4 - 7 units (0.04 - 0.07 mL) subcut TID lancets (OneTouch UltraSoft Lancets) As directed check the blood sugar 3 times a day lancets As directed lancets (OneTouch UltraSoft Lancets) As directed check blood sugar 3 times a day lancets As directed check blood sugar 3 times a day lisinopril 5 mg PO DAILY 90 days metformin 500 mg PO BIDWMEAL pen needle, diabetic (BD Ultra-Fine Sarah Beth Pen Needle) four times a day simvastatin 10 mg PO BEDTIME 90 days Tobacco use date assessed: 06/17/24 Dental Screening Dental Screen Date: 06/17/24 Did you have a dental visit in the last 12 months?: No Did you have a dental problem in the last 6 months where you did not have access to dental care?: No Was dental information given to patient?: No [facility] Medical History (Updated 01/10/24 @ 09:20 by Edward Blake MD) Fatty liver Type 2 diabetes mellitus with diabetic polyneuropathy Diabetic neuropathy Cholelithiasis Fatty liver Myopathy LFT elevation Leg weakness, bilateral Anemia Type 2 diabetes mellitus with hyperglycemia Hypertension Birthmarks, pigmented Leukocytosis No active medical problems Surgical History (Updated 06/17/24 @ 16:22 by RAMIRO Guaman) History of cystostomy Hx of surgical procedure (09/27/23) Family History Maternal Grandmother Breast cancer Mother Pre-diabetes Father No problems noted. Other Cervical cancer Social History Household Members: Family Housing: Apartment Alcohol intake: current Alcohol intake frequency: a few times a month Patient Tobacco Use Status: Never used Tobacco e-Cigarette/Vaping Use: Never Used Second Hand Smoke Exposure: Yes service: No Current occupational status: employed Cognitive needs: No Hearing needs: No Vision needs: No Questionnaire PHQ-9 Over the last 2 weeks, how often have you been bothered by any of the following problems? 1. Little interest or pleasure in doing things: not at all 2. Feeling down, depressed, or hopeless: not at all 3. Trouble falling or staying asleep, or sleeping too much: not at all 4. Feeling tired or having little energy: not at all 5. Poor appetite or overeating: not at all 6. Feeling bad about yourself - or that you are a failure or have let yourself or your family down: not at all 7. Trouble concentrating on things, such as reading the newspaper or watching television: not at all 8. Moving or speaking so slowly that other people could have noticed. Or the opposite - being so fidgety or restless that you have been moving around a lot more than usual: not at all 9. Thoughts that you would be better off or of hurting yourself in some way: not at all Total score: 0 Depression Screening Interpretation: Negative Depression Screening Done: Yes Source: Developed by Drs. Lm Chou, Aure Russ, Ha Conrad and colleagues, with an educational anirudh from [employer]. Thrive Questionnaire Date Thrive assessed: 06/17/24 I am a: Patient What is your living situation today?: I have a steady place to live Within the past 12 months, did the food you bought not last and you didn't have the money to get more?: Never true Within the past 12 months, did you worry whether your food would run out before you got money to buy more?: Never true Do you have trouble paying for medicines?: No Do you have trouble getting transportation to medical appointments?: No Do you have trouble paying your heating and electricity bill?: No Do you have trouble taking care of your child, family member or friend?: No Do you have trouble with day-to-day activities such as bathing, preparing meals, shopping, managing finances, etc.?: No Are you currently unemployed and looking for a job?: No Are you interested in more education?: No Please select the resources that you would like help with: None Currently or been in a relationship where the following occur: No concerns reported THRIVE Score: 0 AUDIT C Alcohol Use Questionnaire (AUDIT-C) 1. How often do you have a drink containing alcohol?: Monthly or less 2. How many drinks containing alcohol do you have on a typical day when you are drinking?: 3 or 4 3. How often do you have six or more drinks on one occasion?: Less than monthly Total Score: 3 LENNY-7 AMB Questionnaire LENNY-7 Date LENNY - 7 assessed: 06/17/24 Feeling nervous, anxious, or on edge: 0 = Not at all Not being able to stop or control worryin = Not at all Worrying too much about different things: 0 = Not at all Trouble relaxin = Not at all Being so restless that it is hard to sit still: 0 = Not at all Becoming easily annoyed or irritable: 0 = Not at all Feeling afraid as if something awful might happen: 0 = Not at all Total LENNY-7 score (0-4 normal; 5-9 mild; 10-14 moderate; 15-21 severe): 0 Source: Developed by Drs. Lm Chou, Aure Russ, Ha Conrad and colleagues, with an educational anirudh from [employer]. Physical exam (Primary Care) Vital Signs: Last Vital Signs Temp 97.3 F 06/17/24 16:14 Pulse 79 06/17/24 16:14 BP 120/66 06/17/24 16:14 Pulse Ox 96 06/17/24 16:14 Oxygen Delivery Method Room Air 06/17/24 16:14 BMI result Body Mass Index 25.4 Tobacco/Smoking Status: Tobacco use Status Tobacco use date assessed 06/17/24 06/17/24 16:15 Patient Tobacco Use Status Never used Tobacco 06/17/24 16:15 e-Cigarette/Vaping Use Never Used 06/17/24 16:15 PHQ-9: PHQ-9 Score PHQ-9: Total score 0 06/17/24 16:15 Depression Screening Interpretation: Negative Thrive Assessment: Date of Thrive Assessment Date Thrive assessed 06/17/24 06/17/24 16:15 Currently or been in a relationship where the following occur: No concerns reported Const General: alert; No acute distress Eyes Conjunctivae: conjunctivae normal Resp Auscultation: clear to auscultation bilaterally Cardio Rate: regular rate Rhythm: regular rhythm GI Inspection: Yes normal to inspection Extrem General: Yes normal to inspection and No edema Results AMB Hemoglobin A1c AMB Hemoglobin A1c 6.1 % Last Edit by RAMIRO Guaman on 06/17/24 16:28 Results Reviewed Results Reviewed: Laboratory Last Values Hgb A1c (Clinic) 6.1 % (4.0-6.0) H 06/17/24 16:15 Coding Level of Care Code Est Pt Level 4 (62336) Complex EM visit Add On G2211 Diagnoses Type 2 diabetes mellitus with hyperglycemia, with long-term current use of insulin E11.65; Z79.4 Diabetes mellitus alf insulin use: with alf use Essential hypertension I10 Hypertension type: essential hypertension Fatty liver K76.0 Hypercholesterolemia E78.00 Sebaceous cyst of scrotum L72.3 Assessment & Plan Assessment & Plan (1) Type 2 diabetes mellitus with hyperglycemia: Code(s): E11.65 - Type 2 diabetes mellitus with hyperglycemia Category: Medical Qualifiers: Diabetes mellitus alf insulin use: with watermelon harvesting supervisor use Qualified Code(s): E11.65 - Type 2 diabetes mellitus with hyperglycemia; Z79.4 - shelter (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 Hemoglobin A1c goal of less than 6.5. Patient on Farxiga 5 mg once a day Lantus at 6 units once a day Humalog sliding scale metformin a 1000 mg twice a day (2) Hypertension: Code(s): I10 - Essential (primary) hypertension Category: Medical Qualifiers: Hypertension type: essential hypertension Qualified Code(s): I10 - Essential (primary) hypertension Plan: Continue with blood pressure medication. Decrease salt intake and exercise on lisinopril 5 mg once a day (3) Fatty liver: Code(s): K76.0 - Fatty (change of) liver, not elsewhere classified Category: Medical Plan: Low-fat diet and exercise (4) Hypercholesterolemia: Code(s): E78.00 - Pure hypercholesterolemia, unspecified Category: Medical Plan: Avoid fried foods, chicken skin, eggs, butter margarine, pastries and meat. Be it pork or beef they have a lot of cholesterol on simvastatin LDL goal of less than 100 and triglyceride of less than 150. (5) Sebaceous cyst of scrotum: Code(s): L72.3 - Sebaceous cyst Category: Medical Plan: Status post I&D from Urology. Plan History of Present Illness The patient is 38-year-old male presenting for a follow-up regarding management of Type 2 Diabetes Mellitus, which initially showed an A1c of 6.9% improved to 6.1% on recent testing. Management includes Farxiga, alongside Lantus, Humalog, and Metformin, with dosage adjustments for Metformin due to gastrointestinal side effects. He has achieved a reduced BMI through lifestyle changes. Additional conditions include hypercholesterolemia on Simvastatin, essential hypertension, nonalcoholic fatty liver disease, cholelithiasis, and a resolved penile sebaceous cyst. Past medical interventions include an incision and drainage of the cyst by urology. Health Maintenance - Discussed goals for HbA1c <6.5% - Simvastatin for LDL cholesterol and triglyceride management - Encouraged low-fat diet and regular exercise - COVID and flu vaccination status: Up to date - Emphasized balance between caloric intake and physical activity - Discussed potential weight loss benefits in diabetes and cardiovascular risk Social History - Active engagement in exercise and weight management - Monitors nutritional intake aiming to reduce unhealthy foods, including junk food - Employs dietary modifications aligned with low-fat recommendations Review of Systems - Gastrointestinal: Reports increased bowel movements with liquid consistency due to Metformin - Genitourinary: Denies current symptoms after resolution of penile cyst - Neurology/Psychiatry: Reports increased urinary frequency, likely due to Farxiga - Endocrinology: Denies any hypoglycemic episodes; experiencing stable glucose readings Physical Exam - Cardiovascular- Heart sounds auscultated - Pulmonary- Lung sounds auscultated Results - Labs: HbA1c decreased to 6.1% from previous 6.9% - Liver function tests: Previously noted as elevated Plan The patient will continue diabetes management with Farxiga, Lantus, Humalog, and adjusted Metformin at 500 mg twice daily. Furthermore, adherence to cholesterol and blood pressure regimens is essential. Cholesterol targets will be monitored under current Simvastatin therapy, alongside a low-fat diet. A fasting blood workup in three months will include wiley metabolic and renal panels. Observance for urinary and other systemic symptoms will continue, with recommendations for balance in nutrition and exercise. Post-cyst management requires no immediate interventions. Patient was informed and verbally consented to the use of an ambient scribe for clinic note documentation during this visit. Discussion Notes I discussed with the patient the successful reduction in HbA1c and benefits of the current regimen, including the significance of reducing gastrointestinal side effects via Metformin adjustment. We reviewed the importance of blood pressure and cholesterol management and the completion of necessary laboratory tests within the given timeframe. Maintaining a balanced diet, regular exercise, and cautious risk monitoring for infections like COVID, RSV, and flu were emphasized. The patient was advised to contact his insurance company, [employer], to ensure coverage for the ophthalmology visit. Patient Instructions - Continue current diabetes medications: Farxiga, Lantus, Humalog, and adjust Metformin to 500 mg twice daily. - Maintain low-fat diet and engage in regular exercise. - Avoid late-night junk food to improve morning fasting glucose levels. - Schedule fasting blood work, including glucose, A1c, lipid panel, liver function, and urinalysis, in three months. - Contact [employer] to find a covered grounds person for diabetes-related eye care. - Remain vigilant against infections and maintain hygiene measures. - Report any recurring or new symptoms promptly. Orders: Orders Complete Blood Count Auto Diff 3 Months E11.65 - Type 2 diabetes mellitus with hyperglycemia, Z79.4 - shelter (current) use of insulin Free T4 (Free Thyroxine) 3 Months E11.65 - Type 2 diabetes mellitus with hyperglycemia, Z79.4 - shelter (current) use of insulin Hemoglobin A1c 3 Months E11.65 - Type 2 diabetes mellitus with hyperglycemia, Z79.4 - extermination inspector (current) use of insulin Thyroid Stimulating Hormone 3 Months E11.65 - Type 2 diabetes mellitus with hyperglycemia, Z79.4 - extermination inspector (current) use of insulin AMB Hemoglobin A1c Today E11.42 - Type 2 diabetes mellitus with diabetic polyneuropathy, Z79.4 - shelter (current) use of insulin Comprehensive Met. Panel 3 Months E11.65 - Type 2 diabetes mellitus with hyperglycemia, Z79.4 - shelter (current) use of insulin Creatinine Urine 3 Months E11.65 - Type 2 diabetes mellitus with hyperglycemia, Z79.4 - shelter (current) use of insulin Microalbumin, Random (w Creat) 3 Months E11.65 - Type 2 diabetes mellitus with hyperglycemia, Z79.4 - extermination inspector (current) use of insulin Lipid Panel 3 Months E11.65 - Type 2 diabetes mellitus with hyperglycemia, E78.00 - Pure hypercholesterolemia, unspecified, Z79.4 - extermination inspector (current) use of insulin Vitamin B12 and Folate 3 Months E11.65 - Type 2 diabetes mellitus with hyperglycemia, Z79.4 - shelter (current) use of insulin Medications: Changed From metformin 1,000 mg PO BIDWMEAL 180 tabs 5RF E11.42 - Type 2 diabetes mellitus with diabetic polyneuropathy, Z79.4 - shelter (current) use of insulin To metformin 500 mg PO BIDWMEAL 180 tabs 5RF E11.42 - Type 2 diabetes mellitus with diabetic polyneuropathy, Z79.4 - extermination inspector (current) use of insulin
[2024-06-17 16:14] VITALS: BP 120/66; PULSE 79; TEMP 36.3; O2SAT 96; BMI 25.4
--- OUTSIDE RECORDS SUMMARY | 2024-06-17 17:51 | XMS_ITS | Clinical Summary ---
Author Organization [facility] Facility Address [address] [place] [address] Care Team Providers Care Communications Department Chairperson Name Role Phone Unavailable Primary Care Provider Unavailabl e Social History Tobacco Use Types Packs/Day Years Used Date Smoking Tobacco: Never Assessed Sex and Gender Information Value Date Recorded Sex Assigned at Not on file Legal Sex Male 11:54 AM EST Gender Identity Not on file Sexual Orientation Not on file Plan of Treatment Health Maintenance Due Date Last Done Comments Hepatitis B Vaccine (1 of 3 - 19+ 3-dose series) 06/21/2006 Influenza Vaccine (#1) 2023 Pneumococcal Vaccine: Pediat rics (0 to 5 Years) and At-Risk Patients (6 to 64 Years) Aged Out No longer eligi ble based on patient's age to complete this topic Insurance [facility] [place] [id number] [facility]
--- OUTSIDE RECORDS SUMMARY | 2024-06-17 17:51 | XMS_ITS | Clinical Summary ---
Author Organization [facility] Address [address] [place] [address] Phone Care Team Providers Care Sales Support Specialist Name Role Phone Unavailable Primary Care Provider Unavailabl e Immunizations Immunization Administration Dates Next Due DTP 09/09/1992, 9,1987,1987,1987 Hep B, ped/adol 11/24/2000,06/11/1999 Hib (HbOC) 02/15/1989 IPV 09/09/1992, 9,1987,1987 MMR 06/11/1999,1987 Td (adult) (MBL), 2 Lf tetan us toxoid, PF, adsorbed 07/13/1999 Family History Relation Name Status Comments Brother 1 Alive Brother: Alive and well, Alive and well, Alive and well Brother 2 Alive Brother: Alive and well, Alive and well, Alive and well Brother 3 Alive Brother: Alive and well, Alive and well, Alive and well Mother Alive Mother: Alive a nd well Other Family history of Asthma Sister Alive Sister: Alive a nd well Social History Tobacco Use Types Packs/Day Years Used Date Smoking Tobacco: Never Assessed Sex and Gender Information Value Date Recorded Sex Assigned at Not on file Legal Sex Male 4:14 PM EDT Gender Identity Not on file Sexual Orientation Not on file Plan of Treatment Health Maintenance Due Date Last Done Comments DTaP,Tdap,and Td Vaccines (6 - Tdap) 07/14/1999 07/13/1999, 09/09/1992, 02/15/1989, Additional history exists Varicella Vaccines (1 of 2 - 13+ 2-dose series) 06/21/2000 Hepatitis B Vaccines (3 of 3 - 3-dose series) 01/19/2001 11/24/2000, 06/11/1999 Consider Men B Vaccine (1 of 2 - Bexsero 2-dose series) 2003 Influenza Vaccines (#1) 2023 COVID-19 Vaccine ( season) 2023 HIB Vaccines Completed 02/15/1989 IPV Vaccines Completed 09/09/1992, 05/1988, 1987, Additional history exists MMR Vaccines Completed 06/11/1999, 1987 HPV Vaccines Aged Out No longer eligi ble based on patient's age to complete this topic Hepatitis A Vaccines Aged Out No long er eligible based on patient's age to complete this topic Men B Vaccine Aged Out No longer elig ible based on patient's age to complete this topic Meningococcal Vaccine Aged Out No lm osvaldo eligible based on patient's age to complete this topic Pneumococcal Vaccine Aged Out No long er eligible based on patient's age to complete this topic
--- OUTSIDE RECORDS SUMMARY | 2024-06-17 17:51 | XMS_ITS | Encounter Summary ---
Author Organization [facility] Address [address] [place] [address] Phone Care Team Providers Care Meter/Relay Technician Name Role Phone Unavailable Primary Care Provider Unavailabl e Encounter Details Date Type Department Care Team (Late st Contact Info) Description 11/24/2016 Conversion Encounter [facility] - [address] [id number] Social History Tobacco Use Types Packs/Day Years Used Date Smoking Tobacco: Never Assessed Sex and Gender Information Value Date Recorded Sex Assigned at Not on file Legal Sex Male 4:14 PM EDT Gender Identity Not on file Sexual Orientation Not on file documented as of this encounter Plan of Treatment Not on file documented as of this encounter Visit Diagnoses Not on filedocumented in this encounter
--- OUTSIDE RECORDS SUMMARY | 2024-06-17 17:51 | XMS_ITS | Encounter Summary ---
Author Organization [facility] Address [address] [place] [address] Phone Care Team Providers Care Post Doctoral Fellow Name Role Phone Unavailable Primary Care Provider Unavailabl e Encounter Details Date Type Department Care Team (Late st Contact Info) Description 06/09/2020 Orders Only [facility] [address] [place] [address] Provider, Sarabjit, [address] [place] [id number] Social History Tobacco Use Types Packs/Day Years Used Date Smoking Tobacco: Never Assessed Sex and Gender Information Value Date Recorded Sex Assigned at Not on file Legal Sex Male 11:54 AM EST Gender Identity Not on file Sexual Orientation Not on file documented as of this encounter Plan of Treatment Not on file documented as of this encounter Procedures Procedure Name Priority Date/Time Associated Diagnosis Comments EXT RESULT ENTRY Routine 06/09/2020 documented in this encounter Results * EXT RESULT ENTRY (06/09/2020) Historical Provider LAB BLOOD ORDERABLES Екатерина l Result documented in this encounter Visit Diagnoses Not on filedocumented in this encounter
== END 2024-06-17 16:56 | disposition home or self-care (01) ==
PROVIDERS: PCP Internal Medicine; Visit Provider Internal Medicine
DX: E11.65 Type 2 diabetes mellitus with hyperglycemia (principal); Z79.4 Long term (current) use of insulin; I10 Essential (primary) hypertension; K76.0 Fatty (change of) liver, not elsewhere classified; E78.00 Pure hypercholesterolemia, unspecified; L72.3 Sebaceous cyst; E11.42 Type 2 diabetes mellitus with diabetic polyneuropathy

== ENCOUNTER → 2024-06-17 15:55 | Outpatient (BNVA) | payer OTHER, SELFPAY | PROVIDERS: PCP Internal Medicine; Visit Provider Internal Medicine | DX: E11.65 Type 2 diabetes mellitus with hyperglycemia (principal); Z79.4 Long term (current) use of insulin; I10 Essential (primary) hypertension; K76.0 Fatty (change of) liver, not elsewhere classified; E78.00 Pure hypercholesterolemia, unspecified; L72.3 Sebaceous cyst | CPT/HCPCS: 83036; 99212 ==

== ENCOUNTER 2024-09-14 09:47 | Outpatient (REF) | payer OTHER, SELFPAY ==
--- OUTSIDE RECORDS SUMMARY | 2024-09-14 09:48 | XMS_ITS | Clinical Summary ---
Author Organization [facility] Facility Address [address] [place] [address] Care Team Providers Care Press Shop Supervisor Name Role Phone Unavailable Primary Care Provider [...] - 19+ 3-dose series) 06/21/2006 Influenza Vaccine (Season Ended) 2024 Pneumococcal Vaccine: Peds ( 0 to 5 Years) and At-Risk Patients (6 to 49 Years) Aged Out No longer eligible b ased on patient's age to complete this topic Insurance [facility] [id number] [facility]
[2024-09-14 10:01] LABS: MANUAL DIFF FLAG NO
[2024-09-14 10:25] LABS: Basophils Percent Auto 0.4 % (0-2); Eosinophils Absolute Auto 0.2 X10*3/uL (0.0-0.4); Eosinophils Percent Auto 2.2 % (0-4); Hematocrit 47.1 % (42.0-52.0); Hemoglobin 15.7 g/dl (14.0-18.0); Imm Gran Abs Auto 0.02 X10*3/uL (0.00-0.03); Imm Gran Pct Auto 0.3 % (0.0-0.4); Lymphocytes Percent Auto 25.9 % (20-40); Mean Corpuscular HGB Conc 33.3 g/dl (31.0-36.0); Mean Corpuscular Hemoglobin 27.9 pg (27.0-33.0); Mean Corpuscular Volume 83.7 fL (80.0-98.0); Mean Platelet Volume 10.7 fL (9.4-12.4); Monocytes Absolute Auto 0.5 X10*3/uL (0.1-1.2); Monocytes Percent Auto 6.9 % (2-11); Neutrophils Percent Auto 64.3 % (45-73); Platelet Count 316 X10*3/uL (160-400); Red Blood Count 5.63 X10*6/uL (4.60-5.80); Red Cell Distribution Width 13.6 % (11.0-16.0); White Blood Count 7.7 X10*3/uL (4.8-10.8)
[2024-09-14 10:40] LABS: Estimated Average Glucose 157 mg/dL; Hemoglobin A1c % 7.1 % (<6.0); Total Hemoglobin (HGBA1C) 4099.0034 umol/L
[2024-09-14 10:45] LABS: Creatinine Urine 82.87 mg/dL; Microalbum/Creatinine Ratio Ur 7.2 ug/mg cr (<30)
[2024-09-14 10:59] LABS: Alanine Aminotransferase 81 U/L (0-40); Albumin Level 4.9 g/dL (3.5-5.0); Alkaline Phosphatase 91 U/L (39-117); Anion Gap 11 (12-20); Aspartate Amino Transferase 43 U/L (5-37); Bilirubin Total 0.5 mg/dL (0.0-1.0); Blood Urea Nitrogen 12 mg/dL (9-16); Calcium 9.6 mg/dL (8.4-10.2); Carbon Dioxide 29 mmol/L (22-29); Chloride 105 mmol/L (96-108); Cholesterol 142 mg/dL (<200); Estimated Glomerular Filt Rate > 60; Glucose Random 181 mg/dL (60-115); HDL Cholesterol 33 mg/dL (>40); LDL Cholesterol Calculated 90 mg/dL (<100); Potassium 4.1 mmol/L (3.3-5.1); Sodium 141 mmol/L (135-145); Total Protein 7.5 g/dL (6.5-8.0); Triglycerides 96 mg/dL (<150)
[2024-09-14 11:14] LABS: Free T4 (Free Thyroxine) 0.97 ng/dL (0.71-1.85); Thyroid Stimulating Hormone 0.95 uIU/mL (0.32-4.0)
[2024-09-14 11:21] LABS: Folate 14.8 ng/mL (> or = 4.0); Vitamin B12 425 pg/mL (200-900)
== END 2024-09-14 09:48 | disposition home or self-care (01) ==
LOC: HO.LAB 09:47
PROVIDERS: PCP Internal Medicine; Visit Provider Internal Medicine
DX: E11.65 Type 2 diabetes mellitus with hyperglycemia (principal); E78.00 Pure hypercholesterolemia, unspecified; Z79.4 Long term (current) use of insulin
CPT/HCPCS: 36415; 80053; 80061; 82043; 82570; 82607; 82746; 83036; 84439; 84443; 85025

== ENCOUNTER 2024-09-17 15:53 | Outpatient (AMB) | payer OTHER, SELFPAY ==
[2024-09-17 15:56] VITALS: BP 110/62; PULSE 85; TEMP 36.3; O2SAT 98; BMI 26.2
--- NOTE | 2024-09-17 15:56 | A.OFFPC_ITS ---
Vital Signs 09/17/24 15:56 Height 5 ft 7 in Weight 167 lb BMI 26.2 BP 110/62 Blood Pressure Location Lt brachial Position Sitting Pulse 85 Pulse Source Pulse Oximeter Temp 97.3 F Temp Source Temporal Artery Scan Pulse Oximetry (%) 98 Oxygen Delivery Method Room Air Intake Visit Reasons: DM Allergies No Known Allergies Allergy (Verified 09/17/24 15:59) Tobacco use date assessed: 09/17/24 Dental Screening Dental Screen Date: 09/17/24 Did you have a dental visit in the last 12 months?: No Did you have a dental problem in the last 6 months where you did not have access to dental care?: No Was dental information given to patient?: Patient declined [facility] Medical History Fatty liver Type 2 diabetes mellitus with diabetic polyneuropathy Diabetic neuropathy Cholelithiasis Fatty liver Myopathy LFT elevation Leg weakness, bilateral Anemia Type 2 diabetes mellitus with hyperglycemia Hypertension Birthmarks, pigmented Leukocytosis No active medical problems Surgical History History of cystostomy Hx of surgical procedure (09/27/23) Family History Maternal Grandmother Breast cancer Mother Pre-diabetes Father No problems noted. Other Cervical cancer Social History Household Members: Family Housing: Apartment Alcohol intake: current Alcohol intake frequency: a few times a month Patient Tobacco Use Status: Never used Tobacco e-Cigarette/Vaping Use: Never Used Second Hand Smoke Exposure: Yes service: No Current occupational status: employed Cognitive needs: No Hearing needs: No Vision needs: No Questionnaire PHQ-9 Over the last 2 weeks, how often have you been bothered by any of the following problems? 1. Little interest or pleasure in doing things: not at all 2. Feeling down, depressed, or hopeless: not at all 3. Trouble falling or staying asleep, or sleeping too much: not at all 4. Feeling tired or having little energy: not at all 5. Poor appetite or overeating: not at all 6. Feeling bad about yourself - or that you are a failure or have let yourself or your family down: not at all 7. Trouble concentrating on things, such as reading the newspaper or watching television: not at all 8. Moving or speaking so slowly that other people could have noticed. Or the opposite - being so fidgety or restless that you have been moving around a lot more than usual: not at all 9. Thoughts that you would be better off or of hurting yourself in some way: not at all Total score: 0 Depression Screening Interpretation: Negative Depression Screening Done: Yes Source: Developed by Drs. Lm Chou, Aure Russ, Ha Conrad and colleagues, with an educational anirudh from [employer]. Thrive Questionnaire Date Thrive assessed: 09/17/24 I am a: Patient What is your living situation today?: I choose not to answer this question Within the past 12 months, did the food you bought not last and you didn't have the money to get more?: I choose not to answer this question Within the past 12 months, did you worry whether your food would run out before you got money to buy more?: I choose not to answer this question Do you have trouble paying for medicines?: No Do you have trouble getting transportation to medical appointments?: No Do you have trouble paying your heating and electricity bill?: I choose not to answer this question Do you have trouble taking care of your child, family member or friend?: No Do you have trouble with day-to-day activities such as bathing, preparing meals, shopping, managing finances, etc.?: No Are you currently unemployed and looking for a job?: No Are you interested in more education?: Yes Please select the resources that you would like help with: None Currently or been in a relationship where the following occur: I choose not to answer THRIVE Score: 0 AUDIT C Alcohol Use Questionnaire (AUDIT-C) 1. How often do you have a drink containing alcohol?: Monthly or less 2. How many drinks containing alcohol do you have on a typical day when you are drinking?: 3 or 4 3. How often do you have six or more drinks on one occasion?: Less than monthly Total Score: 3 LENNY-7 AMB Questionnaire LENNY-7 Date LENNY - 7 assessed: 09/17/24 Feeling nervous, anxious, or on edge: 1 = Several days Not being able to stop or control worryin = Not at all Worrying too much about different things: 1 = Several days Trouble relaxin = Several days Being so restless that it is hard to sit still: 0 = Not at all Becoming easily annoyed or irritable: 0 = Not at all Feeling afraid as if something awful might happen: 0 = Not at all Total LENNY-7 score (0-4 normal; 5-9 mild; 10-14 moderate; 15-21 severe): 3 Source: Developed by Drs. Lm Chou, Aure Russ, Ha Conrad and colleagues, with an educational anirudh from [employer]. Physical exam (Primary Care) Vital Signs: Last Vital Signs Temp 97.3 F 09/17/24 15:56 Pulse 85 09/17/24 15:56 BP 110/62 09/17/24 15:56 Pulse Ox 98 09/17/24 15:56 Oxygen Delivery Method Room Air 09/17/24 15:56 BMI result Body Mass Index 26.2 Tobacco/Smoking Status: Tobacco use Status Tobacco use date assessed 09/17/24 09/17/24 16:01 Patient Tobacco Use Status Never used Tobacco 09/17/24 16:01 e-Cigarette/Vaping Use Never Used 09/17/24 16:01 PHQ-9: PHQ-9 Score PHQ-9: Total score 0 09/17/24 16:27 Depression Screening Interpretation: Negative Thrive Assessment: Date of Thrive Assessment Date Thrive assessed 09/17/24 09/17/24 16:01 Currently or been in a relationship where the following occur: I choose not to answer Const General: alert; No acute distress Eyes Conjunctivae: conjunctivae normal Resp Auscultation: clear to auscultation bilaterally Cardio Rate: regular rate Rhythm: regular rhythm GI Inspection: Yes normal to inspection Extrem General: Yes normal to inspection and No edema Coding Level of Care Code Est Pt Level 4 (38902) Complex EM visit Add On G2211 Diagnoses Type 2 diabetes mellitus with hyperglycemia, with long-term current use of insulin E11.65; Z79.4 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 Essential hypertension I10 Hypertension type: essential hypertension Hypercholesterolemia E78.00 Fatty liver K76.0 Assessment & Plan Assessment & Plan (1) Type 2 diabetes mellitus with hyperglycemia: Code(s): E11.65 - Type 2 diabetes mellitus with hyperglycemia Category: Medical Qualifiers: Diabetes mellitus long-term insulin use: with termite control technician use Qualified Code(s): E11.65 - Type 2 diabetes mellitus with hyperglycemia; 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 Hemoglobin A1c goal of less than 6.5. Patient on Farxiga Lantus at 6 units once a day Humalog sliding scale metformin is 500 mg twice a day (2) Hypertension: Code(s): I10 - Essential (primary) hypertension Category: Medical Qualifiers: Hypertension type: essential hypertension Qualified Code(s): I10 - Essential (primary) hypertension Plan: Continue with blood pressure medication. Decrease salt intake and exercise patient takes lisinopril 5 mg once a day (3) Hypercholesterolemia: Code(s): E78.00 - Pure hypercholesterolemia, unspecified Category: Medical Plan: Avoid fried foods, chicken skin, eggs, butter margarine, pastries and meat. Be it pork or beef they have a lot of cholesterol LDL goal of less than 100 and triglyceride of less than 150 patient is simvastatin 10 mg once a day (4) Fatty liver: Code(s): K76.0 - Fatty (change of) liver, not elsewhere classified Category: Medical Plan: Low-fat diet and exercise Plan History of Present Illness The patient is a 39-year-old male presenting with a follow-up for chronic conditions such as diabetes mellitus, essential hypertension, cholelithiasis, hepatic steatosis, and hypercholesterolemia. He reports a recent increment in his hemoglobin A1c from 6.1 in June to 7.1, reflecting a deterioration in glycemic control. Despite efforts with dietary management, late-night snacking remains an issue. Blood work indicates elevated liver enzymes consistent with hepatic steatosis, although his LDL cholesterol remains well-controlled at 90. The patient is on a comprehensive medication regimen to address his multiple conditions and has not experienced hypoglycemic episodes. He mentions watery stools potentially linked to Metformin use. Health Maintenance - Encouraged a low-fat diet and regular exercise - Recommended eye examination to monitor for diabetic retinopathy - Discussed the importance of maintaining optimal lipid levels with Simvastatin - Advised glycemic control with a target hemoglobin A1c of less than 6.5 - Blood pressure management goals set with Lisinopril Social History - Reports late-night eating habits contributing to elevated blood sugars - Experiences watery stools with current low-fiber diet - Negative response regarding [employer] duty participation due to time commitment Review of Systems - Gastrointestinal: Reports watery stools - Endocrine: Reports fluctuating blood sugar; denies hypoglycemic episodes - Dermatological: Denies changes in birthmark size or appearance Physical Exam Results - Labs: Normal blood count, normal electrolytes, elevated liver enzymes - Hemoglobin A1c: Increased from 6.1 to 7.1 - LDL Cholesterol: 90 - Urine Analysis: No proteinuria Plan Management adjustments include increasing Farxiga to help improve glycemic control due to an elevated hemoglobin A1c. Lipid control with Simvastatin remains effective, and the current regimen is sustained. Emphasis on low-fat diet and exercise is part of managing hepatic steatosis. Lisinopril for blood pressure management will continue. Dietary modifications focusing on increased fiber intake are advised for bowel regularity. No additional bowel medications are planned. An eye exam for diabetic retinopathy monitoring is advised. Administrative support for [employer] duty exemption was provided. Follow-up is planned to evaluate these interventions. Patient was informed and verbally consented to the use of an ambient scribe for clinic note documentation during this visit. Discussion Notes During our discussion, I informed the patient of the need to increase the Farxiga dosage to improve his glycemic control, given the rise in A1c levels. I emphasized the benefits of this adjustment in potentially decreasing his insulin dependency, while also touching on the importance of maintaining a balanced diet and consistent exercise routine. We acknowledged the satisfactory management of LDL cholesterol levels with Simvastatin. I took time to explain the necessity of an eye exam to monitor for potential diabetic retinopathy, an essential part of diabetes management. Additionally, we addressed the symptoms of watery stools, likely linked to Metformin, and suggested a dietary approach focusing on fiber intake. The patient was counseled on his recent [employer] duty notification, for which I agreed to provide a letter of exemption. Consent was given for the discussed treatments and management strategies. Patient Instructions - Increase Farxiga dose to 10 mg as prescribed. - Continue current medications: Lantus, Humalog, Metformin, Lisinopril, Simvastatin. - Follow a low-fat diet and maintain regular exercise. - Incorporate more fiber-rich foods into your diet. - Schedule an eye exam to check for diabetic retinopathy. - Monitor for hypoglycemic symptoms and report if they occur. - Contact if any new symptoms or side effects occur. - Bring any jury duty communications to the next visit for discussion and support. 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
== END 2024-09-17 16:38 | disposition home or self-care (01) ==
LOC: HO.HMCH 15:54
PROVIDERS: PCP Internal Medicine; Visit Provider Internal Medicine
DX: E11.65 Type 2 diabetes mellitus with hyperglycemia (principal); Z79.4 Long term (current) use of insulin; I10 Essential (primary) hypertension; E78.00 Pure hypercholesterolemia, unspecified; K76.0 Fatty (change of) liver, not elsewhere classified

== ENCOUNTER → 2024-09-17 15:53 | Outpatient (BNVA) | payer OTHER, SELFPAY | PROVIDERS: PCP Internal Medicine; Visit Provider Internal Medicine | DX: E11.65 Type 2 diabetes mellitus with hyperglycemia (principal); E11.42 Type 2 diabetes mellitus with diabetic polyneuropathy; I10 Essential (primary) hypertension; E78.00 Pure hypercholesterolemia, unspecified; K76.0 Fatty (change of) liver, not elsewhere classified; Z79.4 Long term (current) use of insulin; Z79.84 Long term (current) use of oral hypoglycemic drugs | CPT/HCPCS: 99212 ==

== ENCOUNTER 2025-01-16 14:03 | Outpatient (AMB) | payer OTHER, SELFPAY ==
--- NOTE | 2025-01-16 14:10 | MHC.PC.OV ---
Vital Signs 01/16/25 14:11 Height 5 ft 7 in Weight 155 lb 8 oz BMI 24.4 BP 116/68 Blood Pressure Location Lt brachial Position Sitting Pulse 73 Pulse Source Pulse Oximeter Temp 97.3 F Temp Source Temporal Artery Scan Pulse Oximetry (%) 98 Oxygen Delivery Method Room Air Intake Visit Reasons: DM Allergies No Known Allergies Allergy (Verified 01/16/25 14:14) Medication List - Last Reconciled 01/16/25 by Arturo Lyles MD azelastine (Astepro Allergy) 2 sprays intranasal DAILY blood sugar diagnostic As directed check the blood sugars 3 times a day blood sugar diagnostic 1 strip miscellaneous TID blood-glucose meter As directed blood-glucose meter ([employer] Ultra2 Meter) As directed dapagliflozin propanediol 10 mg PO DAILY 3 months insulin glargine (Lantus Solostar U-100 Insulin) 6 units (0.06 mL) subcut DAILY 90 days insulin lispro (Humalog KwikPen (U-100) Insulin) 4 - 7 units (0.04 - 0.07 mL) subcut TID lancets (OneTouch UltraSoft Lancets) As directed check the blood sugar 3 times a day lancets As directed lancets (OneTouch UltraSoft Lancets) As directed check blood sugar 3 times a day lancets As directed check blood sugar 3 times a day lisinopril 5 mg PO DAILY 90 days metformin 500 mg PO BIDWMEAL pen needle, diabetic four times a day simvastatin 10 mg PO BEDTIME 90 days Tobacco use date assessed: 01/16/25 Dental Screening Dental Screen Date: 01/16/25 Did you have a dental visit in the last 12 months?: No Did you have a dental problem in the last 6 months where you did not have access to dental care?: No Was dental information given to patient?: No [facility] Medical History Fatty liver Type 2 diabetes mellitus with diabetic polyneuropathy Diabetic neuropathy Cholelithiasis Fatty liver Myopathy LFT elevation Leg weakness, bilateral Anemia Type 2 diabetes mellitus with hyperglycemia Hypertension Birthmarks, pigmented Leukocytosis No active medical problems Surgical History History of cystostomy Hx of surgical procedure (09/27/23) Family History Maternal Grandmother Breast cancer Mother Pre-diabetes Father No problems noted. Other Cervical cancer Social History Household Members: Family Housing: Apartment Alcohol intake: current Alcohol intake frequency: a few times a month Patient Tobacco Use Status: Never used Tobacco e-Cigarette/Vaping Use: Never Used Second Hand Smoke Exposure: Yes service: No Current occupational status: employed Cognitive needs: No Hearing needs: No Vision needs: No Questionnaire PHQ-9 Over the last 2 weeks, how often have you been bothered by any of the following problems? 1. Little interest or pleasure in doing things: not at all 2. Feeling down, depressed, or hopeless: not at all 3. Trouble falling or staying asleep, or sleeping too much: not at all 4. Feeling tired or having little energy: not at all 5. Poor appetite or overeating: not at all 6. Feeling bad about yourself - or that you are a failure or have let yourself or your family down: not at all 7. Trouble concentrating on things, such as reading the newspaper or watching television: not at all 8. Moving or speaking so slowly that other people could have noticed. Or the opposite - being so fidgety or restless that you have been moving around a lot more than usual: not at all 9. Thoughts that you would be better off or of hurting yourself in some way: not at all Total score: 0 Depression Screening Interpretation: Negative Depression Screening Done: Yes Source: Developed by Drs. Lm Chou, Aure Russ, Ha Conrad and colleagues, with an educational anirudh from [employer]. Thrive Questionnaire Date Thrive assessed: 09/16/24 I am a: Patient What is your living situation today?: I choose not to answer this question Within the past 12 months, did the food you bought not last and you didn't have the money to get more?: I choose not to answer this question Within the past 12 months, did you worry whether your food would run out before you got money to buy more?: I choose not to answer this question Do you have trouble paying for medicines?: No Do you have trouble getting transportation to medical appointments?: No Do you have trouble paying your heating and electricity bill?: I choose not to answer this question Do you have trouble taking care of your child, family member or friend?: No Do you have trouble with day-to-day activities such as bathing, preparing meals, shopping, managing finances, etc.?: No Are you currently unemployed and looking for a job?: No Are you interested in more education?: Yes Please select the resources that you would like help with: None Currently or been in a relationship where the following occur: I choose not to answer THRIVE Score: 0 AUDIT C Alcohol Use Questionnaire (AUDIT-C) 1. How often do you have a drink containing alcohol?: Monthly or less 2. How many drinks containing alcohol do you have on a typical day when you are drinking?: 3 or 4 3. How often do you have six or more drinks on one occasion?: Never Total Score: 2 LENNY-7 AMB Questionnaire LENNY-7 Date LENNY - 7 assessed: 09/17/24 Feeling nervous, anxious, or on edge: 1 = Several days Not being able to stop or control worryin = Not at all Worrying too much about different things: 1 = Several days Trouble relaxin = Several days Being so restless that it is hard to sit still: 0 = Not at all Becoming easily annoyed or irritable: 0 = Not at all Feeling afraid as if something awful might happen: 0 = Not at all Total LENNY-7 score (0-4 normal; 5-9 mild; 10-14 moderate; 15-21 severe): 3 Source: Developed by Drs. Lm Chou, Aure Russ, Ha Conrad and colleagues, with an educational anirudh from [employer]. Physical exam (Primary Care) Vital Signs: Last Vital Signs Temp 97.3 F 01/16/25 14:11 Pulse 73 01/16/25 14:11 BP 116/68 01/16/25 14:11 Pulse Ox 98 01/16/25 14:11 Oxygen Delivery Method Room Air 01/16/25 14:11 BMI result Body Mass Index 24.4 Tobacco/Smoking Status: Tobacco use Status Tobacco use date assessed 01/16/25 01/16/25 14:16 Patient Tobacco Use Status Never used Tobacco 01/16/25 14:16 e-Cigarette/Vaping Use Never Used 01/16/25 14:16 PHQ-9: PHQ-9 Score PHQ-9: Total score 0 01/16/25 17:06 Depression Screening Interpretation: Negative Thrive Assessment: Date of Thrive Assessment Date Thrive assessed 09/16/24 01/16/25 14:16 Currently or been in a relationship where the following occur: I choose not to answer Const General: alert; No acute distress Eyes Conjunctivae: conjunctivae normal Resp Auscultation: clear to auscultation bilaterally Cardio Rate: regular rate Rhythm: regular rhythm GI Inspection: Yes normal to inspection Extrem General: Yes normal to inspection and No edema Office Procedures Flu Questionnaire Does the patient have a severe egg allergy?: No Does the patient have severe life threatening allergies?: No Does the patient have a fever or illness today?: No Has the patient ever had Guillain-Corning Syndrome?: No Has the patient ever had any past reaction to a flu shot?: No Results AMB Hemoglobin A1c AMB Hemoglobin A1c 6.6 % Last Edit by Rachelle Carreno CMA on 01/16/25 14:22 Immunizations Fluarix [id number] (PF) 45 mcg (15 mcg x 3)/0.5 mL IM syringe Performing Provider: Arturo Lyles MD [place] [facility] [place] [facility] Administered by: Rachelle Carreno CMA on 01/16/25 14:22 Dose Route Admin Location Dispensed Lot Number Expiration Date NDC Inspector And Mender 0.5 mL IM Left Deltoid 0.5 mL [id number] 10/07/25 [id number] [facility] V[facility] Given Date VIS Provided VIS Publication Date 01/16/25 Single Vaccine 24 Eligibility Eligibility Date Funding Source Not [facility] Eligible 01/16/25 Private Results Reviewed Results Reviewed: Laboratory Last Values Hgb A1c (Clinic) 6.6 % (4.0-6.0) H 01/16/25 14:16 Coding Level of Care Code Est Pt Level 4 (48362) Complex EM visit Add On G2211 Diagnoses Type 2 diabetes mellitus with hyperglycemia, with long-term current use of insulin E11.65; Z79.4 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: with termite renewal inspector use Hypercholesterolemia E78.00 Essential hypertension I10 Hypertension type: essential hypertension Fatty liver K76.0 Assessment & Plan Assessment & Plan (1) Type 2 diabetes mellitus with hyperglycemia: Code(s): E11.65 - Type 2 diabetes mellitus with hyperglycemia Category: Medical Qualifiers: Diabetes mellitus nursing home insulin use: with nursing home use Qualified Code(s): E11.65 - Type 2 diabetes mellitus with hyperglycemia; Z79.4 - correction (current) use of insulin Plan: Patient is advised to eat healthy, keep well hydrated, keep active and have adequate sleep. Hemoglobin A1c goal of less than 6.5. Patient is on Lantus 6 units once a day Humalog 4-7 sliding scale metformin 500 mg twice a day and Farxiga 10 mg once a day (2) Hypercholesterolemia: Code(s): E78.00 - Pure hypercholesterolemia, unspecified Category: Medical Plan: Avoid fried foods, chicken skin, eggs, butter margarine, pastries and meat. Be it pork or beef they have a lot of cholesterol LDL goal of less than 100 and triglyceride of less than 150 on simvastatin 10 (3) Hypertension: Code(s): I10 - Essential (primary) hypertension Category: Medical Qualifiers: Hypertension type: essential hypertension Qualified Code(s): I10 - Essential (primary) hypertension Plan: Continue with blood pressure medication. Decrease salt intake and exercise taking lisinopril 5 mg once a day (4) Fatty liver: Code(s): K76.0 - Fatty (change of) liver, not elsewhere classified Category: Medical Plan: Low-fat diet and exercise Plan History of Present Illness The patient is a 39-year-old male presenting for a follow-up visit. The patient has a history of cholelithiasis, hypertension, diabetes mellitus, and hypercholesterolemia. He has experienced a 12-pound weight loss since his last visit. His last blood work on September 14 showed normal blood count, electrolytes, and renal function, with a hemoglobin A1c of 6.6 and elevated liver enzymes. The patient has fatty liver disease, and his LDL cholesterol is 90 mg/dL. The patient is currently on Lantus, Humalog, metformin, simvastatin, lisinopril, and Farxiga for his conditions. He follows a no-fat diet and engages in exercise. 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 He reports eating less and has not experienced hypoglycemia. Health Maintenance - Vaccinations: Received flu shot - Lifestyle: Advised on no-fat diet and exercise Social History - Employment: Works night shifts, which may affect eating habits and physical activity Review of Systems - Endocrine: Reports no episodes of hypoglycemia Physical Exam - General: Body mass index is 24, previously 26-27 Results - Labs: Normal blood count, electrolytes, renal function; hemoglobin A1c 6.6; elevated liver enzymes - Cholesterol: LDL 90 mg/dL Plan Patient was informed and verbally consented to the use of an ambient scribe for clinic note documentation during this visit. 1. Diabetes Mellitus The patient's hemoglobin A1c is currently 6.6, with a goal of less than 6.5. He is on Lantus, Humalog, metformin, and Farxiga, and reports no episodes of hypoglycemia. The plan is to continue current medications and monitor blood glucose levels, with no additional medications desired by the patient. 2. Hypertension The patient is currently taking lisinopril 5 mg once daily for blood pressure management. Blood pressure is reported as fine, with no changes to the current regimen. 3. Hypercholesterolemia The patient's LDL cholesterol is 90 mg/dL, with a goal of less than 100 mg/dL. He is on simvastatin 10 mg daily, and the plan is to maintain the current regimen. 4. Fatty Liver Disease The patient has elevated liver enzymes and a diagnosis of fatty liver disease. Lifestyle modifications include a no-fat diet and exercise. Discussion Notes During the visit, we discussed the management of diabetes mellitus, hypertension, hypercholesterolemia, and fatty liver disease. The patient is advised to continue current medications and lifestyle modifications, including a no-fat diet and exercise. We also discussed the importance of monitoring blood glucose levels and maintaining blood pressure and cholesterol within target ranges. Patient Instructions - Continue taking all prescribed medications as directed. - Follow a no-fat diet and engage in regular exercise. - Monitor blood glucose levels regularly and report any significant changes. - Schedule follow-up appointment in four months. Orders: Orders AMB Hemoglobin A1c Today Z13.9 - Encounter for screening, unspecified Influenza [id number] Immunization Today Z23 - Encounter for immunization Referrals Ophthalmology Referral E11.65 - Type 2 diabetes mellitus with hyperglycemia, Z79.4 - correction (current) use of insulin
[2025-01-16 14:11] VITALS: BP 116/68; PULSE 73; TEMP 36.3; O2SAT 98; BMI 24.4
== END 2025-01-16 14:59 | disposition home or self-care (01) ==
LOC: HO.HMCH 14:04
PROVIDERS: PCP Internal Medicine; Visit Provider Internal Medicine
DX: E11.65 Type 2 diabetes mellitus with hyperglycemia (principal); Z79.4 Long term (current) use of insulin; E78.00 Pure hypercholesterolemia, unspecified; I10 Essential (primary) hypertension; K76.0 Fatty (change of) liver, not elsewhere classified; Z23 Encounter for immunization; Z13.9 Encounter for screening, unspecified

== ENCOUNTER → 2025-01-16 14:03 | Outpatient (BNVA) | payer OTHER, SELFPAY | PROVIDERS: PCP Internal Medicine; Visit Provider Internal Medicine | DX: E11.65 Type 2 diabetes mellitus with hyperglycemia (principal); E78.00 Pure hypercholesterolemia, unspecified; I10 Essential (primary) hypertension; K76.0 Fatty (change of) liver, not elsewhere classified; Z23 Encounter for immunization; Z79.4 Long term (current) use of insulin; Z79.84 Long term (current) use of oral hypoglycemic drugs; Z79.899 Other long term (current) drug therapy | CPT/HCPCS: 83036; 90471; 90656; 99212 ==